=== PATIENT | male | born 1945 | race Caucasian/White ===

== ENCOUNTER → 2017-01-21 | Outpatient (CLI) | payer BC ==
[~2017-01-21] MED LIST: AMLO-110 PO; ASPI81TA28 PO; ATOR-24 PO; BROM0.0911 OPR; CARV12.5 PO; CEPH-571 PO; CHLO1LIQ21 PO; CHOL2000 PO; CLEAR LAX PO; CYAN100020 PO; DEXT30TA7 PO; FLUT27.5 NAE; GLIM1TAB2 PO; HYZ/10015 PO; LEVO100T PO; LORA0.5T12 PO; METF-383 PO; NTRGSL/4 UT; NVLGI7030 SC; PANT1TAB48 PO; PANT20TA2 PO; PRED1SUS3 OPR; PSYL0.524 PO; SILD100T PO; SIMV40TA4 PO; TRAZ100T29 PO
[2017-01-21 12:18] LABS: HEMATOCRIT 45.5 % (42-52); MEAN CELL VOLUME 89.6 fL (80-100); MEAN CORPUSCULAR HEMOGLOBIN 29.5 pg (25-34); MEAN PLATELET VOLUME 10.1 fL (7.4-10.4); PLATELET COUNT 186 K/uL (130-400); RED BLOOD COUNT 5.08 M/uL (4.7-6.1); WHITE BLOOD COUNT 8.88 K/uL (4.8-10.8)
[2017-01-21 12:25] LABS: URINE APPEARANCE CLEAR (CLEAR); URINE BILIRUBIN NEG (NEG); URINE COLOR YELLOW; URINE NITRITE NEG (NEG); URINE PH 6.5 (4.5-7.5); URINE SPECIFIC GRAVITY 1.016 (1.000-1.030); UROBILINOGEN NEG (NEG)
[2017-01-21 12:30] LABS: MANUAL MICROSCOPIC REQUIRED? NO; REVIEW REQ? NO
[2017-01-21 12:37] LABS: BLOOD UREA NITROGEN 22 mg/dl (7-18); BUN/CREATININE RATIO 26.9 (10-20); CALCIUM 9.5 mg/dl (8.5-10.1); CARBON DIOXIDE 27 mmol/L (21-32); CHLORIDE 105 mmol/L (98-107); GLUCOSE 208 mg/dl (70-99); POTASSIUM 4.1 mmol/L (3.5-5.1); SODIUM 142 mmol/L (136-145)
[2017-01-21 12:38] LABS: PHOSPHORUS 2.7 mg/dl (2.5-4.9)
[2017-01-21 12:53] LABS: URINE PROTIEN/CREAT RATIO 1.1 (0-0.2); URINE TOTAL PROTEIN 69.7 mg/dl (0-11.9)
== END | disposition home or self-care (01) ==
LOC: C.LABBFT 09:17
PROVIDERS: ATTEND Internal Medicine Nephrology
DX: I12.9 Hypertensive chronic kidney disease with stage 1 through stage 4 chronic kidney disease, or unspecified chronic kidney disease (principal); R80.9 Proteinuria, unspecified; E55.9 Vitamin D deficiency, unspecified; N18.2 Chronic kidney disease, stage 2 (mild); R60.9 Edema, unspecified

== ENCOUNTER → 2017-04-12 | Outpatient (CLI) | payer BC ==
[2017-04-12 13:19] LABS: ESTIMATED AVERAGE GLUCOSE 166 mg/dl; HA1C FLAG Normal (Normal)
[2017-04-12 13:24] LABS: THYROID STIMULATING HORMONE 1.26 uIu/ml (0.300-4.500)
== END | disposition home or self-care (01) ==
LOC: C.LABBFT 10:03
PROVIDERS: ATTEND Internal Medicine
DX: E03.9 Hypothyroidism, unspecified (principal); E11.49 Type 2 diabetes mellitus with other diabetic neurological complication

== ENCOUNTER → 2017-06-29 | Day surgery (SDC) | payer BC ==
[2017-06-15 11:50] VITALS: Ht 172.7 cm; Wt 95.5 kg
[~2017-06-29] VITALS: Ht 172.7 cm; Wt 95.5 kg
[~2017-06-29] MED LIST changes: +ATROPINE SULFATE 0.1 MG/ML 5ML SYR IV PRN; -BROM0.0911 OPR; +EpHEDrine SULFATE INJ 50 MG/ML AMP IV PRN; -FLUT27.5 NAE; +LIDOCAINE HCL 2% 2 ML VIAL (20MG/ML) ONE; -LORA0.5T12 PO; +MIDAZOLAM HCL 1 MG/ML 2ML VIAL ONE; +ONDANSETRON INJ 2 MG/ML 2 ML VIAL ONE; +PANT20TA PO; -PANT20TA2 PO; -PRED1SUS3 OPR; +PROPOFOL IV EMULSION 10 MG/ML 20 ML VIAL IV ONE; -PSYL0.524 PO; -SIMV40TA4 PO; +SODIUM CHLORIDE 0.9% 500ML 500 ML IV ONE; -TRAZ100T29 PO
--- NOTE | 2017-06-29 09:01 | Endo History and Physical ---
History & Physical Date of Service: Jun 29, 2017. Chief Complaint: Screening, hx polyps Referring Physician: Dao Ryan History of Present Illness 71 yo CM who presents for colonoscopy secondary to history of colon polyps. Past Surgical History Hx Cardiac Surgery: Yes (LT CAROTID ENDARTERECTOMY) Hx Internal Defibrillator: No Hx Pacemaker: No Hx Abdominal Surgery: Yes (UMBILICAL HERNIA REPAIR) Hx of Implantable Prosthesis: No Hx Post-Op Nausea and Vomiting: No Hx Cancer Surgery: No Hx Thoracic Surgery: No Hx Orthopedic: Yes (LT WRIST SURGERY S/P BREAK) Hx Urinary Tract Surgery: No Family History None Social History Smoking Status: Never Smoker Hx Substance Use: No Hx Alcohol Use: No Allergies Coded Allergies: Gadolinium (Verified Allergy, Severe, ANAPHYLAXIS, 06/15/17) Iodinated Diagnostic Agents (Verified Allergy, Severe, ANAPHYLAXIS, ) THROAT SWELLING AFTER RECEIVING IDONATED CONTRAST MEDIA Current Medications Reported Home Medications Medications Dose Route/Sig Max Daily Dose Days Date Category Dose Instructions Robitussin Nighttime Coug 1-7.5 mg/5Ml (Chlorpheniramine-Dm) 1 Liq Liq 1 Dose PO UD PRN 06/15/17 Reported Lipitor (Atorvastatin Calcium) 40 Mg Tab 40 Mg PO HS 06/15/17 Reported [Clear Lax] 1 Tbs PO DAILY PRN 06/15/17 Reported Glimepiride 1 Mg Tab 1 Tab PO QAM 06/15/17 Reported Mucinex Dm (Dextromethorphan-Guaifenesin) 1 Tab Tab 1 Tab PO Q12 PRN 10/01/16 Reported Vitamin D3 (Cholecalciferol) 2,000 Unit Cap 1 Cap PO DAILY AT LUNCH 10/01/16 Reported Vitamin B12 (Cyanocobalamin) 1,000 Mcg Tab 1 Tab PO DAILY AT LUNCH 10/01/16 Reported Viagra (Sildenafil Citrate) 100 Mg Tab 100 Mg PO PRN 10/01/16 Reported Novolog Mix 70/30 (Insulin Aspart Prota 70%/Aspart 30%) Susp 45 Units SC BID 10/01/16 Reported Norvasc (Amlodipine Besylate) 5 Mg Tab 5 Mg PO QAM 04/17/16 Reported Hyzaar 25MG/100MG (HCTZ/Losartan Potassium) Tab 1 Tab PO LUNCH 04/17/16 Reported Nitrostat (Nitroglycerin) 0.4 Mg Tab 0.4 Mg UT PRN PRN 11/14/13 Reported Protonix (Pantoprazole) 40 Mg Tab 40 Mg PO HS 08/22/13 Reported Glucophage (Metformin Hcl) 850 Mg Tab 850 Mg PO BIDM 08/22/13 Reported Synthroid (Levothyroxine Sodium) 100 Mcg Tab 100 Mcg PO 6XWK 08/22/13 Reported PT DOES NOT TAKE ON WEDNESDAY Coreg (Carvedilol) 12.5 Mg Tab 12.5 Mg PO BIDM 08/22/13 Reported Aspirin Ec (Aspirin) 81 Mg Tab 81 Mg PO HS 08/22/13 Reported Vital Signs Weight (Kilograms): 95.45 Height (Feet): 5 Height (Inches): 8 Physical Exam General Appearance: WD/WN, no apparent distress Respiratory/Chest: Auscultation: breath sounds normal Cardiovascular: Heart Auscultation: RRR Abdomen: Bowel Sounds: normal Inspection & Palpation: soft, non-distended, no tenderness, guarding & rebound Assessment and Plan Assessment: 71 yo CM who presents for colonoscopy secondary to history of colon polyps. Plan: Proceed with colonoscopy.
--- NOTE | 2017-06-29 09:42 | Discharge Instructions ---
Endoscopy Patient Instructions Date / Procedure(s) Performed Jun 29, 2017. Colonoscopy Allergy Information Coded Allergies: Gadolinium (Verified Allergy, Severe, ANAPHYLAXIS, 06/15/17) Iodinated Diagnostic Agents (Verified Allergy, Severe, ANAPHYLAXIS, ) THROAT SWELLING AFTER RECEIVING IDONATED CONTRAST MEDIA Discharge Date / Findings Jun 29, 2017. Colon polyps Rectal polyps Internal hemorrhoids Medication Instructions Stopped Medication(s): Metformin, Glimiperide OK to resume all medications today as prescribed Reported Home Medications Medications Dose Route/Sig Max Daily Dose Days Date Category Dose Instructions Robitussin Nighttime Coug 1-7.5 mg/5Ml (Chlorpheniramine-Dm) 1 Liq Liq 1 Dose PO UD PRN 06/15/17 Reported Lipitor (Atorvastatin Calcium) 40 Mg Tab 40 Mg PO HS 06/15/17 Reported [Clear Lax] 1 Tbs PO DAILY PRN 06/15/17 Reported Glimepiride 1 Mg Tab 1 Tab PO QAM 06/15/17 Reported Mucinex Dm (Dextromethorphan-Guaifenesin) 1 Tab Tab 1 Tab PO Q12 PRN 10/01/16 Reported Vitamin D3 (Cholecalciferol) 2,000 Unit Cap 1 Cap PO DAILY AT LUNCH 10/01/16 Reported Vitamin B12 (Cyanocobalamin) 1,000 Mcg Tab 1 Tab PO DAILY AT LUNCH 10/01/16 Reported Viagra (Sildenafil Citrate) 100 Mg Tab 100 Mg PO PRN 10/01/16 Reported Novolog Mix 70/30 (Insulin Aspart Prota 70%/Aspart 30%) Susp 45 Units SC BID 10/01/16 Reported Norvasc (Amlodipine Besylate) 5 Mg Tab 5 Mg PO QAM 04/17/16 Reported Hyzaar 25MG/100MG (HCTZ/Losartan Potassium) Tab 1 Tab PO LUNCH 04/17/16 Reported Nitrostat (Nitroglycerin) 0.4 Mg Tab 0.4 Mg UT PRN PRN 11/14/13 Reported Protonix (Pantoprazole) 40 Mg Tab 40 Mg PO HS 08/22/13 Reported Glucophage (Metformin Hcl) 850 Mg Tab 850 Mg PO BIDM 08/22/13 Reported Synthroid (Levothyroxine Sodium) 100 Mcg Tab 100 Mcg PO 6XWK 08/22/13 Reported PT DOES NOT TAKE ON WEDNESDAY Coreg (Carvedilol) 12.5 Mg Tab 12.5 Mg PO BIDM 08/22/13 Reported Aspirin Ec (Aspirin) 81 Mg Tab 81 Mg PO HS 08/22/13 Reported Provider Instructions Activity Restrictions - No exercising or heavy lifting for 24 hours. - Do not drink alcohol the day of the procedure. - Do not drive a car or operate machinery until the day after the procedure. - Do not make any important decisions or sign important papers in 24 hours after the procedure. Following Day: - Return to full activity which may include returning to work/school. Diet Start your diet with liquids and light foods (jello, soup, juice, toast). Then eat your usual diet if not nauseated. Treatment For Common After Affects For mild abdominal pain, bloating, or excessive gas: - Rest - Eat lightly - Lie on right side Follow-Up Information Follow-up with Dao Ryan as scheduled Anesthesia Information What You Should Know You have had a procedure that required some medicine to reduce anxiety and discomfort. This treatment is called moderate sedation. After receiving the treatment, you may be sleepy, but you will be able to breathe on your own. The effects of the treatment may last for several hours. Follow these instructions along with Activity/Diet recommendations noted above: * Do NOT do anything where dizziness or clumsiness would be dangerous. * Rest quietly at home today, then you can be up and about tomorrow. * Have a responsible person stay with you the rest of today. * You may have had an I.V. today. If so, you may take the dressing off later today. Recommendations Call your doctor if: * Trouble breathing * Continuous vomiting for more than 24 hours * Temperature above 101 degrees * Severe abdominal pain or bloating * Pain not relieved by pain medicine ordered * There is increased drainage or redness from any incision * A large amount of rectal bleeding greater than 2-3 tablespoons. (If you had a polyp/s removed or have hemorrhoids, a small amount of blood - from the rectum is to be expected.) * You have any unanswered questions or concerns. IN THE EVENT OF A SERIOUS EMERGENCY, GO TO THE NEAREST EMERGENCY ROOM Your discharge instructions were prepared by provider Husam Jain. Patient Instructions Signature Page Calvin Reyez Patient (or Guardian) Signature/Date: I have read and understand the instructions given to me by my caregivers. Caregiver/RN/Doctor Signature/Date: The above-named patient and/or guardian has received patient instructions on this date. + Original Patient Signature Page (only) stays with chart. Please make copy for patient.
--- NOTE | 2017-06-29 09:52 | GI REPORT ---
Procedure Date: 06/29/2017 9:03 AM Procedure: Colonoscopy Indications: High risk colon cancer surveillance: Personal history of colonic polyps Medicines: Monitored Anesthesia Care Complications: No immediate complications. Estimated Blood Loss: Estimated blood loss: none. Procedure: Pre-Anesthesia Assessment: - Prior to the procedure, a History and Physical was performed, and patient medications and allergies were reviewed. The patient's tolerance of previous anesthesia was also reviewed. The risks and benefits of the procedure and the sedation options and risks were discussed with the patient. All questions were answered, and informed consent was obtained. Prior Anticoagulants: The patient has taken aspirin, last dose was 2 days prior to procedure. ASA Grade Assessment: IV - A patient with severe systemic disease that is a constant threat to life. After reviewing the risks and benefits, the patient was deemed in satisfactory condition to undergo the procedure. After I obtained informed consent, the scope was passed under direct vision. Throughout the procedure, the patient's blood pressure, pulse, and oxygen saturations were monitored continuously. The scope was introduced through the anus and advanced to the cecum, identified by appendiceal orifice and ileocecal valve. The colonoscopy was performed without difficulty. The patient tolerated the procedure well. The quality of the bowel preparation was good. The ileocecal valve, appendiceal orifice, and rectum were photographed. Findings: Five sessile polyps were found in the rectum, in the transverse colon and in the ascending colon. The polyps were 3 to 7 mm in size. These polyps were removed with a hot snare. Resection was complete, but the polyp tissue was only partially retrieved. Internal hemorrhoids were found during retroflexion. The hemorrhoids were small. Impression: - Five 3 to 7 mm polyps in the rectum, in the transverse colon and in the ascending colon, removed with a hot snare. Complete resection. Partial retrieval. - Internal hemorrhoids. Recommendation: - Resume previous diet. - Continue present medications. - Repeat colonoscopy for surveillance based on pathology results. - Return to primary care physician as previously scheduled. Husam Jain DO 06/29/2017 9:52:21 AM This report has been signed electronically. Note Initiated On: 06/29/2017 9:03 AM I attest to the content of the Intraoperative Record and orders documented therein, exceptions below
[2017-06-29 10:20] VITALS: BP 153/80; PULSE 64; O2SAT 92
--- NOTE | 2017-06-29 10:22 | Anesthesiology Progress Note ---
Anesthesia Post Op Note Date & Time Jun 29, 2017 at 10:22 Vital Signs Pain Intensity: 0 Vital Signs Past 12 Hours Date Time Temp Pulse Resp B/P (MAP) Pulse Ox O2 Delivery O2 Flow Rate FiO2 06/29/17 10:20 64 20 153/80 (104) 92 Room Air 06/29/17 10:05 56 20 140/67 (91) 98 Room Air 06/29/17 09:49 55 20 108/52 95 Mask 5 06/29/17 09:49 55 20 108/52 (70) 98 Room Air 06/29/17 08:55 36.4 71 20 169/83 (111) 95 Room Air Notes Mental Status: alert / awake / arousable, participated in evaluation Pt Amnestic to Procedure: Yes Nausea / Vomiting: adequately controlled Pain: adequately controlled Airway Patency, RR, SpO2: stable & adequate BP & HR: stable & adequate Hydration State: stable & adequate Anesthetic Complications: no major complications apparent
== END | disposition home or self-care (01) ==
LOC: C.GI 08:29
PROVIDERS: ATTEND Internal Medicine
DX: Z12.11 Encounter for screening for malignant neoplasm of colon (principal); D12.2 Benign neoplasm of ascending colon; D12.3 Benign neoplasm of transverse colon; K64.8 Other hemorrhoids; K62.1 Rectal polyp; Z86.010 Personal history of colon polyps; Z79.82 Long term (current) use of aspirin; Z79.899 Other long term (current) drug therapy

== ENCOUNTER → 2017-07-23 | Outpatient (CLI) | payer BC ==
[~2017-07-23] MED LIST changes: -ATROPINE SULFATE 0.1 MG/ML 5ML SYR IV PRN; -EpHEDrine SULFATE INJ 50 MG/ML AMP IV PRN; -LIDOCAINE HCL 2% 2 ML VIAL (20MG/ML) ONE; -MIDAZOLAM HCL 1 MG/ML 2ML VIAL ONE; -ONDANSETRON INJ 2 MG/ML 2 ML VIAL ONE; -PROPOFOL IV EMULSION 10 MG/ML 20 ML VIAL IV ONE; -SODIUM CHLORIDE 0.9% 500ML 500 ML IV ONE
[2017-07-23 12:48] LABS: HEMATOCRIT 46.6 % (42-52); MEAN CELL VOLUME 89.3 fL (80-100); MEAN CORPUSCULAR HEMOGLOBIN 28.7 pg (25-34); MEAN CORPUSCULAR HGB CONC 32.2 g/dl (32-36); MEAN PLATELET VOLUME 9.7 fL (7.4-10.4); PLATELET COUNT 192 K/uL (130-400); RED BLOOD COUNT 5.22 M/uL (4.7-6.1); WHITE BLOOD COUNT 8.23 K/uL (4.8-10.8)
[2017-07-23 12:55] LABS: URINE APPEARANCE CLEAR (CLEAR); URINE BILIRUBIN NEG (NEG); URINE COLOR YELLOW; URINE EPITHELIAL CELL AUTO 0-5 /lpf (0-5); URINE NITRITE NEG (NEG); URINE PH 5.5 (4.5-7.5); URINE SPECIFIC GRAVITY 1.017 (1.000-1.030); UROBILINOGEN NEG (NEG)
[2017-07-23 12:59] LABS: MANUAL MICROSCOPIC REQUIRED? NO; REVIEW REQ? NO
[2017-07-23 13:03] LABS: BLOOD UREA NITROGEN 26 mg/dl (7-18); CREATININE 0.76 mg/dl (0.60-1.40); GLUCOSE 178 mg/dl (70-99)
[2017-07-23 13:04] LABS: ALT/SGPT 31 U/L (12-78); AST/SGOT 27 U/L (15-37); CALCIUM 9.4 mg/dl (8.5-10.1); CARBON DIOXIDE 27 mmol/L (21-32); CHLORIDE 106 mmol/L (98-107); CHOLESTEROL 112 mg/dl (0-200); POTASSIUM 4.2 mmol/L (3.5-5.1); SODIUM 141 mmol/L (136-145)
[2017-07-23 13:05] LABS: ESTIMATED AVERAGE GLUCOSE 166 mg/dl; HA1C FLAG Normal (Normal)
[2017-07-23 13:06] LABS: ALB/GLOB RATIO 0.7 (0.9-2); ALKALINE PHOSPHATASE 90 U/L (45-117); CHOLESTEROL/HDL RATIO 2.7; HDL CHOLESTEROL 41 mg/dl; LDL CHOLESTEROL CALCULATED 40 mg/dl; TRIGLYCERIDES 155 mg/dl (0-150); VERY LOW DENSITY LIPOPROT CALC 31 mg/dl
[2017-07-23 13:18] LABS: URINE PROTIEN/CREAT RATIO 1.3 (0-0.2); URINE TOTAL PROTEIN 58.1 mg/dl (0-11.9)
== END | disposition home or self-care (01) ==
LOC: C.LABBFT 09:07
PROVIDERS: ATTEND Internal Medicine Nephrology
DX: I12.9 Hypertensive chronic kidney disease with stage 1 through stage 4 chronic kidney disease, or unspecified chronic kidney disease (principal); R80.9 Proteinuria, unspecified; E55.9 Vitamin D deficiency, unspecified; N18.2 Chronic kidney disease, stage 2 (mild); R60.9 Edema, unspecified; E11.9 Type 2 diabetes mellitus without complications

== ENCOUNTER 2017-07-25 17:05 | Emergency (ER) | payer BC ==
[~2017-07-25] VITALS: Ht 170.2 cm; Wt 99.8 kg
[~2017-07-25 17:05] MED LIST changes: -CEPH-571 PO; -PANT20TA PO
[2017-07-25 17:09] VITALS: Ht 170.2 cm; Wt 99.8 kg
--- NOTE | 2017-07-25 17:30 | EMERGENCY ROOM VISIT NOTE ---
History Report prepared by Mirza: David Cueto Under the Supervision of: Dr. Memo Alfaro M.D. First contact with patient: 17:13 Chief Complaint: SWELLING TO EXTREMITY Stated Complaint: SWOLLEN R SIDE OF FACE NECK, AFTER EATING GRAPES History of Present Illness The patient is a 71 year old white male with a past medical history of diabetes and hypertension who presents to the ED with a cc of swelling to the right side of his face beginning 1 hour ago. Positive ability to swallow. Negative ear pain , shortness of breath, rash, nausea, or vomiting. At this time, the patient was eating grapes when his face began to swell. He has had no recent changes to his medications, new medications, or recent antibiotic use. He does not have any known food allergies. He denies any new soaps/detergents. Source of History: patient Onset: 1 hour ago Position: other (Right face) Symptom Intensity: moderate Quality: other (Swelling) Timing: constant Associated Symptoms: No sorethroat, No SOB, No nausea, No vomiting, No rash Note: He is able to swallow. Review of Systems See HPI for pertinent positives and negatives. A total of ten systems were reviewed and were otherwise negative. Past Medical & Surgical Medical Problems: (1) Diabetes (2) Hypertension Family History FH: cancer Social History Smoking Status: Never Smoker Drug Use: none Marital Status: Housing Status: lives with family Occupation Status: retired Current/Historical Medications Scheduled Amlodipine (Norvasc), 5 MG PO QAM Aspirin (Aspirin Ec), 81 MG PO HS Atorvastatin (Lipitor), 40 MG PO HS Carvedilol (Coreg), 12.5 MG PO BIDM Cephalexin (Keflex), 1 CAP PO TID Cholecalciferol (Vitamin D3), 1 CAP PO DAILY AT LUNCH Cyanocobalamin (Vitamin B12), 1 TAB PO DAILY AT LUNCH Glimepiride (Glimepiride), 1 TAB PO QAM Hctz/Losartan (Hyzaar 25MG/100MG), 1 TAB PO LUNCH Insulin Aspart 70/30 (Novolog Mix 70/30), 45 UNITS SC BID Levothyroxine Sodium (Synthroid), 100 MCG PO 6XWK Metformin Hcl (Glucophage), 850 MG PO BIDM Sildenafil Citrate (Viagra), 100 MG PO PRN Scheduled PRN Chlorpheniramine-Dm (Robitussin Nighttime Coug 1-7.5 mg/5Ml), 1 DOSE PO UD PRN for Cough Dextromethorphan-Guaifenesin (Mucinex Dm), 1 TAB PO Q12 PRN for COLD SYMPTOMS Nitroglycerin (Nitrostat), 0.4 MG UT PRN PRN for Chest Pain Pantoprazole Sodium (Protonix), 20 MG PO DAILY PRN for Dyspepsia [Clear Lax], 1 TBS PO DAILY PRN for Constipation Allergies Coded Allergies: Gadolinium (Verified Allergy, Severe, ANAPHYLAXIS, 07/25/17) Iodinated Diagnostic Agents (Verified Allergy, Severe, ANAPHYLAXIS, ) THROAT SWELLING AFTER RECEIVING IDONATED CONTRAST MEDIA Physical Exam Vital Signs Date Time Temp Pulse Resp B/P (MAP) Pulse Ox O2 Delivery O2 Flow Rate FiO2 07/25/17 21:20 36.7 60 18 147/77 95 07/25/17 20:56 60 18 147/77 95 Room Air 07/25/17 19:25 63 18 145/71 95 Room Air 07/25/17 18:46 60 18 183/69 95 Room Air 07/25/17 17:09 36.7 88 18 203/71 95 Room Air Physical Exam GENERAL: Awake, alert, well-appearing, NAD HENT: Normocephalic, atraumatic. Posterior oropharynx is clear. No uvular deviation, posterior pharyngeal swelling, or exudate.No swelling to the submental or sublingual area. Normal dentition. EYES: Normal conjunctiva. Sclera non-icteric. NECK: Supple. No nuchal rigidity. FROM. Swelling to the right lateral neck and mandibular area. No tenderness or erythema. No stridor. RESPIRATORY: CTAB, no rhonchi, wheezing, crackles CARDIAC: RRR, no MRG ABDOMEN: Soft, NTND, BS+ MSK: No chest wall TTP, no LE edema NEURO: GCS 15, CN 2-12 intact, moves all 4s on command SKIN: No rash or jaundice noted. Medical Decision & Procedures ER Provider Diagnostic Interpretation: Radiology results as stated below per my review and radiologist interpretation: SOFT TISSUE NECK WITH HISTORY: 71 years-old Male R sided mandib/neck swelling; ?siaolith acute right-sided mandibular and neck soft tissue swelling with questioned sialoadenitis. COMPARISON: None available TECHNIQUE: Multiple axial CT images of the soft tissues of the neck were obtained following the intravenous administration of 116 mL Optiray 320. A dose lowering technique was used consistent with the principals of GLORIA. FINDINGS: The nasopharynx, oropharynx and hypopharynx are patent. Note is made of medial retropharyngeal course of the bilateral internal carotid arteries which demonstrate moderate atherosclerotic vascular disease. These findings are most pronounced in the left where there appears to be moderate to high-grade stenosis of the left ICA seen on image 147 series 3. Preglottic fat is maintained. There is asymmetry of the glottis with thickened redundant right true vocal fold alternatively a focal soft tissue lesion, 9 x 8 mm seen on image 241 of series 3. There is asymmetric mild enlargement of the right parotid gland with mild surrounding inflammatory stranding. There is a 2 x 2 mm calculus noted along the anterior aspect of the superficial right parotid lobe seen on image 129 of series 3 which may be within the proximal portion of the parotid duct (Stensen duct). No focal parotid mass identified. Submandibular and sublingual glands are symmetric and within normal limits. No significant adenopathy about the neck. Lung apices are generally clear. Image intracranial structures demonstrate no acute abnormality. There is apparent thrombosis or high-grade stenosis of the distal right vertebral artery with reconstitution of flow noted distal to the right PICA. These findings are seen on image 93 of the axial series and image 73. The left vertebral artery is dominant. Multilevel severe intervertebral disc space narrowing, uncovertebral spurring and facet arthropathy of the cervical spine. IMPRESSION: 1. 2 x 2 mm calculus of the anterior aspect right superficial parotid lobe as above is likely within the proximal portion of the parotid duct (Stensen duct) as there is associated asymmetric enlargement with surrounding inflammatory stranding of the right parotid gland suggesting associated sialoadenitis. 2. Medial retropharyngeal course of the bilateral atherosclerotic internal carotid arteries. Moderate to high-grade stenosis of the left internal carotid artery as above. There is high-grade stenosis or occlusion of the distal right vertebral artery with reconstitution of flow noted distal to the right PICA as above. 3. Redundant thickened true vocal fold on the right versus a focal glottic nodule as above. Correlate with clinical history and possibly direct visualization if clinically indicated. The above report was generated using voice recognition software. It may contain grammatical, syntax or spelling errors. Electronically signed by: Segun Parra M.D. 07/25/2017 8:24 PM Dictated Date/Time: 07/25/2017 8:12 PM Laboratory Results 07/25/17 17:45 Red Blood Count 5.08, Mean Corpuscular Volume 89.0, Mean Corpuscular Hemoglobin 28.3, Mean Corpuscular Hemoglobin Concent 31.9, Mean Platelet Volume 9.4, Neutrophils (%) (Auto) 63.0, Lymphocytes (%) (Auto) 26.6, Monocytes (%) (Auto) 8.3, Eosinophils (%) (Auto) 1.5, Basophils (%) (Auto) 0.2, Neutrophils # (Auto) 6.51, Lymphocytes # (Auto) 2.74, Monocytes # (Auto) 0.86, Eosinophils # (Auto) 0.15, Basophils # (Auto) 0.02 07/25/17 17:45 Test 07/25/17 17:45 White Blood Count 10.32 K/uL (4.8-10.8) Red Blood Count 5.08 M/uL (4.7-6.1) Hemoglobin 14.4 g/dL (14.0-18.0) Hematocrit 45.2 % (42-52) Mean Corpuscular Volume 89.0 fL (80-100) Mean Corpuscular Hemoglobin 28.3 pg (25-34) Mean Corpuscular Hemoglobin Concent 31.9 g/dl (32-36) Platelet Count 178 K/uL (130-400) Mean Platelet Volume 9.4 fL (7.4-10.4) Neutrophils (%) (Auto) 63.0 % Lymphocytes (%) (Auto) 26.6 % Monocytes (%) (Auto) 8.3 % Eosinophils (%) (Auto) 1.5 % Basophils (%) (Auto) 0.2 % Neutrophils # (Auto) 6.51 K/uL (1.4-6.5) Lymphocytes # (Auto) 2.74 K/uL (1.2-3.4) Monocytes # (Auto) 0.86 K/uL (0.11-0.59) Eosinophils # (Auto) 0.15 K/uL (0-0.5) Basophils # (Auto) 0.02 K/uL (0-0.2) RDW Standard Deviation 48.0 fL (36.4-46.3) RDW Coefficient of Variation 14.8 % (11.5-14.5) Immature Granulocyte % (Auto) 0.4 % Immature Granulocyte # (Auto) 0.04 K/uL (0.00-0.02) Anion Gap 11.0 mmol/L (3-11) Est Creatinine Clear Calc Drug Dose 49.4 ml/min Estimated GFR () 52.8 Estimated GFR (Non- 45.5 BUN/Creatinine Ratio 18.1 (10-20) Calcium Level 8.8 mg/dl (8.5-10.1) Laboratory results reviewed by me Medications Administered Medications (Trade) Dose Ordered Sig/Nighat Route Start Time Stop Time Status Last Admin Dose Admin Methylprednisolone Sodium Succinate (Solu-Medrol IV) 125 mg NOW STAT IV 07/25/17 18:31 07/25/17 18:32 DC 07/25/17 18:39 125 MG Diphenhydramine HCl (Benadryl Inj) 25 mg NOW STAT IV 07/25/17 18:31 07/25/17 18:32 DC 07/25/17 18:39 25 MG Sodium Chloride 500 ml @ 500 mls/hr Q1H STAT IV 07/25/17 19:08 07/25/17 20:07 DC 07/25/17 19:19 500 MLS/HR ED Course 1713: The patient was evaluated in room B11B. A complete history and physical exam was performed. 2109: I reevaluated the patient. Discussed results and discharge instructions: He verbalized understanding and agreement. The patient is ready for discharge. Medical Decision The patient is a 71 year old white male with a past medical history of diabetes and hypertension who presents to the ED with a cc of swelling to the right side of his face beginning 1 hour ago. Positive ability to swallow. Negative ear pain , shortness of breath, or rash. Differential diagnoses include abscess, allergic reaction, and sialolith. Patient was seen and evaluated the bedside. Patient noted that while he was eating grapes that he had some swelling to the right lateral portion of his neck and mandible. Patient denies any trauma. Also denied any difficulty with swallowing or with breathing, or shortness of breath. Patient has not had no recent changes in medications. Patient does not take any antibiotics. No changes in creams, detergents, or other substances. Patient denies any new dietary changes. Patient did say he had a gadolinium contrast allergy however I spoke with CT and there was also listed and iodinated contrast allergy. Patient was premedicated with Solu-Medrol and Benadryl. Patient had blood work as well as a CT soft tissue neck completed. Patient did have a noted 2 mm x 2 mm stone was seen on CT. Patient was stating was already feeling improved. Given the patient's CK D, diabetes, hypertension told the patient that he could do warm compresses as well as sialagogues and Tylenol. Patient was given a referral to ENT if this becomes a more persistent issue. Patient was also given a prescription for Keflex as a precautionary measure. Patient was informed of his arterial stenosis. Patient stated he is seen Dr. Swann in the past for similar issues. I did encourage him to follow-up with his PCP as well as his vascular surgeon to review the studies. Patient does not have any neurologic symptoms at this time, any time prior or during his hospital visit. Patient was given strict follow-up, discharge, and return precautions. Patient agreed with plan of care and patient was safely discharged home. Medication Reconcilliation Current Medication List: was personally reviewed by me Blood Pressure Screening Patient's blood pressure: Elevated blood pressure Blood pressure disposition: Elevated BP felt to be situational Impression Primary Impression: Neck swelling Additional Impression: Sialoadenitis Scribe Attestation The scribe's documentation has been prepared under my direction and personally reviewed by me in its entirety. I confirm that the note above accurately reflects all work, treatment, procedures, and medical decision making performed by me. Departure Information Dispostion Home / Self-Care Prescriptions Cephalexin (KEFLEX) 500 Mg Cap 1 CAP PO TID for 7 Days, #21 CAP Prov: Memo Alfaro M.D. 07/25/17 Referrals Dao Ryan M.D. (PCP) Nakul Macdonald M.D. Ji Swann M.D. Forms HOME CARE DOCUMENTATION FORM, IMPORTANT VISIT INFORMATION, WORK / SCHOOL INSTRUCTIONS Patient Instructions My [facility] Additional Instructions Please return to the emergency department if you have worsening or recurrent symptoms not amenable to at-home treatment. Please call for a follow-up appointment with her primary care physician. Please take your medications as prescribed. If you have other concerns and/or complaints please feel free to also call your primary care physician's office or return the ED for further evaluation, management, and treatment. You may take 600 mg Ibuprofen every 6 hours as needed for pain with food for no more than 2 consecutive days. You may take tylenol 1000mg every 6 hours as needed for pain. You may take motrin and tylenol separately or at the same time. Conservative management is the mainstay of treatment in the majority of patients presenting to a primary director long term care. Patients should be instructed to keep well hydrated, apply moist heat to the involved area, massage the gland , and "milk" the duct. Lozenges, which promote ductal secretions, are often helpful (examples include tart hard candies such as lemon drops). These should be used throughout the day as often as tolerated by the patient. If possible, patients should discontinue medications with anticholinergic effects that reduce salivary flow, such as benadryl. If superinfection is suspected because of increasing pain, fever, or purulent drainage from the duct, antistaphylococcal antibiotics such as dicloxacillin or cephalexin 500 mg four times a day should be administered for 7 to 10 days. When possible, surgical intervention is typically avoided during acute infection. Patients without evidence of infection but who have persistent symptoms and/or obstruction lasting more than a few days should be referred for specialist management; this can be done on a non-urgent basis if symptoms permit. If this changes, please call Dr. Macdonald's office. Patients with frequently recurrent symptoms or recurrent episodes of sialadenitis should also be referred for specialist management. Generally speaking, stones less than 2 mm in diameter can often be treated without a surgical approach as smaller stones can typically pass with the assistance of ductal dilatation alone. The ductal anatomy (see 'Anatomy' above) , stone size, and location of the stone determine the type of treatment. Please call Dr. Swann's office for follow up. Your CT showed: Medial retropharyngeal course of the bilateral atherosclerotic internal carotid arteries. Moderate to high-grade stenosis of the left internal carotid artery as above. There is high-grade stenosis or occlusion of the distal right vertebral artery with reconstitution of flow noted distal to the right PICA as above. You have been examined and treated today on an emergency basis only. This is not a substitute for, or an effort to provide, complete comprehensive medical care. It is impossible to recognize and treat all injuries or illnesses in a single emergency department visit. It is therefore important that you follow up closely with [facility]. Call as soon as possible for an appointment. Thank you for your time and consideration. I look forward to speaking with you again soon. Please don't hesitate to call us if you have any questions. Problem Qualifiers
[2017-07-25] MEDS ORDERED: PANT20TA PO (17:46)
[2017-07-25 17:57] LABS: BASO % 0.2 %; BASO ABS # 0.02 K/uL (0-0.2); COMPLETE YES; EOS % 1.5 %; HEMATOCRIT 45.2 % (42-52); IG% 0.4 %; LYMPH % 26.6 %; LYMPH ABS # 2.74 K/uL (1.2-3.4); MEAN CORPUSCULAR HEMOGLOBIN 28.3 pg (25-34); MEAN CORPUSCULAR HGB CONC 31.9 g/dl (32-36); MEAN PLATELET VOLUME 9.4 fL (7.4-10.4); MONO % 8.3 %; PLATELET COUNT 178 K/uL (130-400); RED BLOOD COUNT 5.08 M/uL (4.7-6.1); WHITE BLOOD COUNT 10.32 K/uL (4.8-10.8)
[2017-07-25 18:16] LABS: BUN/CREATININE RATIO 18.1 (10-20); CALCIUM 8.8 mg/dl (8.5-10.1); CREATININE 1.5 mg/dl (0.60-1.40); POTASSIUM 4.2 mmol/L (3.5-5.1)
[2017-07-25] MEDS ORDERED: METHYLPREDNISOLONE 125 MG VIAL IV STA (18:31)
[2017-07-25] MEDS ORDERED: DiphenhydrAMINE HCL 50 MG/ML VIAL IV STA (18:31)
[2017-07-25] MEDS ORDERED: SODIUM CHLORIDE 0.9% 500ML 500 ML IV STA (19:08)
[2017-07-25] MEDS ORDERED: OPTIRAY 320 IV PRN (19:45)
--- NOTE | 2017-07-25 20:26 | DIAGNOSTIC IMAGING REPORT ---
SOFT TISSUE NECK WITH HISTORY: 71 years-old Male R sided mandib/neck swelling; ?siaolith acute right-sided mandibular and neck soft tissue swelling with questioned sialoadenitis. COMPARISON: None available TECHNIQUE: Multiple axial CT images of the soft tissues of the neck were obtained following the intravenous administration of 116 mL Optiray 320. A dose lowering technique was used consistent with the principals of GLORIA. FINDINGS: The nasopharynx, oropharynx and hypopharynx are patent. Note is made of medial retropharyngeal course of the bilateral internal carotid arteries which demonstrate moderate atherosclerotic vascular disease. These findings are most pronounced in the left where there appears to be moderate to high-grade stenosis of the left ICA seen on image 147 series 3. Preglottic fat is maintained. There is asymmetry of the glottis with thickened redundant right true vocal fold alternatively a focal soft tissue lesion, 9 x 8 mm seen on image 241 of series 3. There is asymmetric mild enlargement of the right parotid gland with mild surrounding inflammatory stranding. There is a 2 x 2 mm calculus noted along the anterior aspect of the superficial right parotid lobe seen on image 129 of series 3 which may be within the proximal portion of the parotid duct (Stensen duct). No focal parotid mass identified. Submandibular and sublingual glands are symmetric and within normal limits. No significant adenopathy about the neck. Lung apices are generally clear. Image intracranial structures demonstrate no acute abnormality. There is apparent thrombosis or high-grade stenosis of the distal right vertebral artery with reconstitution of flow noted distal to the right PICA. These findings are seen on image 93 of the axial series and image 73. The left vertebral artery is dominant. Multilevel severe intervertebral disc space narrowing, uncovertebral spurring and facet arthropathy of the cervical spine. IMPRESSION: 1. 2 x 2 mm calculus of the anterior aspect right superficial parotid lobe as above is likely within the proximal portion of the parotid duct (Stensen duct) as there is associated asymmetric enlargement with surrounding inflammatory stranding of the right parotid gland suggesting associated sialoadenitis. 2. Medial retropharyngeal course of the bilateral atherosclerotic internal carotid arteries. Moderate to high-grade stenosis of the left internal carotid artery as above. There is high-grade stenosis or occlusion of the distal right vertebral artery with reconstitution of flow noted distal to the right PICA as above. 3. Redundant thickened true vocal fold on the right versus a focal glottic nodule as above. Correlate with clinical history and possibly direct visualization if clinically indicated. The above report was generated using voice recognition software. It may contain grammatical, syntax or spelling errors. Electronically signed by: Segun Parra M.D. 07/25/2017 8:24 PM Dictated Date/Time: 07/25/2017 8:12 PM
[2017-07-25] MEDS ORDERED: CEPH-571 PO (20:59)
[2017-07-25 21:20] VITALS: BP 147/77; PULSE 60; TEMP 36.7; O2SAT 95
== END 2017-07-25 21:32 | disposition home or self-care (01) ==
LOC: C.EDB 17:06
DX: K11.20 Sialoadenitis, unspecified (principal); R22.0 Localized swelling, mass and lump, head; I10 Essential (primary) hypertension; E11.9 Type 2 diabetes mellitus without complications; Z79.82 Long term (current) use of aspirin; Z79.4 Long term (current) use of insulin; Z79.84 Long term (current) use of oral hypoglycemic drugs; Z79.899 Other long term (current) drug therapy; Z80.9 Family history of malignant neoplasm, unspecified

== ENCOUNTER → 2017-07-27 | Outpatient (CLI) | payer BC ==
[~2017-07-27] MED LIST changes: +CEPH-571 PO; -PANT1TAB48 PO; +PANT20TA PO
[2017-07-27 12:46] LABS: BLOOD UREA NITROGEN 33 mg/dl (7-18); BUN/CREATININE RATIO 32.9 (10-20); CALCIUM 8.8 mg/dl (8.5-10.1); CARBON DIOXIDE 30 mmol/L (21-32); CHLORIDE 104 mmol/L (98-107); CREATININE 0.99 mg/dl (0.60-1.40); GLUCOSE 291 mg/dl (70-99); POTASSIUM 4.3 mmol/L (3.5-5.1); SODIUM 139 mmol/L (136-145)
== END | disposition home or self-care (01) ==
LOC: C.LABBFT 10:44
PROVIDERS: ATTEND Physician Assistant Medical
DX: K11.20 Sialoadenitis, unspecified (principal); B99.9 Unspecified infectious disease

== ENCOUNTER → 2017-11-30 | Outpatient (CLI) | payer BC ==
[~2017-11-30] MED LIST changes: -CEPH-571 PO; -PANT20TA PO; +PANT20TA2 PO
[2017-11-30 13:08] LABS: ALBUMIN 3.2 gm/dl (3.4-5.0); BLOOD UREA NITROGEN 27 mg/dl (7-18); CALCIUM 8.9 mg/dl (8.5-10.1); CARBON DIOXIDE 28 mmol/L (21-32); CREATININE 0.98 mg/dl (0.60-1.40); GLUCOSE 215 mg/dl (70-99); SODIUM 139 mmol/L (136-145)
[2017-11-30 13:19] LABS: PHOSPHORUS 2.6 mg/dl (2.5-4.9)
== END | disposition home or self-care (01) ==
LOC: C.LABBFT 09:26
PROVIDERS: ATTEND Internal Medicine Nephrology
DX: R77.1 Abnormality of globulin (principal); E11.21 Type 2 diabetes mellitus with diabetic nephropathy; E03.9 Hypothyroidism, unspecified; I12.9 Hypertensive chronic kidney disease with stage 1 through stage 4 chronic kidney disease, or unspecified chronic kidney disease; E11.22 Type 2 diabetes mellitus with diabetic chronic kidney disease; R80.9 Proteinuria, unspecified; R60.9 Edema, unspecified; N18.2 Chronic kidney disease, stage 2 (mild); E55.9 Vitamin D deficiency, unspecified

== ENCOUNTER → 2018-02-01 | Outpatient (CLI) | payer BC ==
[2018-02-01 12:45] LABS: BLOOD UREA NITROGEN 37 mg/dl (7-18); CALCIUM 9.1 mg/dl (8.5-10.1); CARBON DIOXIDE 28 mmol/L (21-32); CREATININE 1.04 mg/dl (0.60-1.40); GLUCOSE 210 mg/dl (70-99); SODIUM 136 mmol/L (136-145)
== END | disposition home or self-care (01) ==
LOC: C.LABBFT 09:24
PROVIDERS: ATTEND Internal Medicine
DX: I10 Essential (primary) hypertension (principal); R77.1 Abnormality of globulin

== ENCOUNTER → 2018-06-13 | Outpatient (CLI) | payer BC ==
[~2018-06-13] MED LIST changes: -AMLO-110 PO; +AMLO5TAB3 PO
[2018-06-13 13:35] LABS: HEMOGLOBIN A1C 7.8 % (4.5-5.6)
[2018-06-13 13:43] LABS: ALBUMIN 3.4 gm/dl (3.4-5.0); BLOOD UREA NITROGEN 25 mg/dl (7-18); CALCIUM 9.1 mg/dl (8.5-10.1); CARBON DIOXIDE 24 mmol/L (21-32); CREATININE 1.01 mg/dl (0.60-1.40); GLUCOSE 155 mg/dl (70-99); POTASSIUM 4.8 mmol/L (3.5-5.1); SODIUM 140 mmol/L (136-145)
== END | disposition home or self-care (01) ==
LOC: C.LABBFT 08:51
PROVIDERS: ATTEND Internal Medicine
DX: E78.5 Hyperlipidemia, unspecified (principal); E11.21 Type 2 diabetes mellitus with diabetic nephropathy; E03.9 Hypothyroidism, unspecified

== ENCOUNTER 2021-09-19 11:22 | Inpatient (IN) ==
[2021-09-19 12:02] LABS: Basophils # (auto) 0.01 K/uL (0-0.2); Basophils % (auto) 0.2 %; Eosinophils # (auto) 0.03 K/uL (0-0.5); Eosinophils % (auto) 0.5 %; Hematocrit (blood only) 41.9 % (42-52); Hemoglobin 12.8 g/dL (14.0-18.0); Immature Granulocytes # (auto) 0.02 K/uL (0.00-0.02); Immature Granulocytes % (auto) 0.4 %; Lymphocytes # (auto) 1.34 K/uL (1.2-3.4); Lymphocytes % (auto) 24.2 %; Mean Corpuscular Hemoglobin 29.3 pg (25-34); Mean Corpuscular Hgb Conc 30.5 g/dL (32-36); Mean Corpuscular Volume 95.9 fL (80-100); Mean Platelet Volume 11.2 fL (7.4-10.4); Monocytes # (auto) 0.51 K/uL (0.11-0.59); Monocytes % (auto) 9.2 %; Neutrophils # (auto) 3.63 K/uL (1.4-6.5); Neutrophils % (auto) 65.5 %; Platelet Count 117 K/uL (130-400); RDW Coefficient of Variation 15.5 % (11.5-14.5); RDW Standard Deviation 54.7 fL (36.4-46.3); Red Blood Count 4.37 M/uL (4.7-6.1); White Blood Count 5.54 K/uL (4.8-10.8)
[2021-09-19] MEDS ORDERED: SODIUM CHLORIDE 0.9% 1000ML 500 ML IV ONE (12:06)
--- NOTE | 2021-09-19 12:08 | XRay Report ---
XR chest 1V portable HISTORY: 75 years-old Male SOB acute shortness of breath COMPARISON: Chest radiographs 11/22/2019 TECHNIQUE: Portable AP view of the chest FINDINGS: Cardiac silhouette is enlarged. Trace right and small left pleural effusions with left basilar predom inant consolidation. Pulmonary vascular congestion with interstitial coarsening. No pneumothorax. Alonso cified plaque of the thoracic aorta. Degenerative changes of the shoulders and spine. Mild gaseous di stention of the stomach. Mild left hemidiaphragmatic elevation. IMPRESSION: 1. Cardiomegaly with suggested pulmonary edema. 2. Left diaphragmatic elevation with small left and trace right pleural effusions. 3. Left basilar opacities suggest atelectasis versus pneumonitis. ACT 112: Negative or not required by law. The above report was generated using voice recognition software. It may contain grammatical, syntax o r spelling errors. Electronically signed by: Andrzej Parra M.D. 09/19/2021 12:07 PM
[2021-09-19 12:19] LABS: Alanine Aminotransferase 94 U/L (12-78); Albumin Level 2.6 gm/dl (3.4-5.0); Aspartate Aminotransferase 82 U/L (15-37); BUN Creatinine Ratio 44.2 (10-20); Blood Urea Nitrogen 52 mg/dl (7-18); Calcium 8.6 mg/dl (8.5-10.1); Carbon Dioxide 30 mmol/L (21-32); Chloride 112 mmol/L (98-107); Est GFR (African American) 68.6 ml/min; Est GFR (Non-African American) 59.2 ml/min; Glucose 190 mg/dl (70-99); Magnesium 2.2 mg/dl (1.8-2.4); Sodium 147 mmol/L (136-145)
[2021-09-19 12:22] LABS: Partial Thromboplastin Ratio 1.1; Partial Thromboplastin Time 29.6 Seconds (21.0-31.0); Prothrombin Time 10.6 Seconds (9.0-12.0)
[2021-09-19 12:24] LABS: Albumin Globulin Ratio 0.6 (0.9-2); Alkaline Phosphatase 87 U/L (45-117); Bilirubin,Total 0.3 mg/dl (0.2-1); Globulin 4.3 gm/dl (2.5-4.0); Total Protein 6.9 gm/dl (6.4-8.2); Troponin I < 0.015 ng/ml (0-0.045)
--- NOTE | 2021-09-19 12:30 | Emergency Department Note ---
Impression & Plan Bradycardia, CHF (congestive heart failure), Hypoxia, Weakness ED Provider Note NAME: CAREY MEDINA AGE: 75 SEX: M : 1945 ARRIVES VIA: Walk-In INFORMANT: Patient ED PROVIDER(S): Jose Noriega DO CHIEF COMPLAINT: shortness of breath HPI: Patient is a 75-year-old male with a past medical history CAD, insomnia, hypothyroidism, diabetes, asthma who presents the ER for shortness of breath which has been present for the past 24 hours associate with a cough and some congestion. He denies any chest pain. Shortness of breath is worse with lying down. No belly pain, nausea, vomiting, or diarrhea. No dysuria, urgency, or frequency. No other exacerbating or remitting factors. He does note that his heart rate has been on the low side today. This is not typical for him. He denies any dizziness but the offers that he did complain previously of some lightheadedness. ROS: See above HPI for pertinent positives & negatives. A total of 10 systems reviewed and were otherwise negative. PAST MEDICAL HISTORY:See Below PAST SURGICAL HISTORY:See Below FAMILY HISTORY:See Below SOCIAL HISTORY:See Below HOME MEDICATIONS:See Below ALLERGIES:See Below VITALS:See Below PHYSICAL EXAMINATION: GENERAL: Sitting up in bed, alert, chronically ill-appearing, disheveled EYE EXAM: normal conjunctiva. PERRL and EOM's grossly intact. OROPHARYNX: no exudate, no erythema, lips, buccal mucosa, and tongue normal and mucous membranes are moist NECK: supple, no nuchal rigidity, no adenopathy, non-tender LUNGS: Clear to auscultation. Normal chest wall mechanics HEART: no murmurs, S1 normal and S2 normal ABDOMEN: abdomen soft, non-tender, normo-active bowel sounds, no masses, no rebound or guarding. UPPER EXTREMITIES: upper extremities are grossly normal. LOWER EXTREMITIES: No pitting edema. NEURO EXAM: Normal sensorium, cranial nerves II-XII grossly intact, normal speech, no gross weakness of arms, no gross weakness of legs. MEDICAL DECISION MAKING: Patient is a 75-year-old male who presents ER for above-stated complaint. He is found to be bradycardic in the 30s or 40s, hypoxic 85% on room air placed on 2 L nasal cannula and initially slightly hypotensive with systolics in the 90s to 100 which trended up throughout his stay. IV was established blood work was obtained. He remained on the monitor with the pads in place. Code cart was in the room. Labs show no significant leukocytosis or anemia. INR was unrema rkable. BMP with a slightly elevated sodium at 147. Glucose mildly elevated 190. LFTs mild transaminitis. Troponin was negative. Lyme was ordered and negative. EKG was consistent with sinus bradycardia. This was reviewed by Dr. Sneed in the ER. Discussed with hospitalist for further evaluation. He was not given any rate improving medications as he maintained his blood pressures mentation throughout the stay in the ER. Initially held on Lasix due to the soft pressures but upon admission his pressures did trend up and will likely benefit from diuresis. Triage Nursing notes reviewed. Limited review of prior medical records performed Vital Signs: reviewed and remarkable for bradycardia Differential diagnosis: Differential diagnoses includes but is not limited to pneumonia, bronchitis, COPD/Asthma exacerbation, pneumothorax, pulmonary embolism, congestive heart failure, acute coronary syndrome ER treatment provided: See below Diagnostics interpreted by me: ECG: Sinus bradycardia rate of 40 Normal axis Right bundle branch block QTC 441 Cardiac Monitoring: An order was placed for continuous cardiac monitoring. The monitor shows a rate of 37 with sinus rhythm. Laboratory studies: As stated above and show below. Imaging studies: Portable AP upright 1 view of the chest shows cephalization with small pleural effusion and elevation of left diaphragm Consultation(s): Discussed with Dr. Pedrito Sneed from cardiology Discussed with Azeem Mccormick who evaluated patient bedside Procedures: none Critical Care: I have personally spent 32 minutes of critical care time in the direct management of this patient. This includes bedside care, interpretation of diagnostic studies, and testing, discussion with consultants, patient, and family members, and other required patient management activities. This 32 minutes is in excess of all separately billable procedures. Past Med/Surg History Medical History Acrochordon Anxiety Arteriosclerosis of carotid artery Arteriosclerotic cardiovascular disease Asthma Atypical chest pain Chronic kidney disease (CKD), stage II (mild) Colon polyps Diabetes Diabetes with neurologic complications Diabetic nephropathy Dyslipidemia Excessive sweating Gait disturbance Gastroesophageal reflux disease Rachel's thyroiditis History of xsfdmy-ft-yspnemtyw syndrome Hyperglobulinemia Hyperkalemia Hyperlipidemia Hypertension Hypothyroidism Insomnia Internal hemorrhoids Male erectile disorder of organic origin Obesity Obstructive sleep apnea Paralysis of right vocal fold Parotid sialolithiasis Proteinuria Right bundle branch block Sialadenitis Vitamin D deficiency Vocal cord anomaly Surgical History H/O umbilical hernia repair S/P carotid endarterectomy S/P cataract surgery S/P inguinal hernia repair S/P tonsillectomy Family History Mother Heart disease Father Stomach cancer Other Asthma Cancer Denies family history of Ovarian cancer Prostate cancer Myocardial infarction Breast cancer Colorectal cancer Social History Smoking Status: Never smoker Second Hand Exposure: No; Hx Alcohol Use: No Hx Substance Use: No Preferred Language: Croatian Communication Ability: Effective Visual Impairment: No Limitations Hearing Ability: Normal Beliefs That Will Affect Care: None marital status: Current Living Situation: Spouse current occupational status: retired Feels Safe at Home: Yes Childhood Exposure to Second-Hand Smoke: No caffeine: Yes (coffee) Dental Care, Regularly: Yes Physical Activity Frequency: Does not Exercise Seatbelt Use: always Sunscreen Use: No Assistive Devices: Cane Allergies Allergies Allergy/AdvReac Type Severity Reaction Status Date / Time Gadolinium-Containing Allergy Severe ANAPHYLAXIS Verified 09/19/21 13:39 Contrast Medi Iodinated Contrast Media Allergy Severe ANAPHYLAXIS Verified 09/19/21 13:39 Home Meds Home Medications Medication Instructions Recorded Confirmed aspirin 81 mg tablet 81 mg PO QAM tab 05/31/19 09/19/21 cyanocobalamin (vitamin B-12) 1,000 mcg PO QDL tab 05/31/19 09/19/21 1,000 mcg tablet docusate sodium 100 mg capsule 100 mg PO QAM PRN cap 05/31/19 09/19/21 polyethylene glycol 3350 17 17 gm PO DAILY PRN #1 gm 05/31/19 09/19/21 gram/dose oral powder cholecalciferol (vitamin D3) 50 2,000 unit PO QDL tab 10/28/20 09/19/21 mcg (2,000 unit) tablet amlodipine 2.5 mg tablet 2.5 mg PO QAM 09/19/21 09/19/21 furosemide 40 mg tablet (Lasix) 40 mg PO QAM PRN 09/19/21 09/19/21 guaifenesin 1,200 mg tablet, 1,200 mg PO QAM 09/19/21 09/19/21 extended release 12 hr (Mucinex) guaifenesin 100 mg/5 mL oral liquid 600 mg PO Q4H PRN 09/19/21 09/19/21 insulin aspar prot-insulin aspart 30 - 40 unit SUBCUT BIDM 09/19/21 09/19/21 100 unit/mL (70-30) subcutaneous pen isosorbide mononitrate 30 mg 30 mg PO QAM 09/19/21 09/19/21 tablet,extended release 24 hr levothyroxine 100 mcg tablet 100 mcg PO QAM 09/19/21 09/19/21 losartan 100 mg tablet 100 mg PO QAM 09/19/21 09/19/21 pantoprazole 20 mg tablet,delayed 20 mg PO PM PRN 09/19/21 09/19/21 release trazodone 50 mg tablet 50 - 100 mg PO HS 09/19/21 09/19/21 Previous Rx's Medication Instructions Recorded BD Ultra-Fine Short Pen Needle 31 #100 ea NS 05/02/20 gauge x 5/16" (pen needle, diabetic) atorvastatin 40 mg tablet 40 mg PO HS #90 tab 11/18/20 blood sugar diagnostic (OneTouch #3 box 04/17/21 Ultra Blue Test Strip) carvedilol 25 mg tablet 25 mg PO BID #180 tab 06/23/21 metformin 850 mg tablet 850 mg PO BID #180 tab 06/23/21 nitroglycerin 0.4 mg sublingual 0.4 mg SL Q5M PRN #25 tab 07/10/21 tablet Oxygen Home #1 ea 07/16/21 Wheeled Walker #1 ea 07/21/21 Results & Data (ED) Vital Signs Vital Signs - 24 hr 09/19/21 11:28 09/19/21 11:58 09/19/21 12:00 Temperature 36.8 C Temperature Source Temporal Artery Scan Pulse Rate 41 L Pulse Rate [Finger] 37 L Pulse Rhythm [Finger] Irregular Respiratory Rate 18 14 Respiratory Effort / Characteristics Respiratory Depth Normal Blood Pressure 99/59 L Blood Pressure [Right Arm] 105/74 Blood Pressure Mean 72 Blood Pressure Mean [Right Arm] 84 Blood Pressure Position [Right Arm] Semi-fowlers Pulse Oximetry 89 L 84 L 95 Oxygen Delivery Method Room Air Room Air Nasal Cannula Nasal Cannula Oxygen Flow Rate 0 2 Sepsis Recent Fever Within 48 Hours No Sepsis New/Unexplained Change in Mental Status No Sepsis Action Taken by Nursing No Action Required Oxygen Flow Rate - Titration 2 Pulse Oximetry Post Tiitration 95 09/19/21 12:03 09/19/21 12:04 09/19/21 13:50 Temperature Temperature Source Pulse Rate Pulse Rate [Finger] 40 L Pulse Rhythm [Finger] Respiratory Rate 14 15 Respiratory Effort / Characteristics Accessory Muscle Use Respiratory Depth Blood Pressure Blood Pressure [Right Arm] 120/60 Blood Pressure Mean Blood Pressure Mean [Right Arm] 80 Blood Pressure Position [Right Arm] Semi-fowlers Pulse Oximetry 84 L 95 94 Oxygen Delivery Method Nasal Cannula Nasal Cannula Nasal Cannula Oxygen Flow Rate 0 2 2 Sepsis Recent Fever Within 48 Hours Sepsis New/Unexplained Change in Mental Status Sepsis Action Taken by Nursing Oxygen Flow Rate - Titration 2 Pulse Oximetry Post Tiitration 95 Laboratory Data Result diagrams: 09/19/21 11:45 09/19/21 11:45 Lab Results 09/19/21 09/19/21 09/19/21 Range/Units 11:45 11:45 11:45 WBC 5.54 (4.8-10.8) K/uL RBC 4.37 L (4.7-6.1) M/uL Hgb 12.8 L (14.0-18.0) g/dL Hct 41.9 L (42-52) % MCV 95.9 (80-100) fL MCH 29.3 (25-34) pg MCHC 30.5 L (32-36) g/dL RDW Std Deviation 54.7 H (36.4-46.3) fL RDW Coeff of Melonie 15.5 H (11.5-14.5) % Plt Count 117 L (130-400) K/uL MPV 11.2 H (7.4-10.4) fL Immature Gran % (Auto) 0.4 % Neut % (Auto) 65.5 % Lymph % (Auto) 24.2 % Franklin % (Auto) 9.2 % Eos % (Auto) 0.5 % Baso % (Auto) 0.2 % Neut # (Auto) 3.63 (1.4-6.5) K/uL Lymph # (Auto) 1.34 (1.2-3.4) K/uL Franklin # (Auto) 0.51 (0.11-0.59) K/uL Eos # (Auto) 0.03 (0-0.5) K/uL Baso # (Auto) 0.01 (0-0.2) K/uL Immature Gran # (Auto) 0.02 (0.00-0.02) K/uL PT 10.6 (9.0-12.0) Seconds INR 1.0 (0.9-1.1) APTT 29.6 (21.0-31.0) Seconds PTT Ratio 1.1 Sodium 147 H (136-145) mmol/L Potassium 5.0 (3.5-5.1) mmol/L Chloride 112 H (98-107) mmol/L Carbon Dioxide 30 (21-32) mmol/L Anion Gap 5.0 (3-11) BUN 52 H (7-18) mg/dl Creatinine 1.18 (0.6-1.4) mg/dl Est Cr Clr Drug Dosing Not Reportable Est GFR ( Amer) 68.6 ml/min Est GFR (Non-Af Amer) 59.2 ml/min BUN/Creatinine Ratio 44.2 H (10-20) Glucose 190 H (70-99) mg/dl Calcium 8.6 (8.5-10.1) mg/dl Magnesium 2.2 (1.8-2.4) mg/dl Total Bilirubin 0.3 (0.2-1) mg/dl AST 82 H (15-37) U/L ALT 94 H (12-78) U/L Alkaline Phosphatase 87 (45-117) U/L Troponin I < 0.015 (0-0.045) ng/ml NT-Pro-B Natriuret Pep (0-1800) pg/ml Total Protein 6.9 (6.4-8.2) gm/dl Albumin 2.6 L (3.4-5.0) gm/dl Globulin 4.3 H (2.5-4.0) gm/dl Albumin/Globulin Ratio 0.6 L (0.9-2) Lyme Disease IgG Ab (Negative) Lyme Disease IgM Ab (Negative) SARS-CoV-2 (PCR) (Negative) 09/19/21 09/19/21 09/19/21 Range/Units 11:45 11:55 12:41 WBC (4.8-10.8) K/uL RBC (4.7-6.1) M/uL Hgb (14.0-18.0) g/dL Hct (42-52) % MCV (80-100) fL MCH (25-34) pg MCHC (32-36) g/dL RDW Std Deviation (36.4-46.3) fL RDW Coeff of Melonie (11.5-14.5) % Plt Count (130-400) K/uL MPV (7.4-10.4) fL Immature Gran % (Auto) % Neut % (Auto) % Lymph % (Auto) % Franklin % (Auto) % Eos % (Auto) % Baso % (Auto) % Neut # (Auto) (1.4-6.5) K/uL Lymph # (Auto) (1.2-3.4) K/uL Franklin # (Auto) (0.11-0.59) K/uL Eos # (Auto) (0-0.5) K/uL Baso # (Auto) (0-0.2) K/uL Immature Gran # (Auto) (0.00-0.02) K/uL PT (9.0-12.0) Seconds INR (0.9-1.1) APTT (21.0-31.0) Seconds PTT Ratio Sodium (136-145) mmol/L Potassium (3.5-5.1) mmol/L Chloride (98-107) mmol/L Carbon Dioxide (21-32) mmol/L Anion Gap (3-11) BUN (7-18) mg/dl Creatinine (0.6-1.4) mg/dl Est Cr Clr Drug Dosing Est GFR ( Amer) ml/min Est GFR (Non-Af Amer) ml/min BUN/Creatinine Ratio (10-20) Glucose (70-99) mg/dl Calcium (8.5-10.1) mg/dl Magnesium (1.8-2.4) mg/dl Total Bilirubin (0.2-1) mg/dl AST (15-37) U/L ALT (12-78) U/L Alkaline Phosphatase (45-117) U/L Troponin I (0-0.045) ng/ml NT-Pro-B Natriuret Pep 174 (0-1800) pg/ml Total Protein (6.4-8.2) gm/dl Albumin (3.4-5.0) gm/dl Globulin (2.5-4.0) gm/dl Albumin/Globulin Ratio (0.9-2) Lyme Disease IgG Ab Negative (Negative) Lyme Disease IgM Ab Negative (Negative) SARS-CoV-2 (PCR) NEGATIVE (Negative) Administered Medications Discontinued Medications Sodium Chloride (Nss 1000ml) 500 mls @ 999 mls/hr IV .Q31M ONE Stop: 09/19/21 12:36 Last Infusion: 09/19/21 13:49 Dose: 0 mls/hr Documented by: [id number] Admin: 09/19/21 12:45 Dose: 999 mls/hr Documented by: [id number] Imaging Data Radiologist's Impression: Chest X-Ray 09/19/21 11:34 XR chest 1V portable HISTORY: 75 years-old Male SOB acute shortness of breath COMPARISON: Chest radiographs 11/22/2019 TECHNIQUE: Portable AP view of the chest FINDINGS: Cardiac silhouette is enlarged. Trace right and small left pleural effusions with left basilar predominant consolidation. Pulmonary vascular congestion with interstitial coarsening. No pneumothorax. Calcified plaque of the thoracic aorta. Degenerative changes of the shoulders and spine. Mild gaseous distention of the stomach. Mild left hemidiaphragmatic elevation. IMPRESSION: 1. Cardiomegaly with suggested pulmonary edema. 2. Left diaphragmatic elevation with small left and trace right pleural effusions. 3. Left basilar opacities suggest atelectasis versus pneumonitis. ACT 112: Negative or not required by law. The above report was generated using voice recognition software. It may contain grammatical, syntax or spelling errors. Electronically signed by: Andrzej Parra M.D. 09/19/2021 12:07 PM Discharge Plan Visit Data Chief Complaint: Respiratory Problems Stated Complaint: LOW HEART RATE/TROUBLE BREATHING ED Provider: Jose Noriega Discharge Problem: Bradycardia, CHF (congestive heart failure), Hypoxia, Weakness Forms Stand Alone Forms: My [facility] [employer] Prescriptions Prescriptions: No Action (DME) pen needle, diabetic [BD Ultra-Fine Short Pen Needle] 31 gauge x 5/16" needle See Rx Instructions .ROUTE .MEDSUPPLY Qty: 100 RF: 3 atorvastatin 40 mg tablet 40 mg PO HS Qty: 90 RF: 3 (DME) OneTouch Ultra Blue Test Strip Strip See Dose Instructions .ROUTE .MEDSUPPLY Qty: 3 RF: 3 carvedilol 25 mg tablet 25 mg PO BID Qty: 180 RF: 3 metformin 850 mg tablet 850 mg PO BID Qty: 180 RF: 1 (DME) Oxygen Home Liters Per Minute See Rx Instructions .Route Qty: 1 RF: 0 (DME) Wheeled Walker Misc See Rx Instructions .Route Qty: 1 RF: 0 aspirin 81 mg tablet 81 mg PO QAM RF: 0 cyanocobalamin (vitamin B-12) 1,000 mcg tablet 1,000 mcg PO QDL RF: 0 docusate sodium 100 mg capsule 100 mg PO QAM PRN (Reason: Constipation) RF: 0 polyethylene glycol 3350 17 gram/dose powder 17 gm PO DAILY PRN (Reason: Constipation) Qty: 1 RF: 0 nitroglycerin 0.4 mg tablet, sublingual 0.4 mg SL Q5M PRN (Reason: chest pain) Qty: 25 RF: 2 cholecalciferol (vitamin D3) 50 mcg (2,000 unit) tablet 2,000 unit PO QDL RF: 0 guaifenesin [Robitussin] 100 mg/5 mL Liquid 600 mg PO Q4H PRN (Reason: Pain) RF: 0 Mucinex 1,200 mg Tablet Extended Release 12hr 1,200 mg PO QAM RF: 0 furosemide [Lasix] 40 mg tablet 40 mg PO QAM PRN (Reason: weight gain) RF: 0 trazodone 50 mg tablet 50 - 100 mg PO HS RF: 0 isosorbide mononitrate 30 mg tablet extended release 24 hr 30 mg PO QAM RF: 0 amlodipine 2.5 mg tablet 2.5 mg PO QAM RF: 0 pantoprazole 20 mg tablet,delayed release (DR/EC) 20 mg PO PM PRN (Reason: gastric reflux) RF: 0 levothyroxine 100 mcg tablet 100 mcg PO QAM RF: 0 losartan 100 mg tablet 100 mg PO QAM RF: 0 insulin asp prt-insulin aspart 100 unit/mL (70-30) insulin pen 30 - 40 unit subcut BIDM RF: 0 Referrals Referrals: Dao Ryan MD [Primary Care Provider] -
--- NOTE | 2021-09-19 13:21 | History & Physical Report ---
Date of Service September 19, 2021 Assessment & Plan (1) Sinus bradycardia: Plan: No AV block noted on telemetry or EKG. Stop carvedilol. Trend troponins. Consult cardiology. (2) Shortness of breath: Plan: ?mucus plug causing acute worsening. Unlikely related to sinus bradycardia unless more CHF contributing. Flutter valve QID Incentive spirometry SLT assessment (3) Acute congestive heart failure: Plan: Mild Possible also contributing towards shortness of breath. Will hold off Lasix on admission due to hypotension and relatively stable symptoms. Suspect will diurese as heart rate improves off carvedilol Heart healthy, fluid restrict 1500ml, Low Na diet (4) Hypoxia: Plan: Aim O2 sats > 90%, usually on O2 at night only (5) Right carpal tunnel syndrome: Plan: Ongoing for last 2 months. Recommended following up with PCP for referral to orthopedics. (6) Hypertension: Plan: Stop carvedilol Continue losartan 100mg PO (hold if sBP < 100) Hold amlodipine Continue ISMN ER (hold if sBP < 120) (7) Obstructive sleep apnea: Plan: Intolerant to CPAP, Monitor hypoxia at night. (8) Hypothyroidism: Plan: TSH with next set of troponins Continue levothyroxine 100 mcg PO daily (9) Hyperlipidemia: Plan: Continue atorvastatin 40mg PO daily (10) Diabetes: Plan: HbA1C 7.8 in February, repeat with AM labs Hold metformin Consult pharmacy for glycemic control (11) Gastroesophageal reflux disease: Plan: Continue pantoprazole 20mg HS Plan: VTE Prophylaxis - Lovenox 40mg SQ daily Diet - heart healthy, fluid restrict 1500ml, T2DM, heart healthy Disposition - admit to PCU Admission and Anticipated Discharge Date Admission Date: September 19, 2021 History of Present Illness Chief Complaint: Dizziness, shortness of breath Primary Care Provider: Dao Ryan MD Calvin Reyez is a 75 year old male who presents to the ER after sudden onset shortness of breath last night. His at bedside provides the majority of the history. He reports last feeling his normal self 4 days ago. Progressively more short of breath and dizzy since then. This morning around 5am he woke up feeling acutely short of breath with more mucus in his mouth. His took his O2 sats around 89-90% on 4LPM O2 which is usual for him (last 2 months he has required oxygen at night but not during the day). She was however concerned about his heart rate which was 48-50 bpm which she reports was unusual for him. He has known obstructive sleep apnea but is intolerant to CPAP. He reports possibly some mild chest pain this morning around 11:30am on the left side of his chest, no acute worsening of shortness of breath or diaphoresis, no radiation. He is currently chest pain free. He has chronic orthopnea and has not been able to lie flat in bed for 2 years. No palpations or claudication. He reports taking his usual medications this morning including amlodipine, carvedilol and 20 units of Humalog 70/30. Amlodipine was added back for his blood pressure management approximately 1 month ago but he reports no other recent changes to his medications. In the ER he was noted to be hypoxic requiring 2LPM O2 to maintain O2 sats > 94%. HR in high 30s, low 40s. EKG showing sinus bradycardia. CXR concerning for mild pulmonary edema. BP 99/59 on arrival to the ER. He reports feeling much improved with his shortness of breath but still having dizziness on standing. He was referred to medicine for admission and ongoing management of bradycardia. Allergies Allergy/AdvReac Type Severity Reaction Status Date / Time Gadolinium-Containing Allergy Severe ANAPHYLAXIS Verified 09/19/21 13:39 Contrast Medi Iodinated Contrast Media Allergy Severe ANAPHYLAXIS Verified 09/19/21 13:39 Home Medications Medication Instructions Recorded Confirmed Type aspirin 81 mg tablet 81 mg PO QAM tab 05/31/19 09/19/21 History cyanocobalamin (vitamin B-12) 1,000 mcg PO QDL tab 05/31/19 09/19/21 History 1,000 mcg tablet docusate sodium 100 mg capsule 100 mg PO QAM PRN cap 05/31/19 09/19/21 History polyethylene glycol 3350 17 17 gm PO DAILY PRN #1 gm 05/31/19 09/19/21 History gram/dose oral powder BD Ultra-Fine Short Pen Needle 31 #100 ea NS 05/02/20 07/08/21 Rx gauge x 5/16" (pen needle, diabetic) cholecalciferol (vitamin D3) 50 2,000 unit PO QDL tab 10/28/20 09/19/21 History mcg (2,000 unit) tablet atorvastatin 40 mg tablet 40 mg PO HS #90 tab 11/18/20 09/19/21 Rx blood sugar diagnostic (OneTouch #3 box 04/17/21 07/08/21 Rx Ultra Blue Test Strip) carvedilol 25 mg tablet 25 mg PO BID #180 tab 06/23/21 09/19/21 Rx metformin 850 mg tablet 850 mg PO BID #180 tab 06/23/21 09/19/21 Rx nitroglycerin 0.4 mg sublingual 0.4 mg SL Q5M PRN #25 tab 07/10/21 09/19/21 Rx tablet Oxygen Home #1 ea 07/16/21 Rx Wheeled Walker #1 ea 07/21/21 Rx amlodipine 2.5 mg tablet 2.5 mg PO QAM 09/19/21 09/19/21 History furosemide 40 mg tablet (Lasix) 40 mg PO QAM PRN 09/19/21 09/19/21 History guaifenesin 1,200 mg tablet, 1,200 mg PO QAM 09/19/21 09/19/21 History extended release 12 hr (Mucinex) guaifenesin 100 mg/5 mL oral liquid 600 mg PO Q4H PRN 09/19/21 09/19/21 History insulin aspar prot-insulin aspart 30 - 40 unit SUBCUT BIDM 09/19/21 09/19/21 History 100 unit/mL (70-30) subcutaneous pen isosorbide mononitrate 30 mg 30 mg PO QAM 09/19/21 09/19/21 History tablet,extended release 24 hr levothyroxine 100 mcg tablet 100 mcg PO QAM 09/19/21 09/19/21 History losartan 100 mg tablet 100 mg PO QAM 09/19/21 09/19/21 History pantoprazole 20 mg tablet,delayed 20 mg PO PM PRN 09/19/21 09/19/21 History release trazodone 50 mg tablet 50 - 100 mg PO HS 09/19/21 09/19/21 History Past Med/Surg History Medical History Acrochordon Anxiety Arteriosclerosis of carotid artery Arteriosclerotic cardiovascular disease Asthma Atypical chest pain Chronic kidney disease (CKD), stage II (mild) Colon polyps Diabetes Diabetes with neurologic complications Diabetic nephropathy Dyslipidemia Excessive sweating Gait disturbance Gastroesophageal reflux disease Rachel's thyroiditis History of uwptpm-oc-drjyjihce syndrome Hyperglobulinemia Hyperkalemia Hyperlipidemia Hypertension Hypothyroidism Insomnia Internal hemorrhoids Male erectile disorder of organic origin Obesity Obstructive sleep apnea Paralysis of right vocal fold Parotid sialolithiasis Proteinuria Right bundle branch block Sialadenitis Vitamin D deficiency Vocal cord anomaly Surgical History H/O umbilical hernia repair S/P carotid endarterectomy S/P cataract surgery S/P inguinal hernia repair S/P tonsillectomy Family History Mother Heart disease Father Stomach cancer Other Asthma Cancer Denies family history of Ovarian cancer Prostate cancer Myocardial infarction Breast cancer Colorectal cancer Social History Smoking Status: Never smoker Second Hand Exposure: No; Hx Alcohol Use: No Hx Substance Use: No Preferred Language: Vietnamese Communication Ability: Effective Visual Impairment: No Limitations Hearing Ability: Normal Beliefs That Will Affect Care: None marital status: Current Living Situation: Spouse current occupational status: retired Feels Safe at Home: Yes Childhood Exposure to Second-Hand Smoke: No caffeine: Yes (coffee) Dental Care, Regularly: Yes Physical Activity Frequency: Does not Exercise Seatbelt Use: always Sunscreen Use: No Assistive Devices: Cane Review of Systems Review of Systems: All systems reviewed & are unremarkable except as noted in HPI & below Right hand paresthesia for the last 2 months in carpel tunnel distribution Physical Exam Constitutional: well developed and + obese; + not well nourished and no acute distress Eyes: + anicteric sclerae; normal pupil size ENMT: external ear and nose normal, oropharynx normal Respiratory: normal respiratory effort; no respiratory distress Auscultation: + crackles (fine bases) and + rhonchi (upper airway sound anteriorly); no wheezes Cardiovascular: Rate/Rhythm: regular rhythm and + bradycardic Heart Sounds: no murmur Vessels: no JVD Extremities: normal capillary refill and + pedal edema (1+ pre-tibial equal bilaterally); no calf tenderness Gastrointestinal (Abdomen): normal bowel sounds, soft, nontender, no hepatosplenomegaly Musculoskeletal: no cyanosis or clubbing, extremities motor strength 5/5 Skin: no rashes, warm and dry Neurologic: moves all extremities and awake; not confused Results & Data Results & Data ([facility]) Vital Signs (Past 12 Hours) Vital Signs Temp Pulse Pulse Resp BP BP Pulse Ox 09/19/21 12:04 95 09/19/21 12:03 14 84 L 09/19/21 12:00 37 L 14 105/74 95 09/19/21 11:58 84 L 09/19/21 11:28 36.8 C 41 L 18 99/59 L 89 L Diagnostic Findings XR chest 1V portable HISTORY: 75 years-old Male SOB acute shortness of breath COMPARISON: Chest radiographs 11/22/2019 TECHNIQUE: Portable AP view of the chest FINDINGS: Cardiac silhouette is enlarged. Trace right and small left pleural effusions with left basilar predominant consolidation. Pulmonary vascular congestion with interstitial coarsening. No pneumothorax. Calcified plaque of the thoracic aorta. Degenerative changes of the shoulders and spine. Mild gaseous distention of the stomach. Mild left hemidiaphragmatic elevation. IMPRESSION: 1. Cardiomegaly with suggested pulmonary edema. 2. Left diaphragmatic elevation with small left and trace right pleural effusions. 3. Left basilar opacities suggest atelectasis versus pneumonitis. Medications Administered ER Medications Given: NSS 500ml bolus ECG Rate (beats per minute): 40 Rhythm: sinus bradycardia Findings: + RBBB Comparison ECG Date: from (April 17, 2016) Change: the following changes noted (rate decreased, RBBB is not new) Code Status & VTE Plan Code Status Full VTE Prophylaxis Plan VTE Prophylaxis will be ordered: Yes PG Care Time/CCT Total # of Minutes Spent Total Time Spent with Patient: Total time spent is greater than 50% in coordination of care (as documented) at patient's floor/unit and/or counseling patient: Coding Level of Care Code 21880 Initial Inpt Care Lvl 3 Diagnoses Sinus bradycardia R00.1 Right carpal tunnel syndrome G56.01 Shortness of breath R06.02 Hypoxia R09.02 Acute congestive heart failure I50.9 Hypertension I10 Obstructive sleep apnea G47.33 Hypothyroidism E03.9 Hyperlipidemia E78.5 Diabetes E11.9 Gastroesophageal reflux disease K21.9
[2021-09-19 13:48] LABS: Lyme Ab IgG w/WB Rflx Negative (Negative); Lyme Ab IgM w/WB Rflx Negative (Negative)
[2021-09-19] MEDS ORDERED: PANTOprazole 40 MG TAB PO PRN (13:55)
--- NOTE | 2021-09-19 17:23 | Electrocardiogram Report ---
Test Reason : Blood Pressure : / mmHG Vent. Rate : 040 BPM Atrial Rate : 040 BPM P-R Int : 218 ms QRS Dur : 134 ms QT Int : 542 ms P-R-T Axes : 000 074 016 degrees QTc Int : 441 ms Poor data quality, interpretation may be adversely affected Marked sinus bradycardia with 1st degree A-V block Indeterminate axis Right bundle branch block Abnormal ECG When compared with ECG of 17-APR-2016 07:28, PA interval has increased Confirmed by Dao Sneed ([id number]) on 09/19/2021 5:22:58 PM Referred By: REFERRED SELF Confirmed By:Cal Sneed
[2021-09-19] MEDS ORDERED: PHARMACY GLYCEMIC MGMT CONSULT PRN (20:54)
[2021-09-19] MEDS ORDERED: ONDANSETRON INJ 2 MG/ML 2 ML VIAL IV PRN (20:54)
[2021-09-19 22:12] LABS: Troponin I < 0.015 ng/ml (0-0.045)
[2021-09-19] MEDS: ATORVASTATIN 40 MG TAB PO SCH (22:26)
[2021-09-19] MEDS: traZODone HCL 50 MG TAB PO SCH (22:26)
[2021-09-19] MEDS: POLYETHYLENE (MIRALAX) 17 GM PACK PO SCH (22:26)
[2021-09-20] MEDS: PATIENT'S HEIGHT AND/OR WEIGHT NEEDED SCH ×2 (00:23→00:24)
[2021-09-20] MEDS ORDERED: ATROPINE SULFATE 0.1 MG/ML 10ML SYR IV STA (00:43)
--- NOTE | 2021-09-20 01:08 | Communication Note ---
Date of Service: September 20, 2021 Night team was paged at 12:39am regarding ongoing bradycardia. HR was dipping down into the 30s - blood pressure remained stable and patient was mentating normally. EKG on admission showed sinus bradycardia with 1st degree AV paula block. I ordered a repeat EKG - the baseline was not smooth and difficult to discern. I requested nursing place pacer pads on the patient. I placed order for glucagon 3mg IV bolus, as patient takes carvedilol (held on admission). I placed order for atropine 0.5mg IV for nursing to have on hand - this should be used only if blood pressure drops or mentation declines.
[2021-09-20] MEDS: INSULIN ASPART 100 UNITS/ML 3 ML PEN SC SCH ×6 (01:13→21:18)
[2021-09-20] MEDS ORDERED: GLUCAGON 3 MG in SYRINGE 0 ML IV ONE (01:30)
[2021-09-20 07:31] LABS: Estimated Average Glucose 177 mg/dl; Hemoglobin A1C 7.8 % (4.5-5.6)
--- NOTE | 2021-09-20 07:33 | Electrocardiogram Report ---
Test Reason : Blood Pressure : / mmHG Vent. Rate : 040 BPM Atrial Rate : 040 BPM P-R Int : 000 ms QRS Dur : 120 ms QT Int : 532 ms P-R-T Axes : 000 -51 016 degrees QTc Int : 433 ms Poor data quality, interpretation may be adversely affected Sinus bradycardia Left axis deviation Low voltage QRS Right bundle branch block Abnormal ECG Confirmed by Dao Sneed ([id number]) on 09/20/2021 7:33:20 AM Referred By: REFERRED SELF Confirmed By:Cal Sneed
[2021-09-20] MEDS: ASPIRIN 81 MG ECTAB PO SCH (08:30)
[2021-09-20] MEDS: guaiFENesin 600 MG TABCR PO SCH (08:31)
[2021-09-20] MEDS: LEVOTHYROXINE SODIUM 100 MCG TABLET PO SCH (08:31)
[2021-09-20] MEDS ORDERED: INSULIN HUMAN NPH SC ONE ×3 (09:00→16:30)
[2021-09-20] MEDS ORDERED: ISOSORBIDE MONO EXTENDED REL 30 MG TABCR PO SCH (09:00)
[2021-09-20] MEDS ORDERED: LOSARTAN POTASSIUM 50 MG TAB PO SCH (09:00)
--- NOTE | 2021-09-20 09:22 | Cardiology Consultation ---
Date of Consultation September 20, 2021 Assessment & Plan (1) Sinus bradycardia: (2) Chest pressure: (3) Right bundle branch block: (4) Arteriosclerotic cardiovascular disease: 1. Bradycardia: He appears have a sinus bradycardia. He does have some evidence of additional conduction disease manifest by 1st degree AV block and right bundle branch block. He has been taking carvedilol for some time. He has had some lower heart rates in the past documented in his record. I suspect this simply progression of sinus node disease with beta-yesica use. His beta- blockers are for hypertension as well as their antianginal effect. The most immediate intervention is simply to hold the beta blockade. His heart rate has come up this morning. It is not entirely clear why he was administered reversal agents last evening although there was some suggestion that his mentation was not normal. At this point I would attempt ambulation. If his heart rate stays at the current level and he does not have any exertional symptoms, I think he could be safely discharged on a lower dose of carvedilol and follow-up in the cardiology clinic. 2. Chest pain: His current symptoms are atypical in that they occur at rest and with exertion. They are not entirely reproducible. They are very fleeting in nature. He is felt to have an element of coronary, but no evidence of an acute coronary syndrome or old infarct. Again, I think ambulation would allow us to better assess his symptoms. If he does not have reproducible symptoms with activity I think he could be safely discharged. 3. Coronary disease: Presumed. Evidence of inferior ischemia on perfusion imaging. Low risk study. Preserved LV systolic function overall. Currently on medical therapy. Again, assessment of his activity and symptoms would be useful. In the absence of exertional chest discomfort we could potentially re duce his dose of carvedilol. If he has chest pain we may need to intensify his other antianginal or consider a coronary evaluation/intervention. Continue amlodipine, aspirin and high-dose atorvastatin. 4. Dyspnea: He has a long history of dyspnea. Unclear etiology overall. There was some suggestion of pulmonary vascular congestion on his initial x-ray, but his BNP was very low. I do not believe this represents heart failure or pulmonary edema. He should continue taking his outpatient diuretic. History of Present Illness Reason for Consultation: Bradycardia Requesting Physician: Anny Attending Physician: Enrique Aguirre DO History of Present Illness The patient is a 75-year-old gentleman with presumed coronary disease who presented to the emergency room with symptoms of dyspnea and a low heart rate. Patient has struggled for many years with difficulty sleeping at nighttime. He frequently has some element of dyspnea. Recently he was started on nighttime oxygen and reports sleeping better. Over the past few days he appears to have had more trouble with breathing. He attributes this to some upper airway congestion. He has also had some additional symptoms such as dizziness. This is a fairly chronic symptom that does not appear to be exclusively associated with changes in position. The symptoms are fairly transient any often describes as some instability when he attempts to walk. He has also been having some symptoms of chest discomfort. These are not exclusively associated with activity. They can occur at rest. He describes them as fairly central in location and fairly fleeting. They last only a few minutes. They resolved without any specific intervention. He states that these pains are similar to the pains he has been having for years. Perhaps more frequent over the last few days. Based on the nature of his symptoms and a documented low heart rate at home with pulse oximetry he was brought to the emergency room for evaluation. He was found to have significant sinus bradycardia. Over the course of the evening the patient was administered glucagon and atropine. According to the nursing staff the patient not only had bradycardia but had some element of confusion. This morning the patient is feeling well and anxious for discharge. He did not report any chest pain this morning. He states that his breathing is at baseline. He has not had coughing this morning. He has not been ambulatory. Allergies Allergy/AdvReac Type Severity Reaction Status Date / Time Gadolinium-Containing Allergy Severe ANAPHYLAXIS Verified 09/19/21 13:39 Contrast Medi Iodinated Contrast Media Allergy Severe ANAPHYLAXIS Verified 09/19/21 13:39 Home Medications Medication Instructions Recorded Confirmed Type aspirin 81 mg tablet 81 mg PO QAM tab 05/31/19 09/19/21 History cyanocobalamin (vitamin B-12) 1,000 mcg PO QDL tab 05/31/19 09/19/21 History 1,000 mcg tablet docusate sodium 100 mg capsule 100 mg PO QAM PRN cap 05/31/19 09/19/21 History polyethylene glycol 3350 17 17 gm PO DAILY PRN #1 gm 05/31/19 09/19/21 History gram/dose oral powder BD Ultra-Fine Short Pen Needle 31 #100 ea NS 05/02/20 07/08/21 Rx gauge x 5/16" (pen needle, diabetic) cholecalciferol (vitamin D3) 50 2,000 unit PO QDL tab 10/28/20 09/19/21 History mcg (2,000 unit) tablet atorvastatin 40 mg tablet 40 mg PO HS #90 tab 11/18/20 09/19/21 Rx blood sugar diagnostic (OneTouch #3 box 04/17/21 07/08/21 Rx Ultra Blue Test Strip) carvedilol 25 mg tablet 25 mg PO BID #180 tab 06/23/21 09/19/21 Rx metformin 850 mg tablet 850 mg PO BID #180 tab 06/23/21 09/19/21 Rx nitroglycerin 0.4 mg sublingual 0.4 mg SL Q5M PRN #25 tab 07/10/21 09/19/21 Rx tablet Oxygen Home #1 ea 07/16/21 Rx Wheeled Walker #1 ea 07/21/21 Rx amlodipine 2.5 mg tablet 2.5 mg PO QAM 09/19/21 09/19/21 History furosemide 40 mg tablet (Lasix) 40 mg PO QAM PRN 09/19/21 09/19/21 History guaifenesin 1,200 mg tablet, 1,200 mg PO QAM 09/19/21 09/19/21 History extended release 12 hr (Mucinex) guaifenesin 100 mg/5 mL oral liquid 600 mg PO Q4H PRN 09/19/21 09/19/21 History insulin aspar prot-insulin aspart 30 - 40 unit SUBCUT BIDM 09/19/21 09/19/21 History 100 unit/mL (70-30) subcutaneous pen isosorbide mononitrate 30 mg 30 mg PO QAM 09/19/21 09/19/21 History tablet,extended release 24 hr levothyroxine 100 mcg tablet 100 mcg PO QAM 09/19/21 09/19/21 History losartan 100 mg tablet 100 mg PO QAM 09/19/21 09/19/21 History pantoprazole 20 mg tablet,delayed 20 mg PO PM PRN 09/19/21 09/19/21 History release trazodone 50 mg tablet 50 - 100 mg PO HS 09/19/21 09/19/21 History Patient History Medical History Acrochordon Anxiety Arteriosclerosis of carotid artery Arteriosclerotic cardiovascular disease Asthma Atypical chest pain Chronic kidney disease (CKD), stage II (mild) Colon polyps Diabetes Diabetes with neurologic complications Diabetic nephropathy Dyslipidemia Excessive sweating Gait disturbance Gastroesophageal reflux disease Rachel's thyroiditis History of [id number]-fi-hjalaqlzs syndrome Hyperglobulinemia Hyperkalemia Hyperlipidemia Hypertension Hypothyroidism Insomnia Internal hemorrhoids Male erectile disorder of organic origin Obesity Obstructive sleep apnea Paralysis of right vocal fold Parotid sialolithiasis Proteinuria Right bundle branch block Sialadenitis Vitamin D deficiency Vocal cord anomaly Surgical History H/O umbilical hernia repair S/P carotid endarterectomy S/P cataract surgery S/P inguinal hernia repair S/P tonsillectomy Family History Mother Heart disease Father Stomach cancer Other Asthma Cancer Denies family history of Ovarian cancer Prostate cancer Myocardial infarction Breast cancer Colorectal cancer Social History Smoking Status: Never smoker Second Hand Exposure: No; Hx Alcohol Use: No Hx Substance Use: No Preferred Language: Georgian Communication Ability: Effective Visual Impairment: No Limitations Hearing Ability: Normal Beliefs That Will Affect Care: None marital status: Current Living Situation: Spouse current occupational status: retired Feels Safe at Home: Yes Childhood Exposure to Second-Hand Smoke: No caffeine: Yes (coffee) Dental Care, Regularly: Yes Physical Activity Frequency: Does not Exercise Seatbelt Use: always Sunscreen Use: No Assistive Devices: Cane Review of Systems Review of Systems: Per HPI Physical Exam Physical Exam: The patient is alert and oriented. Mood and affect appeared normal. He answered all questions appropriately. HEENT: Pupils are equal and reactive to light and accommodation. Extraocular movements are intact. The sclerae are anicteric. Neuro: Cranial nerves intact Lungs: Clear to auscultation bilaterally. He has good air movement without use of accessory muscles. No rales wheezes or rhonchi. Cardiac: Heart demonstrates a regular rate and rhythm. Normal S1 and S2. No murmurs on examination. Pulses: The patient has palpable radial pulses bilaterally that are equal in intensity Extremities: There was no evidence of hypoperfusion. There is no cyanosis or clubbing. Skin: I did not appreciate any rashes on examination today. Results & Data ([facility]) Vital Signs (Past 12 Hours) Vital Signs Temp Pulse Pulse Resp BP BP Pulse Ox 09/20/21 03:00 36.5 C 48 L 18 124/82 94 09/20/21 01:25 40 L 18 114/64 95 09/20/21 00:20 36.5 C 41 L 18 127/83 95 09/19/21 21:25 36.9 C 46 L 18 146/68 H 96 Laboratory Results Abnormal Lab Results 09/19/21 09/19/21 09/19/21 11:45 11:45 11:45 WBC 5.54 RBC 4.37 L Hgb 12.8 L Hct 41.9 L MCV 95.9 MCH 29.3 MCHC 30.5 L RDW Std Deviation 54.7 H RDW Coeff of Melonie 15.5 H Plt Count 117 L MPV 11.2 H Immature Gran % (Auto) 0.4 Neut % (Auto) 65.5 Lymph % (Auto) 24.2 [place] % (Auto) 9.2 Eos % (Auto) 0.5 Baso % (Auto) 0.2 Neut # (Auto) 3.63 Lymph # (Auto) 1.34 [place] # (Auto) 0.51 Eos # (Auto) 0.03 Baso # (Auto) 0.01 Immature Gran # (Auto) 0.02 PT 10.6 INR 1.0 APTT 29.6 PTT Ratio 1.1 Sodium 147 H Potassium 5.0 Chloride 112 H Carbon Dioxide 30 Anion Gap 5.0 BUN 52 H Creatinine 1.18 Est Cr Clr Drug Dosing Not Reportable Est GFR ( Amer) 68.6 Est GFR (Non-Af Amer) 59.2 BUN/Creatinine Ratio 44.2 H Glucose 190 H POC Glucose Estimat Average Glucose Hemoglobin A1c Calcium 8.6 Magnesium 2.2 Total Bilirubin 0.3 AST 82 H ALT 94 H Alkaline Phosphatase 87 Troponin I < 0.015 NT-Pro-B Natriuret Pep Total Protein 6.9 Albumin 2.6 L Globulin 4.3 H Albumin/Globulin Ratio 0.6 L TSH Lyme Disease IgG Ab Lyme Disease IgM Ab SARS-CoV-2 (PCR) 09/19/21 09/19/21 09/19/21 11:45 11:55 12:41 WBC RBC Hgb Hct MCV MCH MCHC RDW Std Deviation RDW Coeff of Melonie Plt Count MPV Immature Gran % (Auto) Neut % (Auto) Lymph % (Auto) [place] % (Auto) Eos % (Auto) Baso % (Auto) Neut # (Auto) Lymph # (Auto) [place] # (Auto) Eos # (Auto) Baso # (Auto) Immature Gran # (Auto) PT INR APTT PTT Ratio Sodium Potassium Chloride Carbon Dioxide Anion Gap BUN Creatinine Est Cr Clr Drug Dosing Est GFR ( Amer) Est GFR (Non-Af Amer) BUN/Creatinine Ratio Glucose POC Glucose Estimat Average Glucose Hemoglobin A1c Calcium Magnesium Total Bilirubin AST ALT Alkaline Phosphatase Troponin I NT-Pro-B Natriuret Pep 174 Total Protein Albumin Globulin Albumin/Globulin Ratio TSH Lyme Disease IgG Ab Negative Lyme Disease IgM Ab Negative SARS-CoV-2 (PCR) NEGATIVE 09/19/21 09/20/21 09/20/21 21:35 01:10 02:52 WBC RBC Hgb Hct MCV MCH MCHC RDW Std Deviation RDW Coeff of Melonie Plt Count MPV Immature Gran % (Auto) Neut % (Auto) Lymph % (Auto) [place] % (Auto) Eos % (Auto) Baso % (Auto) Neut # (Auto) Lymph # (Auto) [place] # (Auto) Eos # (Auto) Baso # (Auto) Immature Gran # (Auto) PT INR APTT PTT Ratio Sodium Potassium Chloride Carbon Dioxide Anion Gap BUN Creatinine Est Cr Clr Drug Dosing Est GFR ( Amer) Est GFR (Non-Af Amer) BUN/Creatinine Ratio Glucose POC Glucose 99 Estimat Average Glucose Hemoglobin A1c Calcium Magnesium Total Bilirubin AST ALT Alkaline Phosphatase Troponin I < 0.015 < 0.015 NT-Pro-B Natriuret Pep Total Protein Albumin Globulin Albumin/Globulin Ratio TSH 1.780 Lyme Disease IgG Ab Lyme Disease IgM Ab SARS-CoV-2 (PCR) 09/20/21 09/20/21 09/20/21 02:52 03:22 07:10 WBC RBC Hgb Hct MCV MCH MCHC RDW Std Deviation RDW Coeff of Melonie Plt Count MPV Immature Gran % (Auto) Neut % (Auto) Lymph % (Auto) [place] % (Auto) Eos % (Auto) Baso % (Auto) Neut # (Auto) Lymph # (Auto) [place] # (Auto) Eos # (Auto) Baso # (Auto) Immature Gran # (Auto) PT INR APTT PTT Ratio Sodium Potassium Chloride Carbon Dioxide Anion Gap BUN Creatinine Est Cr Clr Drug Dosing Est GFR ( Amer) Est GFR (Non-Af Amer) BUN/Creatinine Ratio Glucose POC Glucose 180 H 113 H Estimat Average Glucose 177 Hemoglobin A1c 7.8 H Calcium Magnesium Total Bilirubin AST ALT Alkaline Phosphatase Troponin I NT-Pro-B Natriuret Pep Total Protein Albumin Globulin Albumin/Globulin Ratio TSH Lyme Disease IgG Ab Lyme Disease IgM Ab SARS-CoV-2 (PCR) Diagnostic Findings Echocardiogram performed 04/09/2021: Normal LV systolic function with ejection fraction of 55-60%. Stage II diastolic dysfunction. No significant valvular heart disease. And suggestion of pulmonary vascular congestion. Cardiac perfusion study revealed reversibility in the inferior wall suggestive of ischemia. No evidence of old infarct. Gated images suggested preserved LV systolic function. ECG Additional Comments: EKG obtained the time admission revealed sinus bradycardia with 1st degree AV block and right bundle branch block PG Care Time/CCT Total # of Minutes Spent Total Time Spent with Patient: Total time spent is greater than 50% in coordination of care (as documented) at patient's floor/unit and/or counseling patient: Coding Level of Care Code INT OBSERVATION CARE 70M LVL 3 Diagnoses Sinus bradycardia R00.1 Chest pressure R07.89 Right bundle branch block I45.10 Arteriosclerotic cardiovascular disease I25.10
[2021-09-20] MEDS: POLYETHYLENE (MIRALAX) 17 GM PACK PO SCH (10:20)
--- NOTE | 2021-09-20 11:36 | Pharmacy Report ---
Pharmacy Glycemic Short Note 2 - Date of Service September 20, 2021 - Glycemic Short BSG Results (Last 24 hours): 09/19/21 09/20/21 09/20/21 11:45 01:10 03:22 Glucose 190 H POC Glucose 99 180 H 09/20/21 09/20/21 07:10 11:21 Glucose POC Glucose 113 H 118 H OUTPATIENT ANTIDIABETIC REGIMEN: * Novolog 70/30 -- 40 units in morning and 30 units with dinner * HbA1C = 7.8% ASSESSMENT: * Mr Reyez is a 75 y/o M with a PMH of T2DM who presents with bradycardia. On mixed insulin at home. * Will start NPH 18 units in morning and 10 units with dinner (represents about a 40% reduction in basal insulin from home) and is slightly less than half of home regimen. * Novolog weight-based stress of 2 for now. PLAN FOR INPATIENT GLYCEMIC CONTROL: * Basal insulin * NPH 18 units SQ with breakfast and 10 units SQ with dinner * Bolus insulin * NovoLog per scale ACHS or Q6hrs while NPO * Goal Range: Low 110 mg/dL - High 140 mg/dL * Correction Factor: 25 mg/dL/unit * Nutritional / Prandial insulin per carb ratio of 1 unit per 8 grams CHO consumed PLAN FOR DISCHARGE: * TBD
[2021-09-20] MEDS ORDERED: FUROSEMIDE 40 MG TAB PO ONE (12:49)
[2021-09-20] MEDS: CYANOCOBALAMIN 500 MCG TABLET (VITAMIN B-12) PO SCH (12:54)
[2021-09-20] MEDS: CHOLECALCIFEROL 1,000 UNITS 25 MCG TAB PO SCH (12:54)
--- NOTE | 2021-09-20 17:50 | Hospitalist Progress Note ---
Date of Service September 20, 2021 Assessment & Plan (1) Sinus bradycardia: Plan: - Per cardiology - some evidence of additional conduction disease with 1st AV block and RBBB and suspect progression of sinus node disease with beta yesica use -- Coreg for HTN and anti-anginal effects - Did get Glucagon and Atropine overnight with pacer pads in place - did have some confusion overnight, was A&O but saying some odd things - suspect this could have been possibly in the setting of some hospital delirium given the time of day but cannot definitively state it was from the bradycardia. Mentation has been appropriate today even with intermittent dips to the 30s. at bedside confirmed him at his baseline mentation. - Consideration for lower dose of Coreg - however did have some dips into 30s this afternoon - stated he felt woozy but was found to have a BSG in the 30s which is likely more the culprit - Has ambulated to the bathroom with not much change in HR - no CP or SOB with that ambulation and will trial more ambulation to see any anginal/exertional symptoms - Troponins negative; BNP unremarkable -- Do not suspect CHF exacerbation at this time; did use Lasix x 1 dose today - he reports he has been using this pretty much daily instead of PRN - Coreg currently held - half life about 4-7 hours so should be washed out from system - Will monitor overnight off BB therapy (2) Shortness of breath: Plan: - Reports URI symptoms that started over past week - nasal congestion/post nasal drip -- Continue Mucinex - Do not suspect bacterial infection at this time - hold on Abx - Is compliant with flutter valve and incentive spirometry - Seen by INSPECTOR CRYSTAL - no overt signs of aspiration (3) Hypoxia: Plan: Aim O2 sats > 90%, usually on O2 at night only - Continue to wean O2 - suspect congestion may be playing a role - Is intolerant to CPAP (4) Right carpal tunnel syndrome: Plan: Ongoing for last 2 months. Recommended following up with PCP for referral to orthopedics. (5) Hypertension: Plan: - Hold carvedilol as above - Continue losartan 100 mg daily and Imdur 30 mg daily - Hold amlodipine (6) Obstructive sleep apnea: Plan: Intolerant to CPAP, Monitor hypoxia at night. (7) Hypothyroidism: Plan: TSH WNL Continue levothyroxine 100 mcg PO daily (8) Hyperlipidemia: Plan: Continue atorvastatin 40mg PO daily (9) Diabetes: Plan: HbA1C 7.8 - Had lows this afternoon - continue to monitor Consult pharmacy for glycemic control (10) Gastroesophageal reflux disease: Plan: Continue pantoprazole 20mg HS Plan: Monitor overnight Admission and Anticipated Discharge Date Admission Date: September 19, 2021 Subjective Patient seen on multiple occasions today. HR predominantly stayed in high 40s to about 60. Into the evening it intermittnetly hit mid 30s that rebound back to the 40s. This evening he stated he did feel a bit woozy but thought it was related to being hungry and sugar was in 30s so may explain the symptoms. Overall he reports feeling better compared to when he first came in. He denies any chest pain. He has not really ambulated much except for to the bathroom but denies SOB or chest pain with that activity. Review of Systems Review of Systems: All systems reviewed & are unremarkable except as noted in Subjective Physical Exam Physical Exam: PHYSICAL EXAM General Appearance: WDWN in NAD who is A&O x 3 HEENT: Head is normocephalic/atraumatic; Hearing grossly intact; Mucous membranes moist Neck: Supple; Trachea midline; Neg JVD Heart: Reg rhythm; bradycardic; with no M/G/R Lungs: Diminished to L base; fine crackles on R base; intermittent rhonchi anteriorly which improves with coughing; Respirations unlabored; Neg accessory muscle use Abdomen: Soft, non-tender, non-distended; Positive BS x 4 quadrants Extremities: Neg cyanosis or edema Neurological: Speech clear; Gross motor/sensory function intact; Neg focal neurologic deficits Psychiatric: Appropriate mood/affect Skin: Normal Color; Warm/Dry Results & Data Results & Data ([facility]) Vital Signs (Past 12 Hours) Vital Signs Temp Pulse Resp BP Pulse Ox 09/20/21 12:00 36.9 C 55 L 18 169/93 H 95 09/20/21 08:00 36.8 C 51 L 20 119/94 94 PG Care Time/CCT Total # of Minutes Spent Total Time Spent with Patient: Total time spent is greater than 50% in coordination of care (as documented) at patient's floor/unit and/or counseling patient: Coding Level of Care Code 35279 Subseq Hosp Care Lvl 3 Diagnoses Sinus bradycardia R00.1 Shortness of breath R06.02 Hypoxia R09.02 Right carpal tunnel syndrome G56.01 Hypertension I10 Obstructive sleep apnea G47.33 Hypothyroidism E03.9 Hyperlipidemia E78.5 Diabetes E11.9 Gastroesophageal reflux disease K21.9
[2021-09-20] MEDS ORDERED: ENOXAPARIN INJ 40 MG/0.4 ML SYR SQ SCH (21:00)
[2021-09-20] MEDS: ATORVASTATIN 40 MG TAB PO SCH (21:05)
[2021-09-20] MEDS: traZODone HCL 50 MG TAB PO SCH (21:05)
[2021-09-21] MEDS: INSULIN ASPART 100 UNITS/ML 3 ML PEN SC SCH ×4 (07:55→20:33)
[2021-09-21] MEDS: LEVOTHYROXINE SODIUM 100 MCG TABLET PO SCH (08:05)
--- NOTE | 2021-09-21 08:35 | XRay Report ---
XR chest 1V portable CLINICAL HISTORY: cough, hypoxeia. COMPARISON STUDY: 09/19/2021 TECHNIQUE: 1 view of the chest FINDINGS: Single frontal view of the chest demonstrates the heart to again be enlarged with evidence for mild c entral vascular congestion. Compared to the previous examination, there is again evidence for small l eft pleural effusion and alveolar opacity at the left lung base again characteristic of atelectasis v ersus early infiltrate. Atelectasis also seen on the right. No other confluent alveolar opacities are seen. No evidence for right pleural effusion. There is no evidence for vascular congestion. There is no acute osseous pathology. IMPRESSION: Compared to previous examination, there is again evidence for left pleural effusion and a lveolar opacities left lung base act risk of atelectasis versus early pneumonia. Right lung atelectas is also present. ACT 112: Negative or not required by law. Electronically signed by: Mansoor Trevino M.D. 09/21/2021 8:33 AM
[2021-09-21] MEDS ORDERED: INSULIN HUMAN NPH SC ONE ×3 (09:00→16:30)
[2021-09-21 09:13] LABS: Hematocrit (blood only) 43.4 % (42-52); Hemoglobin 13.3 g/dL (14.0-18.0); Mean Corpuscular Hemoglobin 29.4 pg (25-34); Mean Corpuscular Hgb Conc 30.6 g/dL (32-36); Mean Corpuscular Volume 95.8 fL (80-100); Mean Platelet Volume 10.5 fL (7.4-10.4); Nucleated RBC # (auto) 0.02 K/uL (0-0); Nucleated RBC % (auto) 0.4 %; Platelet Count 104 K/uL (130-400); RDW Coefficient of Variation 15.9 % (11.5-14.5); RDW Standard Deviation 55.3 fL (36.4-46.3); Red Blood Count 4.53 M/uL (4.7-6.1); White Blood Count 5.04 K/uL (4.8-10.8)
[2021-09-21] MEDS: ASPIRIN 81 MG ECTAB PO SCH (09:15)
[2021-09-21] MEDS: guaiFENesin 600 MG TABCR PO SCH (09:15)
[2021-09-21] MEDS: POLYETHYLENE (MIRALAX) 17 GM PACK PO SCH (09:16)
[2021-09-21 09:32] LABS: Calcium 9.1 mg/dl (8.5-10.1); Est GFR (African American) 65.9 ml/min; Est GFR (Non-African American) 56.8 ml/min; Potassium 5.6 mmol/L (3.5-5.1)
[2021-09-21 09:37] LABS: C Reactive Protein 0.92 mg/dl (0-0.29); Troponin I < 0.015 ng/ml (0-0.045)
--- NOTE | 2021-09-21 10:22 | Pharmacy Report ---
Pharmacy Glycemic Short Note 2 - Date of Service September 21, 2021 - Glycemic Short BSG Results (Last 24 hours): 09/20/21 09/20/21 09/20/21 11:21 17:36 17:38 Glucose POC Glucose 118 H 34 L* 99 09/20/21 09/20/21 09/20/21 17:39 17:56 17:57 Glucose POC Glucose 34 L* 52 L* 54 L* 09/20/21 09/20/21 09/21/21 18:24 21:03 07:27 Glucose POC Glucose 122 H 95 132 H 09/21/21 08:55 Glucose 159 H POC Glucose OUTPATIENT ANTIDIABETIC REGIMEN: * Novolog 70/30 -- 40 units in morning and 30 units with dinner * HbA1C = 7.8% ASSESSMENT: 09/21/21 * Patient's BSGs yesterday were 596-191-50-95 mg/dL. Fasting today is 132 mg/dL. * Patient received 32 units of insulin yesterday with 28 units of basal and bolus of 5 units. * Patient had hypoglycemic episode at dinnertime -- odd as patient received only 60% of home basal dose for morning. Will thus decrease insulin by additional 35% to 18 units today. * Novolog weight-based stress of 2. Background * Mr Reyez is a 75 y/o M with a PMH of T2DM who presents with bradycardia. On mixed insulin at home. * Will start NPH 18 units in morning and 10 units with dinner (represents about a 40% reduction in basal insulin from home) and is slightly less than half of home regimen. * Novolog weight-based stress of 2 for now. PLAN FOR INPATIENT GLYCEMIC CONTROL: * Basal insulin * NPH 10 units SQ with breakfast and 8 units SQ with dinner * Bolus insulin * NovoLog per scale ACHS or Q6hrs while NPO * Goal Range: Low 110 mg/dL - High 140 mg/dL * Correction Factor: 25 mg/dL/unit * Nutritional / Prandial insulin per carb ratio of 1 unit per 8 grams CHO consumed PLAN FOR DISCHARGE: * TBD
[2021-09-21] MEDS ORDERED: PIPERACILL/TAZOBAC CONSULT ACTIVE PRN (10:23)
[2021-09-21] MEDS ORDERED: PIPERACILLIN/TAZOBACTAM 3.375 GM in DEXTROSE 5% 100 ML IV SCH (10:30)
[2021-09-21] MEDS: CYANOCOBALAMIN 500 MCG TABLET (VITAMIN B-12) PO SCH (10:51)
[2021-09-21] MEDS: CHOLECALCIFEROL 1,000 UNITS 25 MCG TAB PO SCH (10:51)
[2021-09-21] MEDS ORDERED: PIPERACILLIN/TAZOBACTAM 4.5 GM in DEXTROSE 5% 100 ML IV ONE (11:00)
--- NOTE | 2021-09-21 11:22 | Cardiology Progress Note ---
Date of Service September 21, 2021 Assessment & Plan (1) Sinus bradycardia: (2) Chest pressure: (3) Right bundle branch block: (4) Arteriosclerotic cardiovascular disease: Plan: 1. Bradycardia: He continues to have an element of bradycardia. When he was awake this morning his heart rate was normal. He has now missed several doses of carvedilol. Given his other symptoms and relative hypotension we elected to hold carvedilol again today. As his clinical condition clarifies, we may have an opportunity to started low-dose carvedilol. Alternatively, we can monitor his symptoms when he is active to see if he requires beta-blockade. 2. Chest pain: Atypical chest pains. Will get a better understanding of his discomfort and its possible relation to coronary disease once he is ambulatory. 3. Coronary disease: Presumed. Evidence of inferior ischemia on perfusion imaging. Low risk study. Continuing secondary prevention, Aspirin and atorvastatin. 4. Dyspnea: He has a long history of dyspnea. Unclear etiology overall. He was significantly hypoxic last night. I do not believe this is related to pulmonary vascular congestion. Normal LV systolic function. Normal BNP. Normal lung examination is not normal, there seemed to be a concern for an infectious etiology. Admission and Anticipated Discharge Date Admission Date: September 19, 2021 Subjective This morning the patient claims to be feeling well. He did not report any subjective dyspnea. He was aware that his oxygen was low last evening. He states that he is having his "usual" chest pain. These appear to be fairly fleeting episodes of mild discomfort lasting less than 2 minutes. He had some difficulty quantifying this in more detail. He denies dizziness or lightheadedness. He was anxious for discharge. Review of Systems Review of Systems: Per HPI Physical Exam Physical Exam: The patient is alert and oriented. Mood and affect appeared normal. He answered all questions appropriately. HEENT: Pupils are equal and reactive to light and accommodation. Extraocular movements are intact. The sclerae are anicteric. Neuro: Cranial nerves intact Lungs: some upper airway congestion. Reduced breath sounds at the left base. No rales. Cardiac: Heart demonstrates a regular rate and rhythm. Normal S1 and S2. No murmurs on examination. Pulses: The patient has palpable radial pulses bilaterally that are equal in intensity Extremities: There was no evidence of hypoperfusion. There is no cyanosis or clubbing. Skin: I did not appreciate any rashes on examination today. Results & Data ([facility]) Vital Signs (Past 12 Hours) Vital Signs Pulse Resp BP Pulse Ox Pulse Ox 09/21/21 07:21 99/62 L 09/21/21 04:00 48 L 18 132/46 L 89 L 09/20/21 23:22 97 09/20/21 23:21 46 L 16 159/68 H 97 Laboratory Results Abnormal Lab Results 09/20/21 09/20/21 09/20/21 11:21 17:36 17:38 WBC RBC Hgb Hct MCV MCH MCHC RDW Std Deviation RDW Coeff of Melonie Plt Count MPV Absolute Nucleated RBC Nucleated RBC % (auto) Sodium Potassium Chloride Carbon Dioxide Anion Gap BUN Creatinine Est Cr Clr Drug Dosing Est GFR ( Amer) Est GFR (Non-Af Amer) BUN/Creatinine Ratio Glucose POC Glucose 118 H 34 L* 99 Calcium Troponin I C-Reactive Protein Procalcitonin 09/20/21 09/20/21 09/20/21 17:39 17:56 17:57 WBC RBC Hgb Hct MCV MCH MCHC RDW Std Deviation RDW Coeff of Melonie Plt Count MPV Absolute Nucleated RBC Nucleated RBC % (auto) Sodium Potassium Chloride Carbon Dioxide Anion Gap BUN Creatinine Est Cr Clr Drug Dosing Est GFR ( Amer) Est GFR (Non-Af Amer) BUN/Creatinine Ratio Glucose POC Glucose 34 L* 52 L* 54 L* Calcium Troponin I C-Reactive Protein Procalcitonin 09/20/21 09/20/21 09/21/21 18:24 21:03 07:27 WBC RBC Hgb Hct MCV MCH MCHC RDW Std Deviation RDW Coeff of Melonie Plt Count MPV Absolute Nucleated RBC Nucleated RBC % (auto) Sodium Potassium Chloride Carbon Dioxide Anion Gap BUN Creatinine Est Cr Clr Drug Dosing Est GFR ( Amer) Est GFR (Non-Af Amer) BUN/Creatinine Ratio Glucose POC Glucose 122 H 95 132 H Calcium Troponin I C-Reactive Protein Procalcitonin 09/21/21 09/21/21 09/21/21 08:55 08:55 08:55 WBC 5.04 RBC 4.53 L Hgb 13.3 L Hct 43.4 MCV 95.8 MCH 29.4 MCHC 30.6 L RDW Std Deviation 55.3 H RDW Coeff of Melonie 15.9 H Plt Count 104 L MPV 10.5 H Absolute Nucleated RBC 0.02 H Nucleated RBC % (auto) 0.4 Sodium 145 Potassium 5.6 H Chloride 109 H Carbon Dioxide 33 H Anion Gap 3.0 BUN 49 H Creatinine 1.22 Est Cr Clr Drug Dosing 57.0 Est GFR ( Amer) 65.9 Est GFR (Non-Af Amer) 56.8 BUN/Creatinine Ratio 40.0 H Glucose 159 H POC Glucose Calcium 9.1 Troponin I < 0.015 C-Reactive Protein 0.92 H Procalcitonin 09/21/21 09/21/21 08:55 11:06 WBC RBC Hgb Hct MCV MCH MCHC RDW Std Deviation RDW Coeff of Melonie Plt Count MPV Absolute Nucleated RBC Nucleated RBC % (auto) Sodium Potassium Chloride Carbon Dioxide Anion Gap BUN Creatinine Est Cr Clr Drug Dosing Est GFR ( Amer) Est GFR (Non-Af Amer) BUN/Creatinine Ratio Glucose POC Glucose 148 H Calcium Troponin I C-Reactive Protein Procalcitonin 0.28 Diagnostic Findings Echocardiogram performed today revealed preserved LV systolic function. Stage II diastolic dysfunction. No significant valvular heart disease. PG Care Time/CCT Total # of Minutes Spent Total Time Spent with Patient: Total time spent is greater than 50% in coordination of care (as documented) at patient's floor/unit and/or counseling patient: Coding Level of Care Code 99132 Subseq Hosp Care Lvl 2 Diagnoses Sinus bradycardia R00.1 Chest pressure R07.89 Right bundle branch block I45.10 Arteriosclerotic cardiovascular disease I25.10
--- NOTE | 2021-09-21 12:00 | XCELERA ---
[id number]
[2021-09-21 12:47] LABS: Appearance Urine Clear (Clear); Bacteria Urine Automated Negative (Negative); Bilirubin Urine Negative (Negative); Blood Urine Negative (Negative); Color Urine Yellow; Epithelial Cell Urine Auto 20-30 /lpf (0-5); Glucose Urine UA Trace (Negative); Ketones Urine Negative (Negative); Leukocyte Esterase Urine Negative (Negative); Nitrite Urine Negative (Negative); Protein Urine 3+ (Negative); RBC Urine Automated 0-4 /hpf (0-4); Specific Gravity Urine 1.017 (1.000-1.030); Urobilinogen Urine Negative (Negative)
[2021-09-21] MEDS: ALBUT/IPRATROP 3MG/0.5MG NEB 3 ML VIAL NEB SCH ×2 (15:11→19:15)
[2021-09-21 16:18] LABS: Adenovirus PCR Not Detected (NotDetected); Bordetella parapertussis PCR Not Detected (NotDetected); Bordetella pertussis PCR Not Detected (NotDetected); Chlamydia pneumoniae PCR Not Detected (NotDetected); Coronavirus 229E PCR Not Detected (NotDetected); Coronavirus CoV-2 (COVID19)PCR Not Detected (NotDetected); Coronavirus HKU1 PCR Not Detected (NotDetected); Coronavirus NL63 PCR Not Detected (NotDetected); Coronavirus OC43PCR Not Detected (NotDetected); Human Metapneumovirus PCR Not Detected (NotDetected); Influenza A PCR Not Detected (NotDetected); Influenza B PCR Not Detected (NotDetected); Mycoplasma pneumoniae PCR Not Detected (NotDetected); Parainfluenza Virus 1 PCR Not Detected (NotDetected); Parainfluenza Virus 2 PCR Not Detected (NotDetected); Parainfluenza Virus 3 PCR Not Detected (NotDetected); Parainfluenza Virus 4 PCR Not Detected (NotDetected); Respiratory Syncytial VirusPCR Not Detected (NotDetected); Rhinovirus/Enterovirus PCR Not Detected (NotDetected)
[2021-09-21] MEDS ORDERED: GLUCOSE 10 TABS/TUBE PO PRN (16:45)
[2021-09-21] MEDS ORDERED: CARBOHYDRATES FOR HYPOGLYCEMIA PO PRN (16:45)
[2021-09-21] MEDS ORDERED: DEXTROSE 50% 50 ML SYRINGE IV PRN (16:45)
[2021-09-21] MEDS ORDERED: GLUCOSE 40% GEL 15 GM TUBE PO PRN (16:45)
[2021-09-21] MEDS ORDERED: GLUCAGON FOR INJ 1 MG VIAL IM PRN (16:45)
[2021-09-21] MEDS ORDERED: FUROSEMIDE 40 MG/4 ML VIAL IV ONE (17:18)
[2021-09-21] MEDS: PIPERACILLIN/TAZOBACTAM 4.5 GM in DEXTROSE 5% 100 ML IV SCH ×2 (17:26→23:16)
--- NOTE | 2021-09-21 17:28 | CT Scan Report ---
CT chest diagnostic wo con CLINICAL HISTORY: Worsened hypoxia; allergic to contrast COMPARISON STUDY: Report of the chest from 09/13/[address] chest from 09-10 it should be noted that that chest was performed with intravenous contrast. CT DOSE: 1131.99 mGy.cm TECHNIQUE: Standard CT of the Chest was performed without IV contrast. A dose lowering technique was utilized adhering to the principles of ALARA. FINDINGS: Airway: The airway is clear. No endobronchial lesion is identified. Lungs and pleural: Compared to the portable chest radiograph, there is now evidence for left lung ate lectasis/collapse with volume loss and elevation left hemidiaphragm. Moderate pleural fluid opacifies the remainder left hemithorax. There is a small pneumothorax seen anteriorly. It is estimated at les s than 5%. On the right side, there is a very small pleural effusion with right basilar atelectasis. Mediastinum: There is no evidence for pathologic adenopathy on these limited noncontrast images. Ther e is mild cardiomegaly. Coronary artery calcification is present. The thoracic aorta is within normal limits. Atherosclerotic calcification is present involving the aortic arch and origin of the great v essels. There is no evidence for pericardial effusion. Upper abdomen: The adrenal glands are normal bilaterally. There is a small hiatal hernia. Osseous structures: There is no acute osseous pathology. IMPRESSION: 1. Interval development of left lung atelectasis/collapse with volume loss and elevation of the left hemidiaphragm. 2. There is also been development of a moderate size left pleural effusion with essentially almost co mplete opacification left hemithorax. 3. However, there is a small, less than 5% left apical pneumothorax. 4. There is a very small right pleural effusion with right basilar atelectasis as well. 5. Additional nonacute findings as delineated above. ACT 112: Negative or not required by law. Electronically signed by: Mansoor Trevino M.D. 09/21/2021 5:27 PM
--- NOTE | 2021-09-21 18:36 | Hospitalist Progress Note ---
Date of Service September 21, 2021 Assessment & Plan (1) Sinus bradycardia: Plan: - Improving - largely in high 40s into 50s - Per cardiology - some evidence of additional conduction disease with 1st AV block and RBBB and suspect progression of sinus node disease with beta yesica use -- Coreg for HTN and anti-anginal effects - Did get Glucagon and Atropine on first night of admission with pacer pads in place - did have some confusion at that time, was A&O but saying some odd things - suspect this could have been possibly in the setting of some hospital delirium given the time of day but cannot definitively state it wasnt from the bradycardia. Mentation has been appropriate since; at bedside confirmed him at his baseline mentation. - Consideration for lower dose of Coreg - however currently holding and may consider adding in follow-up with cardiology as outpatient - Troponins negative; BNP unremarkable -- Do not suspect CHF exacerbation at this time; did use Lasix x 1 dose on 09/20 and further diuresis per below - he reports he has been using this pretty much daily instead of PRN at home - Echo - EF 60-65%; diastolic dysfunction, grade II; no signficant valvular disease - Will monitor off BB therapy - Cardiology following - discussed with Dr. Sneed (2) Shortness of breath: Plan: - Reports URI symptoms that started over past week - nasal congestion/post nasal drip - Now with pleural effusion - as below - Seen by [employer] - no overt signs of aspiration (3) Hypoxia: Plan: - Aim O2 sats > 90%, usually on O2 at night only for SIXTO but unable to tolerate CPAP - Around 0400 on 09/21 did have a desaturation into 70s while on 2 L when he was sleeping; repeat CXR with with evidence of the L pleural effusion and opacities of L lung base either atelectasis vs early pneumonia - Started Zosyn given his swallowing issues - however procalcitonin negative and no leukocytosis; was having low temperatures today but feels too hot with bear hugger - Questioned mucous plugging vs PE - unable to use contrast due to allergy and VQ scan would likely be unreliable - however CT shows further progression of pleural effusion with evidence of collapse and small < 5% apical pneumothorax -- Uncertain what the underlying etiology is - no known pulmonary disease; no known lung Martir; does not appear to be in CHF but there is diastolic dysfunction - Lasix 40 mg IV x 1 dose now - Consult pulmonology - likely will need thoracentesis for diagnostic/therapeutic intervention - underlying malignancy? infectious? (4) Right carpal tunnel syndrome: Plan: Ongoing for last 2 months. Recommended following up with PCP for referral to orthopedics. (5) Hypertension: Plan: - Hold carvedilol as above - Continue losartan 100 mg daily and Imdur 30 mg daily - Hold amlodipine (6) Obstructive sleep apnea: Plan: Intolerant to CPAP (7) Hypothyroidism: Plan: TSH WNL Continue levothyroxine 100 mcg PO daily (8) Hyperlipidemia: Plan: Continue atorvastatin 40mg PO daily (9) Diabetes: Plan: HbA1C 7.8 - Had lows this afternoon as he has a reduce appetite- continue to monitor Consult pharmacy for glycemic control (10) Gastroesophageal reflux disease: Plan: Continue pantoprazole 20mg HS Plan: Now with L pleural effusion likely needing intervention; requires ongoing hospital stay Admission and Anticipated Discharge Date Admission Date: September 19, 2021 Subjective Patient evaluated on multiple occassions today. HR has improved largely into 50s today. However, Overnight while sleeping his O2 saturations dropped to 70s while on 2 L. He does have diagnosed sleep apnea. CXR continued to show L pleural effusion and alveolar opacities for possible atelectasis vs pneumonia. Abx were initiated and Duonebs. No leukocytosis and neg procalcitonin. He reports some SOB but more complaining of being hot with bearhugger due to low temperature. Given Lasix to see if improvement in symptoms. Also performed CT which shows progression of a R sided pleural effusion even compared to CXR. No known pulmonary disease or diagnosis of COPD/asthma. Review of Systems Review of Systems: All systems reviewed & are unremarkable except as noted in Subjective Physical Exam Physical Exam: PHYSICAL EXAM General Appearance: WDWN in NAD who is A&O x 3 HEENT: Head is normocephalic/atraumatic; Hearing grossly intact; Mucous membranes moist Neck: Supple; Trachea midline; Neg JVD Heart: Reg rhythm; bradycardic; with no M/G/R Lungs: Course breath sounds bilaterally; Respirations unlabored; Neg accessory muscle use Abdomen: Soft, non-tender, non-distended; Positive BS x 4 quadrants Extremities: Neg cyanosis or edema Neurological: Speech clear; Gross motor/sensory function intact; Neg focal neurologic deficits Psychiatric: Appropriate mood/affect Skin: Normal Color; Warm/Dry Results & Data Results & Data ([facility]) Vital Signs (Past 12 Hours) Vital Signs Temp Pulse Pulse Resp BP Pulse Ox 09/21/21 17:54 92 09/21/21 17:30 36.2 C L 09/21/21 16:45 36.3 C L 09/21/21 15:54 34.5 C L 09/21/21 15:35 34.5 C L 55 L 24 150/74 H 91 09/21/21 15:19 52 L 09/21/21 15:14 55 L 18 91 09/21/21 12:21 34.6 C L 54 L 24 120/71 90 09/21/21 07:21 33.4 C L 99/62 L PG Care Time/CCT Total # of Minutes Spent Total Time Spent with Patient: Total time spent is greater than 50% in coordination of care (as documented) at patient's floor/unit and/or counseling patient: Coding Level of Care Code 33474 Subseq Hosp Care Lvl 3 Diagnoses Sinus bradycardia R00.1 Shortness of breath R06.02 Hypoxia R09.02 Right carpal tunnel syndrome G56.01 Hypertension I10 Obstructive sleep apnea G47.33 Hypothyroidism E03.9 Hyperlipidemia E78.5 Diabetes E11.9 Gastroesophageal reflux disease K21.9
--- NOTE | 2021-09-21 18:41 | Ultrasound Report ---
US venous doppler LE BI CLINICAL HISTORY: Lower extremity edema; evaluate for DVT COMPARISON: None available at the time of this dictation. TECHNIQUE: Bilateral lower extremity real-time compression venous ultrasound with Color Doppler imagi ng. Utilizing real-time ultrasonic imaging multiple real time high-resolution ultrasonic images with comp ression and noncompression maneuvers of the deep venous system in addition to color doppler imaging w ere performed from the common femoral vein through the proximal calf veins. FINDINGS: Currently there is normal compressibility of the deep venous system from the common femoral vein thro ugh the proximal calf veins. No current evidence of acute thrombosis is identified. Impression: No evidence of deep venous thrombus. ACT 112: Negative or not required by law. Electronically signed by: Mansoor Trevino M.D. 09/21/2021 6:39 PM
[2021-09-21] MEDS: traZODone HCL 50 MG TAB PO SCH (20:31)
[2021-09-21] MEDS: ATORVASTATIN 40 MG TAB PO SCH (21:05)
[2021-09-22] MEDS: ALBUT/IPRATROP 3MG/0.5MG NEB 3 ML VIAL NEB SCH ×5 (02:49→20:21)
[2021-09-22 06:20] LABS: Basophils # (auto) 0.01 K/uL (0-0.2); Basophils % (auto) 0.1 %; Eosinophils # (auto) 0.03 K/uL (0-0.5); Eosinophils % (auto) 0.4 %; Hematocrit (blood only) 41.3 % (42-52); Hemoglobin 12.9 g/dL (14.0-18.0); Immature Granulocytes # (auto) 0.02 K/uL (0.00-0.02); Immature Granulocytes % (auto) 0.3 %; Lymphocytes # (auto) 1.85 K/uL (1.2-3.4); Lymphocytes % (auto) 23.3 %; Mean Corpuscular Hemoglobin 29.3 pg (25-34); Mean Corpuscular Hgb Conc 31.2 g/dL (32-36); Mean Corpuscular Volume 93.9 fL (80-100); Mean Platelet Volume 10.8 fL (7.4-10.4); Monocytes # (auto) 1.03 K/uL (0.11-0.59); Neutrophils % (auto) 62.9 %; Nucleated RBC # (auto) 0.05 K/uL (0-0); Nucleated RBC % (auto) 0.6 %; Platelet Count 125 K/uL (130-400); RDW Coefficient of Variation 16.1 % (11.5-14.5); White Blood Count 7.94 K/uL (4.8-10.8)
[2021-09-22 06:49] LABS: BUN Creatinine Ratio 33.2 (10-20); Calcium 8.8 mg/dl (8.5-10.1); Creatinine Clr Calc Pharmacy 51.7 ml/min; Est GFR (African American) 59.3 ml/min; Est GFR (Non-African American) 51.2 ml/min; Magnesium 2.3 mg/dl (1.8-2.4); Potassium 5.3 mmol/L (3.5-5.1)
[2021-09-22] MEDS: PIPERACILLIN/TAZOBACTAM 4.5 GM in DEXTROSE 5% 100 ML IV SCH ×3 (07:30→23:21)
[2021-09-22] MEDS ORDERED: INSULIN HUMAN NPH SC SCH (09:00)
--- NOTE | 2021-09-22 09:09 | Pulmonary Consultation ---
Date of Consultation September 22, 2021 Assessment & Plan (1) Acute respiratory failure with hypoxia: 75yo male with HTN, HLD, HFpEF, DM2, CKD2, SIXTO (CPAP-intolerant; on 2L nighttime oxygen), CVA, carotid stenosis s/p left carotid endarterectomy (2018), GERD, hypothyroidism, and a remote history of asthma presented to the ED on 09/19 with a one-day history of acute-onset SOB and dizziness in the setting of a one-week history of URI symptoms. Patient was hypoxic on arrival to the ED, which initially improved with 2L NC. On hospital day three, patient experienced desaturations to the 70s which improved only with 15L high-flow; CT chest performed at that time showed collapse of the left lung, Acute hypoxic respiratory failure, pleural effusions Etiology unclear; patient without history of pulmonary pathology; patient has HFpEF with prior hospitalizations for CHF exacerbation, though BNP on admission was not elevated; ddx includes aspiration, malignancy, others Unable to evaluate for PE due to contrast allergy; patient not tachycardic or febrile, BL LE doppler negative CT chest (09/21): moderate L pleural effusion with compressive atelectasis, small R pleural effusion, (<5%) left apical PTX Echo (09/21): grade II diastolic dysfunction, normal LV function, no valvular disease Thoracentesis (09/22): 200mL of straw-colored, stranded fluid removed; pigtail catheter placed; procedure tolerated well Fluid analysis pending Currently maintaining adequate O2 saturation on 3L NC Zosyn started given history of swallowing difficulty, though procal negative, no leukocytosis Continue zosyn MRSA nasal swab ordered; may need to switch to vancomycin Repeat procal ordered Initial bedside swallow eval without overt aspiration, though BREAST SURGEON recommended [id number] (patient declined); instrumental swallow study ordered Thank you for the opportunity to participate in this patient's care. Please refer to Dr. Wolf's addendum for additional recommendations. Supervising Physician Co-Signing Physician Notes Patient seen examined with resident physician. Agree with the above sign for any additions/exceptions noted: Patient with a moderate sized left pleural effusion and atelectasis. Pigtail catheter inserted by Jaleel Lowery. Fluid studies suggestive of a transudate. Will follow cultures and cytology. There is a lymphocytic predominance noted on cell counts which may be suggestive of an inflammatory or malignant process, but less likely. Suspect this is secondary to the patient's diastolic CHF. We will discontinue the pigtail catheter drain when drainage is less than 150 mL per 24- hour. We will hold off on intrapleural fibrinolytics as this does not appear to be an empyema or parapneumonic effusion at this time. Continue treatment for presumptive pneumonia with broad-spectrum antibiotics. MRSA screen negative. No role for vancomycin. Physical exam Constitutional: Chronically ill-appearing obese male in no apparent distress. Eyes: Pupils are equal round and reactive to light. Conjunctivae are normal. Anicteric sclera. Ears nose, mouth and throat: Mallampati class 2. Normal posterior oropharynx. Uvula is midline. Neck: Trachea is midline. Visual inspection is normal. Respiratory: Diminished bibasilar lung sounds. Cardiovascular: Regular rate and rhythm. No murmurs. Trace edema. Gastrointestinal: Normal bowel sounds, soft, nontender and nondistended. No hepatosplenomegaly noted. Musculoskeletal: Patient is able to move all extremities. Strength is 5 out of 5 in the upper and lower extremities. Skin: No rashes, warm dry and intact. Neurologic: No obvious focal neurological deficits seen. Psychiatric: Alert and oriented x3 with a euthymic affect. History of Present Illness Attending Physician: Enrique Aguirre DO History of Present Illness 75yo male with a PMH including HTN, HLD, HFpEF, DM2, CKD2, SIXTO (CPAP-intolerant; on nighttime oxygen), CVA, carotid stenosis s/p left carotid endarterectomy (2019), GERD, hypothyroidism, and a remote history of asthma presented to the ED on 09/19 with a one-day history of acute-onset SOB and dizziness in the setting of a one-week history of URI symptoms. Hospital course: in the ED, patient was hypoxic to 85, which improved with 2L oxygen via NC. CXR showed a small left and trace right pleural effusion, left diaphragmatic elevation, and cardiomegaly with pulmonary edema; BNP was not elevated. Patient was also noted to be bradycardic to the 30s. Patient has continued to have intermittent episodes of hypoxia while in-hospital. Yesterday, on 09/21 at 04:00, patient was noted with an O2 saturation in the 70s while sleeping; this improved with 15L high-flow. CT chest (non-contrast due to history of anaphylaxis with contrast) showed interval development of left lung collapse with volume loss and increased left hemidiaphragm elevation, a small left apical pneumothorax, and a small right pleural effusion. Patient was given lasix 40mg IV x1 and started on zosyn. Patient remained on 15L high-flow for about 24hr before he was able to be weaned back down to 2L NC with adequate saturations. Subjective: this morning, patient endorses moderate anxiety, but reports his breathing feels "fine" today and feels like it's at his baseline. Patient denies shortness of breath, hemoptysis, wheezing, chest pain, weakness, and dizziness. Patient is oriented to person and president but not to place (thought he was at [facility]) or time (thought year was 1969). Patient also repeatedly requests "take me upstairs to see my ". Patient is unable to tell me much about what's happened over the past few days. Denies fever/chills, headache, vision changes, abdominal pain, nausea, vomiting, or diarrhea. Denies auditory or visual hallucinations. PMH: patient endorses a history of asthma during childhood, but reports he "grew out of it", has not used an inhaler in decades. Patient had an episode of acute CHF exacerbation in February (2020) which resolved with diuresis. Patient has SIXTO (CPAP-intolerant) and uses oxygen 2L via NC at nighttime. Patient does note a history of right vocal cord paralysis, since 2017, which was suspected to be secondary to his CVA. Endorses a long history of intermittent difficulty swallowing, which has not been worse recently compared to baseline. 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 Hansen in 2020 with yearly follow-up recommended. Per H&P, patient's only recent medication change is that his am amlodipine, which had been discontinued after his 02/2021 admission for CHF exacerbation, was restarted about one month ago. Rest of PMH noted above. Risk factors: patient is a never-smoker and denies a history of COPD, emphysema, covid exposure, DVT/PE, or cancer. 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 Denies recreational substance use. Family history: notable only for lung cancer (patient's mother, who was a never- smoker). Denies family history of COPD, other pulmonary conditions, DVT/PE, or other cancers. Allergies Allergy/AdvReac Type Severity Reaction Status Date / Time Gadolinium-Containing Allergy Severe ANAPHYLAXIS Verified 09/19/21 13:39 Contrast Medi Iodinated Contrast Media Allergy Severe ANAPHYLAXIS Verified 09/19/21 13:39 Home Medications Medication Instructions Recorded Confirmed Type aspirin 81 mg tablet 81 mg PO QAM tab 05/31/19 09/19/21 History cyanocobalamin (vitamin B-12) 1,000 mcg PO QDL tab 05/31/19 09/19/21 History 1,000 mcg tablet docusate sodium 100 mg capsule 100 mg PO QAM PRN cap 05/31/19 09/19/21 History polyethylene glycol 3350 17 17 gm PO DAILY PRN #1 gm 05/31/19 09/19/21 History gram/dose oral powder BD Ultra-Fine Short Pen Needle 31 #100 ea NS 05/02/20 07/08/21 Rx gauge x 5/16" (pen needle, diabetic) cholecalciferol (vitamin D3) 50 2,000 unit PO QDL tab 10/28/20 09/19/21 History mcg (2,000 unit) tablet atorvastatin 40 mg tablet 40 mg PO HS #90 tab 11/18/20 09/19/21 Rx blood sugar diagnostic (OneTouch #3 box 04/17/21 07/08/21 Rx Ultra Blue Test Strip) carvedilol 25 mg tablet 25 mg PO BID #180 tab 06/23/21 09/19/21 Rx metformin 850 mg tablet 850 mg PO BID #180 tab 06/23/21 09/19/21 Rx nitroglycerin 0.4 mg sublingual 0.4 mg SL Q5M PRN #25 tab 07/10/21 09/19/21 Rx tablet Oxygen Home #1 ea 07/16/21 Rx Wheeled Walker #1 ea 07/21/21 Rx amlodipine 2.5 mg tablet 2.5 mg PO QAM 09/19/21 09/19/21 History furosemide 40 mg tablet (Lasix) 40 mg PO QAM PRN 09/19/21 09/19/21 History guaifenesin 1,200 mg tablet, 1,200 mg PO QAM 09/19/21 09/19/21 History extended release 12 hr (Mucinex) guaifenesin 100 mg/5 mL oral liquid 600 mg PO Q4H PRN 09/19/21 09/19/21 History insulin aspar prot-insulin aspart 30 - 40 unit SUBCUT BIDM 09/19/21 09/19/21 History 100 unit/mL (70-30) subcutaneous pen isosorbide mononitrate 30 mg 30 mg PO QAM 09/19/21 09/19/21 History tablet,extended release 24 hr levothyroxine 100 mcg tablet 100 mcg PO QAM 09/19/21 09/19/21 History losartan 100 mg tablet 100 mg PO QAM 09/19/21 09/19/21 History pantoprazole 20 mg tablet,delayed 20 mg PO PM PRN 09/19/21 09/19/21 History release trazodone 50 mg tablet 50 - 100 mg PO HS 09/19/21 09/19/21 History Patient History Medical History Acrochordon Anxiety Arteriosclerosis of carotid artery Arteriosclerotic cardiovascular disease Asthma Atypical chest pain Chronic kidney disease (CKD), stage II (mild) Colon polyps Diabetes Diabetes with neurologic complications Diabetic nephropathy Dyslipidemia Excessive sweating Gait disturbance Gastroesophageal reflux disease Rachel's thyroiditis History of [id number] syndrome Hyperglobulinemia Hyperkalemia Hyperlipidemia Hypertension Hypothyroidism Insomnia Internal hemorrhoids Male erectile disorder of organic origin Obesity Obstructive sleep apnea Paralysis of right vocal fold Parotid sialolithiasis Proteinuria Right bundle branch block Sialadenitis Vitamin D deficiency Vocal cord anomaly Surgical History H/O umbilical hernia repair S/P carotid endarterectomy S/P cataract surgery S/P inguinal hernia repair S/P tonsillectomy Family History Mother Heart disease Father Stomach cancer Other Asthma Cancer Denies family history of Ovarian cancer Prostate cancer Myocardial infarction Breast cancer Colorectal cancer Social History Smoking Status: Never smoker Second Hand Exposure: No; Hx Alcohol Use: No Hx Substance Use: No Preferred Language: Kyrgyz Communication Ability: Effective Visual Impairment: No Limitations Hearing Ability: Normal Clerical Secretary Required: No Beliefs That Will Affect Care: None marital status: Current Living Situation: Spouse current occupational status: retired How many Children do You have: 2 Feels Safe at Home: Yes Childhood Exposure to Second-Hand Smoke: No caffeine: Yes (coffee) Dental Care, Regularly: Yes Physical Activity Frequency: Does not Exercise Seatbelt Use: always Sunscreen Use: No Assistive Devices: Cane, Oxygen - at Night and Walker Review of Systems Review of Systems: See HPI Physical Exam Physical Exam: Constitutional: slightly anxious-appearing, no acute distress HEENT: NCAT, MMM, no perioral edema CV: regular rhythm, rate ~70, no murmur appreciated, extremities well-perfused, no LE edema Resp: coarse rhonchi heard in all lung garcia but greater in R>L, breath sounds diminished on left side, no rales or wheezes noted, breathing non-labored GI: soft, nondistended, nontender Neuro: alert, oriented to person and president but not to place or time, speech slightly slurred but comprehensible, patient with some confusion (see HPI) Psych: patient mildly anxious, fidgety, thought process perseverative, insight poor Results & Data Results & Data ([facility]) Vital Signs (Past 12 Hours) Vital Signs Temp Pulse Pulse Resp BP Pulse Ox Pulse Ox 09/22/21 08:00 36.5 C 66 18 121/66 95 09/22/21 07:49 72 09/22/21 07:08 78 18 95 09/22/21 05:37 62 97 09/22/21 05:17 36.4 C L 58 L 16 100/61 92 09/22/21 04:32 94 09/22/21 04:20 95 09/22/21 02:49 63 26 H 89 L 09/22/21 01:55 64 92 09/22/21 00:00 66 09/21/21 23:59 36.7 C 64 20 130/61 88 L 09/21/21 23:16 36.8 C 65 16 140/66 89 L 09/21/21 23:00 90 Resident Activity Tracking Resident Involvement: Resident Care Provided Care Provided: Adult Hospital Medicine
[2021-09-22] MEDS: INSULIN ASPART 100 UNITS/ML 3 ML PEN SC SCH ×4 (09:28→21:49)
--- NOTE | 2021-09-22 09:56 | XRay Report ---
XR chest 1V portable HISTORY: pleural effusion ?interval change COMPARISON: Chest 09/13/2021. FINDINGS: Small left pleural effusion and left base airspace opacities have slightly improved. The he art remains enlarged. There is mild central pulmonary vascular congestion without overt edema. This i s also improved. Linear densities within the right lung base have improved. No definite pneumothorax. IMPRESSION: Slight improvement in the small left pleural effusion and bibasilar densities. ACT 112: Negative or not required by law. Electronically signed by: Christian Munoz M.D. 09/22/2021 9:54 AM
--- NOTE | 2021-09-22 10:12 | Hospitalist Progress Note ---
Date of Service September 22, 2021 Assessment & Plan (1) Pleural effusion, left: Plan: Noted via CT chest w/o contrast which was obtained due to worsening hypoxia - Etiology uncertain, does not appear to be experiencing an acute exacerbation of CHF ?complex PNA v underlying malignancy - Treated with a one time dose of Lasix 40mg IV on 09/21 with good response, neg net fluid balance of ~1.8L - Pulmonology consulted for thoracentesis, both diagnostic and therapeutic - d/w Jaleel Lowery PA-C - Approx 400 mL straw-colored fluid drained, sent for testing - Pigtail catheter inserted and placed to suction, f/u CXR performed as noted above - Add incentive spirometry (2) Hypoxia: Plan: - Aim O2 sats > 90%, usually on O2 at night only for SIXTO (unable to tolerate CPAP) - Around 0400 on 09/21 did have a desaturation into 70s while on 2 L when he was sleeping; repeat CXR with with evidence of the L pleural effusion and opacities of L lung base either atelectasis vs early pneumonia - Started empirically on Zosyn given his swallowing issues (cover for possible aspiration) - however procalcitonin negative and no leukocytosis, afebrile - Questioned mucous plugging vs PE - unable to use contrast due to allergy and VQ scan was considered unreliable and subsequently not performed - CT (as above) shows further progression of pleural effusion with evidence of collapse and small <5% apical PTX -- ?complex pneumonia (3) Sinus bradycardia: Plan: - Improved/resolved -- lowest HR over the past 18 hours was 58 bpm - Per cardiology - some evidence of additional conduction disease with 1st AV block and RBBB and suspect progression of sinus node disease with beta yesica use - Did get Glucagon and Atropine on first night of admission with pacer pads in place - did have some confusion at that time, was A&O but saying some odd things - Mentation has been appropriate since - Consideration for lower dose of Coreg - however currently holding and may consider adding in follow-up with cardiology as outpatient - Troponins negative; BNP unremarkable - Echo - EF 60-65%; diastolic dysfunction, grade II; no significant valvular disease - Will monitor off BB therapy, resume low dose Amlodipine if cardiology agreeable - Cardiology following, appreciate their input (4) Right carpal tunnel syndrome: Plan: - Ongoing for last 2 months - Recommended following up with PCP, outpatient EMG study and can refer to surgery (5) Hypertension: Plan: - Hold carvedilol as above - Continue losartan 100 mg daily and Imdur 30 mg daily - Amlodipine held; however, pt on such a low dose will resume if cardiology a greeable (6) Obstructive sleep apnea: Plan: - Intolerant to CPAP - Continue nocturnal O2 (7) Hypothyroidism: Plan: - TSH WNL - Continue levothyroxine 100 mcg PO daily (8) Hyperlipidemia: Plan: - Continue atorvastatin 40mg PO daily (9) Diabetes: Plan: HbA1C 7.8 - Metformin held - Pharmacy consulted for glycemic management (10) Gastroesophageal reflux disease: Plan: Continue pantoprazole 20mg HS Plan: Follow up labs in AM PT/OT Await diagnostics from thoracentesis D/C Planning DVT ppx w/ Lovenox Admission and Anticipated Discharge Date Admission Date: September 19, 2021 [address] Mr. Reyez was seen on rounds this morning. Pt was hospitalized for acute d yspnea and bradycardia. Pt currently resting in bed, offers no new complaints. He denies dyspnea at rest. Still requiring supplemental O2, currently 3L via nasal cannula which is much less than what he was requiring overnight (highest was 15L). Typically pt wears nocturnal O2. CT of chest yesterday demonstrated progressed L pleural effusion with compressive atelectasis. Pulmonology consulted to determine need for thoracentesis. His HR has been stable over the past 18 hours, no HR <55, Carvedilol remains on hold. Denies lightheadedness/dizziness. Denies chest pain, cough, fever, chills, headache or gu symptoms. Only c/o numbness/tingling in a few of his fingers on right hand which has been ongoing for the past 2 months. Review of Systems Review of Systems: CONSTITUTIONAL: Denies weight loss/gain, fever and chills, fatigue, malaise, generalized weakness. HEENT: Denies changes in vision and hearing. RESPIRATORY: Denies SOB at rest, cough, wheezing. CV: Denies palpitations, CP, lower extremity edema, orthopnea, PND. GI: Denies abdominal pain, nausea, vomiting and diarrhea. : Denies dysuria and urinary frequency, urgency, hesitancy. MUSCULOSKELETAL: Denies myalgia and joint pain. SKIN: Denies rash and pruritus. NEUROLOGICAL: + numbness/tingling in R hand x 2 months. Denies headache, sync ope, focal weakness. PSYCHIATRIC: Denies recent changes in mood. Denies anxiety and depression. Physical Exam Physical Exam: GENERAL: 75 yo Well-developed, well-nourished elderly WM. NAD. LUNGS: No conversational dyspnea or labored breathing. Diminished BS in LLL. CTA in R lung garcia. CARDIOVASCULAR: Regular rate and rhythm. No M/G/R. No JVD. ABDOMEN: Soft, non-tender and non-distended. No palpable masses. Bowel sounds normoactive x 4 quad. EXTREMITIES: No edema. Non-tender. Peripheral pulses +2/4. NEUROLOGIC: A&O x3. + tinels test on R PSYCHIATRIC: Cooperative. Appropriate mood and affect. SKIN: Warm, dry, intact. No rashes or lesions. Results & Data Results & Data ([facility]) Vital Signs (Past 12 Hours) Vital Signs Temp Pulse Pulse Resp BP Pulse Ox Pulse Ox 09/22/21 08:00 36.5 C 66 18 121/66 95 09/22/21 07:49 72 09/22/21 07:08 78 18 95 09/22/21 05:37 62 97 09/22/21 05:17 36.4 C L 58 L 16 100/61 92 09/22/21 04:32 94 09/22/21 04:20 95 09/22/21 02:49 63 26 H 89 L 09/22/21 01:55 64 92 09/22/21 00:00 66 09/21/21 23:59 36.7 C 64 20 130/61 88 L 09/21/21 23:16 36.8 C 65 16 140/66 89 L 09/21/21 23:00 90 Laboratory Results 09/22/21 05:48 09/22/21 05:[address] 09/21/21 14:59 CT chest diagnostic wo con CLINICAL HISTORY: Worsened hypoxia; allergic to contrast COMPARISON STUDY: Report of the chest from 09/13/[address] chest from it should be noted that that chest was performed with intravenous contrast. CT DOSE: 1131.99 mGy.cm TECHNIQUE: Standard CT of the Chest was performed without IV contrast. A dose lowering technique was utilized adhering to the principles of ALARA. FINDINGS: Airway: The airway is clear. No endobronchial lesion is identified. Lungs and pleural: Compared to the portable chest radiograph, there is now evidence for left lung atelectasis/collapse with volume loss and elevation left hemidiaphragm. Moderate pleural fluid opacifies the remainder left hemithorax. There is a small pneumothorax seen anteriorly. It is estimated at less than 5%. On the right side, there is a very small pleural effusion with right basilar atelectasis. Mediastinum: There is no evidence for pathologic adenopathy on these limited noncontrast images. There is mild cardiomegaly. Coronary artery calcification is present. The thoracic aorta is within normal limits. Atherosclerotic calcificati on is present involving the aortic arch and origin of the great vessels. There is no evidence for pericardial effusion. Upper abdomen: The adrenal glands are normal bilaterally. There is a small hia cassie hernia. Osseous structures: There is no acute osseous pathology. IMPRESSION: 1. Interval development of left lung atelectasis/collapse with volume loss and elevation of the left hemidiaphragm. 2. There is also been development of a moderate size left pleural effusion with essentially almost complete opacification left hemithorax. 3. However, there is a small, less than 5% left apical pneumothorax. 4. There is a very small right pleural effusion with right basilar atelectasis as well. 5. Additional nonacute findings as delineated above. ACT 112: Negative or not required by law. Electronically signed by: Mansoor Trevino M.D. 09/21/2021 5:27 PM Venous Doppler Study 09/21/21 14:59 US venous doppler LE CLINICAL HISTORY: Lower extremity edema; evaluate for DVT COMPARISON: None available at the time of this dictation. TECHNIQUE: Bilateral lower extremity real-time compression venous ultrasound with Color Doppler imaging. Utilizing real-time ultrasonic imaging multiple real time high-resolution ultrasonic images with compression and noncompression maneuvers of the deep venous system in addition to color doppler imaging were performed from the common femoral vein through the proximal calf veins. FINDINGS: Currently there is normal compressibility of the deep venous system from the common femoral vein through the proximal calf veins. No current evidence of acute thrombosis is identified. Impression: No evidence of deep venous thrombus. ACT 112: Negative or not required by law. Electronically signed by: Mansoor Trevino M.D. 09/21/2021 6:39 PM Chest X-Ray 09/22/21 09:10 XR chest 1V portable HISTORY: pleural effusion ?interval change COMPARISON: Chest 09/13/2021. FINDINGS: Small left pleural effusion and left base airspace opacities have slightly improved. The heart remains enlarged. There is mild central pulmonary vascular congestion without overt edema. This is also improved. Linear densities within the right lung base have improved. No definite pneumothorax. IMPRESSION: Slight improvement in the small left pleural effusion and bibasilar densities. ACT 112: Negative or not required by law. Electronically signed by: Christian Munoz M.D. 09/22/2021 9:54 AM Chest X-Ray 09/22/21 XR chest 1V portable at 11:06 AM CLINICAL HISTORY: S/P Left Thoracentesis. Evaluate for pneumothorax COMPARISON STUDY: 09/22/2021 9:11 AM TECHNIQUE: 1 view of the chest FINDINGS: Single frontal view of the chest demonstrates the heart size to again be enlarged. The patient is status post left thoracentesis with decreased left pleural effusion. There is no evidence for pneumothorax. Bibasilar atelectasis is present, left greater than right. No focal alveolar opacities are seen. There is no definite right pleural effusion. There is no evidence for vascular congestion. There is no acute osseous pathology. IMPRESSION: Status post left thoracentesis with decreased left pleural effusion and no evidence for pneumothorax. Bibasilar atelectasis, left greater than right. ACT 112: Negative or not required by law. Electronically signed by: Mansoor Trevino M.D. 09/22/2021 11:36 AM ECG Additional Comments: TELE: Sinus 60-70s PG Care Time/CCT Total # of Minutes Spent Total Time Spent with Patient: Total time spent is greater than 50% in coordination of care (as documented) at patient's floor/unit and/or counseling patient: Coding Level of Care Code 50362 Subseq Hosp Care Lvl 2 Diagnoses Sinus bradycardia R00.1 Hypoxia R09.02 Right carpal tunnel syndrome G56.01 Hypertension I10 Obstructive sleep apnea G47.33 Hypothyroidism E03.9 Hyperlipidemia E78.5 Diabetes E11.9 Gastroesophageal reflux disease K21.9 Pleural effusion, left J90
--- NOTE | 2021-09-22 10:33 | Pharmacy Report ---
Pharmacy Glycemic Short Note 2 - Date of Service September 22, 2021 - Glycemic Short BSG Results (Last 24 hours): 09/21/21 09/21/21 09/21/21 11:06 16:32 17:33 Glucose POC Glucose 148 H 72 129 H 09/21/21 09/22/21 09/22/21 20:26 01:45 05:48 Glucose 109 H POC Glucose 104 H 98 09/22/21 07:33 Glucose POC Glucose 101 H OUTPATIENT ANTIDIABETIC REGIMEN: * Novolog 70/30 -- 40 units in morning and 30 units with dinner * HbA1C = 7.8% ASSESSMENT: 09/22 * Pt has received 12 units of insulin over the past 24hrs * 10 units of basal with NPH * 2 units of bolus with NovoLog * BSGs 132-148-72/966-949-78-101-109 mg/dl * BSGs trending downwards. PO intake remains minimal. Will decrease basal insulin by 20% today and continue to titrate based on BSG trends and PO intake. 09/21/21 * Patient's BSGs yesterday were 504-853-15-95 mg/dL. Fasting today is 132 mg/dL. * Patient received 32 units of insulin yesterday with 28 units of basal and bolus of 5 units. * Patient had hypoglycemic episode at dinnertime -- odd as patient received only 60% of home basal dose for morning. Will thus decrease insulin by additional 35% to 18 units today. * Novolog weight-based stress of 2. Background * Mr Reyez is a 75 y/o M with a PMH of T2DM who presents with bradycardia. On mixed insulin at home. * Will start NPH 18 units in morning and 10 units with dinner (represents about a 40% reduction in basal insulin from home) and is slightly less than half of home regimen. * Novolog weight-based stress of 2 for now. PLAN FOR INPATIENT GLYCEMIC CONTROL: * Basal insulin * NPH 8 units SQ with breakfast. HOLD NPH with dinner * Bolus insulin * NovoLog per scale ACHS or Q6hrs while NPO * Goal Range: Low 110 mg/dL - High 140 mg/dL * Correction Factor: 25 mg/dL/unit * Nutritional / Prandial insulin per carb ratio of 1 unit per 8 grams CHO consumed PLAN FOR DISCHARGE: * TBD
[2021-09-22] MEDS: CHOLECALCIFEROL 1,000 UNITS 25 MCG TAB PO SCH (10:53)
[2021-09-22] MEDS: guaiFENesin 600 MG TABCR PO SCH (10:54)
[2021-09-22] MEDS: LEVOTHYROXINE SODIUM 100 MCG TABLET PO SCH (10:55)
[2021-09-22] MEDS: CYANOCOBALAMIN 500 MCG TABLET (VITAMIN B-12) PO SCH (10:55)
[2021-09-22] MEDS: ACETAMINOPHEN 325 MG TAB PO PRN ×3 (10:56→23:21)
[2021-09-22] MEDS: POLYETHYLENE (MIRALAX) 17 GM PACK PO SCH (10:58)
--- NOTE | 2021-09-22 11:14 | Procedure Note ---
Procedure Note Date of Service September 22, 2021 Note Attending: Dr Wolf Impression: This is a 75 yo male admitted for SOB and heart failure. Over the weekend, he developed hypoxia. A CT chest revealed B/L pleural effusions, left greater than right. SaO2 dropped to 70% overnight. Patient recovered well with 2L/min via NC but has difficulty keeping NC in place. We were consulted to evaluate for appropriateness of performing thoracentesis. Labs were checked. Platelets 125, INR 1.0. No anticoagulation. Patient does take ASA 81mg daily. Last dose yesterday am. DVT prophylactics, ENOXAPARIN 40 mg SQ daily, last dose last evening at 9pm Dr. Wolf asked me to see the patient and delegated consent to me and asked me to do the procedure at bedside. INDICATION: Left pleural effusion with associated hypoxia PROCEDURE: Left thoracentesis with Skater 14Fr Skater pigtail catheter placed to suction DATE: 09/22/2021 TIME: 09:45am PROVIDER: Jaleel Lowery PA-C CONSENT: Was obtained prior to the procedure by Jaleel Lowery PA-c and placed on the chart as dlegated by Dr. Wolf. PROCEDURE SUMMARY: Bedside ultra sound was performed to identify an appropriate puncture site. Images were saved to the [employer] DFM system. A time out was performed. The patient was prepped and draped in a sterile manner using chlorhexidine scrub after the appropriate level was confirmed by ultrasound. 1% lidocaine was used to numb the region. A finder needle was then used under negative pressure to locate fluid and instill lidocaine into the pleural space. A small incision was made with a #10 scalpel. A needle with overlying catheter was advanced using negative pressure on the syringe until a pleural flash was obtained. The thoracentesis catheter was then threaded without difficulty and without any bleeding. The patient had 200 mL of straw colored fluid removed which appeared stranded in the line. I was unable to draw any additional fluid and converted to a 14Fr pigtail catheter using Seldinger technique. I obtained another 200 ml of fluid and hooked the tubing upto suction at 20 mmHg with minimal return. The catheter was then sutured in place with silk thread and You Sandal technique. A Skater fixation device was also then used to secure the catheter in place. There was a grade one air leak initially which then resolved. Patient had no significant change in blood pressure and SaO2 remained in the mid 90s for the entire procedure. No immediate complications were noted during the procedure. Dr. Wolf, Dr. Aguirre, and Radha Emmanuel PA-C were notified after the procedure. A post-procedure chest x-ray was completed and reviewed at bedside by this provider and no pneumothorax was identified. The patient tolerated the procedure well with no shortness of breath, no hypotension, no increase in heart rate, and no other acute symptoms. Coding CPT Codes Pulmonary/Thoracic - Pulmonary and Thoracic: 01882 Thoracentesis w imaging ([id number]) Pulmonary/Thoracic - Pulmonary and Thoracic: 68076 US, Chest, real time with imaging documentation ([id number]) [facility] [place]odes (Charges) Pulmonary/Thoracic Procedure 1: Pulmonary and Thoracic: 40557 Thoracentesis w imaging Procedure 2: Pulmonary and Thoracic: 69317 US, Chest, real time with imaging documentation
[2021-09-22 11:32] LABS: Glucose Pleural Fluid 128 mg/dl
--- NOTE | 2021-09-22 11:37 | XRay Report ---
XR chest 1V portable at 11:06 AM CLINICAL HISTORY: S/P Left Thoracentesis. Evaluate for pneumothorax COMPARISON STUDY: 09/22/2021 9:11 AM TECHNIQUE: 1 view of the chest FINDINGS: Single frontal view of the chest demonstrates the heart size to again be enlarged. The patient is sta tus post left thoracentesis with decreased left pleural effusion. There is no evidence for pneumothor ax. Bibasilar atelectasis is present, left greater than right. No focal alveolar opacities are seen. There is no definite right pleural effusion. There is no evidence for vascular congestion. There is n o acute osseous pathology. IMPRESSION: Status post left thoracentesis with decreased left pleural effusion and no evidence for p neumothorax. Bibasilar atelectasis, left greater than right. ACT 112: Negative or not required by law. Electronically signed by: Mansoor Trevino M.D. 09/22/2021 11:36 AM
[2021-09-22 11:38] LABS: LDH Pleural Fluid 105 U/L
--- NOTE | 2021-09-22 11:46 | Cardiology Progress Note ---
Date of Service September 22, 2021 Assessment & Plan (1) Sinus bradycardia: (2) Chest pressure: (3) Right bundle branch block: (4) Arteriosclerotic cardiovascular disease: Plan: 1. Bradycardia: Improved. The exact etiology of his bradycardia is not entirely clear. However, his beta-yesica has been held and heart rate is now normal. Whether he requires continued beta-blockade will be based upon symptoms once he is more ambulatory. 2. Chest pain: Atypical. He did not report any additional chest pains but has not been ambulatory. Unclear how reliable his history is in his current cognitive state. 3. Coronary disease: Presumed. Evidence of inferior ischemia on perfusion imaging. Low risk study. Continuing secondary prevention, Aspirin and atorvastatin. 4. Dyspnea: It seems like the etiology of his dyspnea and hypoxia is primarily a pulmonary process. It appears he is being evaluated for thoracentesis. Being treated for pneumonia. Admission and Anticipated Discharge Date Admission Date: September 19, 2021 Subjective This morning the patient wanted to go home. He reported by nursing staff to have an element of confusion and delirium. He denied breathing trouble. Denied chest pain. He cannot recall being out of bed yesterday. Review of Systems Review of Systems: Per HPI Physical Exam Physical Exam: He answered questions appropriately but appear to be confused at times. HEENT: Pupils are equal and reactive to light and accommodation. Extraocular movements are intact. The sclerae are anicteric. Neuro: Cranial nerves intact Lungs: Reduced breath sounds at the left base. Increased work of breathing. No rales. No expiratory wheezing Cardiac: Heart demonstrates a regular rate and rhythm. Normal S1 and S2. Pulses: The patient has palpable radial pulses bilaterally that are equal in intensity Extremities: There was no evidence of hypoperfusion. There is no cyanosis or clubbing. There is no edema. Skin: I did not appreciate any rashes on examination today. Results & Data ([facility]) Vital Signs (Past 12 Hours) Vital Signs Temp Pulse Pulse Resp BP Pulse Ox 09/22/21 08:00 36.5 C 66 18 121/66 95 09/22/21 07:49 72 09/22/21 07:08 78 18 95 09/22/21 05:37 62 97 09/22/21 05:17 36.4 C L 58 L 16 100/61 92 09/22/21 04:32 94 09/22/21 04:20 95 09/22/21 02:49 63 26 H 89 L 09/22/21 01:55 64 92 09/22/21 00:00 66 09/21/21 23:59 36.7 C 64 20 130/61 88 L Laboratory Results Abnormal Lab Results 09/21/21 09/21/21 09/21/21 08:55 12:00 16:32 WBC RBC Hgb Hct MCV MCH MCHC RDW Std Deviation RDW Coeff of Melonie Plt Count MPV Immature Gran % (Auto) Neut % (Auto) Lymph % (Auto) Bulloch % (Auto) Eos % (Auto) Baso % (Auto) Neut # (Auto) Lymph # (Auto) Bulloch # (Auto) Eos # (Auto) Baso # (Auto) Immature Gran # (Auto) Absolute Nucleated RBC Nucleated RBC % (auto) Sodium Potassium Chloride Carbon Dioxide Anion Gap BUN Creatinine Est Cr Clr Drug Dosing Est GFR ( Amer) Est GFR (Non-Af Amer) BUN/Creatinine Ratio Glucose POC Glucose 72 Calcium Magnesium Random Cortisol 25.20 Urine Color Yellow Urine Appearance Clear Urine pH 5.0 Ur Specific [place] 1.017 Urine Protein 3+ H Urine Glucose (UA) Trace H Urine Ketones Negative Urine Blood Negative Urine Nitrite Negative Urine Bilirubin Negative Urine Urobilinogen Negative Ur Leukocyte Esterase Negative Urine WBC (Auto) 1-5 Urine RBC (Auto) 0-4 U Hyaline Cast (Auto) 5-10 H U Epithel Cells (Auto) 20-30 H Urine Bacteria (Auto) Negative Fluid Comment Pleural pH Pleural Total Protein Pleural LDH Pleural Glucose Adenovirus (PCR) B. pertussis DNA (PCR) B.parapertussis DNA PCR C. pneumoniae DNA (PCR) Coronavirus OC43 (PCR) Coronavirus HKU1 (PCR) Coronavirus 229E (PCR) SARS-CoV-2 (PCR) Coronavirus NL63 (PCR) Human Metapneumovir PCR Influenza Type A (PCR) Influenza Type B (PCR) M. pneumoniae (PCR) Parainfluenza 1 (PCR) Parainfluenza 2 (PCR) Parainfluenza 3 (PCR) Parainfluenza 4 (PCR) RSV (PCR) Entero/Rhino (PCR) 09/21/21 09/21/21 09/21/21 17:33 20:26 Unknown WBC RBC Hgb Hct MCV MCH MCHC RDW Std Deviation RDW Coeff of Melonie Plt Count MPV Immature Gran % (Auto) Neut % (Auto) Lymph % (Auto) Bulloch % (Auto) Eos % (Auto) Baso % (Auto) Neut # (Auto) Lymph # (Auto) Bulloch # (Auto) Eos # (Auto) Baso # (Auto) Immature Gran # (Auto) Absolute Nucleated RBC Nucleated RBC % (auto) Sodium Potassium Chloride Carbon Dioxide Anion Gap BUN Creatinine Est Cr Clr Drug Dosing Est GFR ( Amer) Est GFR (Non-Af Amer) BUN/Creatinine Ratio Glucose POC Glucose 129 H 104 H Calcium Magnesium Random Cortisol Urine Color Urine Appearance Urine pH Ur Specific [place] Urine Protein Urine Glucose (UA) Urine Ketones Urine Blood Urine Nitrite Urine Bilirubin Urine Urobilinogen Ur Leukocyte Esterase Urine WBC (Auto) Urine RBC (Auto) U Hyaline Cast (Auto) U Epithel Cells (Auto) Urine Bacteria (Auto) Fluid Comment Pleural pH Pleural Total Protein Pleural LDH Pleural Glucose Adenovirus (PCR) Not Detected B. pertussis DNA (PCR) Not Detected B.parapertussis DNA PCR Not Detected C. pneumoniae DNA (PCR) Not Detected Coronavirus OC43 (PCR) Not Detected Coronavirus HKU1 (PCR) Not Detected Coronavirus 229E (PCR) Not Detected SARS-CoV-2 (PCR) Not Detected Coronavirus NL63 (PCR) Not Detected Human Metapneumovir PCR Not Detected Influenza Type A (PCR) Not Detected Influenza Type B (PCR) Not Detected M. pneumoniae (PCR) Not Detected Parainfluenza 1 (PCR) Not Detected Parainfluenza 2 (PCR) Not Detected Parainfluenza 3 (PCR) Not Detected Parainfluenza 4 (PCR) Not Detected RSV (PCR) Not Detected Entero/Rhino (PCR) Not Detected 09/22/21 09/22/21 09/22/21 01:45 05:48 05:48 WBC 7.94 RBC 4.40 L Hgb 12.9 L Hct 41.3 L MCV 93.9 MCH 29.3 MCHC 31.2 L RDW Std Deviation 56.0 H RDW Coeff of Melonie 16.1 H Plt Count 125 L MPV 10.8 H Immature Gran % (Auto) 0.3 Neut % (Auto) 62.9 Lymph % (Auto) 23.3 Bulloch % (Auto) 13.0 Eos % (Auto) 0.4 Baso % (Auto) 0.1 Neut # (Auto) 5.00 Lymph # (Auto) 1.85 Bulloch # (Auto) 1.03 H Eos # (Auto) 0.03 Baso # (Auto) 0.01 Immature Gran # (Auto) 0.02 Absolute Nucleated RBC 0.05 H Nucleated RBC % (auto) 0.6 Sodium 145 Potassium 5.3 H Chloride 107 Carbon Dioxide 31 Anion Gap 6.0 BUN 44 H Creatinine 1.33 Est Cr Clr Drug Dosing 51.7 Est GFR ( Amer) 59.3 Est GFR (Non-Af Amer) 51.2 BUN/Creatinine Ratio 33.2 H Glucose 109 H POC Glucose 98 Calcium 8.8 Magnesium 2.3 Random Cortisol Urine Color Urine Appearance Urine pH Ur Specific [place] Urine Protein Urine Glucose (UA) Urine Ketones Urine Blood Urine Nitrite Urine Bilirubin Urine Urobilinogen Ur Leukocyte Esterase Urine WBC (Auto) Urine RBC (Auto) U Hyaline Cast (Auto) U Epithel Cells (Auto) Urine Bacteria (Auto) Fluid Comment Pleural pH Pleural Total Protein Pleural LDH Pleural Glucose Adenovirus (PCR) B. pertussis DNA (PCR) B.parapertussis DNA PCR C. pneumoniae DNA (PCR) Coronavirus OC43 (PCR) Coronavirus HKU1 (PCR) Coronavirus 229E (PCR) SARS-CoV-2 (PCR) Coronavirus NL63 (PCR) Human Metapneumovir PCR Influenza Type A (PCR) Influenza Type B (PCR) M. pneumoniae (PCR) Parainfluenza 1 (PCR) Parainfluenza 2 (PCR) Parainfluenza 3 (PCR) Parainfluenza 4 (PCR) RSV (PCR) Entero/Rhino (PCR) 09/22/21 09/22/21 09/22/21 07:33 11:00 11:00 WBC RBC Hgb Hct MCV MCH MCHC RDW Std Deviation RDW Coeff of Melonie Plt Count MPV Immature Gran % (Auto) Neut % (Auto) Lymph % (Auto) Bulloch % (Auto) Eos % (Auto) Baso % (Auto) Neut # (Auto) Lymph # (Auto) Bulloch # (Auto) Eos # (Auto) Baso # (Auto) Immature Gran # (Auto) Absolute Nucleated RBC Nucleated RBC % (auto) Sodium Potassium Chloride Carbon Dioxide Anion Gap BUN Creatinine Est Cr Clr Drug Dosing Est GFR ( Amer) Est GFR (Non-Af Amer) BUN/Creatinine Ratio Glucose POC Glucose 101 H Calcium Magnesium Random Cortisol Urine Color Urine Appearance Urine pH Ur Specific [place] Urine Protein Urine Glucose (UA) Urine Ketones Urine Blood Urine Nitrite Urine Bilirubin Urine Urobilinogen Ur Leukocyte Esterase Urine WBC (Auto) Urine RBC (Auto) U Hyaline Cast (Auto) U Epithel Cells (Auto) Urine Bacteria (Auto) Fluid Comment Pleural pH 7.57 H Pleural Total Protein 2.0 Pleural LDH 105 Pleural Glucose 128 Adenovirus (PCR) B. pertussis DNA (PCR) B.parapertussis DNA PCR C. pneumoniae DNA (PCR) Coronavirus OC43 (PCR) Coronavirus HKU1 (PCR) Coronavirus 229E (PCR) SARS-CoV-2 (PCR) Coronavirus NL63 (PCR) Human Metapneumovir PCR Influenza Type A (PCR) Influenza Type B (PCR) M. pneumoniae (PCR) Parainfluenza 1 (PCR) Parainfluenza 2 (PCR) Parainfluenza 3 (PCR) Parainfluenza 4 (PCR) RSV (PCR) Entero/Rhino (PCR) 09/22/21 11:24 WBC RBC Hgb Hct MCV MCH MCHC RDW Std Deviation RDW Coeff of Melonie Plt Count MPV Immature Gran % (Auto) Neut % (Auto) Lymph % (Auto) Bulloch % (Auto) Eos % (Auto) Baso % (Auto) Neut # (Auto) Lymph # (Auto) Bulloch # (Auto) Eos # (Auto) Baso # (Auto) Immature Gran # (Auto) Absolute Nucleated RBC Nucleated RBC % (auto) Sodium Potassium Chloride Carbon Dioxide Anion Gap BUN Creatinine Est Cr Clr Drug Dosing Est GFR ( Amer) Est GFR (Non-Af Amer) BUN/Creatinine Ratio Glucose POC Glucose 158 H Calcium Magnesium Random Cortisol Urine Color Urine Appearance Urine pH Ur Specific [place] Urine Protein Urine Glucose (UA) Urine Ketones Urine Blood Urine Nitrite Urine Bilirubin Urine Urobilinogen Ur Leukocyte Esterase Urine WBC (Auto) Urine RBC (Auto) U Hyaline Cast (Auto) U Epithel Cells (Auto) Urine Bacteria (Auto) Fluid Comment Pleural pH Pleural Total Protein Pleural LDH Pleural Glucose Adenovirus (PCR) B. pertussis DNA (PCR) B.parapertussis DNA PCR C. pneumoniae DNA (PCR) Coronavirus OC43 (PCR) Coronavirus HKU1 (PCR) Coronavirus 229E (PCR) SARS-CoV-2 (PCR) Coronavirus NL63 (PCR) Human Metapneumovir PCR Influenza Type A (PCR) Influenza Type B (PCR) M. pneumoniae (PCR) Parainfluenza 1 (PCR) Parainfluenza 2 (PCR) Parainfluenza 3 (PCR) Parainfluenza 4 (PCR) RSV (PCR) Entero/Rhino (PCR) PG Care Time/CCT Total # of Minutes Spent Total Time Spent with Patient: Total time spent is greater than 50% in coordination of care (as documented) at patient's floor/unit and/or counseling patient: Coding Level of Care Code 56560 Subseq Hosp Care Lvl 2 Diagnoses Sinus bradycardia R00.1 Chest pressure R07.89 Right bundle branch block I45.10 Arteriosclerotic cardiovascular disease I25.10
[2021-09-22 12:07] LABS: Appearance Pleural Fluid CLOUDY; Basophils, Fluid 0 %; Color Pleural Fluid YELLOW; Eosinophils, Fluid 0 %; Lymphocytes, Fluid 74 %; Mono,Macrophage,Mesothelial 22 %; Neutrophils, Fluid 4 %; RBC Pleural Fluid (A) < 3000 /uL; Source Pleural Fluid LEFT LUNG; WBC Pleural Fluid (A) 2040 /uL
--- NOTE | 2021-09-22 20:08 | Billing Data ---
Date of Service September 22, 2021 Coding Level of Care Code 48844 Initial Inpt Care Lvl 3
[2021-09-22] MEDS: ATORVASTATIN 40 MG TAB PO SCH (20:40)
[2021-09-22] MEDS: traZODone HCL 50 MG TAB PO SCH (20:40)
--- NOTE | 2021-09-23 07:13 | Pulmonology Progress Note ---
Date of Service September 23, 2021 Assessment & Plan (1) Acute respiratory failure with hypoxia: Plan: 75yo male with HTN, HLD, HFpEF, DM2, CKD2, SIXTO (CPAP-intolerant; on 2L nighttime oxygen), CVA, carotid stenosis s/p left carotid endarterectomy (2018), GERD, hypothyroidism, and a remote history of asthma presented to the ED on 09/19 with a one-day history of acute-onset SOB and dizziness in the setting of a one-week history of URI symptoms. Patient was hypoxic on arrival to the ED, which initially improved with 2L NC. On hospital day three, patient experienced desaturations to the 70s which improved only with 15L high-flow; CT chest performed at that time showed collapse of the left lung with a moderate pleural effusion. A thoracentesis with pigtail catheter placement was performed on 09/23 with 200mL transudate removed; procedure was tolerated well. Patient continues to improve clinically; pigtail catheter continues to drain a small volume of fluid. Acute hypoxic respiratory failure, pleural effusions Patient with acute hypoxic respiratory failure secondary to pleural effusions Suspect effusions secondary to HFpEF, less likely infectious, malignancy, hypoalbuminemia, atelectasis, others; echo: grade II diastolic dysfunction Thoracentesis (09/22): 200mL of straw-colored, stranded fluid removed; pigtail catheter placed; procedure tolerated well Pleural fluid analysis: pH 7.57, WBC 2040, total protein 2.0, LDH 105 Serum total protein 7.0, serum LDH 321 Pleural fluid transudative by Light's criteria No role for intrapleural thrombolytics given findings suggesting against empyema, parapneumonic effusion Passed initial bedside swallow, though PSYCHIATRIC ASSISTANT recommended [id number] given history of dysphagia; FEES planned for 09/23, though aspiration PNA unlikely 09/23 updates: Pigtail catheter drained ~90mL over past 24hr; taken off suction, now on water seal, if continues to improve clinically, plan to clamp in AM prior to removal rCXR with some improvement in appearance of left pleural effusion, right side without effusion Continue weaning supplemental oxygen; patient currently saturating well on 2L NC Patient remains afebrile, no leukocytosis, procal negative x3 (09/21-); recommend discontinuing zosyn Overnight, developed elevations in AST (82 to 341) and ALT (94 to 399), unlikely related to pulmonary concerns On review of telemetry, patient went into afib without RVR at 08:00 this morning Restarted lovenox, EKG ordered, hospitalist notified Thank you for the opportunity to participate in this patient's care. Please refer to Dr. Wolf's addendum for additional recommendations. (2) Pleural effusion: Admission and Anticipated Discharge Date Admission Date: September 19, 2021 Supervising Physician Co-Signing Physician Notes Patient seen and examined. Will likely remove the pigtail catheter tomorrow morning. Effusion appears to be a transudate related to CHF. Cytology negative for malignancy. Cultures negative. Recommend repeating a CT chest in 6 weeks. Subjective Patient seen and evaluated at bedside this morning. No acute events overnight. Since yesterday's pigtail catheter placement, approximately 90mL of straw-co lored fluid has drained. This morning, patient feels "great" and is eager to go home. Reports his shortness of breath has completely resolved. Denies fever, chills, headache, CP, abdominal pain, nausea, vomiting, diarrhea, dizziness, weakness, or other symptoms. Feels up to participating in PT today. No other symptoms or concerns at this time. Review of Systems Review of Systems: See HPI Physical Exam Physical Exam: Constitutional: well-appearing, no acute distress, sitting in bedside chair eating breakfast HEENT: MMM CV: regular rhythm, no murmur appreciated, extremities well-perfused, no LE edema Note: upon reexamination in afternoon, patient was noted with an irregularly irregular rhythm with regular rate; rest of PE at that time is unchanged from prior Resp: mild rhonchi at inferior garcia both anteriorly and posteriorly, upper garcia CTABL, no wheezes or rales throughout, good air movement, breathing non- labored Skin: pigtail catheter dressing CDI, no surrounding erythema Neuro: alert, oriented to person and place, not to year, no focal deficit appreciated Psych: cooperative, pleasant Results & Data Results & Data ([facility]) Vital Signs (Past 12 Hours) Vital Signs Temp Pulse Pulse Resp BP Pulse Ox Pulse Ox 09/23/21 00:00 59 L 09/22/21 23:00 99 09/22/21 22:46 36.5 C 58 L 18 175/71 H 98 09/22/21 20:22 58 L 24 99 09/22/21 19:12 36.4 C L 51 L 16 128/72 100 Resident Activity Tracking Resident Involvement: Resident Care Provided Care Provided: Adult Hospital Medicine
[2021-09-23 07:16] LABS: Basophils # (auto) 0.01 K/uL (0-0.2); Basophils % (auto) 0.1 %; Eosinophils # (auto) 0.05 K/uL (0-0.5); Eosinophils % (auto) 0.7 %; Hematocrit (blood only) 42.5 % (42-52); Hemoglobin 13.3 g/dL (14.0-18.0); Immature Granulocytes # (auto) 0.02 K/uL (0.00-0.02); Immature Granulocytes % (auto) 0.3 %; Lymphocytes # (auto) 2.47 K/uL (1.2-3.4); Lymphocytes % (auto) 34.7 %; Mean Corpuscular Hemoglobin 29.2 pg (25-34); Mean Corpuscular Hgb Conc 31.3 g/dL (32-36); Mean Corpuscular Volume 93.2 fL (80-100); Mean Platelet Volume 10.4 fL (7.4-10.4); Monocytes # (auto) 1.08 K/uL (0.11-0.59); Monocytes % (auto) 15.2 %; Neutrophils # (auto) 3.48 K/uL (1.4-6.5); Platelet Count 102 K/uL (130-400); RDW Coefficient of Variation 16.3 % (11.5-14.5); RDW Standard Deviation 55.8 fL (36.4-46.3); Red Blood Count 4.56 M/uL (4.7-6.1); White Blood Count 7.11 K/uL (4.8-10.8)
[2021-09-23] MEDS: ALBUT/IPRATROP 3MG/0.5MG NEB 3 ML VIAL NEB SCH ×4 (07:28→17:51)
[2021-09-23 08:02] LABS: Albumin Globulin Ratio 0.5 (0.9-2); Albumin Level 2.4 gm/dl (3.4-5.0); BUN Creatinine Ratio 33.2 (10-20); Bilirubin,Total 0.8 mg/dl (0.2-1); Calcium 8.9 mg/dl (8.5-10.1); Creatinine Clr Calc Pharmacy 49.8 ml/min; Est GFR (African American) 56.8 ml/min; Globulin 4.4 gm/dl (2.5-4.0); Magnesium 2.8 mg/dl (1.8-2.4); Phosphorus 4.7 mg/dl (2.5-4.9); Potassium 4.3 mmol/L (3.5-5.1); Total Protein 6.8 gm/dl (6.4-8.2)
[2021-09-23] MEDS: LEVOTHYROXINE SODIUM 100 MCG TABLET PO SCH (08:45)
[2021-09-23] MEDS: guaiFENesin 600 MG TABCR PO SCH (08:46)
[2021-09-23] MEDS: INSULIN ASPART 100 UNITS/ML 3 ML PEN SC SCH ×4 (08:46→20:51)
[2021-09-23] MEDS: PIPERACILLIN/TAZOBACTAM 4.5 GM in DEXTROSE 5% 100 ML IV SCH ×2 (08:50→15:08)
[2021-09-23 09:02] LABS: Prothrombin Time 10.6 Seconds (9.0-12.0)
--- NOTE | 2021-09-23 09:13 | XRay Report ---
XR chest 1V portable CLINICAL HISTORY: f/u pleural effusion s/p thoracentesis. COMPARISON STUDY: 09/22/2021 TECHNIQUE: 1 view of the chest FINDINGS: Single frontal view of the chest demonstrates the cardiomediastinal silhouette to be within normal li mits. Compared to previous examination, the patient is status post left thoracentesis with placement of a pigtail catheter at the left lung base. There is interval decrease in left pleural effusion with no evidence for pneumothorax. The lungs are clear of alveolar opacities. There is minimal bibasilar atelectasis. There is no right pleural effusion. There is no evidence for vascular congestion. There is no acute osseous pathology. IMPRESSION: Status post left thoracentesis with placement of a pigtail catheter left lung base. Decre ased left pleural effusion with no evidence for pneumothorax. Minimal bibasilar atelectasis. ACT 112: Negative or not required by law. Electronically signed by: Mansoor Trevino M.D. 09/23/2021 9:11 AM
[2021-09-23] MEDS: POLYETHYLENE (MIRALAX) 17 GM PACK PO SCH (10:58)
[2021-09-23] MEDS ORDERED: ENOXAPARIN INJ 40 MG/0.4 ML SYR SQ SCH (12:15)
[2021-09-23] MEDS: CYANOCOBALAMIN 500 MCG TABLET (VITAMIN B-12) PO SCH (12:29)
[2021-09-23] MEDS: CHOLECALCIFEROL 1,000 UNITS 25 MCG TAB PO SCH (12:29)
--- NOTE | 2021-09-23 13:12 | Pharmacy Report ---
Pharmacy Glycemic Short Note 2 - Date of Service September 23, 2021 - Glycemic Short BSG Results (Last 24 hours): 09/22/21 09/22/21 09/23/21 16:25 20:21 07:05 Glucose 106 H POC Glucose 93 89 09/23/21 09/23/21 07:30 11:40 Glucose POC Glucose 99 154 H OUTPATIENT ANTIDIABETIC REGIMEN: * Novolog 70/30 -- 40 units in morning and 30 units with dinner * HbA1C = 7.8% ASSESSMENT: 09/23: * Pt received total 13 units of insulin yesterday; 8 units of basal NPH + 5 units bolus. * Fasting BSG = 99 mg/dl today. Post prandial BSGs were 93-89 mg/dl last night even after patient ate 40gm of carbs at dinner. So, AM basal NPH dose discontinued today to prevent hypoglycemia later in the day. * Novolog parameters continued the same. 09/22 * Pt has received 12 units of insulin over the past 24hrs * 10 units of basal with NPH * 2 units of bolus with NovoLog * BSGs 132-148-72/403-388-01-101-109 mg/dl * BSGs trending downwards. PO intake remains minimal. Will decrease basal insulin by 20% today and continue to titrate based on BSG trends and PO intake. 09/21/21 * Patient's BSGs yesterday were 396-297-54-95 mg/dL. Fasting today is 132 mg/dL. * Patient received 32 units of insulin yesterday with 28 units of basal and bolus of 5 units. * Patient had hypoglycemic episode at dinnertime -- odd as patient received only 60% of home basal dose for morning. Will thus decrease insulin by additional 35% to 18 units today. * Novolog weight-based stress of 2. Background * Mr Reyez is a 75 y/o M with a PMH of T2DM who presents with bradycardia. On mixed insulin at home. * Will start NPH 18 units in morning and 10 units with dinner (represents about a 40% reduction in basal insulin from home) and is slightly less than half of home regimen. * Novolog weight-based stress of 2 for now. PLAN FOR INPATIENT GLYCEMIC CONTROL: * Basal insulin * Hold today * Bolus insulin * NovoLog per scale ACHS or Q6hrs while NPO * Goal Range: Low 110 mg/dL - High 140 mg/dL * Correction Factor: 25 mg/dL/unit * Nutritional / Prandial insulin per carb ratio of 1 unit per 8 grams CHO consumed PLAN FOR DISCHARGE: * TBD
--- NOTE | 2021-09-23 13:29 | Electrocardiogram Report ---
Test Reason : Blood Pressure : / mmHG Vent. Rate : 086 BPM Atrial Rate : 059 BPM P-R Int : 000 ms QRS Dur : 134 ms QT Int : 428 ms P-R-T Axes : 000 224 000 degrees QTc Int : 512 ms Poor data quality, interpretation may be adversely affected Atrial fibrillation with premature ventricular or aberrantly conducted complexes Right bundle branch block Abnormal ECG When compared with ECG of 20-SEP-2021 00:56, Questionable change in QRS axis QT has lengthened Confirmed by Dao Sneed ([id number] on 09/23/2021 1:29:21 PM Referred By: REFERRED SELF Confirmed By:Cal Sneed
--- NOTE | 2021-09-23 16:00 | Hospitalist Progress Note ---
Date of Service September 23, 2021 Assessment & Plan (1) Pleural effusion, left: Plan: Noted via CT chest w/o contrast which was obtained due to worsening hypoxia - Etiology suspected due to HFpEF - Treated with a one time dose of Lasix 40mg IV on 09/21 with good response, neg net fluid balance of ~1.8L - Pulmonology consulted s/p thoracentesis and placement of pigtail catheter. Likely will be removed tomorrow AM. - Approx 400 mL straw-colored fluid drained, testing thus far c/w transudative fluid - Pigtail catheter inserted and placed to suction, f/u CXR in AM - Added incentive spirometry - Duonebs QID routine and supplemental O2 - Resume PO Lasix at lower dose (20mg daily) (2) Hypoxia: Plan: - Aim O2 sats > 90%, usually on O2 at night only for SIXTO (unable to tolerate CPAP) - Around 0400 on 09/21 did have a desaturation into 70s while on 2 L when he was sleeping; repeat CXR with with evidence of the L pleural effusion and opacities of L lung base either atelectasis vs early pneumonia - Started empirically on Zosyn given his swallowing issues (cover for possible aspiration) - however procalcitonin negative and no leukocytosis, afebrile - Questioned mucous plugging vs PE - unable to use contrast due to allergy and VQ scan was considered unreliable and subsequently not performed - CT (as above) shows further progression of pleural effusion with evidence of collapse and small <5% apical PTX -- ?complex pneumonia (3) Sinus bradycardia: Plan: - Improved/resolved -- lowest HR over past 36 no lower than 55 bpm - Per cardiology - some evidence of additional conduction disease with 1st AV block and RBBB and suspect progression of sinus node disease with beta yesica use - Did get Glucagon and Atropine on first night of admission with pacer pads in place - did have some confusion at that time, was A&O but saying some odd things - Mentation has been appropriate since - Consideration for lower dose of Coreg - however currently holding and may consider adding in follow-up with cardiology as outpatient - Troponins negative; BNP unremarkable - Echo - EF 60-65%; diastolic dysfunction, grade II; no significant valvular disease - Will monitor off BB therapy, resume low dose Amlodipine if cardiology agreeable - Cardiology following, appreciate their input (4) Paroxysmal atrial fibrillation: Plan: - Occurred ~ 0800am this morning, noted on review of tele - Rate controlled - CHADSVASC score 5, initiate AC w/ Eliquis - D/C Lovenox (5) Right carpal tunnel syndrome: Plan: - Ongoing for last 2 months - Recommended following up with PCP, outpatient EMG study and can refer to surgery (6) Hypertension: Plan: - Hold carvedilol as above - Continue losartan 100 mg daily and Imdur 30 mg daily - Amlodipine held; however, pt on such a low dose will resume if cardiology agreeable (7) Obstructive sleep apnea: Plan: - Intolerant to CPAP - Continue nocturnal O2 (8) Hypothyroidism: Plan: - TSH WNL - Continue levothyroxine 100 mcg PO daily (9) Hyperlipidemia: Plan: - Continue atorvastatin 40mg PO daily (10) Diabetes: Plan: HbA1C 7.8 - Metformin held - Pharmacy consulted for glycemic management (11) Gastroesophageal reflux disease: Plan: Continue pantoprazole 20mg HS (12) Transaminitis: Plan: - Unclear etiology - Obtain RUQ ultrasound to eval liver - Trend Plan: Follow up labs in AM PT/OT -- recommending acute rehab D/C Planning, will consult CM Admission and Anticipated Discharge Date Admission Date: September 19, 2021 Subjective Mr. Reyez was seen on rounds this morning. Pt was hospitalized for acute dyspnea and bradycardia. Pt currently resting in bed, offers no new complaints. He denies dyspnea at rest. Still requiring supplemental O2, currently 2-3L via nasal cannula which is much less than what he was requiring two nights ago (highest was 15L). Typically pt wears nocturnal O2. CT of chest 09/21 demonstrated progressed L pleural effusion with compressive atelectasis. Pulmono logy consulted and pt underwent thoracentesis 09/22 with placement of pigtail catheter. His HR has been stable over the past 36 hours, no HR <55, Carvedilol remains on hold. Restarted Amlodipine yesterday. Pt denies lightheadedness/dizziness. Denies chest pain, cough, fever, chills, headache or gu symptoms. Only c/o numbness/tingling in a few of his fingers on right hand which has been ongoing for the past 2 months. Had ~90 cc of straw colored drainage from the pigtail catheter since placement. Review of Systems Review of Systems: CONSTITUTIONAL: Denies weight loss/gain, fever and chills, fatigue, malaise, generalized weakness. HEENT: Denies changes in vision and hearing. RESPIRATORY: Denies SOB, cough, wheezing. CV: Denies palpitations, CP, lower extremity edema, orthopnea, PND. GI: Denies abdominal pain, nausea, vomiting and diarrhea. : Denies dysuria and urinary frequency, urgency, hesitancy. MUSCULOSKELETAL: Denies myalgia and joint pain. SKIN: Denies rash and pruritus. NEUROLOGICAL: Denies headache, syncope, focal weakness, numbness, tingling. PSYCHIATRIC: Denies recent changes in mood. Denies anxiety and depression. Physical Exam Physical Exam: GENERAL: 75 yo WD/WN elderly WM NAD. A&Ox3. LUNGS: No conversational dyspnea or labored breathing. Fine crackles noted in LLL, CTA in R lung garcia. CARDIOVASCULAR: Regular rate and rhythm. No M/G/R. No JVD. ABDOMEN: Soft, non-tender and non-distended. No palpable masses. Bowel sounds normoactive x 4 quad. EXTREMITIES: No edema. Non-tender. Peripheral pulses +2/4. PSYCHIATRIC: Cooperative. Appropriate mood and affect. SKIN: Warm, dry, intact. No rashes or lesions. Pigtail catheter site appears clean/dry. Results & Data Results & Data ([facility]) Vital Signs (Past 12 Hours) Vital Signs Temp Pulse Pulse Resp BP Pulse Ox 09/23/21 15:25 89 L 09/23/21 15:21 36.6 C 63 19 122/72 93 09/23/21 14:57 66 64 16 90 09/23/21 11:38 36.6 C 71 18 135/74 94 09/23/21 10:33 64 18 97 09/23/21 10:17 55 L 09/23/21 07:28 63 20 95 09/23/21 07:07 36.6 C 57 L 17 162/65 H 96 Laboratory Results 09/23/21 07:05 09/23/21 07:05 PG Care Time/CCT Total # of Minutes Spent Total Time Spent with Patient: Total time spent is greater than 50% in coordination of care (as documented) at patient's floor/unit and/or counseling patient: Coding Level of Care Code 75830 Subseq Hosp Care Lvl 2 Diagnoses Pleural effusion, left J90 Hypoxia R09.02 Sinus bradycardia R00.1 Right carpal tunnel syndrome G56.01 Hypertension I10 Obstructive sleep apnea G47.33 Hypothyroidism E03.9 Hyperlipidemia E78.5 Diabetes E11.9 Gastroesophageal reflux disease K21.9 Paroxysmal atrial fibrillation I48.0 Transaminitis R74.01
--- NOTE | 2021-09-23 17:27 | Cardiology Progress Note ---
Date of Service September 23, 2021 Assessment & Plan (1) Sinus bradycardia: (2) Chest pressure: (3) Right bundle branch block: (4) Arteriosclerotic cardiovascular disease: Plan: 1. Bradycardia: Improved. He seems to be doing well without his beta- yesica. The indication for beta-blockade was primarily its antianginal effect. He was ambulatory today without symptoms of chest pain. I think we can continue to hold beta-yesica. Even in the setting of atrial fibrillation he seemed adequate rate control. 2. Chest pain: Atypical. No recurrent symptoms even with ambulation today. 3. Coronary disease: Presumed. Evidence of inferior ischemia on perfusion imaging. Low risk study. Continuing secondary prevention. 4. Dyspnea: Pleural effusion was a transudate. He was felt to have heart failure and pulmonary edema based on the evaluation of his pleural effusion. However,he has had a negative fluid balance for few days. He also had a very low N-terminal BNP which would speak against heart failure as an etiology for his symptoms. Clinically he is doing better. We can monitor his renal function and clinical course on the low dose of diuretic prescribed. 5. Atrial fibrillation: He is not known to have had atrial fibrillation in the past. He does not appear to be symptomatic with respect to the arrhythmia. Likely a consequence of his longstanding comorbidities and acute illness. He certainly appears to have the substrate for additional episodes of atrial fibrillation. He seems to have adequate rate control at this time. I think the only question going forward involve anticoagulation. I think he would benefit from systemic anticoagulation and appears to be a good candidate for Eliquis 5 mg twice daily. If no additional procedures are planned this can be started electively. Once Eliquis is started I would stop aspirin. No role for cardioversion at this point. Admission and Anticipated Discharge Date Admission Date: September 19, 2021 Subjective This morning patient claimed he feeling well. Some minor discomfort from his pleural catheter. He was ambulatory with physical therapy and denies limiting dyspnea. He stated that his main impediment to walking further was unsteadiness. No symptoms of chest pain with ambulation. No dizziness. No sense of palpitation. Review of Systems Review of Systems: Per HPI Physical Exam Physical Exam: Alert and appropriate this morning. Comfortable. HEENT: Pupils are equal and reactive to light and accommodation. Extraocular movements are intact. The sclerae are anicteric. Neuro: Cranial nerves intact Lungs: Normal respiratory effort. No wheezing. Cardiac: Heart demonstrates an irregular rate and rhythm. Normal S1 and S2. Pulses: The patient has palpable radial pulses bilaterally that are equal in intensity Extremities: There was no evidence of hypoperfusion. There is no cyanosis or clubbing. Skin: I did not appreciate any rashes on examination today. Results & Data ([facility]) Vital Signs (Past 12 Hours) Vital Signs Temp Pulse Pulse Resp BP Pulse Ox 09/23/21 15:25 89 L 09/23/21 15: 36.6 C 63 19 122/72 93 09/23/21 14:57 66 64 16 90 09/23/21 11:38 36.6 C 71 18 135/74 94 09/23/21 10:33 64 18 97 09/23/21 10:17 55 L 09/23/21 07:28 63 20 95 09/23/21 07:07 36.6 C 57 L 17 162/65 H 96 Laboratory Results Abnormal Lab Results 09/22/21 09/23/21 09/23/21 20:21 07:05 07:05 WBC 7.11 RBC 4.56 L Hgb 13.3 L Hct 42.5 MCV 93.2 MCH 29.2 MCHC 31.3 L RDW Std Deviation 55.8 H RDW Coeff of Melonie 16.3 H Plt Count 102 L MPV 10.4 Immature Gran % (Auto) 0.3 Neut % (Auto) 49.0 Lymph % (Auto) 34.7 [place] % (Auto) 15.2 Eos % (Auto) 0.7 Baso % (Auto) 0.1 Neut # (Auto) 3.48 Lymph # (Auto) 2.47 [place] # (Auto) 1.08 H Eos # (Auto) 0.05 Baso # (Auto) 0.01 Immature Gran # (Auto) 0.02 PT INR Sodium 142 Potassium 4.3 D Chloride 107 Carbon Dioxide 33 H Anion Gap 2.0 L BUN 46 H Creatinine 1.38 Est Cr Clr Drug Dosing 49.8 Est GFR ( Amer) 56.8 Est GFR (Non-Af Amer) 49.0 BUN/Creatinine Ratio 33.2 H Glucose 106 H POC Glucose 89 Calcium 8.9 Phosphorus 4.7 Magnesium 2.8 H Total Bilirubin 0.8 AST 341 H ALT 399 H Alkaline Phosphatase 91 Troponin I Total Protein 6.8 Albumin 2.4 L Globulin 4.4 H Albumin/Globulin Ratio 0.5 L Procalcitonin 09/23/21 09/23/21 09/23/21 07:05 07:30 08:21 WBC RBC Hgb Hct MCV MCH MCHC RDW Std Deviation RDW Coeff of Melonie Plt Count MPV Immature Gran % (Auto) Neut % (Auto) Lymph % (Auto) [place] % (Auto) Eos % (Auto) Baso % (Auto) Neut # (Auto) Lymph # (Auto) [place] # (Auto) Eos # (Auto) Baso # (Auto) Immature Gran # (Auto) PT 10.6 INR 1.0 Sodium Potassium Chloride Carbon Dioxide Anion Gap BUN Creatinine Est Cr Clr Drug Dosing Est GFR ( Amer) Est GFR (Non-Af Amer) BUN/Creatinine Ratio Glucose POC Glucose 99 Calcium Phosphorus Magnesium Total Bilirubin AST ALT Alkaline Phosphatase Troponin I < 0.015 Total Protein Albumin Globulin Albumin/Globulin Ratio Procalcitonin 09/23/21 09/23/21 09/23/21 10:34 11:40 16:19 WBC RBC Hgb Hct MCV MCH MCHC RDW Std Deviation RDW Coeff of Melonie Plt Count MPV Immature Gran % (Auto) Neut % (Auto) Lymph % (Auto) [place] % (Auto) Eos % (Auto) Baso % (Auto) Neut # (Auto) Lymph # (Auto) [place] # (Auto) Eos # (Auto) Baso # (Auto) Immature Gran # (Auto) PT INR Sodium Potassium Chloride Carbon Dioxide Anion Gap BUN Creatinine Est Cr Clr Drug Dosing Est GFR ( Amer) Est GFR (Non-Af Amer) BUN/Creatinine Ratio Glucose POC Glucose 154 H 143 H Calcium Phosphorus Magnesium Total Bilirubin AST ALT Alkaline Phosphatase Troponin I Total Protein Albumin Globulin Albumin/Globulin Ratio Procalcitonin 0.20 PG Care Time/CCT Total # of Minutes Spent Total Time Spent with Patient: Total time spent is greater than 50% in coordination of care (as documented) at patient's floor/unit and/or counseling patient: Coding Level of Care Code 19382 Subseq Hosp Care Lvl 2 Diagnoses Sinus bradycardia R00.1 Chest pressure R07.89 Right bundle branch block I45.10 Arteriosclerotic cardiovascular disease I25.10
[2021-09-23] MEDS: APIXABAN 5 MG TABLET PO SCH (20:47)
[2021-09-23] MEDS: ATORVASTATIN 40 MG TAB PO SCH (20:47)
[2021-09-23] MEDS: traZODone HCL 50 MG TAB PO SCH (20:50)
--- NOTE | 2021-09-23 21:04 | Billing Data ---
Date of Service September 23, 2021 Coding Level of Care Code 25431 Subseq Hosp Care Lvl 2
[2021-09-24] MEDS: ALBUT/IPRATROP 3MG/0.5MG NEB 3 ML VIAL NEB SCH ×4 (07:06→19:41)
--- NOTE | 2021-09-24 07:33 | Pulmonology Progress Note ---
Date of Service September 24, 2021 Assessment & Plan (1) Acute respiratory failure with hypoxia: Plan: 75yo male with HTN, HLD, HFpEF, DM2, CKD2, SIXTO (CPAP-intolerant; on 2L nighttime oxygen), CVA, carotid stenosis s/p left carotid endarterectomy (2018), GERD, hypothyroidism, and a remote history of asthma presented to the ED on 09/19 with a one-day history of acute-onset SOB and dizziness in the setting of a one-week history of URI symptoms. Patient was hypoxic on arrival to the ED, which initially improved with 2L NC. On hospital day three, patient experienced desaturations to the 70s which improved only with 15L high-flow; CT chest performed at that time showed collapse of the left lung with a moderate pleural effusion. A thoracentesis with pigtail catheter placement was performed on 09/23 with 400mL transudate removed; procedure was tolerated well. Patient continues to improve clinically. Minimal drainage from catheter overnight; plan to remove pigtail catheter this afternoon. Acute hypoxic respiratory failure, pleural effusions ARF due to transudative pleural effusion likely secondary to HFpEF, less likely infectious, malignancy, hypoalbuminemia, atelectasis, others; echo: grade II diastolic dysfunction Thoracentesis (09/22): 400mL of straw-colored, stranded fluid removed; pigtail catheter placed; procedure tolerated well Pleural fluid analysis: pH 7.57, WBC 2040, total protein 2.0, LDH 105, lymphocytic predominance Serum total protein 7.0, serum LDH 321 Pleural fluid transudative by Light's criteria 09/23: 90mL drainage in 24hr period since pigtail catheter placement Zosyn discontinued as patient remains afebrile, without leukocytosis, serial procal negative Pleural fluid cultures negative, cytology negative for malignancy Spontaneously converted from afib back to sinus rhythm; anticoagulation per cardiology recommendations 09/24: Pigtail catheter drained an additional ~40mL overnight; catheter clamped, plan for removal this afternoon if rCXR around noontime is reassuring Patient continues to improve clinically; supplemental oxygen weaned down to 1L NC Recommendations: follow-up CT chest in six weeks. Thank you for the opportunity to participate in this patient's care. Please refer to Dr. Wolf's addendum for additional recommendations. Admission and Anticipated Discharge Date Admission Date: September 19, 2021 Supervising Physician Co-Signing Physician Notes Patient seen and examined with the resident physician. Agree with assessment and plan aside for any additions/exceptions noted: Pigtail catheter removed at bedside by Jaleel Lowery. Recommend a repeat CT chest in 6 to 8 weeks as noted previously. Pulmonary will sign off at this time. No signs of malignancy or parapneumonic effusion seen on pleural fluid studies. Subjective No acute events overnight Patient spontaneously flipped from afib to NSR early yesterday afternoon and has remained in sinus rhythm since Patient has had a total of 530mL fluid removed since patient's thoracentesis until now, about 40mL of which has drained since noon yesterday Patient's catheter was clamped this morning with plan to remove it this afternoon if repeat CXR is reassuring This morning, patient feels well, noting his SOB has not returned Endorses minor discomfort at the site of his pigtail catheter Patient is eager to work on his strength with PT today No CP, abdominal pain, nausea, vomiting, or other new sympoms. Review of Systems Review of Systems: See HPI Physical Exam Physical Exam: Constitutional: well-appearing, no acute distress, sitting in bedside chair eating breakfast CV: regular rhythm, no murmur appreciated, extremities well-perfused, no LE edema Resp: mild rhonchi at inferior garcia bilaterally, upper garcia CTABL, no wheezes or rales, good air movement, breathing non-labored Skin: pigtail catheter dressing CDI, no surrounding erythema Neuro: alert, oriented to person and place, not to year, no focal deficit appreciated Psych: cooperative, pleasant Results & Data Results & Data ([facility]) Vital Signs (Past 12 Hours) Vital Signs Temp Pulse Pulse Resp BP Pulse Ox Pulse Ox 09/24/21 07:07 84 18 96 09/24/21 07:04 64 09/24/21 02:58 37.1 C 66 20 160/79 H 95 09/24/21 00:00 60 09/23/21 23:00 96 09/23/21 22:58 37.0 C 63 17 172/70 H 95 Resident Activity Tracking Resident Involvement: Resident Care Provided Care Provided: Adult Hospital Medicine
[2021-09-24 07:58] LABS: Hematocrit (blood only) 41.8 % (42-52); Hemoglobin 13.5 g/dL (14.0-18.0); Mean Corpuscular Hemoglobin 30.1 pg (25-34); Mean Corpuscular Hgb Conc 32.3 g/dL (32-36); Mean Corpuscular Volume 93.3 fL (80-100); RDW Coefficient of Variation 16.1 % (11.5-14.5); RDW Standard Deviation 54.7 fL (36.4-46.3); Red Blood Count 4.48 M/uL (4.7-6.1); White Blood Count 8.65 K/uL (4.8-10.8)
[2021-09-24 08:05] LABS: INR 1.1 (0.9-1.1); Prothrombin Time 10.8 Seconds (9.0-12.0)
[2021-09-24 08:20] LABS: Albumin Level 2.5 gm/dl (3.4-5.0); BUN Creatinine Ratio 31.5 (10-20); Calcium 8.8 mg/dl (8.5-10.1); Creatinine Clr Calc Pharmacy 49.2 ml/min; Est GFR (African American) 55.8 ml/min; Est GFR (Non-African American) 48.1 ml/min; Potassium 4.3 mmol/L (3.5-5.1)
[2021-09-24 08:21] LABS: Platelet Count 97 K/uL (130-400)
[2021-09-24 08:22] LABS: Basophils # (auto) 0.01 K/uL (0-0.2); Basophils % (auto) 0.1 %; Eosinophils # (auto) 0.12 K/uL (0-0.5); Eosinophils % (auto) 1.4 %; Immature Granulocytes # (auto) 0.02 K/uL (0.00-0.02); Immature Granulocytes % (auto) 0.2 %; Lymphocytes # (auto) 2.48 K/uL (1.2-3.4); Lymphocytes % (auto) 28.7 %; Monocytes # (auto) 1.23 K/uL (0.11-0.59); Monocytes % (auto) 14.2 %; Neutrophils # (auto) 4.79 K/uL (1.4-6.5); Neutrophils % (auto) 55.4 %; Platelet Estimate Decreased (Normal)
[2021-09-24 08:23] LABS: Albumin Globulin Ratio 0.6 (0.9-2); Bilirubin,Total 0.8 mg/dl (0.2-1); Globulin 4.4 gm/dl (2.5-4.0); Total Protein 6.9 gm/dl (6.4-8.2)
[2021-09-24] MEDS: POLYETHYLENE (MIRALAX) 17 GM PACK PO SCH (08:35)
[2021-09-24] MEDS: APIXABAN 5 MG TABLET PO SCH (08:35)
[2021-09-24] MEDS: FUROSEMIDE 20 MG TAB PO SCH (08:36)
[2021-09-24] MEDS: INSULIN ASPART 100 UNITS/ML 3 ML PEN SC SCH ×4 (08:36→20:06)
[2021-09-24] MEDS: guaiFENesin 600 MG TABCR PO SCH (08:36)
[2021-09-24] MEDS: LEVOTHYROXINE SODIUM 100 MCG TABLET PO SCH (08:36)
--- NOTE | 2021-09-24 08:54 | Ultrasound Report ---
ABDOMINAL ULTRASOUND, RIGHT UPPER QUADRANT HISTORY: elevated lfts. COMPARISON: None. FINDINGS: Pancreas: The visualized pancreas demonstrates a normal echotexture. Liver: Unremarkable. Gallbladder: No gallbladder wall thickening. A 1.1 cm gallstone. CBD: 5 mm. Right kidney: No hydronephrosis. IMPRESSION: Cholelithiasis. No gallbladder wall thickening. ACT 112: Negative or not required by law. Electronically signed by: Christian Munoz M.D. 09/24/2021 8:53 AM
--- NOTE | 2021-09-24 09:37 | XRay Report ---
XR chest 1V portable CLINICAL HISTORY: f/u pleural effusion s/p thoracentesis COMPARISON STUDY: Chest CT September 21, 2021. Chest radiograph September 23, 2021. FINDINGS: Left basilar pleural catheter is in place. There is a trace left hydropneumothorax. Minimal left basilar opacity is noted. The left pleural effusion has markedly decreased in size since prior chest CT of September 21, 2021. Left lung aeration has significantly improved. Cardiomegaly is noted. No evidence for pulmonary edema. Mild right lower lung opacities are present. IMPRESSION: Right basilar pleural catheter in place. Trace left hydropneumothorax. Marked improvement since chest CT of September 21, 2021. ACT 112: Negative or not required by law. Electronically signed by: Salvador Haro M.D. 09/24/2021 9:35 AM
--- NOTE | 2021-09-24 10:09 | XRay Report ---
XR chest 1V portable HISTORY: pleural effusions ?interval change COMPARISON: Chest 09/24/2021. FINDINGS: Tiny left apical pneumothorax, unchanged. Trace left pleural effusion, unchanged. Left basi lar pleural catheter is unchanged in position. A few patchy bibasilar densities persist. There are lo w lung volumes. The heart remains mildly enlarged. No evidence for pulmonary edema. IMPRESSION: 1. The left basilar pleural catheter is unchanged in position. 2. Trace left hydropneumothorax persists. ACT 112: Negative or not required by law. Electronically signed by: Christian Munoz M.D. 09/24/2021 10:07 AM
[2021-09-24] MEDS: CYANOCOBALAMIN 500 MCG TABLET (VITAMIN B-12) PO SCH (10:48)
[2021-09-24] MEDS: CHOLECALCIFEROL 1,000 UNITS 25 MCG TAB PO SCH (10:49)
[2021-09-24] MEDS: INSULIN HUMAN NPH SC SCH (10:50)
[2021-09-24] MEDS ORDERED: carvediloL 6.25 MG TAB PO ONE (11:00)
[2021-09-24] MEDS ORDERED: METOPROLOL TARTRATE 1 MG/ML VIAL IV PRN (12:22)
[2021-09-24] MEDS ORDERED: METOPROLOL TARTRATE 1 MG/ML VIAL IV ONE (12:27)
--- NOTE | 2021-09-24 12:48 | Hospitalist Progress Note ---
Date of Service September 24, 2021 Assessment & Plan (1) Pleural effusion, left: Plan: Noted via CT chest w/o contrast which was obtained due to worsening hypoxia - Etiology suspected due to HFpEF - Treated with a one time dose of Lasix 40mg IV on 09/21 with good response, neg net fluid balance of ~1.8L - Pulmonology consulted s/p thoracentesis and placement of pigtail catheter. Likely will be removed tomorrow AM. - Approx 400 mL straw-colored fluid drained, testing thus far c/w transudative fluid, fluid not c/w infection or malignancy. - Pigtail catheter inserted and placed to suction, has since been clamped this AM d/t scant drainage overnight. Anticipate removal this afternoon. - Added incentive spirometry - Duonebs QID routine and supplemental O2 - Resumed PO Lasix on 09/23 at lower dose (20mg daily) - Now off supplemental O2, saturating 96% on room air (2) Hypoxia: Plan: - Aim O2 sats > 90%, usually on O2 at night only for SIXTO (unable to tolerate CPAP) - Around 0400 on 09/21 did have a desaturation into 70s while on 2 L when he was sleeping; repeat CXR with with evidence of the L pleural effusion and opacities of L lung base either atelectasis vs early pneumonia - Started empirically on Zosyn given his swallowing issues (cover for possible aspiration) - however procalcitonin negative and no leukocytosis, afebrile, Zosyn d/c'd - Questioned mucous plugging vs PE - unable to use contrast due to allergy and VQ scan was considered unreliable and subsequently not performed - CT 09/21 showed further progression of pleural effusion with evidence of collapse and small <5% apical PTX. - Pulm consulted, see plan as outlined in #1. (3) Sinus bradycardia: Plan: - Resolved - Per cardiology - some evidence of additional conduction disease with 1st AV block and RBBB and suspect progression of sinus node disease with beta yesica use - Did get Glucagon and Atropine on first night of admission with pacer pads in place - did have some confusion at that time, was A&O but saying some odd things - Mentation has been appropriate since - Troponins negative; BNP unremarkable - Echo - EF 60-65%; diastolic dysfunction, grade II; no significant valvular disease - Cardiology following (4) Paroxysmal atrial fibrillation: Plan: - In and out -- rate now with variable control - D/W Dr. Sneed who was initially consulted for bradycardia, will resume Coreg at lower dose of 6.25mg BID and monitor - Added PRN IV Lopressor 5mg q4h prn sustained HR>120 - CHADSVASC score 5, initiated AC w/ Eliquis 09/23; however, platelets now <100, will hold for now (5) Transaminitis: Plan: - Unclear etiology - RUQ ultrasound performed, note results above - Cholelithiasis, no obstruction noted, liver unremarkable - AST/ALT downtrending - Will follow (6) Thrombocytopenia: Plan: - ?Related to Lovenox - Lovenox d/c'd yesterday - Hold Eliquis - Follow (7) Right carpal tunnel syndrome: Plan: - Ongoing for last 2 months - Recommended following up with PCP, outpatient EMG study and can refer to surgery (8) Hypertension: Plan: - Hold carvedilol as above - Continue losartan 100 mg daily and Imdur 30 mg daily - Amlodipine held; however, pt on such a low dose will resume if cardiology agr eeable (9) Obstructive sleep apnea: Plan: - Intolerant to CPAP - Continue nocturnal O2 (2L) (10) Hypothyroidism: Plan: - TSH WNL - Continue levothyroxine 100 mcg PO daily (11) Hyperlipidemia: Plan: - Continue atorvastatin 40mg PO daily (12) Diabetes: Plan: HbA1C 7.8 - Metformin held - Pharmacy consulted for glycemic management (13) Gastroesophageal reflux disease: Plan: Continue pantoprazole 20mg HS Plan: Remove pigtail catheter today as per pulm. Will ensure better HR control prior to d/c. PT/OT -- recommending acute rehab, d/w patient and he is agreeable. is hesitant. D/C Planning, CM on consult, referral sent to [facility]. Admission and Anticipated Discharge Date Admission Date: September 19, 2021 Subjective Mr. Reyez was seen on rounds this morning. Pt was hospitalized for acute dyspnea and bradycardia. Pt currently resting in bed, offers no new complaints. He denies dyspnea at rest. Still requiring supplemental O2, currently 2-3L via n russell cannula which is much less than what he was requiring two nights ago (highest was 15L). Typically pt wears nocturnal O2. CT of chest 09/21 demonstrated progressed L pleural effusion with compressive atelectasis. Pulmonology consulted and pt underwent thoracentesis 09/22 with placement of pigtail catheter, scant transudative fluid drained since yesterday. Pt also bradycardic on admission, his BB and Amlodipine were held. Amlodipine restarted on 09/22. 09/23, pt has been going in and out of afib, initially rate controlled; however, this morning, pt's ranging 100-130s. Pt denies lightheadedn ess/dizziness, dyspnea, or palpitations. Denies chest pain, cough, fever, chills, headache or gu symptoms. Only c/o numbness/tingling in a few of his fingers on right hand which has been ongoing for the past 2 months. Review of Systems Review of Systems: CONSTITUTIONAL: Denies weight loss/gain, fever and chills, fatigue, malaise, generalized weakness. HEENT: Denies changes in vision and hearing. RESPIRATORY: Denies SOB, cough, wheezing. CV: Denies palpitations, CP, lower extremity edema, orthopnea, PND. GI: Denies abdominal pain, nausea, vomiting and diarrhea. : Denies dysuria and urinary frequency, urgency, hesitancy. MUSCULOSKELETAL: Denies myalgia and joint pain. SKIN: Denies rash and pruritus. NEUROLOGICAL: Denies headache, syncope, focal weakness, numbness, tingling. PSYCHIATRIC: Denies recent changes in mood. Denies anxiety and depression. Physical Exam Physical Exam: GENERAL: 75 yo WD/WN elderly WM NAD. A&Ox3. LUNGS: No conversational dyspnea or labored breathing. Fine crackles noted in LLL, CTA in R lung garcia. CARDIOVASCULAR: Irregular rate and rhythm. No M/G/R. No JVD. ABDOMEN: Soft, non-tender and non-distended. No palpable masses. Bowel sounds normoactive x 4 quad. EXTREMITIES: No edema. Non-tender. Peripheral pulses +2/4. PSYCHIATRIC: Cooperative. Appropriate mood and affect. SKIN: Warm, dry, intact. No rashes or lesions. Pigtail catheter site appears clean/dry. Results & Data Results & Data ([facility]) Vital Signs (Past 12 Hours) Vital Signs Temp Pulse Pulse Resp BP Pulse Ox 09/24/21 12:00 37.0 C 84 18 143/59 H 09/24/21 10:43 86 18 97 09/24/21 08:00 36.5 C 76 16 158/69 H 95 09/24/21 07:07 84 18 96 09/24/21 07:04 64 09/24/21 02:58 37.1 C 66 20 160/79 H 95 Laboratory Results 09/24/21 07:45 09/24/21 07:45 Diagnostic Findings Chest X-Ray 09/24/21 04:44 XR chest 1V portable CLINICAL HISTORY: f/u pleural effusion s/p thoracentesis COMPARISON STUDY: Chest CT September 21, 2021. Chest radiograph September 23, 2021. FINDINGS: Left basilar pleural catheter is in place. There is a trace left hydr opneumothorax. Minimal left basilar opacity is noted. The left pleural effusion has markedly decreased in size since prior chest CT of September 21, 2021. Left lung aeration has significantly improved. Cardiomegaly is noted. No evidence for pulmonary edema. Mild right lower lung opacities are present. IMPRESSION: Right basilar pleural catheter in place. Trace left hydropneumothorax. Marked im provement since chest CT of September 21, 2021. ACT 112: Negative or not required by law. Electronically signed by: Salvador Haro M.D. 09/24/2021 9:35 AM Liver Ultrasound 09/24/21 08:00 ABDOMINAL ULTRASOUND, RIGHT UPPER QUADRANT HISTORY: elevated lfts. COMPARISON: None. FINDINGS: Pancreas: The visualized pancreas demonstrates a normal echotexture. Liver: Unremarkable. Gallbladder: No gallbladder wall thickening. A 1.1 cm gallstone. CBD: 5 mm. Right kidney: No hydronephrosis. IMPRESSION: Cholelithiasis. No gallbladder wall thickening. ACT 112: Negative or not required by law. Electronically signed by: Christian Munoz M.D. 09/24/2021 8:53 AM Chest X-Ray 09/24/21 11:59 XR chest 1V portable HISTORY: pleural effusions ?interval change COMPARISON: Chest 09/24/2021. FINDINGS: Tiny left apical pneumothorax, unchanged. Trace left pleural effusion, unchanged. Left basilar pleural catheter is unchanged in position. A few patchy bibasilar densities persist. There are low lung volumes. The heart remains mildly enlarged. No evidence for pulmonary edema. IMPRESSION: 1. The left basilar pleural catheter is unchanged in position. 2. Trace left hydropneumothorax persists. ACT 112: Negative or not required by law. Electronically signed by: Christian Munoz M.D. 09/24/2021 10:07 AM PG Care Time/CCT Total # of Minutes Spent Total Time Spent with Patient: Total time spent is greater than 50% in coordination of care (as documented) at patient's floor/unit and/or counseling patient: Coding Level of Care Code 90135 Subseq Hosp Care Lvl 2 Diagnoses Pleural effusion, left J90 Hypoxia R09.02 Sinus bradycardia R00.1 Paroxysmal atrial fibrillation I48.0 Right carpal tunnel syndrome G56.01 Hypertension I10 Obstructive sleep apnea G47.33 Hypothyroidism E03.9 Hyperlipidemia E78.5 Diabetes E11.9 Gastroesophageal reflux disease K21.9 Transaminitis R74.01 Thrombocytopenia D69.6
--- NOTE | 2021-09-24 14:36 | Pharmacy Report ---
Pharmacy Glycemic Short Note 2 - Date of Service September 24, 2021 - Glycemic Short BSG Results (Last 24 hours): 09/23/21 09/23/21 09/24/21 16:19 20:15 07:43 Glucose POC Glucose 143 H 218 H 133 H 09/24/21 09/24/21 07:45 11:27 Glucose 148 H POC Glucose 269 H OUTPATIENT ANTIDIABETIC REGIMEN: * Novolog 70/30 -- 40 units in morning and 30 units with dinner * HbA1C = 7.8% ASSESSMENT: 09/24: * Pt received total 14 units of insulin yesterday all of which was bolus. * Since basal insulin was discontinued yesterday AM, BSGs trended up to 218 mg/dl as patient's oral food intake improved. * Fasting BSG = 133 mg/dl. Basal NPH insulin 10 units re-ordered this AM but it was slightly later in the AM. Pre-lunch BSG trended up to 269 mg/dl but is not reflective of the basal dose given. * Additional NPH dose ordered with dinner this evening based on BSG value at that time. Novolog parameters continued the same. 09/23: * Pt received total 13 units of insulin yesterday; 8 units of basal NPH + 5 units bolus. * Fasting BSG = 99 mg/dl today. Post prandial BSGs were 93-89 mg/dl last night even after patient ate 40gm of carbs at dinner. So, AM basal NPH dose discontinued today to prevent hypoglycemia later in the day. * Novolog parameters continued the same. 09/22 * Pt has received 12 units of insulin over the past 24hrs * 10 units of basal with NPH * 2 units of bolus with NovoLog * BSGs 132-148-72/645-113-18-101-109 mg/dl * BSGs trending downwards. PO intake remains minimal. Will decrease basal insulin by 20% today and continue to titrate based on BSG trends and PO intake. 09/21/21 * Patient's BSGs yesterday were 297-322-26-95 mg/dL. Fasting today is 132 mg/dL. * Patient received 32 units of insulin yesterday with 28 units of basal and bolus of 5 units. * Patient had hypoglycemic episode at dinnertime -- odd as patient received only 60% of home basal dose for morning. Will thus decrease insulin by additional 35% to 18 units today. * Novolog weight-based stress of 2. Background * Mr Reyez is a 75 y/o M with a PMH of T2DM who presents with bradycardia. On mixed insulin at home. * Will start NPH 18 units in morning and 10 units with dinner (represents about a 40% reduction in basal insulin from home) and is slightly less than half of home regimen. * Novolog weight-based stress of 2 for now. PLAN FOR INPATIENT GLYCEMIC CONTROL: * Basal insulin * NPH 10 units QAM * NPH 0-5 units with dinner based on BSG. * Bolus insulin * NovoLog per scale ACHS or Q6hrs while NPO * Goal Range: Low 110 mg/dL - High 140 mg/dL * Correction Factor: 25 mg/dL/unit * Nutritional / Prandial insulin per carb ratio of 1 unit per 8 grams CHO consumed PLAN FOR DISCHARGE: * HbA1c = 7.8% on 09/20/21. Goal A1c is less than 8% in this patient given age and co-morbidities. * This indicates adequately controlled diabetes. * Recommend continue on current home regimen with Novolog 70/30 insulin: 40 units before breakfast and 30 units before dinner and Metformin 850 mg PO BID as long as patient has been compliant with this and is not reporting hypoglycemic episodes at home.
--- NOTE | 2021-09-24 15:42 | Communication Note ---
Date of Service: September 24, 2021 Attending: Dr. Wolf Patient had 14 [place] pigtail catheter placed for layered pleural effusion on the left side. Repeat chest x-ray today shows no increase in fluid after chest tube was placed to waterseal overnight and clamped this morning. Very tiny apical pneumothorax on the left. Appropriate to remove pigtail catheter. Patient was placed in a right lateral recumbent position and fixation device was removed from around skater pigtail catheter. Area was then cleaned with iodine. The retention suture from the chest tube was then cut and all suture material was removed from the skin. The pigtail catheter retraction string was released. Gauze was placed over the pigtail catheter and with the patient humming the catheter was easily removed. Gauze covered by Tegaderm was then placed over the insertion site of the catheter. Patient and were instructed to leave this in place for 24 to 48 hours. No bathing or immersion. No complication with pigtail catheter removal. Repeat chest x-ray in the morning.
--- NOTE | 2021-09-24 16:16 | Cardiology Progress Note ---
Date of Service September 24, 2021 Assessment & Plan (1) Sinus bradycardia: (2) Chest pressure: (3) Right bundle branch block: (4) Arteriosclerotic cardiovascular disease: Plan: 1. Bradycardia: Improved. Based on very mildly elevated ventricular rates in atrial fibrillation will try low-dose carvedilol 6.25 mg twice daily. He did not report symptoms of chest pain or angina associated with ambulation. 2. Chest pain: Atypical. No recurrent symptoms even with ambulation today. 3. Coronary disease: Presumed. Evidence of inferior ischemia on perfusion imaging. Low risk study. Continuing secondary prevention. 4. Dyspnea: Much improved since thoracentesis. 5. Atrial fibrillation: No symptoms. Overall rate control is reasonable even without beta-blockade. However, would seem reasonable to attempt low-dose beta- yesica. Will watch his heart rates. Systemic anticoagulation can be started on an elective basis. Currently being monitored for bleeding and thrombocytopenia. Admission and Anticipated Discharge Date Admission Date: September 19, 2021 Subjective This morning Mr. Sterling he claims to be feeling well. He reported being ambulatory around the tobar earlier without symptoms of chest discomfort or limiting dyspnea. Some mild dyspnea which he anticipated. No dizziness or lightheadedness. Review of Systems Review of Systems: Per HPI Physical Exam Physical Exam: Alert and appropriate this morning. Comfortable. HEENT: Pupils are equal and reactive to light and accommodation. Extraocular movements are intact. The sclerae are anicteric. Neuro: Cranial nerves intact Lungs: Normal respiratory effort. Chest tube still in place in the left thorax. Good aeration of the right and upper left lobe. No expiratory w heezing. Cardiac: Heart demonstrates an irregular rate and rhythm. Normal S1 and S2. Pulses: The patient has palpable radial pulses bilaterally that are equal in intensity Extremities: There was no evidence of hypoperfusion. There is no cyanosis or clubbing. Skin: I did not appreciate any rashes on examination today. Results & Data ([facility]) Vital Signs (Past 12 Hours) Vital Signs Temp Pulse Pulse Resp BP BP Pulse Ox 09/24/21 15:31 63 09/24/21 14:26 81 18 95 09/24/21 12:29 129 H 143/59 H 09/24/21 12:00 37.0 C 84 18 143/59 H 09/24/21 10:43 86 18 97 09/24/21 08:00 36.5 C 76 16 158/69 H 95 09/24/21 07:07 84 18 96 09/24/21 07:04 64 Laboratory Results Abnormal Lab Results 09/23/21 09/23/21 09/24/21 16:19 20:15 07:43 WBC RBC Hgb Hct MCV MCH MCHC RDW Std Deviation RDW Coeff of Melonie Plt Count MPV Immature Gran % (Auto) Neut % (Auto) Lymph % (Auto) Bollinger % (Auto) Eos % (Auto) Baso % (Auto) Neut # (Auto) Lymph # (Auto) Bollinger # (Auto) Eos # (Auto) Baso # (Auto) Immature Gran # (Auto) Platelet Estimate PT INR Sodium Potassium Chloride Carbon Dioxide Anion Gap BUN Creatinine Est Cr Clr Drug Dosing Est GFR ( Amer) Est GFR (Non-Af Amer) BUN/Creatinine Ratio Glucose POC Glucose 143 H 218 H 133 H Calcium Total Bilirubin AST ALT Alkaline Phosphatase Total Protein Albumin Globulin Albumin/Globulin Ratio 09/24/21 09/24/21 09/24/21 07:45 07:45 07:45 WBC 8.65 RBC 4.48 L Hgb 13.5 L Hct 41.8 L MCV 93.3 MCH 30.1 MCHC 32.3 RDW Std Deviation 54.7 H RDW Coeff of Melonie 16.1 H Plt Count 97 L MPV 10.0 Immature Gran % (Auto) 0.2 Neut % (Auto) 55.4 Lymph % (Auto) 28.7 Bollinger % (Auto) 14.2 Eos % (Auto) 1.4 Baso % (Auto) 0.1 Neut # (Auto) 4.79 Lymph # (Auto) 2.48 Bollinger # (Auto) 1.23 H Eos # (Auto) 0.12 Baso # (Auto) 0.01 Immature Gran # (Auto) 0.02 Platelet Estimate Decreased L PT 10.8 INR 1.1 Sodium 144 Potassium 4.3 Chloride 109 H Carbon Dioxide 29 Anion Gap 7.0 BUN 44 H Creatinine 1.40 Est Cr Clr Drug Dosing 49.2 Est GFR ( Amer) 55.8 Est GFR (Non-Af Amer) 48.1 BUN/Creatinine Ratio 31.5 H Glucose 148 H POC Glucose Calcium 8.8 Total Bilirubin 0.8 AST 197 H ALT 310 H Alkaline Phosphatase 82 Total Protein 6.9 Albumin 2.5 L Globulin 4.4 H Albumin/Globulin Ratio 0.6 L 09/24/21 11:27 WBC RBC Hgb Hct MCV MCH MCHC RDW Std Deviation RDW Coeff of Melonie Plt Count MPV Immature Gran % (Auto) Neut % (Auto) Lymph % (Auto) Bollinger % (Auto) Eos % (Auto) Baso % (Auto) Neut # (Auto) Lymph # (Auto) Bollinger # (Auto) Eos # (Auto) Baso # (Auto) Immature Gran # (Auto) Platelet Estimate PT INR Sodium Potassium Chloride Carbon Dioxide Anion Gap BUN Creatinine Est Cr Clr Drug Dosing Est GFR ( Amer) Est GFR (Non-Af Amer) BUN/Creatinine Ratio Glucose POC Glucose 269 H Calcium Total Bilirubin AST ALT Alkaline Phosphatase Total Protein Albumin Globulin Albumin/Globulin Ratio PG Care Time/CCT Total # of Minutes Spent Total Time Spent with Patient: Total time spent is greater than 50% in coordination of care (as documented) at patient's floor/unit and/or counseling patient: Coding Level of Care Code 61137 Subseq Hosp Care Lvl 2 Diagnoses Sinus bradycardia R00.1 Chest pressure R07.89 Right bundle branch block I45.10 Arteriosclerotic cardiovascular disease I25.10
[2021-09-24] MEDS ORDERED: INSULIN HUMAN NPH SC ONE (16:30)
--- NOTE | 2021-09-24 18:45 | Billing Data ---
Date of Service September 24, 2021 Coding Level of Care Code 47245 Subseq Hosp Care Lvl 1
[2021-09-24] MEDS: carvediloL 6.25 MG TAB PO SCH (20:07)
[2021-09-24] MEDS: ATORVASTATIN 40 MG TAB PO SCH (20:07)
[2021-09-24] MEDS: traZODone HCL 50 MG TAB PO SCH (20:07)
[2021-09-25] MEDS: ALBUT/IPRATROP 3MG/0.5MG NEB 3 ML VIAL NEB SCH ×2 (07:07→10:47)
[2021-09-25] MEDS ORDERED: INSULIN HUMAN NPH SC SCH (08:00)
[2021-09-25] MEDS: LEVOTHYROXINE SODIUM 100 MCG TABLET PO SCH (08:06)
[2021-09-25] MEDS: carvediloL 6.25 MG TAB PO SCH ×2 (08:06→20:41)
[2021-09-25] MEDS: guaiFENesin 600 MG TABCR PO SCH (08:07)
[2021-09-25] MEDS: POLYETHYLENE (MIRALAX) 17 GM PACK PO SCH (08:07)
[2021-09-25] MEDS: FUROSEMIDE 20 MG TAB PO SCH (08:07)
[2021-09-25] MEDS: INSULIN ASPART 100 UNITS/ML 3 ML PEN SC SCH ×4 (08:08→20:34)
[2021-09-25] MEDS: INSULIN HUMAN NPH SC SCH (08:09)
[2021-09-25 08:24] LABS: Basophils # (auto) 0.01 K/uL (0-0.2); Basophils % (auto) 0.1 %; Eosinophils # (auto) 0.15 K/uL (0-0.5); Eosinophils % (auto) 1.9 %; Hematocrit (blood only) 41.7 % (42-52); Immature Granulocytes # (auto) 0.02 K/uL (0.00-0.02); Immature Granulocytes % (auto) 0.3 %; Lymphocytes # (auto) 2.66 K/uL (1.2-3.4); Lymphocytes % (auto) 34.4 %; Mean Corpuscular Volume 93.1 fL (80-100); Mean Platelet Volume 10.4 fL (7.4-10.4); Monocytes # (auto) 0.99 K/uL (0.11-0.59); Monocytes % (auto) 12.8 %; Neutrophils # (auto) 3.91 K/uL (1.4-6.5); Neutrophils % (auto) 50.5 %; Platelet Count 106 K/uL (130-400); RDW Coefficient of Variation 16.1 % (11.5-14.5); RDW Standard Deviation 54.6 fL (36.4-46.3); Red Blood Count 4.48 M/uL (4.7-6.1); White Blood Count 7.74 K/uL (4.8-10.8)
--- NOTE | 2021-09-25 08:27 | XRay Report ---
XR chest 1V portable CLINICAL HISTORY: Left pleural effusion, tiny apical pneumothorax. COMPARISON STUDY: 09/24/2021 TECHNIQUE: 1 view of the chest FINDINGS: Single frontal view of the chest demonstrates the cardiomediastinal silhouette to be within normal li mits. Compared to previous examination, left-sided pigtail catheter has been removed. There is no def inite evidence for pneumothorax. The lungs are clear of alveolar opacities. There is minimal left bas ilar atelectasis. There is haziness at the left lung base and small residual pleural effusion cannot be excluded. There is no evidence for vascular congestion. There is no acute osseous pathology. IMPRESSION: Status post removal of left-sided pigtail catheter with no evidence for pneumothorax. Min imal left basilar atelectasis. Small residual pleural effusion cannot be excluded. ACT 112: Negative or not required by law. Electronically signed by: Mansoor Trevino M.D. 09/25/2021 8:25 AM
[2021-09-25 08:36] LABS: Mean Corpuscular Hgb Conc 31.2 g/dL (32-36)
[2021-09-25 09:42] LABS: Albumin Level 2.4 gm/dl (3.4-5.0); Bilirubin,Total 0.7 mg/dl (0.2-1); Calcium 9.4 mg/dl (8.5-10.1); Creatinine Clr Calc Pharmacy 58.1 ml/min; Est GFR (African American) 68.6 ml/min; Est GFR (Non-African American) 59.2 ml/min; Potassium 4.4 mmol/L (3.5-5.1)
[2021-09-25 09:46] LABS: Albumin Globulin Ratio 0.5 (0.9-2); Globulin 4.5 gm/dl (2.5-4.0); Total Protein 6.9 gm/dl (6.4-8.2)
[2021-09-25] MEDS: CHOLECALCIFEROL 1,000 UNITS 25 MCG TAB PO SCH (12:01)
[2021-09-25] MEDS: CYANOCOBALAMIN 500 MCG TABLET (VITAMIN B-12) PO SCH (12:01)
[2021-09-25] MEDS ORDERED: ALBUT/IPRATROP 3MG/0.5MG NEB 3 ML VIAL NEB PRN (13:55)
--- NOTE | 2021-09-25 14:57 | Hospitalist Progress Note ---
Date of Service September 25, 2021 Assessment & Plan (1) Pleural effusion, left: Plan: Noted via CT chest w/o contrast which was obtained due to worsening hypoxia - Etiology suspected due to HFpEF - Treated with a one time dose of Lasix 40mg IV on 09/21 with good response, neg net fluid balance of ~1.8L - Pulmonology consulted s/p thoracentesis and placement of pigtail catheter on 09/23 - Approx 400 mL straw-colored fluid drained, testing thus far c/w transudative f luid, fluid not c/w infection or malignancy. - Pigtail catheter inserted and placed to suction, has since been removed on 09/24. - Added incentive spirometry - Duonebs QID routine and supplemental O2 - Resumed PO Lasix on 09/23 at lower dose (20mg daily) - Now off supplemental O2, saturating in the 90s on room air (2) Hypoxia: Plan: - Aim O2 sats > 90%, usually on O2 (2L) at night only for SIXTO (unable to tolerate CPAP) - Around 0400 on 09/21 did have a desaturation into 70s while on 2 L when he was sleeping; repeat CXR with with evidence of the L pleural effusion and opacities of L lung base either atelectasis vs early pneumonia - Started empirically on Zosyn given his swallowing issues (cover for possible aspiration) - however procalcitonin negative and no leukocytosis, afebrile, Zosyn d/c'd - CT 09/21 showed further progression of pleural effusion with evidence of collapse and small <5% apical PTX. - Pulm consulted, see plan as outlined in #1. (3) Sinus bradycardia: Plan: - Resolved - Per cardiology - some evidence of additional conduction disease with 1st AV block and RBBB and suspect progression of sinus node disease with beta yesica use - Did get Glucagon and Atropine on first night of admission with pacer pads in place - did have some confusion at that time, was A&O but saying some odd things - Mentation has been appropriate since - Troponins negative; BNP unremarkable - Echo - EF 60-65%; diastolic dysfunction, grade II; no significant valvular disease - Cardiology following (4) Paroxysmal atrial fibrillation: Plan: - In and out - D/W Dr. Sneed who was initially consulted for bradycardia, Coreg resumed at lower dose of 6.25mg BID and monitor - Added PRN IV Lopressor 5mg q4h prn sustained HR>120 - CHADSVASC score 5, initiated AC w/ Eliquis 09/23; however, stopped due to drop in platelets - Platelets slowly uptrending, will continue to monitor and resume Eliquis when plt >120 (5) Transaminitis: Plan: - Unclear etiology - RUQ ultrasound performed, results noted - Cholelithiasis, no obstruction noted, liver unremarkable - AST/ALT slowly downtrending - Will follow (6) Thrombocytopenia: Plan: - ?Related to Lovenox - Lovenox d/c'd yesterday - Hold Eliquis - Follow (7) Right carpal tunnel syndrome: Plan: - Ongoing for last 2 months - Recommended following up with PCP, outpatient EMG study and can refer to surgery (8) Hypertension: Plan: - Continue losartan, Amlodipine, Coreg, and Imdur (9) Obstructive sleep apnea: Plan: - Intolerant to CPAP - Continue nocturnal O2 (2L) (10) Diabetes: Plan: HbA1C 7.8 - Metformin held - Pharmacy consulted for glycemic management Plan: PT/OT -- recommending acute rehab, d/w patient and he is agreeable. now agreeable. D/C Planning, CM on consult, referral sent to [facility] but there are no beds at this time. Admission and Anticipated Discharge Date Admission Date: September 19, 2021 Subjective Mr. Reyez was seen on rounds this morning. Pt was hospitalized for acute dyspnea and bradycardia. Pt found to have a moderate sized L pleural effusion via CT on 09/21 and underwent thoracentesis 09/22 with placement of pigtail catheter. Catheter removed yesterday, pt tolerated procedure well. Follow up imaging this morning denotes minimal left basilar atelectasis and possible small residual effusion. He has been weaned off supplemental O2 during the day with sats in the mid 90s. Since 09/23, pt has been going in and out of afib, initially rate controlled; however, 12 AM pt's ranging 100-130s. D/W cardiology and he was restarted on lower dose Coreg. Pt remains in afib this morning but rate is better controlled. He denies lightheadedness/dizziness, dyspnea, or palpitations. Denies chest pain, cough, fever, chills, headache or gu symptoms. Review of Systems Review of Systems: CONSTITUTIONAL: Denies weight loss/gain, fever and chills, fatigue, malaise, generalized weakness. HEENT: Denies changes in vision and hearing. RESPIRATORY: Denies SOB, cough, wheezing. CV: Denies palpitations, CP, lower extremity edema, orthopnea, PND. GI: Denies abdominal pain, nausea, vomiting and diarrhea. : Denies dysuria and urinary frequency, urgency, hesitancy. MUSCULOSKELETAL: Denies myalgia and joint pain. SKIN: Denies rash and pruritus. NEUROLOGICAL: chronic R hand numbness/tingling. Denies headache, syncope, focal weakness. PSYCHIATRIC: Denies recent changes in mood. Denies anxiety and depression. Physical Exam Physical Exam: GENERAL: 75 yo WD/WN elderly WM NAD. A&Ox3. LUNGS: No conversational dyspnea or labored breathing. Fine crackles noted in LLL, CTA in R lung garcia. CARDIOVASCULAR: Irregular rate and rhythm. No M/G/R. No JVD. ABDOMEN: Soft, non-tender and non-distended. No palpable masses. Bowel sounds normoactive x 4 quad. EXTREMITIES: No edema. Non-tender. Peripheral pulses +2/4. PSYCHIATRIC: Cooperative. Appropriate mood and affect. SKIN: Warm, dry, intact. No rashes or lesions. Results & Data Results & Data ([facility]) Vital Signs (Past 12 Hours) Vital Signs Temp Pulse Pulse Resp BP Pulse Ox 09/25/21 14:06 66 18 94 09/25/21 12:24 36.8 C 66 18 188/67 H 90 09/25/21 10:49 70 18 90 09/25/21 07:36 36.7 C 103 H 18 164/67 H 90 09/25/21 07:09 75 18 92 09/25/21 06:06 59 L 09/25/21 04:32 36.7 C 70 18 166/77 H 92 Laboratory Results 09/25/21 08:09 09/25/21 08:09 Diagnostic Findings Chest X-Ray 09/25/21 07:00 XR chest 1V portable CLINICAL HISTORY: Left pleural effusion, tiny apical pneumothorax. COMPARISON STUDY: 09/24/2021 TECHNIQUE: 1 view of the chest FINDINGS: Single frontal view of the chest demonstrates the cardiomediastinal silhouette to be within normal limits. Compared to previous examination, left-sided pigtail catheter has been removed. There is no definite evidence for pneumothorax. The lungs are clear of alveolar opacities. There is minimal left basilar atelectasis. There is haziness at the left lung base and small residual pleural effusion cannot be excluded. There is no evidence for vascular congestion. There is no acute osseous pathology. IMPRESSION: Status post removal of left-sided pigtail catheter with no evidence for pneumothorax. Minimal left basilar atelectasis. Small residual pleural effusion cannot be excluded. ACT 112: Negative or not required by law. Electronically signed by: Mansoor Trevino M.D. 09/25/2021 8:25 AM PG Care Time/CCT Total # of Minutes Spent Total Time Spent with Patient: Total time spent is greater than 50% in coordination of care (as documented) at patient's floor/unit and/or counseling patient: Coding Level of Care Code 46826 Subseq Hosp Care Lvl 2 Diagnoses Pleural effusion, left J90 Hypoxia R09.02 Sinus bradycardia R00.1 Paroxysmal atrial fibrillation I48.0 Transaminitis R74.01 Thrombocytopenia D69.6 Right carpal tunnel syndrome G56.01 Hypertension I10 Obstructive sleep apnea G47.33 Diabetes E11.9
--- NOTE | 2021-09-25 15:13 | Cardiology Progress Note ---
Date of Service September 25, 2021 Assessment & Plan (1) Sinus bradycardia: (2) Chest pressure: (3) Right bundle branch block: (4) Arteriosclerotic cardiovascular disease: Plan: 1. Bradycardia: I think we can continue his carvedilol 6.25 mg twice daily 2. Chest pain: Atypical. No recurrent symptoms even with ambulation today. 3. Coronary disease: Presumed. Evidence of inferior ischemia on perfusion imaging. Low risk study. Continuing secondary prevention. 4. Dyspnea: Much improved since thoracentesis. Can continue his daily dose of Lasix. 5. Atrial fibrillation: No symptoms. He seems to be doing well on his current dose of carvedilol. We have not yet seen the maximum affect. We will see this after a couple more doses. I think he could easily be discharged on 6.25 mg twice a day. I would advocate starting him on apixaban 5 mg twice a day unless there are concerns about bleeding. Admission and Anticipated Discharge Date Admission Date: September 19, 2021 Subjective This afternoon the patient claims to be feeling well. He reports ambulating in the hallway. He had some mild dyspnea but no chest pain. He denies dizziness. Not aware of palpitations. Anxious for discharge. Review of Systems Review of Systems: Per HPI Physical Exam Physical Exam: Alert and appropriate this morning. Comfortable. HEENT: Pupils are equal and reactive to light and accommodation. Extraocular movements are intact. The sclerae are anicteric. Neuro: Cranial nerves intact Lungs: Normal respiratory effort. Clear lungs. Cardiac: Heart demonstrates an irregular rate and rhythm. Normal S1 and S2. Pulses: The patient has palpable radial pulses bilaterally that are equal in intensity Extremities: There was no evidence of hypoperfusion. There is no cyanosis or clubbing. Skin: I did not appreciate any rashes on examination today. Results & Data ([facility]) Vital Signs (Past 12 Hours) Vital Signs Temp Pulse Pulse Resp BP Pulse Ox 09/25/21 14:06 66 18 94 09/25/21 12:24 36.8 C 66 18 188/67 H 90 09/25/21 10:49 70 18 90 09/25/21 07:36 36.7 C 103 H 18 164/67 H 90 09/25/21 07:09 75 18 92 09/25/21 06:06 59 L 09/25/21 04:32 36.7 C 70 18 166/77 H 92 Laboratory Results Abnormal Lab Results 09/24/21 09/24/21 09/25/21 16:23 20:02 07:16 WBC RBC Hgb Hct MCV MCH MCHC RDW Std Deviation RDW Coeff of Melonie Plt Count MPV Immature Gran % (Auto) Neut % (Auto) Lymph % (Auto) [place] % (Auto) Eos % (Auto) Baso % (Auto) Neut # (Auto) Lymph # (Auto) [place] # (Auto) Eos # (Auto) Baso # (Auto) Immature Gran # (Auto) Sodium Potassium Chloride Carbon Dioxide Anion Gap BUN Creatinine Est Cr Clr Drug Dosing Est GFR ( Amer) Est GFR (Non-Af Amer) BUN/Creatinine Ratio Glucose POC Glucose 88 98 112 H Calcium Total Bilirubin AST ALT Alkaline Phosphatase Total Protein Albumin Globulin Albumin/Globulin Ratio 09/25/21 09/25/21 09/25/21 08:09 08:09 11:38 WBC 7.74 RBC 4.48 L Hgb 13.0 L Hct 41.7 L MCV 93.1 MCH 29.0 MCHC 31.2 L RDW Std Deviation 54.6 H RDW Coeff of Melonie 16.1 H Plt Count 106 L MPV 10.4 Immature Gran % (Auto) 0.3 Neut % (Auto) 50.5 Lymph % (Auto) 34.4 [place] % (Auto) 12.8 Eos % (Auto) 1.9 Baso % (Auto) 0.1 Neut # (Auto) 3.91 Lymph # (Auto) 2.66 [place] # (Auto) 0.99 H Eos # (Auto) 0.15 Baso # (Auto) 0.01 Immature Gran # (Auto) 0.02 Sodium 142 Potassium 4.4 Chloride 108 H Carbon Dioxide 31 Anion Gap 3.0 BUN 44 H Creatinine 1.18 Est Cr Clr Drug Dosing 58.1 Est GFR ( Amer) 68.6 Est GFR (Non-Af Amer) 59.2 BUN/Creatinine Ratio 37.0 H Glucose 167 H POC Glucose 177 H Calcium 9.4 Total Bilirubin 0.7 AST 154 H ALT 269 H Alkaline Phosphatase 87 Total Protein 6.9 Albumin 2.4 L Globulin 4.5 H Albumin/Globulin Ratio 0.5 L PG Care Time/CCT Total # of Minutes Spent Total Time Spent with Patient: Total time spent is greater than 50% in coordination of care (as documented) at patient's floor/unit and/or counseling patient: Coding Level of Care Code 63578 Subseq Hosp Care Lvl 2 Diagnoses Sinus bradycardia R00.1 Chest pressure R07.89 Right bundle branch block I45.10 Arteriosclerotic cardiovascular disease I25.10
[2021-09-25] MEDS: traZODone HCL 50 MG TAB PO SCH (20:41)
[2021-09-25] MEDS: ATORVASTATIN 40 MG TAB PO SCH (20:42)
[2021-09-26] MEDS: carvediloL 6.25 MG TAB PO SCH ×2 (08:03→20:49)
[2021-09-26] MEDS: guaiFENesin 600 MG TABCR PO SCH (08:03)
[2021-09-26] MEDS: FUROSEMIDE 20 MG TAB PO SCH (08:04)
[2021-09-26] MEDS: INSULIN ASPART 100 UNITS/ML 3 ML PEN SC SCH ×4 (08:04→21:35)
[2021-09-26] MEDS: INSULIN HUMAN NPH SC SCH (08:05)
[2021-09-26] MEDS: POLYETHYLENE (MIRALAX) 17 GM PACK PO SCH (08:05)
[2021-09-26] MEDS: LEVOTHYROXINE SODIUM 100 MCG TABLET PO SCH (08:05)
[2021-09-26] MEDS: CHOLECALCIFEROL 1,000 UNITS 25 MCG TAB PO SCH (12:18)
[2021-09-26] MEDS: CYANOCOBALAMIN 500 MCG TABLET (VITAMIN B-12) PO SCH (12:18)
--- NOTE | 2021-09-26 13:05 | Pharmacy Report ---
Pharmacy Glycemic Short Note 2 - Date of Service September 26, 2021 - Glycemic Short BSG Results (Last 24 hours): 09/25/21 09/25/21 09/26/21 16:58 20:23 07:41 POC Glucose 102 H 156 H 123 H 09/26/21 11:44 POC Glucose 137 H OUTPATIENT ANTIDIABETIC REGIMEN: * Novolog 70/30 -- 40 units in morning and 30 units with dinner * HbA1C = 7.8% ASSESSMENT: 09/26/21 * Patient's BSGs yesterday were [phone] mg/dL. Fasting today is 123 mg/dL. * Patient received 26 units of insulin yesterday with 10 units of basal and bolus of 16 units. * Continue NPH- could consider d/c of it tomorrow. * Novolog weight-based stress of 2. 09/24: * Pt received total 14 units of insulin yesterday all of which was bolus. * Since basal insulin was discontinued yesterday AM, BSGs trended up to 218 mg/dl as patient's oral food intake improved. * Fasting BSG = 133 mg/dl. Basal NPH insulin 10 units re-ordered this AM but it was slightly later in the AM. Pre-lunch BSG trended up to 269 mg/dl but is not reflective of the basal dose given. * Additional NPH dose ordered with dinner this evening based on BSG value at that time. Novolog parameters continued the same. 09/23: * Pt received total 13 units of insulin yesterday; 8 units of basal NPH + 5 units bolus. * Fasting BSG = 99 mg/dl today. Post prandial BSGs were 93-89 mg/dl last night even after patient ate 40gm of carbs at dinner. So, AM basal NPH dose discontinued today to prevent hypoglycemia later in the day. * Novolog parameters continued the same. 09/22 * Pt has received 12 units of insulin over the past 24hrs * 10 units of basal with NPH * 2 units of bolus with NovoLog * BSGs 132-148-72/553-392-88-101-109 mg/dl * BSGs trending downwards. PO intake remains minimal. Will decrease basal insulin by 20% today and continue to titrate based on BSG trends and PO intake. 09/21/21 * Patient's BSGs yesterday were [phone] mg/dL. Fasting today is 132 mg/dL. * Patient received 32 units of insulin yesterday with 28 units of basal and bolus of 5 units. * Patient had hypoglycemic episode at dinnertime -- odd as patient received only 60% of home basal dose for morning. Will thus decrease insulin by additional 35% to 18 units today. * Novolog weight-based stress of 2. Background * Mr Reyez is a 75 y/o M with a PMH of T2DM who presents with bradycardia. On mixed insulin at home. * Will start NPH 18 units in morning and 10 units with dinner (represents about a 40% reduction in basal insulin from home) and is slightly less than half of home regimen. * Novolog weight-based stress of 2 for now. PLAN FOR INPATIENT GLYCEMIC CONTROL: * Basal insulin * NPH 10 units QAM * Bolus insulin * NovoLog per scale ACHS or Q6hrs while NPO * Goal Range: Low 110 mg/dL - High 140 mg/dL * Correction Factor: 25 mg/dL/unit * Nutritional / Prandial insulin per carb ratio of 1 unit per 8 grams CHO consumed PLAN FOR DISCHARGE: * HbA1c = 7.8% on 09/20/21. Goal A1c is less than 8% in this patient given age and co-morbidities. * This indicates adequately controlled diabetes. * Recommend continue on current home regimen with Novolog 70/30 insulin: 40 units before breakfast and 30 units before dinner and Metformin 850 mg PO BID as long as patient has been compliant with this and is not reporting hypoglycemic episodes at home.
[2021-09-26] MEDS ORDERED: LOSARTAN POTASSIUM 50 MG TAB PO ONE (14:30)
--- NOTE | 2021-09-26 14:32 | Hospitalist Progress Note ---
Date of Service September 26, 2021 Assessment & Plan (1) Pleural effusion, left: Plan: Noted via CT chest w/o contrast which was obtained due to worsening hypoxia - Etiology suspected due to HFpEF - Treated with a one time dose of Lasix 40mg IV on 09/21 with good response, neg net fluid balance of ~1.8L - Pulmonology consulted s/p thoracentesis and placement of pigtail catheter on 09/23 - Approx 400 mL straw-colored fluid drained, testing thus far c/w transudative f luid, fluid not c/w infection or malignancy. - Pigtail catheter inserted and placed to suction, has since been removed on 09/24. - Added incentive spirometry - Duonebs QID routine and supplemental O2 - Resumed PO Lasix on 09/23 at lower dose (20mg daily) - Now off supplemental O2, saturating in the 90s on room air (2) Hypoxia: Plan: - Aim O2 sats > 90%, usually on O2 (2L) at night only for SIXTO (unable to tolerate CPAP) - Around 0400 on 09/21 did have a desaturation into 70s while on 2 L when he was sleeping; repeat CXR with with evidence of the L pleural effusion and opacities of L lung base either atelectasis vs early pneumonia - Started empirically on Zosyn given his swallowing issues (cover for possible aspiration) - however procalcitonin negative and no leukocytosis, afebrile, Zosyn d/c'd - CT 09/21 showed further progression of pleural effusion with evidence of collapse and small <5% apical PTX. - Pulm consulted, see plan as outlined in #1. (3) Sinus bradycardia: Plan: - Resolved - Per cardiology - some evidence of additional conduction disease with 1st AV block and RBBB and suspect progression of sinus node disease with beta yesica use - Did get Glucagon and Atropine on first night of admission with pacer pads in place - did have some confusion at that time, was A&O but saying some odd things - Mentation has been appropriate since - Troponins negative; BNP unremarkable - Echo - EF 60-65%; diastolic dysfunction, grade II; no significant valvular disease - Cardiology following (4) Paroxysmal atrial fibrillation: Plan: - In and out - D/W Dr. Sneed who was initially consulted for bradycardia, Coreg resumed at lower dose of 6.25mg BID and monitor - Added PRN IV Lopressor 5mg q4h prn sustained HR>120 - CHADSVASC score 5, initiated AC w/ Eliquis 09/23; however, stopped due to drop in platelets - Platelets returning to normal, resume Eliquis tonight (09/26) (5) Transaminitis: Plan: - Unclear etiology - RUQ ultrasound performed, results noted - Cholelithiasis, no obstruction noted, liver unremarkable - AST/ALT slowly downtrending - Will follow (6) Thrombocytopenia: Plan: - ?Related to Lovenox - Lovenox d/c'd yesterday - Eliquis started and then held, will resume (7) Right carpal tunnel syndrome: Plan: - Ongoing for last 2 months - Recommended following up with PCP, outpatient EMG study and can refer to surgery (8) Hypertension: Plan: - BP has been uncontrolled last few days - Discovered that his Losartan and Imdur had been d/c'd on morning of 09/21 - This was not recognized until this afternoon - Resume Losartan and Imdur, continue Norvasc, monitor BP (9) Obstructive sleep apnea: Plan: - Intolerant to CPAP - Continue nocturnal O2 (2L) (10) Diabetes: Plan: HbA1C 7.8 - Metformin held - Pharmacy consulted for glycemic management Plan: PT/OT -- progressing well. Therapy thinks would benefit from rehab. D/C Planning, CM on consult, referral sent to [facility] but insurance auth still pending. CM believes this may be denied. If denied, pt and would like to go home on 09/27 with home health services. Transfer to med/surg unit Admission and Anticipated Discharge Date Admission Date: September 19, 2021 Subjective Mr. Reyez was seen on rounds this morning. Pt was hospitalized for acute dyspnea and bradycardia. Pt found to have a moderate sized L pleural effusion via CT on 09/21 and underwent thoracentesis 09/22 with placement of pigtail catheter. Catheter removed 09/24, pt tolerated procedure well. Follow up imaging this morning denotes minimal left basilar atelectasis and possible small residual effusion. He has been weaned off supplemental O2 during the day with sats in the mid 90s. Since 09/23, pt has been going in and out of afib, initially rate controlled; however, 09/24 AM pt's ranging 100-130s. D/W cardiology and he was restarted on lower dose Coreg. Pt remains in afib this morning but rate is better controlled. He denies lightheadedness/dizziness, dyspnea, or palpitations. Denies chest pain, cough, fever, chills, headache or gu symptoms. Review of Systems Review of Systems: CONSTITUTIONAL: Denies weight loss/gain, fever and chills, fatigue, malaise, generalized weakness. HEENT: Denies changes in vision and hearing. RESPIRATORY: Denies SOB at rest, mild w/ exertion, denies cough, wheezing. CV: Denies palpitations, CP, lower extremity edema, orthopnea, PND. GI: Denies abdominal pain, nausea, vomiting and diarrhea. : Denies dysuria and urinary frequency, urgency, hesitancy. MUSCULOSKELETAL: Denies myalgia and joint pain. SKIN: Denies rash and pruritus. NEUROLOGICAL: chronic R hand numbness/tingling. Denies headache, syncope, focal weakness. PSYCHIATRIC: Denies recent changes in mood. Denies anxiety and depression. Physical Exam Physical Exam: GENERAL: 75 yo WD/WN elderly WM NAD. A&Ox3. LUNGS: No conversational dyspnea. Fine crackles noted in LLL, CTA in R lung garcia. CARDIOVASCULAR: Irregularly irregular. No M/G/R. No JVD. ABDOMEN: Soft, non-tender and non-distended. No palpable masses. Bowel sounds no rmoactive x 4 quad. EXTREMITIES: Trace B/L LE edema. Non-tender. Peripheral pulses +2/4. PSYCHIATRIC: Cooperative. Appropriate mood and affect. SKIN: Warm, dry, intact. No rashes or lesions. Results & Data Results & Data ([facility]) Vital Signs (Past 12 Hours) Vital Signs Temp Pulse Resp BP BP Pulse Ox 09/26/21 12:00 36.8 C 60 18 154/71 H 95 09/26/21 08:00 36.5 C 76 18 161/69 H 96 09/26/21 03:46 36.9 C 104 H 18 179/80 H 91 Laboratory Results 09/26/21 14:33 09/26/21 14:33 PG Care Time/CCT Total # of Minutes Spent Total Time Spent with Patient: Total time spent is greater than 50% in coordination of care (as documented) at patient's floor/unit and/or counseling patient: Coding Level of Care Code 93570 Subseq Hosp Care Lvl 2 Diagnoses Pleural effusion, left J90 Hypoxia R09.02 Sinus bradycardia R00.1 Paroxysmal atrial fibrillation I48.0 Transaminitis R74.01 Thrombocytopenia D69.6 Right carpal tunnel syndrome G56.01 Hypertension I10 Obstructive sleep apnea G47.33 Diabetes E11.9
[2021-09-26 15:03] LABS: Basophils # (auto) 0.02 K/uL (0-0.2); Basophils % (auto) 0.2 %; Eosinophils # (auto) 0.15 K/uL (0-0.5); Eosinophils % (auto) 1.6 %; Hematocrit (blood only) 42.5 % (42-52); Hemoglobin 13.4 g/dL (14.0-18.0); Immature Granulocytes # (auto) 0.03 K/uL (0.00-0.02); Immature Granulocytes % (auto) 0.3 %; Lymphocytes # (auto) 2.99 K/uL (1.2-3.4); Lymphocytes % (auto) 32.4 %; Mean Corpuscular Hemoglobin 29.3 pg (25-34); Mean Platelet Volume 10.8 fL (7.4-10.4); Monocytes # (auto) 0.96 K/uL (0.11-0.59); Monocytes % (auto) 10.4 %; Neutrophils # (auto) 5.07 K/uL (1.4-6.5); Neutrophils % (auto) 55.1 %; Platelet Count 121 K/uL (130-400); RDW Standard Deviation 53.7 fL (36.4-46.3); Red Blood Count 4.57 M/uL (4.7-6.1); White Blood Count 9.22 K/uL (4.8-10.8)
[2021-09-26 15:17] LABS: Albumin Level 2.4 gm/dl (3.4-5.0); BUN Creatinine Ratio 33.4 (10-20); Calcium 8.7 mg/dl (8.5-10.1); Creatinine Clr Calc Pharmacy 55.7 ml/min; Est GFR (African American) 64.6 ml/min; Est GFR (Non-African American) 55.7 ml/min; Potassium 4.3 mmol/L (3.5-5.1)
[2021-09-26 15:19] LABS: Albumin Globulin Ratio 0.5 (0.9-2); Bilirubin,Total 0.6 mg/dl (0.2-1); Globulin 4.7 gm/dl (2.5-4.0); Total Protein 7.1 gm/dl (6.4-8.2)
[2021-09-26 15:33] LABS: Mean Corpuscular Hgb Conc 31.5 g/dL (32-36)
[2021-09-26] MEDS: APIXABAN 5 MG TABLET PO SCH (20:48)
[2021-09-26] MEDS: ATORVASTATIN 40 MG TAB PO SCH (20:49)
[2021-09-26] MEDS: traZODone HCL 50 MG TAB PO SCH (20:49)
[2021-09-26] MEDS ORDERED: APIXABAN 2.5 MG TAB PO SCH (21:00)
[2021-09-27] MEDS: INSULIN HUMAN NPH SC SCH (08:12)
[2021-09-27] MEDS: APIXABAN 5 MG TABLET PO SCH (08:31)
[2021-09-27] MEDS: carvediloL 6.25 MG TAB PO SCH (08:31)
[2021-09-27] MEDS: CHOLECALCIFEROL 1,000 UNITS 25 MCG TAB PO SCH (08:32)
[2021-09-27] MEDS: LEVOTHYROXINE SODIUM 100 MCG TABLET PO SCH (08:33)
[2021-09-27] MEDS: FUROSEMIDE 20 MG TAB PO SCH (08:33)
[2021-09-27] MEDS: guaiFENesin 600 MG TABCR PO SCH (08:33)
[2021-09-27] MEDS: POLYETHYLENE (MIRALAX) 17 GM PACK PO SCH (08:34)
[2021-09-27] MEDS ORDERED: ISOSORBIDE MONO EXTENDED REL 30 MG TABCR PO SCH (09:00)
[2021-09-27] MEDS ORDERED: LOSARTAN POTASSIUM 50 MG TAB PO SCH (09:00)
[2021-09-27] MEDS: INSULIN ASPART 100 UNITS/ML 3 ML PEN SC SCH ×2 (09:24→13:14)
[2021-09-27] MEDS: ASPIRIN 81 MG ECTAB PO SCH (09:47)
[2021-09-27] MEDS: CYANOCOBALAMIN 500 MCG TABLET (VITAMIN B-12) PO SCH (13:14)
--- NOTE | 2021-09-27 15:06 | Discharge Summary ---
Date of Service September 27, 2021 Admission HPI Per Admitting Provider Calvin Reyez is a 75 year old male who presents to the ER after sudden onset shortness of breath last night. His at bedside provides the majority of the history. He reports last feeling his normal self 4 days ago. Progressively more short of breath and dizzy since then. This morning around 5am he woke up feeling acutely short of breath with more mucus in his mouth. His took his O2 sats around 89-90% on 4LPM O2 which is unusual for him (last 2 months he has required oxygen at night but not during the day). She was however concerned about his heart rate which was 48-50 bpm which she reports was unusual for him. He has known obstructive sleep apnea but is intolerant to CPAP. He reports possibly some mild chest pain this morning around 11:30am on the left side of his chest, no acute worsening of shortness of breath or diaphoresis, no radiation. He is currently chest pain free. He has chronic orthopnea and has not been able to lie flat in bed for 2 years. No palpations or claudication. He reports taking his usual medications this morning including amlodipine, carvedilol and 20 units of Humalog 70/30. Amlodipine was added back for his blood pressure management approximately 1 month ago but he reports no other recent changes to his medications. In the ER he was noted to be hypoxic requiring 2LPM O2 to maintain O2 sats > 94%. HR in high 30s, low 40s. EKG showing sinus bradycardia. CXR concerning for mild pulmonary edema. BP 99/59 on arrival to the ER. He reports feeling much improved with his shortness of breath but still having dizziness on standing. He was referred to medicine for admission and ongoing management of bradycardia. Admission Exam Per Admitting Provider Constitutional: well developed and + obese; + not well nourished and no acute distress Eyes: + anicteric sclerae; normal pupil size ENMT: external ear and nose normal, oropharynx normal Respiratory: normal respiratory effort; no respiratory distress Auscultation: + crackles (fine bases) and + rhonchi (upper airway sound anteriorly); no wheezes Cardiovascular: Rate/Rhythm: regular rhythm and + bradycardic Heart Sounds: no murmur Vessels: no JVD Extremities: normal capillary refill and + pedal edema (1+ pre-tibial equal bilaterally); no calf tenderness Gastrointestinal (Abdomen): normal bowel sounds, soft, nontender, no hepatosplenomegaly Musculoskeletal: no cyanosis or clubbing, extremities motor strength 5/5 Skin: no rashes, warm and dry Neurologic: moves all extremities and awake; not confused Principal Diagnosis 1. Acute hypoxia (resolved) 2. L pleural effusion s/p thoracentesis (resolved) 3. Sinus bradycardia (resolved) 4. Atrial fibrillation 5. Transaminitis - improving 6. Thrombocytopenia (resolved) Discharge Exam Vital Signs Temp Pulse Resp BP Pulse Ox 09/27/21 08:00 36.9 C 86 16 185/82 H 90 09/27/21 06:17 191/82 H 09/26/21 22:29 36.7 C 84 17 175/83 H 93 09/26/21 20:47 83 170/92 H 92 09/26/21 17:50 36.6 C 103 H 20 162/79 H 92 09/26/21 17:00 37.0 C 88 16 98/62 L 100 GENERAL: 75 yo WD/WN elderly WM NAD. A&Ox3. LUNGS: No conversational dyspnea. Fine crackles noted in LLL, CTA in R lung garcia. CARDIOVASCULAR: Irregularly irregular. No M/G/R. No JVD. ABDOMEN: Soft, non-tender and non-distended. No palpable masses. Bowel sounds normoactive x 4 quad. EXTREMITIES: Trace B/L LE edema. Non-tender. Peripheral pulses +2/4. PSYCHIATRIC: Cooperative. Appropriate mood and affect. SKIN: Warm, dry, intact. No rashes or lesions. Discharge Data Allergies Allergy/AdvReac Type Severity Reaction Status Date / Time Gadolinium-Containing Allergy Severe ANAPHYLAXIS Verified 09/19/21 13:39 Contrast Medi Iodinated Contrast Media Allergy Severe ANAPHYLAXIS Verified 09/19/21 13:39 Consultations 1. Cardiology consulted due to bradycardia -- pt seen by Dr. Sneed, please see his full consult note for further details 2. Pulmonology consulted due to L pleural effusion -- please see Jaleel Henao consult note for further details Ordered Studies 09/26/21 14:33 09/26/21 14:33 Chest X-Ray 09/19/21 11:34 XR chest 1V portable HISTORY: 75 years-old Male SOB acute shortness of breath COMPARISON: Chest radiographs 11/22/2019 TECHNIQUE: Portable AP view of the chest FINDINGS: Cardiac silhouette is enlarged. Trace right and small left pleural effusions with left basilar predominant consolidation. Pulmonary vascular congestion with interstitial coarsening. No pneumothorax. Calcified plaque of the thoracic aorta. Degenerative changes of the shoulders and spine. Mild gaseous distention of the stomach. Mild left hemidiaphragmatic elevation. IMPRESSION: 1. Cardiomegaly with suggested pulmonary edema. 2. Left diaphragmatic elevation with small left and trace right pleural effusions. 3. Left basilar opacities suggest atelectasis versus pneumonitis. ACT 112: Negative or not required by law. The above report was generated using voice recognition software. It may contain grammatical, syntax or spelling errors. Electronically signed by: Andrzej Parra M.D. 09/19/2021 12:07 PM Chest X-Ray 09/21/21 04:10 XR chest 1V portable CLINICAL HISTORY: cough, hypoxeia. COMPARISON STUDY: 09/19/2021 TECHNIQUE: 1 view of the chest FINDINGS: Single frontal view of the chest demonstrates the heart to again be enlarged with evidence for mild central vascular congestion. Compared to the previous examination, there is again evidence for small left pleural effusion and alveolar opacity at the left lung base again characteristic of atelectasis versus early infiltrate. Atelectasis also seen on the right. No other confluent alveolar opacities are seen. No evidence for right pleural effusion. There is no evidence for vascular congestion. There is no acute osseous pathology. IMPRESSION: Compared to previous examination, there is again evidence for left pleural effusion and alveolar opacities left lung base act risk of atelectasis versus early pneumonia. Right lung atelectasis also present. ACT 112: Negative or not required by law. Electronically signed by: Mansoor Trevino M.D. 09/21/2021 8:[address] 09/21/21 14:59 CT chest diagnostic wo con CLINICAL HISTORY: Worsened hypoxia; allergic to contrast COMPARISON STUDY: Report of the chest from 09/13/[address] chest from it should be noted that that chest was performed with intravenous contrast. CT DOSE: 1131.99 mGy.cm TECHNIQUE: Standard CT of the Chest was performed without IV contrast. A dose lowering technique was utilized adhering to the principles of ALARA. FINDINGS: Airway: The airway is clear. No endobronchial lesion is identified. Lungs and pleural: Compared to the portable chest radiograph, there is now evidence for left lung atelectasis/collapse with volume loss and elevation left hemidiaphragm. Moderate pleural fluid opacifies the remainder left hemithorax. There is a small pneumothorax seen anteriorly. It is estimated at less than 5%. On the right side, there is a very small pleural effusion with right basilar atelectasis. Mediastinum: There is no evidence for pathologic adenopathy on these limited noncontrast images. There is mild cardiomegaly. Coronary artery calcification is present. The thoracic aorta is within normal limits. Atherosclerotic calcification is present involving the aortic arch and origin of the great vess els. There is no evidence for pericardial effusion. Upper abdomen: The adrenal glands are normal bilaterally. There is a small hiatal hernia. Osseous structures: There is no acute osseous pathology. IMPRESSION: 1. Interval development of left lung atelectasis/collapse with volume loss and elevation of the left hemidiaphragm. 2. There is also been development of a moderate size left pleural effusion with essentially almost complete opacification left hemithorax. 3. However, there is a small, less than 5% left apical pneumothorax. 4. There is a very small right pleural effusion with right basilar atelectasis as well. 5. Additional nonacute findings as delineated above. ACT 112: Negative or not required by law. Electronically signed by: Mansoor Trevino M.D. 09/21/2021 5:27 PM Venous Doppler Study 09/21/21 14:59 US venous doppler LE BI CLINICAL HISTORY: Lower extremity edema; evaluate for DVT COMPARISON: None available at the time of this dictation. TECHNIQUE: Bilateral lower extremity real-time compression venous ultrasound with Color Doppler imaging. Utilizing real-time ultrasonic imaging multiple real time high-resolution ultrasonic images with compression and noncompression maneuvers of the deep venous system in addition to color doppler imaging were performed from the common femoral vein through the proximal calf veins. FINDINGS: Currently there is normal compressibility of the deep venous system from the common femoral vein through the proximal calf veins. No current evidence of acute thrombosis is identified. Impression: No evidence of deep venous thrombus. ACT 112: Negative or not required by law. Electronically signed by: Mansoor Trevino M.D. 09/21/2021 6:39 PM Chest X-Ray 09/22/21 09:10 XR chest 1V portable HISTORY: pleural effusion ?interval change COMPARISON: Chest 09/13/2021. FINDINGS: Small left pleural effusion and left base airspace opacities have slightly improved. The heart remains enlarged. There is mild central pulmonary vascular congestion without overt edema. This is also improved. Linear densities within the right lung base have improved. No definite pneumothorax. IMPRESSION: Slight improvement in the small left pleural effusion and bibasilar densities. ACT 112: Negative or not required by law. Electronically signed by: Christian Munoz M.D. 09/22/2021 9:54 AM Chest X-Ray 09/22/21 10:54 XR chest 1V portable at 11:06 AM CLINICAL HISTORY: S/P Left Thoracentesis. Evaluate for pneumothorax COMPARISON STUDY: 09/22/2021 9:11 AM TECHNIQUE: 1 view of the chest FINDINGS: Single frontal view of the chest demonstrates the heart size to again be enlarged. The patient is status post left thoracentesis with decreased left pleural effusion. There is no evidence for pneumothorax. Bibasilar atelectasis is present, left greater than right. No focal alveolar opacities are seen. There is no definite right pleural effusion. There is no evidence for vascular congestion. There is no acute osseous pathology. IMPRESSION: Status post left thoracentesis with decreased left pleural effusion and no evidence for pneumothorax. Bibasilar atelectasis, left greater than right. ACT 112: Negative or not required by law. Electronically signed by: Mansoor Trevino M.D. 09/22/2021 11:36 AM Chest X-Ray 09/23/21 04:44 XR chest 1V portable CLINICAL HISTORY: f/u pleural effusion s/p thoracentesis. COMPARISON STUDY: 09/22/2021 TECHNIQUE: 1 view of the chest FINDINGS: Single frontal view of the chest demonstrates the cardiomediastinal silhouette to be within normal limits. Compared to previous examination, the patient is status post left thoracentesis with placement of a pigtail catheter at the left lung base. There is interval decrease in left pleural effusion with no evidence for pneumothorax. The lungs are clear of alveolar opacities. There is minimal bibasilar atelectasis. There is no right pleural effusion. There is no evidence for vascular congestion. There is no acute osseous pathology. IMPRESSION: Status post left thoracentesis with placement of a pigtail catheter left lung base. Decreased left pleural effusion with no evidence for pneu mothorax. Minimal bibasilar atelectasis. ACT 112: Negative or not required by law. Electronically signed by: Mansoor Trevino M.D. 09/23/2021 9:11 AM Chest X-Ray 09/24/21 04:44 XR chest 1V portable CLINICAL HISTORY: f/u pleural effusion s/p thoracentesis COMPARISON STUDY: Chest CT September 21, 2021. Chest radiograph September 23, 2021. FINDINGS: Left basilar pleural catheter is in place. There is a trace left hydropneumothorax. Minimal left basilar opacity is noted. The left pleural effusion has markedly decreased in size since prior chest CT of September 21, 2021. Left lung aeration has significantly improved. Cardiomegaly is noted. No evidence for pulmonary edema. Mild right lower lung opacities are present. IMPRESSION: Right basilar pleural catheter in place. Trace left hydropneumothorax. Marked improvement since chest CT of September 21, 2021. ACT 112: Negative or not required by law. Electronically signed by: Salvador Haro M.D. 09/24/2021 9:35 AM Liver Ultrasound 09/24/21 08:00 ABDOMINAL ULTRASOUND, RIGHT UPPER QUADRANT HISTORY: elevated lfts. COMPARISON: None. FINDINGS: Pancreas: The visualized pancreas demonstrates a normal echotexture. Liver: Unremarkable. Gallbladder: No gallbladder wall thickening. A 1.1 cm gallstone. CBD: 5 mm. Right kidney: No hydronephrosis. IMPRESSION: Cholelithiasis. No gallbladder wall thickening. ACT 112: Negative or not required by law. Electronically signed by: Christian Munoz M.D. 09/24/2021 8:53 AM Chest X-Ray 09/24/21 11:59 XR chest 1V portable HISTORY: pleural effusions ?interval change COMPARISON: Chest 09/24/2021. FINDINGS: Tiny left apical pneumothorax, unchanged. Trace left pleural effusion, unchanged. Left basilar pleural catheter is unchanged in position. A few patchy bibasilar densities persist. There are low lung volumes. The heart remains mildly enlarged. No evidence for pulmonary edema. IMPRESSION: 1. The left basilar pleural catheter is unchanged in position. 2. Trace left hydropneumothorax persists. ACT 112: Negative or not required by law. Electronically signed by: Christian Munoz M.D. 09/24/2021 10:07 AM Chest X-Ray 09/25/21 07:00 XR chest 1V portable CLINICAL HISTORY: Left pleural effusion, tiny apical pneumothorax. COMPARISON STUDY: 09/24/2021 TECHNIQUE: 1 view of the chest FINDINGS: Single frontal view of the chest demonstrates the cardiomediastinal silhouette to be within normal limits. Compared to previous examination, left-sided pigtail catheter has been removed. There is no definite evidence for pneumothorax. The lungs are clear of alveolar opacities. There is minimal left basilar atelectasis . There is haziness at the left lung base and small residual pleural effusion cannot be excluded. There is no evidence for vascular congestion. There is no acute osseous pathology. IMPRESSION: Status post removal of left-sided pigtail catheter with no evidence for pneumothorax. Minimal left basilar atelectasis. Small residual pleural effusion cannot be excluded. ACT 112: Negative or not required by law. Electronically signed by: Mansoor Trevino M.D. 09/25/2021 8:25 AM Hospital Course (1) Pleural effusion, left: Noted via CT chest w/o contrast which was obtained due to worsening hypoxia - Etiology suspected due to HFpEF - Treated with a one time dose of Lasix 40mg IV on 09/21 with good response, neg net fluid balance of ~1.8L - Pulmonology consulted s/p thoracentesis and placement of pigtail catheter on 09/23 - Approx 400 mL straw-colored fluid drained, testing thus far c/w transudative fluid, fluid not c/w infection or malignancy. - Pigtail catheter inserted and placed to suction, has since been removed on 09/24. - Added incentive spirometry - Duonebs QID routine and supplemental O2 - Resumed PO Lasix on 09/23 at lower dose (20mg daily) - Now off supplemental O2, saturating in the 90s on room air - Will require f/u CT chest w/o contrast in 6-8 weeks. This can be ordered by his PCP. (2) Hypoxia: - Aim O2 sats > 90%, usually on O2 (2L) at night only for SIXTO (unable to tolerate CPAP) - Around 0400 on 09/21 did have a desaturation into 70s while on 2 L when he was sleeping; repeat CXR with with evidence of the L pleural effusion and opacities of L lung base either atelectasis vs early pneumonia - Started empirically on Zosyn given his swallowing issues (cover for possible aspiration) - however procalcitonin negative and no leukocytosis, afebrile, Zosy n d/c'd - CT 09/21 showed further progression of pleural effusion with evidence of collapse and small <5% apical PTX. - Pulm consulted, see plan as outlined in #1. (3) Sinus bradycardia: - Resolved - Per cardiology - some evidence of additional conduction disease with 1st AV block and RBBB and suspect progression of sinus node disease with beta yesica use - Did get Glucagon and Atropine on first night of admission with pacer pads in place - did have some confusion at that time, was A&O but saying some odd things - Mentation has been appropriate since - Troponins negative; BNP unremarkable - Echo - EF 60-65%; diastolic dysfunction, grade II; no significant valvular disease - Cardiology follow up as outpatient (4) Paroxysmal atrial fibrillation: - In and out - D/W Dr. Sneed who was initially consulted for bradycardia, Coreg resumed at lower dose of 6.25mg BID and monitor - Added PRN IV Lopressor 5mg q4h prn sustained HR>120 - CHADSVASC score 5, initiated AC w/ Eliquis 09/23; however, stopped due to drop in platelets - Platelets returning to normal, resume Eliquis tonight (09/26) (5) Transaminitis: - Unclear etiology - RUQ ultrasound performed, results noted - Cholelithiasis, no obstruction noted, liver unremarkable - AST/ALT slowly downtrending - Will follow (6) Thrombocytopenia: - ?Related to Lovenox - Lovenox d/c'd yesterday - Eliquis started and then held (due to further drop in platelets) - Eliquis has since been resumed since platelets returned to >120 (7) Right carpal tunnel syndrome: - Ongoing for last 2 months - Recommended following up with PCP, outpatient EMG study and can refer to surgery (8) Hypertension: - BP has been uncontrolled last few days - Discovered that his Losartan and Imdur had been d/c'd on morning of 09/21 - This was not recognized until this afternoon - Resume Losartan and Imdur, continue Norvasc, monitor BP (9) Obstructive sleep apnea: - Intolerant to CPAP - Continue nocturnal O2 (2L) (10) Diabetes: HbA1C 7.8 - Metformin held - Pharmacy consulted for glycemic management PT/OT -- progressing well. Therapy thinks would benefit from rehab. CM consulted for d/c planning due to rehab recommendation, referral sent to [facility] but insurance auth still pending. CM believed pt may be denied. I attempted peer to peer yesterday with insurance but never received call back that pt has been approved. At this time, pt and wishes to return home with home health. HH services have been arranged by case management. Pt will be discharged home HH services and outpatient f/u. Total Time Total Time Spent Total Time Spent (In Minutes): >30 minutes Discharge Plan Discharge Items Patient Disposition: Home - Home Health Services Reason For Visit: SINUS BRADYCARDIA, ACUTE CHF, MUCUS PLUGGING, HYPO Discharge Diagnosis: 1. Slow heart rate 2. Fluid in lung Activity: Resume your previous activity Non-emergency contact: Primary Care Provider and School Manager Call non-emergency contact if: you have any medication questions Follow-up/Referrals: Dao Ryan MD [Primary Care Provider] - Luis Felipe Sneed MD [Physician] - (please schedule f/u within 1 week) Diet: Carb Consistent or DM2 Fluids: 1800ml (7 cups) Addtl Attending Provider Instructions: 1. Take all medications as directed. 2. Note new medications: Eliquis 5mg twice daily. 3. Changed medication: Coreg 6.25mg twice daily and Lasix 20mg daily. 4. Continue PT/OT at home. 5. Follow up with family doctor within 1 week of discharge. 6. Follow up with cardiology within 1 week of discharge. 7. Will require follow up CT scan w/o contrast of your chest in 6-8 weeks. This can be ordered by your family doctor. Pending Studies at Discharge: No Stand-Alone Forms: My [facility] [employer], Smoking Cessation Medications and DC Order Prescriptions: New carvedilol 6.25 mg Tablet 6.25 mg PO BID Qty: 60 RF: 0 furosemide 20 mg Tablet 20 mg PO QAM Qty: 30 RF: 0 Eliquis 5 mg Tablet 5 mg PO BID Qty: 60 RF: 0 Continued (DME) pen needle, diabetic [BD Ultra-Fine Short Pen Needle] 31 gauge x 5/16" needle See Rx Instructions .ROUTE .MEDSUPPLY Qty: 100 RF: 3 atorvastatin 40 mg tablet 40 mg PO HS Qty: 90 RF: 3 (DME) OneTouch Ultra Blue Test Strip Strip See Dose Instructions .ROUTE .MEDSUPPLY Qty: 3 RF: 3 metformin 850 mg tablet 850 mg PO BID Qty: 180 RF: 1 (DME) Oxygen Home Liters Per Minute See Rx Instructions .Route Qty: 1 RF: 0 (DME) Wheeled Walker Misc See Rx Instructions .Route Qty: 1 RF: 0 aspirin 81 mg tablet 81 mg PO QAM RF: 0 cyanocobalamin (vitamin B-12) 1,000 mcg tablet 1,000 mcg PO QDL RF: 0 docusate sodium 100 mg capsule 100 mg PO QAM PRN (Reason: Constipation) RF: 0 polyethylene glycol 3350 17 gram/dose powder 17 gm PO DAILY PRN (Reason: Constipation) Qty: 1 RF: 0 nitroglycerin 0.4 mg tablet, sublingual 0.4 mg SL Q5M PRN (Reason: chest pain) Qty: 25 RF: 2 cholecalciferol (vitamin D3) 50 mcg (2,000 unit) tablet 2,000 unit PO QDL RF: 0 guaifenesin 100 mg/5 mL Liquid 600 mg PO Q4H PRN (Reason: Pain) RF: 0 Mucinex 1,200 mg Tablet Extended Release 12hr 1,200 mg PO QAM RF: 0 trazodone 50 mg tablet 50 - 100 mg PO HS RF: 0 amlodipine 2.5 mg tablet 2.5 mg PO QAM RF: 0 pantoprazole 20 mg tablet,delayed release (DR/EC) 20 mg PO PM PRN (Reason: gastric reflux) RF: 0 levothyroxine 100 mcg tablet 100 mcg PO QAM RF: 0 losartan 100 mg tablet 100 mg PO QAM RF: 0 insulin asp prt-insulin aspart 100 unit/mL (70-30) insulin pen 30 - 40 unit subcut BIDM RF: 0 Discontinued carvedilol 25 mg tablet 25 mg PO BID Qty: 180 RF: 3 furosemide [Lasix] 40 mg tablet 40 mg PO QAM PRN (Reason: weight gain) RF: 0 Discharge Orders: Discharge Order (Routine); Ordered 09/27/21 Ordered By: Radha Burden/Other Patient Handouts: Managing Type 2 Diabetes Admission Data Admit Date/Time: 09/19/21 13:53 Attending Provider: Enrique Aguirre Admit Provider: Azeem Mccormick Primary Care Provider: Dao Ryan Other Providers: Luis Felipe Sneed ; [facility] ; [facility] ; Azeem Mccormick ; Kike Carrillo Other Interventions: Discharge Summary Assessment (RN) Last Done: 09/27/21 14:59 Coding Level of Care Code D/C DAY MANAGEMENT >30 MINS Diagnoses Pleural effusion, left J90 Hypoxia R09.02 Sinus bradycardia R00.1 Paroxysmal atrial fibrillation I48.0 Transaminitis R74.01 Thrombocytopenia D69.6 Right carpal tunnel syndrome G56.01 Hypertension I10 Obstructive sleep apnea G47.33 Diabetes E11.9 Home Health Attestation I certify that this patient is under my care and that I, or a physicians dental laboratory assistant working with me, had a face to-face encounter that meets the home health ibrb-qi-fetv encounter requirements with this patient. The encounter with the patient was in whole, or in part, for the following medical condition, which is the primary reason for home health care (list medical condition): post hospital discharge I certify that, based on my findings, the following services are medically necessary home health services: My clinical findings support the need for the above services because: Medication Compliance and Monitoring Effective of New Medications OT Assess ADL Status and Restore Function w ADLs PT Assessment for Endurance / Balance / Strength Skilled Nsg Assessment Skilled Nsg Instruction New Medications Further, I certify that my clinical findings support that this patient is homebound (i.e. absences from home require considerable and taxing effort and are for medical reasons or orthodox services or infrequently or of short duration when for other reasons) because: Supportive Aid - Walker Certification for Home Health Services: Based on the above findings, I certify that this patient is confined to the home and needs intermittent residential care, physical therapy and/or speech therapy or continues to need occupational therapy. The patient is under my care, and I have initiated the establishment of the plan of care. This patient will be followed by a physician who will periodically review the plan of care.
--- NOTE | 2021-10-07 10:34 | Coding Query ---
CONGESTIVE HEART FAILURE To Promote full compliance with coding requirements relating to patient care, physician participation is requested in all cases of loading checker uncertainty. Please assist us with the following questions. A diagnosis of Congestive Heart Failure is documented in the patient's medical record. To accurately code this diagnosis and to compare patient severity, we ask that you specify the type of heart failure by placing an X within the parenthesis (x). Pt admitted with transudate/pleural effusions . Per DS etiology is CHF . Progress notes mention Diastolic heart failure. Thanks for your help. Elvin Segura, TOMMY CCS SYSTOLIC HEART FAILURE ( ) Acute ( ) Chronic ( ) Acute on Chronic ( ) Rheumatic ( ) Unknown DIASTOLIC HEART FAILURE ( ) Acute ( ) Chronic (x ) Acute on Chronic ( ) Rheumatic ( ) Unknown COMBINED SYSTOLIC AND DIASTOLIC HEART FAILURE ( ) Acute ( ) Chronic ( ) Acute on Chronic ( ) Rheumatic ( ) Unknown Was the CHF Present On Admission? Please check the appropriate box: ( ) Present on Admission ( ) Not Present On Admission ( ) Clinically undetermined Thank you Elvin DRAKE
== END 2021-09-27 16:38 | disposition home health service (06) | DRG 291 ==
LOC: ED 11:22 → SUATTDRO 13:53 → EDINP 13:53 → 1E 20:55 → 2S 09-21 14:47 → 3W 09-26 17:51

== ENCOUNTER 2021-10-22 14:48 | Inpatient (IN) ==
--- NOTE | 2021-10-22 15:22 | Emergency Department Note ---
History of Present Illness General Chief complaint: Bradycardia Stated complaint: BRADYCARDIA Time Seen by Provider: 10/22/21 15:09 Source: patient and family History of Present Illness Provider complaint: Dizziness Onset (ago): week(s) Location: head Pain Consistency: + intermittent Quality: + other (Lightheadedness) Relieved By: + rest Exacerbated By: + other (Standing) Associated symptoms: + confusion, + chest pain, + cough, + shortness of breath and + other (Bradycardia); no fever/chills, no headaches or no nausea/vomiting This is a 76-year-old male who presents with dizziness for about a week. He states that he feels lightheaded. It is worse when he stands up and better when he lies down. It is associated with some bradycardia. He sometimes goes down into the 40s. EMS noted that his heart rate was in the 40s and his systolic pressure was about 110. He was given 1 mg of Ativan with resolution of the bradycardia. The patient was recently discharged from the hospital because he salomon d fluid in his lungs. The fluid was drained. He has been confused previously but his notes that he seems more confused today. He has had a slight cough but denies any fever. He did complain of chest pain earlier which she describes as a pressure in the middle of his chest. It was associated with some shortness of breath. The chest pain has gone away. He denies any abdominal pain, vomiting, bl ack or bloody stools, diarrhea, leg swelling or pain. He does state that he has been urinating less recently. His house cat did bite him in the left hand about 2 weeks ago. His states that he just finished a Z-Ok which was prescribed by his doctor. Home Medications Medication Instructions Recorded Confirmed Type cyanocobalamin (vitamin B-12) 1,000 mcg PO QDL tab 05/31/19 10/22/21 History 1,000 mcg tablet docusate sodium 100 mg capsule 100 mg PO QAM PRN cap 05/31/19 10/22/21 History polyethylene glycol 3350 17 17 gm PO DAILY PRN #1 gm 05/31/19 10/22/21 History gram/dose oral powder BD Ultra-Fine Short Pen Needle 31 #100 ea NS 05/02/20 10/06/21 Rx gauge x 5/16" (pen needle, diabetic) cholecalciferol (vitamin D3) 50 2,000 unit PO QDL tab 10/28/20 10/22/21 History mcg (2,000 unit) tablet blood sugar diagnostic (OneTouch #3 box 04/17/21 10/06/21 Rx Ultra Blue Test Strip) metformin 850 mg tablet 850 mg PO BID #180 tab 06/23/21 10/22/21 Rx nitroglycerin 0.4 mg sublingual 0.4 mg SL Q5M PRN #25 tab 07/10/21 10/22/21 Rx tablet Oxygen Home #1 ea 07/16/21 10/06/21 Rx Wheeled Walker #1 ea 07/21/21 10/06/21 Rx guaifenesin 1,200 mg tablet, 1,200 mg PO QAM 09/19/21 10/22/21 History extended release 12 hr (Mucinex) guaifenesin 100 mg/5 mL oral liquid 600 mg PO Q4H PRN 09/19/21 10/22/21 History insulin aspar prot-insulin aspart 30 - 40 unit SUBCUT BIDM 09/19/21 10/22/21 History 100 unit/mL (70-30) subcutaneous pen losartan 100 mg tablet 100 mg PO QAM 09/19/21 10/22/21 History pantoprazole 20 mg tablet,delayed 20 mg PO PM PRN 09/19/21 10/22/21 History release trazodone 50 mg tablet 50 - 100 mg PO HS 09/19/21 10/22/21 History apixaban 5 mg tablet (Eliquis) 5 mg PO BID #180 tab 10/06/21 10/22/21 Rx carvedilol 6.25 mg tablet 6.25 mg PO BID #180 tab 10/06/21 10/22/21 Rx furosemide 20 mg tablet 20 mg PO QAM #90 tab 10/06/21 10/22/21 Rx levothyroxine 100 mcg tablet 100 mcg PO QAM #90 tab 10/07/21 10/22/21 Rx amlodipine 2.5 mg tablet 2.5 mg PO QAM #90 tab 10/20/21 10/22/21 Rx atorvastatin 40 mg tablet 40 mg PO HS #90 tab 10/20/21 10/22/21 Rx aspirin 81 mg tablet,delayed 81 mg PO DAILY 10/22/21 10/22/21 History release (Aspirin Low Dose) Allergies Allergy/AdvReac Type Severity Reaction Status Date / Time Gadolinium-Containing Allergy Severe ANAPHYLAXIS Verified 10/22/21 17:06 Contrast Medi Iodinated Contrast Media Allergy Severe ANAPHYLAXIS Verified 10/22/21 17:06 Past Med/Surg History Medical History Acrochordon Anxiety Arteriosclerosis of carotid artery Arteriosclerotic cardiovascular disease Asthma Atypical chest pain Chronic kidney disease (CKD), stage II (mild) Colon polyps Diabetes Diabetes with neurologic complications Diabetic nephropathy Dyslipidemia Excessive sweating Gait disturbance Gastroesophageal reflux disease Rachel's thyroiditis History of habbpu-ot-ydkwqynko syndrome Hyperglobulinemia Hyperkalemia Hyperlipidemia Hypertension Hypothyroidism Insomnia Internal hemorrhoids Male erectile disorder of organic origin Obesity Obstructive sleep apnea Paralysis of right vocal fold Parotid sialolithiasis Pleural effusion Proteinuria Right bundle branch block Sialadenitis Vitamin D deficiency Vocal cord anomaly Surgical History H/O umbilical hernia repair S/P carotid endarterectomy S/P cataract surgery S/P inguinal hernia repair S/P tonsillectomy Family History Mother Heart disease Father Stomach cancer Other Asthma Cancer Denies family history of Ovarian cancer Prostate cancer Myocardial infarction Breast cancer Colorectal cancer Social History Smoking Status: Unknown if ever smoked Second Hand Exposure: No; Hx Alcohol Use: No Hx Substance Use: No Preferred Language: Occitan Communication Ability: Effective Visual Impairment: No Limitations Hearing Ability: Normal Billet Header Required: No Beliefs That Will Affect Care: None marital status: Current Living Situation: Spouse current occupational status: retired How many Children do You have: 2 Feels Safe at Home: Yes Childhood Exposure to Second-Hand Smoke: No caffeine: Yes (coffee) Dental Care, Regularly: Yes Physical Activity Frequency: Does not Exercise Seatbelt Use: always Sunscreen Use: No Assistive Devices: Oxygen - at Night Review of Systems See HPI for pertinent positives & negatives. and A total of 10 systems reviewed and were otherwise negative Physical Exam Vital Signs Vital Signs - 24 hr 10/22/21 14:02 10/22/21 15:16 10/22/21 17:36 Temperature 31.1 C L 31.4 C L Temperature Source Rectal Rectal Pulse Rate 72 95 H Pulse Rhythm Irregular Regular Respiratory Rate 22 22 Respiratory Effort / Characteristics Non-Labored Non-Labored Respiratory Depth Normal Respiratory Pattern Regular Blood Pressure 90/40 L Blood Pressure Mean 56 Blood Pressure Position Lying Pulse Oximetry 88 L 96 Oxygen Delivery Method Room Air Nasal Cannula Oxygen Flow Rate 2 Sepsis Recent Fever Within 48 Hours No Sepsis New/Unexplained Change in Mental Status Yes Sepsis Action Taken by Nursing Physician Notified 10/22/21 17:37 Temperature 31.4 C L Temperature Source Rectal Pulse Rate Pulse Rhythm Respiratory Rate Respiratory Effort / Characteristics Respiratory Depth Respiratory Pattern Blood Pressure Blood Pressure Mean Blood Pressure Position Pulse Oximetry Oxygen Delivery Method Oxygen Flow Rate Sepsis Recent Fever Within 48 Hours Sepsis New/Unexplained Change in Mental Status Sepsis Action Taken by Nursing Constitutional: Vital signs reviewed. Hypothermic. Eyes: Pupils are equal round reactive to light. Conjunctiva are noninjected. ENT: Pharynx is clear without erythema or exudate. Mucous membranes are moist. Neck supple without meningeal signs. Respiratory: Clear to auscultation bilaterally. Breath sounds are equal bilaterally. Cardiovascular: Irregularly irregular rhythm. Normal rate. GI: Soft, nondistended and nontender. Bowel sounds are present. Musculoskeletal: No peripheral edema. No lower extremity tenderness. Puncture wound and scab to the left hand without erythema, increased warmth or axillary lymphadenopathy. Well-healed puncture wounds to the left back without signs of drainage or cellulitis. Integumentary: No cyanosis. or jaundice. Neurological: The patient is awake and alert. No focal deficits. Psychiatric: Difficult to assess. Course Administered Medications Discontinued Medications Dextrose (Dextrose 50% 50 Ml Syringe) 20 ml IV NOW ONE Stop: 10/22/21 16:57 Last Admin: 10/22/21 17:05 Dose: 20 ml Documented by: [id number] Sodium Chloride (Nss 1000ml) 1,000 mls @ 999 mls/hr IV .Q1H1M ONE Stop: 10/22/21 17:21 Last Admin: 10/22/21 16:25 Dose: 999 mls/hr Documented by: [id number] Critical Care Time Critical Care Time: Yes Total Critical Care Time: 40 I have personally spent approximately 40 minutes of critical care time in the direct management of this patient. This includes bedside care, interpretation of diagnostic studies, and testing, discussion with consultants, patient, and family members, and other required patient management activities. These minutes are in excess of all separately billable procedures. Medical Decision Making Differential Diagnosis Sepsis, bacteremia, pneumonia, pleural effusion, electrolyte abnormality, bradycardia, unstable angina, anemia Medical Records Attestation: I reviewed the patient's medical records. I did perform a limited focused review of portions of the patient's old chart on the electronic medical record. The patient was just discharged from the hospital September 27 for a large pleural effusion requiring thoracentesis and pigtail catheter placement with hypoxemia. He also had confusion and bradycardia and his carvedilol was decreased. He was also noted to be thrombocytopenic temporarily and then placed on Eliquis. He also had a transaminitis. There was a telephone call to his doctor on October 11 describing bradycardia with a relatively normal blood pressure. 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 Home Medications Current Medication List: was personally reviewed by me Laboratory Data Attestation: I reviewed the patient's lab results. Result diagrams: 10/22/21 15:49 10/22/21 15:49 Lab Results 10/22/21 10/22/21 10/22/21 Range/Units 15:49 15:49 15:49 WBC 6.46 (4.8-10.8) K/uL RBC 4.41 L (4.7-6.1) M/uL Hgb 12.9 L (14.0-18.0) g/dL Hct 41.6 L (42-52) % MCV 94.3 (80-100) fL MCH 29.3 (25-34) pg MCHC 31.0 L (32-36) g/dL RDW Std Deviation 58.4 H (36.4-46.3) fL RDW Coeff of Melonie 16.8 H (11.5-14.5) % Plt Count 80 L (130-400) K/uL MPV 11.2 H (7.4-10.4) fL Immature Gran % (Auto) 0.3 % Neut % (Auto) 73.6 % Lymph % (Auto) 17.6 % [place] % (Auto) 8.0 % Eos % (Auto) 0.5 % Baso % (Auto) 0.0 % Neut # (Auto) 4.75 (1.4-6.5) K/uL Lymph # (Auto) 1.14 L (1.2-3.4) K/uL [place] # (Auto) 0.52 (0.11-0.59) K/uL Eos # (Auto) 0.03 (0-0.5) K/uL Baso # (Auto) 0.00 (0-0.2) K/uL Immature Gran # (Auto) 0.02 (0.00-0.02) K/uL Platelet Estimate Decreased L (Normal) PT 11.4 (9.0-12.0) Seconds INR 1.1 (0.9-1.1) APTT 39.4 H (21.0-31.0) Seconds PTT Ratio 1.5 Sodium 140 (136-145) mmol/L Potassium 5.2 H (3.5-5.1) mmol/L Chloride 108 H (98-107) mmol/L Carbon Dioxide 31 (21-32) mmol/L Anion Gap 1.0 L (3-11) BUN 56 H (7-18) mg/dl Creatinine 1.29 (0.6-1.4) mg/dl Est Cr Clr Drug Dosing 51.2 ml/min Est GFR ( Amer) 61.1 ml/min Est GFR (Non-Af Amer) 52.8 ml/min BUN/Creatinine Ratio 43.7 H (10-20) Glucose 67 L (70-99) mg/dl POC Glucose (70-99) mg/dl Lactate (0.4-2.0) mmol/L Calcium 9.1 (8.5-10.1) mg/dl Magnesium 2.4 (1.8-2.4) mg/dl Total Bilirubin 0.3 (0.2-1) mg/dl AST 118 H (15-37) U/L ALT 159 H (12-78) Alkaline Phosphatase 96 (45-117) U/L Troponin I 0.033 (0-0.045) ng/ml C-Reactive Protein 0.82 H (0-0.29) mg/dl Total Protein 6.5 (6.4-8.2) gm/dl Albumin 2.5 L (3.4-5.0) gm/dl Globulin 4.0 (2.5-4.0) gm/dl Albumin/Globulin Ratio 0.6 L (0.9-2) Procalcitonin (0-0.5) ng/ml SARS-CoV-2 (PCR) (Negative) Influenza Type A (PCR) (Neg) Influenza Type B (PCR) (Neg) RSV (RT-PCR) (Neg) 10/22/21 10/22/21 10/22/21 Range/Units 15:49 15:49 17:40 WBC (4.8-10.8) K/uL RBC (4.7-6.1) M/uL Hgb (14.0-18.0) g/dL Hct (42-52) % MCV (80-100) fL MCH (25-34) pg MCHC (32-36) g/dL RDW Std Deviation (36.4-46.3) fL RDW Coeff of Melonie (11.5-14.5) % Plt Count (130-400) K/uL MPV (7.4-10.4) fL Immature Gran % (Auto) % Neut % (Auto) % Lymph % (Auto) % [place] % (Auto) % Eos % (Auto) % Baso % (Auto) % Neut # (Auto) (1.4-6.5) K/uL Lymph # (Auto) (1.2-3.4) K/uL [place] # (Auto) (0.11-0.59) K/uL Eos # (Auto) (0-0.5) K/uL Baso # (Auto) (0-0.2) K/uL Immature Gran # (Auto) (0.00-0.02) K/uL Platelet Estimate (Normal) PT (9.0-12.0) Seconds INR (0.9-1.1) APTT (21.0-31.0) Seconds PTT Ratio Sodium (136-145) mmol/L Potassium (3.5-5.1) mmol/L Chloride (98-107) mmol/L Carbon Dioxide (21-32) mmol/L Anion Gap (3-11) BUN (7-18) mg/dl Creatinine (0.6-1.4) mg/dl Est Cr Clr Drug Dosing ml/min Est GFR ( Amer) ml/min Est GFR (Non-Af Amer) ml/min BUN/Creatinine Ratio (10-20) Glucose (70-99) mg/dl POC Glucose 68 L* (70-99) mg/dl Lactate 1.6 (0.4-2.0) mmol/L Calcium (8.5-10.1) mg/dl Magnesium (1.8-2.4) mg/dl Total Bilirubin (0.2-1) mg/dl AST (15-37) U/L ALT (12-78) Alkaline Phosphatase (45-117) U/L Troponin I (0-0.045) ng/ml C-Reactive Protein (0-0.29) mg/dl Total Protein (6.4-8.2) gm/dl Albumin (3.4-5.0) gm/dl Globulin (2.5-4.0) gm/dl Albumin/Globulin Ratio (0.9-2) Procalcitonin 0.12 (0-0.5) ng/ml SARS-CoV-2 (PCR) (Negative) Influenza Type A (PCR) (Neg) Influenza Type B (PCR) (Neg) RSV (RT-PCR) (Neg) 10/22/21 Range/Units Unknown WBC (4.8-10.8) K/uL RBC (4.7-6.1) M/uL Hgb (14.0-18.0) g/dL Hct (42-52) % MCV (80-100) fL MCH (25-34) pg MCHC (32-36) g/dL RDW Std Deviation (36.4-46.3) fL RDW Coeff of Melonie (11.5-14.5) % Plt Count (130-400) K/uL MPV (7.4-10.4) fL Immature Gran % (Auto) % Neut % (Auto) % Lymph % (Auto) % [place] % (Auto) % Eos % (Auto) % Baso % (Auto) % Neut # (Auto) (1.4-6.5) K/uL Lymph # (Auto) (1.2-3.4) K/uL [place] # (Auto) (0.11-0.59) K/uL Eos # (Auto) (0-0.5) K/uL Baso # (Auto) (0-0.2) K/uL Immature Gran # (Auto) (0.00-0.02) K/uL Platelet Estimate (Normal) PT (9.0-12.0) Seconds INR (0.9-1.1) APTT (21.0-31.0) Seconds PTT Ratio Sodium (136-145) mmol/L Potassium (3.5-5.1) mmol/L Chloride (98-107) mmol/L Carbon Dioxide (21-32) mmol/L Anion Gap (3-11) BUN (7-18) mg/dl Creatinine (0.6-1.4) mg/dl Est Cr Clr Drug Dosing ml/min Est GFR ( Amer) ml/min Est GFR (Non-Af Amer) ml/min BUN/Creatinine Ratio (10-20) Glucose (70-99) mg/dl POC Glucose (70-99) mg/dl Lactate (0.4-2.0) mmol/L Calcium (8.5-10.1) mg/dl Magnesium (1.8-2.4) mg/dl Total Bilirubin (0.2-1) mg/dl AST (15-37) U/L ALT (12-78) Alkaline Phosphatase (45-117) U/L Troponin I (0-0.045) ng/ml C-Reactive Protein (0-0.29) mg/dl Total Protein (6.4-8.2) gm/dl Albumin (3.4-5.0) gm/dl Globulin (2.5-4.0) gm/dl Albumin/Globulin Ratio (0.9-2) Procalcitonin (0-0.5) ng/ml SARS-CoV-2 (PCR) NEGATIVE (Negative) Influenza Type A (PCR) Negative (Neg) Influenza Type B (PCR) Negative (Neg) RSV (RT-PCR) Negative (Neg) Imaging Data Radiologist's Impression: Chest X-Ray 10/22/21 15:16 XR chest 1V portable HISTORY: SEPSIS COMPARISON: Chest 09/25/2021. FINDINGS: No pneumothorax. There are trace bilateral pleural effusions, unchanged. The heart remains enlarged. Pulmonary vasculature congestion has resolved. Bibasilar densities are again noted. This has slightly progressed on the right. Upper lung zones are clear. IMPRESSION: 1. Small bibasilar densities which have progressed on the right. This could represent atelectasis or pneumonia. 2. Stable cardiomegaly and trace bilateral pleural effusions. 3. No evidence for pulmonary edema. ACT 112: Negative or not required by law. Electronically signed by: Christian Munoz M.D. 10/22/2021 3:[address] 10/22/21 15:16 CT head/brain wo con CLINICAL HISTORY: AMS eval for bleed/cva COMPARISON STUDY: 08/31/2017 CT DOSE: 614.27 mGy.cm TECHNIQUE: Standard CT of the Brain was performed without IV contrast. A dose lowering technique was utilized adhering to the principles of ALARA. FINDINGS: Extraaxial space: There is no evidence for subdural hematoma. There are no extra-axial fluid collections. Ventricles and cisterns: The ventricles are mildly dilated bilaterally. There is no evidence for midline shift or mass effect. Parenchyma: There is no subarachnoid or intraparenchymal hemorrhage. There is no evidence for an acute infarct or cerebral edema. There is mild cerebral cortical atrophy and decreased attenuation in the periventricular white matter representing remote small vessel disease. There are no gross mass lesions. Osseous structures: There is no evidence for an acute fracture. The visualized paranasal sinuses are clear. The mastoid air cells are clear bilaterally. Soft tissues: There is no evidence for focal soft tissue swelling. IMPRESSION: No acute intracerebral pathology. Mild cerebral cortical atrophy and remote small vessel disease are again seen. ACT 112: Negative or not required by law. Electronically signed by: Mansoor Trevino M.D. 10/22/2021 5:46 PM ECG Data Attestation: I personally reviewed and interpreted this ECG as follows: Indication: + chest pain Rate (beats per minute): 75 Rhythm: + atrial fibrillation ECG Intervals/blocks: + Right Bundle branch block ECG [place]: + Left axis deviation ECG Findings: no PVCs Comparison ECG Date: from (September 23, 2021) Change: the following changes noted (Atrial fibrillation, QT prolongation and right bundle branch block were present. Today left axis deviation and normal QT interval is new.) MDM Narrative I did evaluate the patient as noted above. The patient is presenting with bradycardia, slight hypotension and dizziness upon standing. He was found to be hypothermic here as well with a rectal temp of 88. He was placed on a warming blanket. He is no longer bradycardic and his systolic blood pressure is 110. IV access was established. I did place an order for continuous cardiac monitoring. The monitor showed atrial fibrillation with a rate of 95 bpm. I did order and personally review the patient's 12-lead EKG as described above. He has no evidence of acute ischemia. He has atrial fibrillation. He is on Eliquis for this. I did order and personally reviewed the images of the patient's chest x-ray as described above. He does appear to have an infiltrate in his right lower lobe. He has been coughing according to his . I did order blood cultures. I did treat him with Zosyn IV. His blood pressure dropped while in the emergency department and so he was given a liter of warm normal saline and his blood pressure did improve. I did order and review the patient's blood work as noted in the electronic medical record. CBC demonstrates a white count of 6 with lymphopenia. His hemoglobin is 12.9 and his platelet count is 80. He is was just recently thrombocytopenic on his last admission. His electrolytes show a potassium of 5.2 with a normal magnesium. Chloride is 108. Creatinine is 1.29 with a BUN of 56. Glucose is low at 67. He was given 20 mL of D50 IV. Troponin is negative. LFTs demonstrate an elevation of his AST and ALT which is not new for him. Lactate and procalcitonin are not elevated. CRP slightly elevated 0.8. Because of his history of some confusion as well as the use of blood thinners, I did order a CT of the head. I did review the images myself as well as the radiology report as described above. There is no evidence of acute intracranial abnormality. On reassessment his temperature is 31.4. His blood pressure is 102/66. Pulse is 95. His O2 saturation is 96% on 2 L. He does use oxygen as needed at night at home. Testing for COVID-19, influenza and RSV are all negative. did discuss the test results with the patient and his . He will be hospitalized for further care and evaluation. I did discuss case with the hospitalist and window caser. Impression & Plan Hypothermia, Thrombocytopenia, Bradycardia, Acute hypotension, Hypoglycemia, Right lower lobe pneumonia, Anemia, Abnormal LFTs Discharge Plan Visit Data Chief Complaint: Bradycardia Stated Complaint: BRADYCARDIA ED Provider: Timothy Terry Discharge Problem: Hypothermia, Thrombocytopenia, Bradycardia, Acute hypotension, Hypoglycemia, Right lower lobe pneumonia, Anemia, Abnormal LFTs Patient Disposition: Being Evaluated by Hospitalist Forms Stand Alone Forms: [facility] Prescriptions Prescriptions: No Action (DME) pen needle, diabetic [BD Ultra-Fine Short Pen Needle] 31 gauge x 5/16" n eedle See Rx Instructions .ROUTE .MEDSUPPLY Qty: 100 RF: 3 (DME) OneTouch Ultra Blue Test Strip Strip See Dose Instructions .ROUTE .MEDSUPPLY Qty: 3 RF: 3 metformin 850 mg tablet 850 mg PO BID Qty: 180 RF: 1 (DME) Oxygen Home Liters Per Minute See Rx Instructions .Route Qty: 1 RF: 0 (DME) Wheeled Walker Misc See Rx Instructions .Route Qty: 1 RF: 0 levothyroxine 100 mcg tablet 100 mcg PO QAM Qty: 90 RF: 3 atorvastatin 40 mg tablet 40 mg PO HS Qty: 90 RF: 3 amlodipine 2.5 mg tablet 2.5 mg PO QAM Qty: 90 RF: 3 cyanocobalamin (vitamin B-12) 1,000 mcg tablet 1,000 mcg PO QDL RF: 0 docusate sodium 100 mg capsule 100 mg PO QAM PRN (Reason: Constipation) RF: 0 polyethylene glycol 3350 17 gram/dose powder 17 gm PO DAILY PRN (Reason: Constipation) Qty: 1 RF: 0 nitroglycerin 0.4 mg tablet, sublingual 0.4 mg SL Q5M PRN (Reason: chest pain) Qty: 25 RF: 2 cholecalciferol (vitamin D3) 50 mcg (2,000 unit) tablet 2,000 unit PO QDL RF: 0 Eliquis 5 mg tablet 5 mg PO BID Qty: 180 RF: 3 carvedilol 6.25 mg tablet 6.25 mg PO BID Qty: 180 RF: 3 Hold Instructions: Home Medication placed on hold at Doctor's office furosemide 20 mg tablet 20 mg PO QAM Qty: 90 RF: 3 guaifenesin 100 mg/5 mL Liquid 600 mg PO Q4H PRN (Reason: Pain) RF: 0 Mucinex 1,200 mg Tablet Extended Release 12hr 1,200 mg PO QAM RF: 0 trazodone 50 mg tablet 50 - 100 mg PO HS RF: 0 pantoprazole 20 mg tablet,delayed release (DR/EC) 20 mg PO PM PRN (Reason: gastric reflux) RF: 0 losartan 100 mg tablet 100 mg PO QAM RF: 0 insulin asp prt-insulin aspart 100 unit/mL (70-30) insulin pen 30 - 40 unit subcut BIDM RF: 0 aspirin [Aspirin Low Dose] 81 mg Tablet,Delayed Release (Dr/Ec) 81 mg PO DAILY RF: 0 Referrals Referrals: Dao Ryan MD [Primary Care Provider] - Discharge Problem: Hypothermia Qualifiers: Encounter type: initial encounter Qualified Code(s): T68.XXXA - Hypothermia, initial encounter Right lower lobe pneumonia Qualifiers: Pneumonia type: due to unspecified organism Qualified Code(s): J18.9 - Pneumonia, unspecified organism Anemia Qualifiers: Anemia type: unspecified type Qualified Code(s): D64.9 - Anemia, unspecified
--- NOTE | 2021-10-22 15:31 | XRay Report ---
XR chest 1V portable HISTORY: SEPSIS COMPARISON: Chest 09/25/2021. FINDINGS: No pneumothorax. There are trace bilateral pleural effusions, unchanged. The heart remains enlarged. Pulmonary vasculature congestion has resolved. Bibasilar densities are again noted. This salomon s slightly progressed on the right. Upper lung zones are clear. IMPRESSION: 1. Small bibasilar densities which have progressed on the right. This could represent atelectasis or pneumonia. 2. Stable cardiomegaly and trace bilateral pleural effusions. 3. No evidence for pulmonary edema. ACT 112: Negative or not required by law. Electronically signed by: Christian Munoz M.D. 10/22/2021 3:30 PM
[2021-10-22 15:58] LABS: Hematocrit (blood only) 41.6 % (42-52); Hemoglobin 12.9 g/dL (14.0-18.0); Mean Corpuscular Hemoglobin 29.3 pg (25-34); Mean Corpuscular Volume 94.3 fL (80-100); RDW Coefficient of Variation 16.8 % (11.5-14.5); RDW Standard Deviation 58.4 fL (36.4-46.3); Red Blood Count 4.41 M/uL (4.7-6.1); White Blood Count 6.46 K/uL (4.8-10.8)
[2021-10-22 16:09] LABS: INR 1.1 (0.9-1.1); Partial Thromboplastin Ratio 1.5; Partial Thromboplastin Time 39.4 Seconds (21.0-31.0); Prothrombin Time 11.4 Seconds (9.0-12.0)
[2021-10-22 16:17] LABS: Albumin Level 2.5 gm/dl (3.4-5.0); BUN Creatinine Ratio 43.7 (10-20); Calcium 9.1 mg/dl (8.5-10.1); Creatinine Clr Calc Pharmacy 51.2 ml/min; Est GFR (African American) 61.1 ml/min; Est GFR (Non-African American) 52.8 ml/min; Magnesium 2.4 mg/dl (1.8-2.4); Potassium 5.2 mmol/L (3.5-5.1)
[2021-10-22] MEDS ORDERED: SODIUM CHLORIDE 0.9% 1000ML 1,000 ML IV ONE (16:21)
[2021-10-22 16:22] LABS: Albumin Globulin Ratio 0.6 (0.9-2); Bilirubin,Total 0.3 mg/dl (0.2-1); Total Protein 6.5 gm/dl (6.4-8.2); Troponin I 0.033 ng/ml (0-0.045)
[2021-10-22 16:29] LABS: Eosinophils # (auto) 0.03 K/uL (0-0.5); Eosinophils % (auto) 0.5 %; Immature Granulocytes # (auto) 0.02 K/uL (0.00-0.02); Immature Granulocytes % (auto) 0.3 %; Lymphocytes # (auto) 1.14 K/uL (1.2-3.4); Lymphocytes % (auto) 17.6 %; Mean Platelet Volume 11.2 fL (7.4-10.4); Monocytes # (auto) 0.52 K/uL (0.11-0.59); Neutrophils # (auto) 4.75 K/uL (1.4-6.5); Neutrophils % (auto) 73.6 %; Platelet Count 80 K/uL (130-400); Platelet Estimate Decreased (Normal)
[2021-10-22] MEDS ORDERED: PIPERACILL/TAZOBAC CONSULT ACTIVE PRN (16:32)
[2021-10-22] MEDS ORDERED: PIPERACILLIN/TAZOBACTAM 4.5 GM/120 ML BAG IV ONE (16:32)
--- NOTE | 2021-10-22 16:49 | Electrocardiogram Report ---
Test Reason : Blood Pressure : / mmHG Vent. Rate : 075 BPM Atrial Rate : 101 BPM P-R Int : 000 ms QRS Dur : 136 ms QT Int : 428 ms P-R-T Axes : 000 -58 020 degrees QTc Int : 477 ms Poor data quality, interpretation may be adversely affected Atrial fibrillation Left axis deviation Right bundle branch block Abnormal ECG Confirmed by Dao Sneed ([id number]) on 10/22/2021 4:48:29 PM Referred By: Confirmed By:Cal Sneed
[2021-10-22] MEDS ORDERED: DEXTROSE 50% 50 ML SYRINGE IV ONE (16:56)
[2021-10-22 17:15] LABS: C Reactive Protein 0.82 mg/dl (0-0.29)
[2021-10-22 17:15] LABS: Influenza A virus by PCR Negative (Neg); Influenza B virus by PCR Negative (Neg); RSV by PCR Negative (Neg); SARS CoV2 RNA(COVID-19) InHosp NEGATIVE (Negative)
--- NOTE | 2021-10-22 17:47 | CT Scan Report ---
CT head/brain wo con CLINICAL HISTORY: AMS eval for bleed/cva COMPARISON STUDY: 08/31/2017 CT DOSE: 614.27 mGy.cm TECHNIQUE: Standard CT of the Brain was performed without IV contrast. A dose lowering technique was utilized adhering to the principles of ALARA. FINDINGS: Extraaxial space: There is no evidence for subdural hematoma. There are no extra-axial fluid collecti ons. Ventricles and cisterns: The ventricles are mildly dilated bilaterally. There is no evidence for mid line shift or mass effect. Parenchyma: There is no subarachnoid or intraparenchymal hemorrhage. There is no evidence for an acu te infarct or cerebral edema. There is mild cerebral cortical atrophy and decreased attenuation in th e periventricular white matter representing remote small vessel disease. There are no gross mass lesi ons. Osseous structures: There is no evidence for an acute fracture. The visualized paranasal sinuses are clear. The mastoid air cells are clear bilaterally. Soft tissues: There is no evidence for focal soft tissue swelling. IMPRESSION: No acute intracerebral pathology. Mild cerebral cortical atrophy and remote small vessel disease are again seen. ACT 112: Negative or not required by law. Electronically signed by: Mansoor Trevino M.D. 10/22/2021 5:46 PM
[2021-10-22] MEDS ORDERED: SODIUM CHLORIDE 0.9% 1000ML 500 ML IV ONE (18:32)
--- NOTE | 2021-10-22 18:41 | History & Physical Report ---
Date of Service October 22, 2021 Assessment & Plan (1) Weakness: Plan: Calvin is a 76-year-old male with past medical history of bradycardia, A. fib, diabetes, suspected CAD, SIXTO, and CKD who presents with several days of increased confusion, cough and to had an acute episode of bradycardia prior to admission. He has evidence of right lower lobe pneumonia being treated empirically with Zosyn with superimposed symptomatic bradycardia which is worsened over the preceding days for which cardiology is consulted. In addition due to hypotension, hypoglycemia, and hyperkalemia appreciated on admission loading dose of methylprednisolone was also given. Weakness Patient with worsened cough, weakness in the last 2-3 days Likely multifactorial, DDx includes acute illness with concern for pneumonia as below, volume depletion, and symptomatic bradycardia as below CXR with concern for worsened right lower lobe infiltrate suspicious for pneumonia Lactate negative on admission Covid negative on admission CThead: No acute findings PT/OT when able to tolerate (2) RLL pneumonia: Plan: No leukocytosis Sodium normal Creatinine at baseline CXR: Worsening right lower lobe opacity CRP 0.82 Pro-Alonso pending Continue treatment with empiric Zosyn MSRA nare pending, last approximately 1 month ago was negative On home 2 L oxygen requirement, at baseline (3) Bradycardia: Plan: Patient with symptomatic bradycardia to a heart rate of the 40s prior to arrival in the ER Did resolve following atropine She has had a history of intermittent symptomatic bradycardia with down titration of his carvedilol Has not taken carvedilol since approximately 6 days ago, and has been following for cardiology for this Continue to follow on medical telemetry, atropine versus pacing as needed Atropine 0.5 mg IV as needed order to give every 35 minutes up to 3 doses as needed and contact provider if needed Cardiology consult placed Patient with intermittent chest pain symptoms at home for which she has talked to cardiology as outpatient, no chest pain at time of bedside assessment. Troponin detectable but negative at time of bedside assessment. We'll continue to trend troponin, repeat echo, cards consulted as noted (4) Hypotension: Plan: Antihypertensives held Fluid support as above, cautioned against history of diastolic failure and fluid overload Rewarming, antibiotics as above - With hypotension, hyperkalemia, acute illness, and hypoglycemia methylpred 125mg IV x1 and cortisol pending (5) Atypical chest pain: Plan: See above. Trops pending, no pain at time of assessment, echo pending (6) Chronic kidney disease (CKD), stage II (mild): Plan: Creatinine appears at/near baseline, 1.29 on admission Creatinine clearance 51.2 Avoid nephrotoxins (7) Congestive heart failure: Plan: Patient with a history of heart failure with preserved ejection fracture, no acute CHF exacerbation present on admission Legs without edema, actually appear very dry per patient. Suspect mild volume depletion in the setting of acute illness as above Patient received 1 L bolus with improvement in pressures in ER and slight downtrend, cautious additional bolus 250 cc given with pressure improvement to 112/60 while in room Continue to follow clinical volume status, tolerating PO (8) Diabetes with neurologic complications: Plan: Hypoglycemic on admission Insulin held on admission for hypoglycemia Patient uses insulin 70/30 40 units in the morning and 30 units before dinner at home Once BSG rises, initiate basalbolus Pharmacy glycemic consult given hypoglycemia above Metformin held (9) Gastroesophageal reflux disease: Plan: Continue PPI (10) Hypertension: Plan: Patient hypotensive, antihypertensives including amlodipine and losartan held (11) Hypothyroidism: Plan: Continue home Synthroid 100 mcg p.o. every morning (12) Obstructive sleep apnea: Plan: CPAP nightly as needed (13) Paroxysmal atrial fibrillation: Plan: Rate control not indicated at this time, patient has actually been bradycardic and has had carvedilol completely held Continue apixaban anticoagulation In A. fib on admission Plan: DVT PPx: Anticoagulated as above Diet: DM2 CODE STATUS: Full code Disposition: PCU History of Present Illness Chief Complaint: Bradycardia Primary Care Provider: Dao Ryan MD Calvin is a 76-year-old male with past medical history of bradycardia, A. fib, diabetes, suspected CAD, SIXTO, and CKD who presents with several days of increased confusion, cough and to had an acute episode of bradycardia prior to admission. Calvin has been feeling dizzy and lightheaded at home. COuldnt get up to use the walker today and has had increased weakness inthe last 2-3. Increased cough in last 2-3 days. Cough is nonproductive. No fevers, no chills. Was hypothermic. No nausea/vomiting/diarrhea. Endorses some constipation at baseline. No syncope, denies presyncope. Endorses decreased urination. Has not been taking carvidilol since last . Denies chest pain. notes he has endorses some intermittent chest pain. On repeat history patient endorses this and says it has been mild and had come and gone at home, when it does occur a slight pressure sensation in middle of his chest associated with shortness of breath which is not present at time of assessment. Report he has discussed this with cardiology who has considered a cath for him in the past. Medical History: Reviewed Medications: Reviewed. Took morning medications Surgical History: Reviewed Allergies: Reviewed Social History: No tobacco, alcohol, or recreational drug use. Lives with his . Code Status: Full code, discussed with patient and his at bedside Allergies Allergy/AdvReac Type Severity Reaction Status Date / Time Gadolinium-Containing Allergy Severe ANAPHYLAXIS Verified 10/22/21 17:06 Contrast Medi Iodinated Contrast Media Allergy Severe ANAPHYLAXIS Verified 10/22/21 17:06 Home Medications Medication Instructions Recorded Confirmed Type cyanocobalamin (vitamin B-12) 1,000 mcg PO QDL tab 05/31/19 10/22/21 History 1,000 mcg tablet docusate sodium 100 mg capsule 100 mg PO QAM PRN cap 05/31/19 10/22/21 History polyethylene glycol 3350 17 17 gm PO DAILY PRN #1 gm 05/31/19 10/22/21 History gram/dose oral powder BD Ultra-Fine Short Pen Needle 31 #100 ea NS 05/02/20 10/06/21 Rx gauge x 5/16" (pen needle, diabetic) cholecalciferol (vitamin D3) 50 2,000 unit PO QDL tab 10/28/20 10/22/21 History mcg (2,000 unit) tablet blood sugar diagnostic (OneTouch #3 box 04/17/21 10/06/21 Rx Ultra Blue Test Strip) metformin 850 mg tablet 850 mg PO BID #180 tab 06/23/21 10/22/21 Rx nitroglycerin 0.4 mg sublingual 0.4 mg SL Q5M PRN #25 tab 07/10/21 10/22/21 Rx tablet Oxygen Home #1 ea 07/16/21 10/06/21 Rx Wheeled Walker #1 ea 07/21/21 10/06/21 Rx guaifenesin 1,200 mg tablet, 1,200 mg PO QAM 09/19/21 10/22/21 History extended release 12 hr (Mucinex) guaifenesin 100 mg/5 mL oral liquid 600 mg PO Q4H PRN 09/19/21 10/22/21 History insulin aspar prot-insulin aspart 30 - 40 unit SUBCUT BIDM 09/19/21 10/22/21 History 100 unit/mL (70-30) subcutaneous pen losartan 100 mg tablet 100 mg PO QAM 09/19/21 10/22/21 History pantoprazole 20 mg tablet,delayed 20 mg PO PM PRN 09/19/21 10/22/21 History release trazodone 50 mg tablet 50 - 100 mg PO HS 09/19/21 10/22/21 History apixaban 5 mg tablet (Eliquis) 5 mg PO BID #180 tab 10/06/21 10/22/21 Rx carvedilol 6.25 mg tablet 6.25 mg PO BID #180 tab 10/06/21 10/22/21 Rx furosemide 20 mg tablet 20 mg PO QAM #90 tab 10/06/21 10/22/21 Rx levothyroxine 100 mcg tablet 100 mcg PO QAM #90 tab 10/07/21 10/22/21 Rx amlodipine 2.5 mg tablet 2.5 mg PO QAM #90 tab 10/20/21 10/22/21 Rx atorvastatin 40 mg tablet 40 mg PO HS #90 tab 10/20/21 10/22/21 Rx aspirin 81 mg tablet,delayed 81 mg PO DAILY 10/22/21 10/22/21 History release (Aspirin Low Dose) Past Med/Surg History Medical History Acrochordon Anxiety Arteriosclerosis of carotid artery Arteriosclerotic cardiovascular disease Asthma Atypical chest pain Chronic kidney disease (CKD), stage II (mild) Colon polyps Diabetes Diabetes with neurologic complications Diabetic nephropathy Dyslipidemia Excessive sweating Gait disturbance Gastroesophageal 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 Hyperglobulinemia Hyperkalemia Hyperlipidemia Hypertension Hypothyroidism Insomnia Internal hemorrhoids Male erectile disorder of organic origin Obesity Obstructive sleep apnea Paralysis of right vocal fold Parotid sialolithiasis Pleural effusion Proteinuria Right bundle branch block Sialadenitis Vitamin D deficiency Vocal cord anomaly Surgical History H/O umbilical hernia repair S/P carotid endarterectomy S/P cataract surgery S/P inguinal hernia repair S/P tonsillectomy Family History Mother Heart disease Father Stomach cancer Other Asthma Cancer Denies family history of Ovarian cancer Prostate cancer Myocardial infarction Breast cancer Colorectal cancer Social History Smoking Status: Unknown if ever smoked Second Hand Exposure: No; Hx Alcohol Use: No Hx Substance Use: No Preferred Language: Dominican Communication Ability: Effective Visual Impairment: No Limitations Hearing Ability: Normal 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 NAD. Cooperative. HEENT: Atraumatic, normocephalic. Visual acuity grossly intact, mild right contraction of pupil compared to left. Hearing grossly intact. Pulm: Diminished, some crackles in right lower lobe, diffuse rhonchi. Symmetrical chest rise. No increase work of breathing. No respiratory distress. Cardiac: Irregularly irregular rhythm with normal rate. Radial pulses intact an d symmetrical. Abdominal: Nontender, nondistended, soft. BS present. Extremities: Cool, dry. No mottling. No edema of legs. 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 Hip flexion intact bilaterally antigravity. Incision is soft touch and temperature intact in hands and feet without asymmetry. Results & Data Results & Data ([facility]) Vital Signs (Past 12 Hours) Vital Signs Temp Pulse Resp BP Pulse Ox 10/22/21 18:20 62 24 95 10/22/21 18:10 69 26 H 96 10/22/21 18:01 62 12 95/63 L 96 10/22/21 18:00 65 17 94 10/22/21 17:50 66 19 93 10/22/21 17:46 54 L 18 102/66 96 10/22/21 17:40 65 18 10/22/21 17:37 31.4 C L 10/22/21 17:36 31.4 C L 10/22/21 17:30 64 20 96 10/22/21 17:28 59 L 20 98 10/22/21 17:15 76 20 97/62 L 97 10/22/21 17:10 60 19 97 10/22/21 17:00 60 20 105/72 98 10/22/21 16:50 63 24 97 10/22/21 16:46 59 L 22 95/68 L 94 10/22/21 16:40 68 14 96 10/22/21 16:30 67 27 H 108/76 96 10/22/21 16:27 69 18 93/58 L 97 10/22/21 16:20 67 20 97 10/22/21 16:15 64 21 100/79 96 10/22/21 16:10 64 27 H 96 10/22/21 16:09 68 27 H 77/54 L 97 10/22/21 16:07 71 22 69/48 L 97 10/22/21 16:04 69 21 82/54 L 96 10/22/21 16:03 71 19 68/51 L 96 10/22/21 16:00 75 24 83/51 L 96 10/22/21 15:50 75 25 H 95 10/22/21 15:40 69 24 96 10/22/21 15:30 71 23 93/51 L 95 10/22/21 15:20 75 15 95 10/22/21 15:16 95 H 22 96 10/22/21 15:11 77 29 H 111/70 97 10/22/21 15:10 76 25 H 96 10/22/21 15:08 70 30 H 95 10/22/21 14:02 31.1 C L 72 22 90/40 L 88 L PG Care Time/CCT Total # of Minutes Spent Total Time Spent with Patient: Total time spent is greater than 50% in coordination of care (as documented) at patient's floor/unit and/or counseling patient: Coding Level of Care Code 56166 Initial Inpt Care Lvl 3 Diagnoses Weakness R53.1 Bradycardia R00.1 Atypical chest pain R07.89 Chronic kidney disease (CKD), stage II (mild) N18.2 Congestive heart failure I50.9 Diabetes with neurologic complications E11.49 Gastroesophageal reflux disease K21.9 Hypertension I10 Hypothyroidism E03.9 Obstructive sleep apnea G47.33 Paroxysmal atrial fibrillation I48.0 RLL pneumonia J18.9 Hypotension I95.9
[2021-10-22] MEDS ORDERED: SODIUM CHLORIDE 0.9% 1000ML 250 ML IV ONE (18:54)
[2021-10-22] MEDS ORDERED: DEXTROSE 50% 50 ML SYRINGE IV STA (18:55)
[2021-10-22] MEDS ORDERED: methylPREDNISolone 125 MG/2 ML VIAL IV STA (19:21)
[2021-10-22] MEDS ORDERED: ATROPINE SULFATE 0.1 MG/ML 10ML SYR IV PRN (19:40)
[2021-10-22] MEDS ORDERED: PHARMACY GLYCEMIC MGMT CONSULT PRN (21:35)
[2021-10-22] MEDS ORDERED: GLUCOSE 40% GEL 15 GM TUBE PO PRN (23:45)
[2021-10-22] MEDS ORDERED: GLUCOSE 10 TABS/TUBE PO PRN (23:45)
[2021-10-22] MEDS ORDERED: DEXTROSE 50% 50 ML SYRINGE IV PRN (23:45)
[2021-10-22] MEDS ORDERED: GLUCAGON FOR INJ 1 MG VIAL IM PRN (23:45)
[2021-10-22] MEDS: APIXABAN 5 MG TABLET PO SCH (23:50)
[2021-10-23] MEDS: PIPERACILLIN/TAZOBACTAM 4.5 GM in DEXTROSE 5% 100 ML IV SCH ×2 (00:08→07:46)
[2021-10-23] MEDS: CARBOHYDRATES FOR HYPOGLYCEMIA PO PRN (00:20)
[2021-10-23] MEDS: INSULIN ASPART PER UNIT SQ SCH ×8 (01:16→21:15)
[2021-10-23] MEDS ORDERED: INSULIN ASPART PER UNIT SQ SCH (04:00)
[2021-10-23] MEDS ORDERED: LORazepam 0.5 MG/1 ML VIAL IV STA (05:20)
[2021-10-23 06:53] LABS: Appearance Urine Clear (Clear); Bacteria Urine Automated Negative (Negative); Bilirubin Urine Negative (Negative); Blood Urine Negative (Negative); Color Urine Yellow; Epithelial Cell Urine Auto 20-30 /lpf (0-5); Glucose Urine UA Negative (Negative); Ketones Urine Negative (Negative); Leukocyte Esterase Urine 1+ (Negative); Nitrite Urine Negative (Negative); Protein Urine 3+ (Negative); RBC Urine Automated 0-4 /hpf (0-4); Specific Gravity Urine 1.017 (1.000-1.030); Urobilinogen Urine Negative (Negative)
[2021-10-23] MEDS: LEVOTHYROXINE SODIUM 100 MCG TABLET PO SCH (07:38)
[2021-10-23 08:00] LABS: Hematocrit (blood only) 43.6 % (42-52); Hemoglobin 13.6 g/dL (14.0-18.0); Mean Corpuscular Hemoglobin 29.1 pg (25-34); Mean Corpuscular Hgb Conc 31.2 g/dL (32-36); Mean Corpuscular Volume 93.2 fL (80-100); Nucleated RBC # (auto) 0.04 K/uL (0-0); Nucleated RBC % (auto) 0.5 %; RDW Coefficient of Variation 16.9 % (11.5-14.5); RDW Standard Deviation 57.5 fL (36.4-46.3); Red Blood Count 4.68 M/uL (4.7-6.1); White Blood Count 7.67 K/uL (4.8-10.8)
[2021-10-23 08:02] LABS: Mean Platelet Volume 11.4 fL (7.4-10.4); Platelet Count 81 K/uL (130-400)
[2021-10-23 08:16] LABS: Basophils # (auto) 0.01 K/uL (0-0.2); Basophils % (auto) 0.1 %; Eosinophils # (auto) 0.01 K/uL (0-0.5); Eosinophils % (auto) 0.1 %; Immature Granulocytes # (auto) 0.03 K/uL (0.00-0.02); Immature Granulocytes % (auto) 0.4 %; Lymphocytes # (auto) 0.73 K/uL (1.2-3.4); Lymphocytes % (auto) 9.5 %; Monocytes # (auto) 0.06 K/uL (0.11-0.59); Monocytes % (auto) 0.8 %; Neutrophils # (auto) 6.83 K/uL (1.4-6.5); Neutrophils % (auto) 89.1 %
--- NOTE | 2021-10-23 08:38 | XCELERA ---
[id number]
[2021-10-23 08:46] LABS: Albumin Globulin Ratio 0.6 (0.9-2); Albumin Level 2.6 gm/dl (3.4-5.0); BUN Creatinine Ratio 42.7 (10-20); Calcium 9.4 mg/dl (8.5-10.1); Creatinine Clr Calc Pharmacy 50.1 ml/min; Est GFR (African American) 57.9 ml/min; Est GFR (Non-African American) 49.9 ml/min; Globulin 4.5 gm/dl (2.5-4.0); Potassium 6.3 mmol/L (3.5-5.1); Total Protein 7.1 gm/dl (6.4-8.2)
[2021-10-23 08:53] LABS: Bilirubin,Total 0.5 mg/dl (0.2-1)
[2021-10-23] MEDS: APIXABAN 5 MG TABLET PO SCH ×2 (09:13→21:11)
[2021-10-23] MEDS: ASPIRIN 81 MG ECTAB PO SCH (09:13)
[2021-10-23] MEDS ORDERED: FUROSEMIDE 40 MG/4 ML VIAL IV ONE (09:15)
[2021-10-23] MEDS ORDERED: PATIROMER CALCIUM SORBITEX 8.4 GM PACK PO ONE ×2 (09:15→17:05)
[2021-10-23] MEDS: INSULIN HUMAN NPH SC SCH (09:51)
[2021-10-23 12:41] LABS: Est GFR (African American) 48.2 ml/min; Est GFR (Non-African American) 41.6 ml/min; Potassium 6.1 mmol/L (3.5-5.1)
[2021-10-23 12:57] LABS: Beta-Hydroxybutyrate 1.18 mg/dl (0.2-2.81)
--- NOTE | 2021-10-23 14:32 | Pharmacy Report ---
Pharmacy Glycemic Short Note 2 - Date of Service October 23, 2021 - Glycemic Short BSG Results (Last 24 hours): 10/22/21 10/22/21 10/22/21 15:49 17:40 20:05 Glucose 67 L POC Glucose 68 L* 101 H 10/23/21 10/23/21 10/23/21 00:15 00:43 04:40 Glucose POC Glucose 53 L* 72 126 H 10/23/21 10/23/21 10/23/21 07:29 07:45 11:02 Glucose 163 H POC Glucose 142 H 290 H 10/23/21 11:43 Glucose 318 H* POC Glucose OUTPATIENT ANTIDIABETIC REGIMEN: * Novolog mix - 40 units qam, 30 units qpm * A1c = 7.8% (09/20/21) ASSESSMENT: * Calvin is a 76 yo diabetic with hypoglycemia at the time of admission * Will utilize NPH + novolog while admitted for easier transition back to /30 at time of discharge * AM dose of NPH was reduced by ~ 50% compared to home usage due to persistent hypoglycemia yesterday - will likely need increased on 10/24 * Novolog parameters selected based on weight/stress 2 PLAN FOR INPATIENT GLYCEMIC CONTROL: * Basal insulin * NPH 15 units SQ with breakfast * NPH 10-20 units (per scale) SQ with dinner * Bolus insulin * NovoLog per scale ACHS or Q6hrs while NPO * Goal Range: Low 110 mg/dL - High 140 mg/dL * Correction Factor: 25 mg/dL/unit * Nutritional / Prandial insulin per carb ratio of 1 unit per 7 grams CHO consumed PLAN FOR DISCHARGE: *
[2021-10-23] MEDS ORDERED: PIPERACILL/TAZOBAC CONSULT ACTIVE PRN (15:44)
--- NOTE | 2021-10-23 15:56 | Hospitalist Progress Note ---
Date of Service October 23, 2021 Assessment & Plan (1) Weakness: Plan: Cause not entirely clearpossibly due to pneumonia, although it is not overwhelmingly compelling that he has a pneumonia. Some could be due to poor forward flow, but his bradycardia has not been profound/cardiology does not feel poor forward flow as a culprit for his symptom complex. Possibly due to frailty/deconditioning/malnutrition, but this seems to be more acuity at play. [place] along with thrombocytopenia and transaminitischeck peripheral smear to eval for Anaplasma or babesiosis (and given false negative rate for testing - will utilize doxy as part of empiric Rx for possible pneumonia in favor of azithromycin moving forward) Confusion likely represents a mild metabolic encephalopathy due to underlying causes. (2) RLL pneumonia: Plan: No leukocytosis, does have a degree of an oxygen requirement, lung exam fairly difficult but does show some rales, inflammatory markers seem to be fairly lownot entirely clear that he does have a pneumonia, did have relatively compelling imaging a little over a week ago on CT, current chest x-ray a bit more nondescriptgiven that it may hold the ruiz to the etiology of his overall current presentationCT chest for better detail -For now empiric antibiotics, serial exams, serial labs. (3) Bradycardia: Plan: Nothing showing any imminent need for a pacemaker, rates now more reasonable. Continue to follow. (4) Hypotension: Plan: -now improved -cortisol reassuring at 19.3 (5) Atypical chest pain: Plan: Troponin negative, echo reassuring (6) Chronic kidney disease (CKD), stage II (mild): Plan: follow. --hyperkalemia noted - treating (was given lasix, veltessa this AM - f/u K 6.1 -- now that it's more clear he's not suffering from poor forward flow, LR added, repeat BMP ~5p) (7) Congestive heart failure: Plan: Patient with a history of heart failure with preserved ejection fracture, volume status a little bit difficult to assess, but probably euvolemic, possibly dry (8) Diabetes with neurologic complications: Plan: Pharmacy glycemic consult, input appreciated. (9) Gastroesophageal reflux disease: Plan: Continue PPI (10) Hypertension: Plan: Currently antihypertensives are on hold due to lower and blood pressures (11) Hypothyroidism: Plan: Continue home Synthroid 100 mcg p.o. every morning (12) Obstructive sleep apnea: Plan: CPAP nightly as needed (13) Paroxysmal atrial fibrillation: Plan: Rates reasonable without medication, anticoagulated Plan: DVT PPx: Anticoagulated as above Diet: DM2 CODE STATUS: Full code Disposition: PCU came from home, goal will be to return to home. Admission and Anticipated Discharge Date Admission Date: October 22, 2021 Results & Data Results & Data ([facility]) Vital Signs (Past 12 Hours) Vital Signs Temp Pulse Pulse Resp BP Pulse Ox 10/23/21 15:10 97.9 F 10/23/21 13:46 96.4 F L 10/23/21 12:30 94.6 F L 10/23/21 11:29 94.3 F L 63 20 108/53 L 92 10/23/21 10:12 93 10/23/21 08:00 63 10/23/21 06:44 94.3 F L 62 24 154/70 H 96 10/23/21 04:51 93.0 F L 62 24 155/69 H 93 PG Care Time/CCT Total # of Minutes Spent Total Time Spent with Patient: Total time spent is greater than 50% in coordination of care (as documented) at patient's floor/unit and/or counseling patient: Coding Level of Care Code 15629 Subseq Hosp Care Lvl 3 Diagnoses Weakness R53.1 RLL pneumonia J18.9 Bradycardia R00.1 Hypotension I95.9 Atypical chest pain R07.89 Chronic kidney disease (CKD), stage II (mild) N18.2 Congestive heart failure I50.9 Diabetes with neurologic complications E11.49 Gastroesophageal reflux disease K21.9 Hypertension I10 Hypothyroidism E03.9 Obstructive sleep apnea G47.33 Paroxysmal atrial fibrillation I48.0
[2021-10-23] MEDS ORDERED: AZITHROMYCIN 250 MG TAB PO ONE (16:00)
--- NOTE | 2021-10-23 16:26 | Cardiology Consultation ---
Date of Consultation October 23, 2021 Assessment & Plan (1) Bradycardia: 2. Hypotensionquestion sepsis/possible pneumonia 3. Asymptomatic paroxysmal atrial fibrillation 4. Acute on chronic renal insufficiency, hyperkalemia 5. Type 2 diabetes, intermittent hypoglycemia 6. Transaminitis 7. Atypical chest pain/Presumed coronary artery disease--positive RCA territory stress test in 2020, no prior catheterization 8. Thrombocytopenia Reviewed telemetry since admission. Has had primarily sinus rhythm in the 60s to 80s with intermittent episodes of asymptomatic atrial fibrillation. Few episodes of sinus bradycardia down to the low 40s, primarily while sleeping. Bradycardia did not seem to correlate with hypotension. Dizziness symptoms have persisted despite normal heart rates, normal blood pressures. Again noted to have normal LV function on echocardiogram. Do not feel patient symptoms, lab abnormality secondary to relatively mild sinus bradycardia or low cardiac output state. Suspect bradycardia secondary to gradual progression of sinus node dysfunction/conduction disease in the setting of metabolic abnormalities. Otherwise patient appears euvolemic to dry today on exam. Continued intermittent atypical chest symptoms but no objective findings of ischemia. Recommendations: Continue to monitor on telemetry Continue to hold beta-yesica, and hypertensives Hold home Lasix. Intermittent bolus IV fluids as needed for JANINE Continue anticoagulation with apixaban. Can stop aspirin. At some point probably makes sense for cardiac catheterization with his recurrent chest pain/stress test findings. With no signs of ACS, LV dysfunction or heart failure no urgency at this time and can be deferred to when current medical issues resolved, or as an outpatient. We will continue to follow History of Present Illness Attending Physician: Jose Gardner DO History of Present Illness Mr. Reyez is a very pleasant 76-year-old gentleman with a history of presumed CAD, chronic diastolic heart failure, sinus bradycardia, asymptomatic atrial fibrillation readmitted with recurrent lethargy, dizziness. Patient known to me from outpatient setting, last seen 1 week ago. Other history includes hypertension, diabetes, right bundle-branch block, prior CVA, carotid artery disease status post left internal carotid endarterectomy in 2012, obstructive sleep apnea with long-term nighttime shortness of breath/coughing spells, stage II CKD, monoclonal gammopathy. Was seen 06/2021 in the setting of nighttime dyspnea, coughing and a recent episode of chest pain radiating to his arms. Underwent repeat Lexiscan SPECT which again showed a small amount inferior ischemia. Decision to medically manage with current Coreg, Imdur and amlodipine. Patient hospitalized 08/2612/01/2021 presenting with increased shortness of breath, hypertension and sinus bradycardia. Had a left pleural effusion which was drained, transudative. Carvedilol reduced. Had periods of atrial fibrillation, on telemetry, asymptomatic, relatively rate controlled even off beta-yesica. Started on Eliquis. Repeat echo EF 60 to 65%, grade 2 diastolic dysfunction, no valve disease. At last visit reported intermittent dizziness when standing/walking. had noted heart rates in the 50s. Reduced dose carvedilol discontinued. Event monitor ordered. Continued on Lasix 20 mg daily. Repeat labs showed blood glucose down to 30s. Presented to ED yesterday due to weakness, ongoing dizziness, confusion shakiness. Again reported bradycardia with heart rates down into the 40s. On admission hypotensive, hypoxic, hypothermic. Chest x-ray showed questionable right lower lobe infiltrate. Started on broad-spectrum antibiotics for possible pneumonia. Heart rates primarily in the 60s and above. On telemetry few episodes down to low 40s while sleeping. Today still reports feeling dizzy, shaky. Few, brief episodes of chest pain. Troponin negative x3. Prior cardiovascular studies: Echo 03/2021: LVEF 55 to 60%, DD 2, no valve disease Exercise stress echo (01/2012): Exercise for 4 minutes and 33 seconds achieving 65 percent of max predicted heart rate and 7 Mets. Resting EF was 55-60 percent, normal reduction in cavity size with exercise but inferior, RCA wall motion abnormality noted with peak exercise. Carotid duplex (05/2016 with vascular surgery): Left ICA status post endarterectomy, patent without significant stenosis (less than 50 percent), right internal carotid moderate stenosis (50-69 percent), normal antegrade vertebral flow Allergies Allergy/AdvReac Type Severity Reaction Status Date / Time Gadolinium-Containing Allergy Severe ANAPHYLAXIS Verified 10/22/21 17:06 Contrast Medi Iodinated Contrast Media Allergy Severe ANAPHYLAXIS Verified 10/22/21 17:06 Home Medications Medication Instructions Recorded Confirmed Type cyanocobalamin (vitamin B-12) 1,000 mcg PO QDL tab 05/31/19 10/22/21 History 1,000 mcg tablet docusate sodium 100 mg capsule 100 mg PO QAM PRN cap 05/31/19 10/22/21 History polyethylene glycol 3350 17 17 gm PO DAILY PRN #1 gm 05/31/19 10/22/21 History gram/dose oral powder BD Ultra-Fine Short Pen Needle 31 #100 ea NS 05/02/20 10/06/21 Rx gauge x 5/16" (pen needle, diabetic) cholecalciferol (vitamin D3) 50 2,000 unit PO QDL tab 10/28/20 10/22/21 History mcg (2,000 unit) tablet blood sugar diagnostic (OneTouch #3 box 04/17/21 10/06/21 Rx Ultra Blue Test Strip) metformin 850 mg tablet 850 mg PO BID #180 tab 06/23/21 10/22/21 Rx nitroglycerin 0.4 mg sublingual 0.4 mg SL Q5M PRN #25 tab 07/10/21 10/22/21 Rx tablet Oxygen Home #1 ea 07/16/21 10/06/21 Rx Wheeled Walker #1 ea 07/21/21 10/06/21 Rx guaifenesin 1,200 mg tablet, 1,200 mg PO QAM 09/19/21 10/22/21 History extended release 12 hr (Mucinex) guaifenesin 100 mg/5 mL oral liquid 600 mg PO Q4H PRN 09/19/21 10/22/21 History insulin aspar prot-insulin aspart 30 - 40 unit SUBCUT BIDM 09/19/21 10/22/21 History 100 unit/mL (70-30) subcutaneous pen losartan 100 mg tablet 100 mg PO QAM 09/19/21 10/22/21 History pantoprazole 20 mg tablet,delayed 20 mg PO PM PRN 09/19/21 10/22/21 History release trazodone 50 mg tablet 50 - 100 mg PO HS 09/19/21 10/22/21 History apixaban 5 mg tablet (Eliquis) 5 mg PO BID #180 tab 10/06/21 10/22/21 Rx carvedilol 6.25 mg tablet 6.25 mg PO BID #180 tab 10/06/21 10/22/21 Rx furosemide 20 mg tablet 20 mg PO QAM #90 tab 10/06/21 10/22/21 Rx levothyroxine 100 mcg tablet 100 mcg PO QAM #90 tab 10/07/21 10/22/21 Rx amlodipine 2.5 mg tablet 2.5 mg PO QAM #90 tab 10/20/21 10/22/21 Rx atorvastatin 40 mg tablet 40 mg PO HS #90 tab 10/20/21 10/22/21 Rx aspirin 81 mg tablet,delayed 81 mg PO DAILY 10/22/21 10/22/21 History release (Aspirin Low Dose) Patient History Medical History Acrochordon Anxiety Arteriosclerosis of carotid artery Arteriosclerotic cardiovascular disease Asthma Atypical chest pain Chronic kidney disease (CKD), stage II (mild) Colon polyps Diabetes Diabetes with neurologic complications Diabetic nephropathy Dyslipidemia Excessive sweating Gait disturbance Gastroesophageal reflux disease Rachel's thyroiditis History of uspebc-bg-xpwdgglle syndrome Hyperglobulinemia Hyperkalemia Hyperlipidemia Hypertension Hypothyroidism Insomnia Internal hemorrhoids Male erectile disorder of organic origin Obesity Obstructive sleep apnea Paralysis of right vocal fold Parotid sialolithiasis Pleural effusion Proteinuria Right bundle branch block Sialadenitis Vitamin D deficiency Vocal cord anomaly Surgical History H/O umbilical hernia repair S/P carotid endarterectomy S/P cataract surgery S/P inguinal hernia repair S/P tonsillectomy Family History Mother Heart disease Father Stomach cancer Other Asthma Cancer Denies family history of Ovarian cancer Prostate cancer Myocardial infarction Breast cancer Colorectal cancer Social History Smoking Status: Never smoker Second Hand Exposure: No; Do You Dip or Chew Tobacco: No; Tobacco Cessation Education Requested by Patient: No Hx Alcohol Use: Yes (no longer drinking) Alcohol type: beer Hx Substance Use: No Preferred Language: [place] Communication Ability: Effective Visual Impairment: No Limitations Hearing Ability: Normal Grocery Stocker Required: No Beliefs That Will Affect Care: None marital status: Current Living Situation: Spouse current occupational status: retired How many Children do You have: 2 Other Information That Helps Us Care for You: No Feels Safe at Home: Yes Safety Concerns: Feels Safe At This Time Childhood Exposure to Second-Hand Smoke: No caffeine: Yes (coffee) Dental Care, Regularly: Yes Physical Activity Frequency: Does not Exercise Seatbelt Use: always Sunscreen Use: No Assistive Devices: Cane, Oxygen - at Night and Walker Review of Systems Review of Systems: All systems reviewed & are unremarkable except as noted in HPI & below Physical Exam Physical Exam: General: Frail appearing HEENT: Sclerae anicteric, Mask in place Lungs: Clear to auscultation bilaterally Cardiac: Regular rate and rhythm, no murmurs. Vascular: 2+ radial,No JVD Abdomen: Soft, nontender Extremities: Well perfused, no peripheral edema Neuro: Nonfocal Psych: Alert orient x3, normal affect and mood Results & Data ([facility]) Vital Signs (Past 12 Hours) Vital Signs Temp Pulse Pulse Resp BP Pulse Ox 10/23/21 16:03 98.1 F 74 18 126/72 93 10/23/21 15:10 97.9 F 10/23/21 13:46 96.4 F L 10/23/21 12:30 94.6 F L 10/23/21 11:29 94.3 F L 63 20 108/53 L 92 10/23/21 10:12 93 10/23/21 08:00 63 10/23/21 06:44 94.3 F L 62 24 154/70 H 96 10/23/21 04:51 93.0 F L 62 24 155/69 H 93 PG Care Time/CCT Total # of Minutes Spent Total Time Spent with Patient: Total time spent is greater than 50% in coordination of care (as documented) at patient's floor/unit and/or counseling patient: Coding Level of Care Code 11802 Initial Inpt Care Lvl 3 Diagnoses Bradycardia R00.1
[2021-10-23] MEDS ORDERED: INSULIN HUMAN NPH SC SCH (16:30)
[2021-10-23 16:52] LABS: BUN Creatinine Ratio 38.1 (10-20); Calcium 9.5 mg/dl (8.5-10.1); Est GFR (African American) 45.4 ml/min; Est GFR (Non-African American) 39.2 ml/min
[2021-10-23 16:53] LABS: Potassium 6.4 mmol/L (3.5-5.1)
--- NOTE | 2021-10-23 16:58 | CT Scan Report ---
CT chest diagnostic wo con CT DOSE: 526.49 mGycm HISTORY: hypoxia - fluid vs infxn TECHNIQUE: Multiaxial CT images of the chest were performed without contrast. A dose lowering techni que was utilized adhering to the principles of ALARA. COMPARISON: Chest CT 10/15/2021. FINDINGS: No pneumothorax. Trace left pleural effusion. This is similar to the prior study. Progressi ve consolidation involving the basilar segments of the left lower lobe with associated air bronchogra ms. This could represent atelectasis or pneumonia. There is a 3 cm bleb within the base of the lingul a. The central airways are patent. Slight progression of the patchy airspace opacities within the rig ht lower lobe. Old, healed right lower rib fractures. No acute fractures identified within the chest. No mediastinal or hilar lymphadenopathy. The heart remains mildly enlarged. Mild calcified plaque wi thin the normal caliber thoracic aorta. Distended and fluid-filled esophagus, unchanged. Limited view s of the upper abdomen demonstrate normal liver and spleen. A trace right pleural effusion has improv ed. Bilateral gynecomastia again noted. IMPRESSION: 1. Stable cardiomegaly. 2. Trace right pleural effusion has improved. A trace left pleural effusion persists. 3. Patchy right basilar airspace opacities and left lower lobe consolidation have progressed. This fa vors a pneumonia and could be due to aspiration given the mildly distended and fluid-filled esophagus . ACT 112: Negative or not required by law. Electronically signed by: Christian Munoz M.D. 10/23/2021 4:57 PM
[2021-10-23] MEDS: PIPERACILLIN/TAZOBACTAM 3.375 GM in DEXTROSE 5% 100 ML IV SCH (17:07)
[2021-10-23] MEDS: LACTATED RINGER'S 1,000 ML IV SCH (17:10)
[2021-10-23 19:00] LABS: Appearance Urine Cloudy (Clear); Bacteria Urine Automated Negative (Negative); Bilirubin Urine Negative (Negative); Blood Urine 3+ (Negative); Epithelial Cell Urine Auto >30 /lpf (0-5); Glucose Urine UA Negative (Negative); Ketones Urine Trace (Negative); Leukocyte Esterase Urine 1+ (Negative); Nitrite Urine Negative (Negative); Protein Urine 3+ (Negative); RBC Urine Automated >30 /hpf (0-4); Specific Gravity Urine 1.019 (1.000-1.030); Urobilinogen Urine Negative (Negative); WBC Urine Automated >30 /hpf (0-5)
[2021-10-23 19:09] LABS: Color Urine Red
[2021-10-23 19:26] LABS: Granular Casts Urine 20-30 /lpf (0)
[2021-10-23] MEDS: DOXYCYCLINE HYCLATE 100 MG in DEXTROSE 5% 100 ML IV SCH (21:11)
[2021-10-23 22:15] LABS: BUN Creatinine Ratio 36.7 (10-20); Calcium 8.9 mg/dl (8.5-10.1); Creatinine Clr Calc Pharmacy 35.4 ml/min; Est GFR (Non-African American) 32.8 ml/min
[2021-10-23] MEDS ORDERED: CALCIUM GLUCONATE 10% 1,000 MG in SODIUM CHLORIDE 0.9% 50 ML IV ONE (22:24)
[2021-10-23] MEDS ORDERED: INSULIN HUMAN REGULAR PER UNIT 10 UNITS in SYRINGE 9.9 ML IV ONE (22:30)
[2021-10-23] MEDS ORDERED: DEXTROSE 50% 50 ML SYRINGE IV ONE (22:30)
[2021-10-24 01:03] LABS: Calcium 9.4 mg/dl (8.5-10.1); Creatinine Clr Calc Pharmacy 35.4 ml/min; Est GFR (Non-African American) 32.8 ml/min
[2021-10-24] MEDS: PIPERACILLIN/TAZOBACTAM 3.375 GM in DEXTROSE 5% 100 ML IV SCH ×2 (01:18→08:36)
[2021-10-24 05:02] LABS: Hemoglobin 12.5 g/dL (14.0-18.0); Mean Corpuscular Hemoglobin 28.8 pg (25-34); Mean Corpuscular Hgb Conc 32.1 g/dL (32-36); Mean Corpuscular Volume 89.9 fL (80-100); Nucleated RBC # (auto) 0.05 K/uL (0-0); Nucleated RBC % (auto) 0.4 %; RDW Coefficient of Variation 16.9 % (11.5-14.5); RDW Standard Deviation 55.1 fL (36.4-46.3); Red Blood Count 4.34 M/uL (4.7-6.1); White Blood Count 13.72 K/uL (4.8-10.8)
[2021-10-24 05:03] LABS: Mean Platelet Volume 11.3 fL (7.4-10.4); Platelet Count 99 K/uL (130-400)
[2021-10-24 05:23] LABS: Basophils # (auto) 0.01 K/uL (0-0.2); Basophils % (auto) 0.1 %; Eosinophils # (auto) 0.01 K/uL (0-0.5); Eosinophils % (auto) 0.1 %; Immature Granulocytes # (auto) 0.08 K/uL (0.00-0.02); Immature Granulocytes % (auto) 0.6 %; Lymphocytes # (auto) 1.63 K/uL (1.2-3.4); Lymphocytes % (auto) 11.9 %; Monocytes # (auto) 1.39 K/uL (0.11-0.59); Monocytes % (auto) 10.1 %; Neutrophils % (auto) 77.2 %
[2021-10-24 05:37] LABS: Albumin Level 2.5 gm/dl (3.4-5.0); BUN Creatinine Ratio 37.5 (10-20); Calcium 9.6 mg/dl (8.5-10.1); Creatinine Clr Calc Pharmacy 37.4 ml/min; Est GFR (African American) 40.1 ml/min; Est GFR (Non-African American) 34.6 ml/min; Potassium 5.8 mmol/L (3.5-5.1)
[2021-10-24 05:39] LABS: Albumin Globulin Ratio 0.6 (0.9-2); Bilirubin,Total 0.5 mg/dl (0.2-1); C Reactive Protein 2.34 mg/dl (0-0.29); Globulin 4.3 gm/dl (2.5-4.0); Total Protein 6.8 gm/dl (6.4-8.2)
[2021-10-24] MEDS: LACTATED RINGER'S 1,000 ML IV SCH ×2 (05:44→17:41)
[2021-10-24] MEDS: LEVOTHYROXINE SODIUM 100 MCG TABLET PO SCH (05:44)
[2021-10-24] MEDS: INSULIN ASPART PER UNIT SQ SCH ×5 (08:33→23:55)
[2021-10-24] MEDS: ASPIRIN 81 MG ECTAB PO SCH (08:35)
[2021-10-24] MEDS: INSULIN HUMAN NPH SC SCH (08:35)
[2021-10-24] MEDS: APIXABAN 5 MG TABLET PO SCH ×2 (08:36→20:08)
[2021-10-24] MEDS: DOXYCYCLINE HYCLATE 100 MG in DEXTROSE 5% 100 ML IV SCH ×2 (08:36→20:13)
[2021-10-24 08:39] LABS: BUN Creatinine Ratio 37.6 (10-20); Calcium 9.6 mg/dl (8.5-10.1); Creatinine Clr Calc Pharmacy 38.7 ml/min; Est GFR (African American) 41.7 ml/min; Potassium 5.6 mmol/L (3.5-5.1)
[2021-10-24] MEDS ORDERED: AZITHROMYCIN 250 MG TAB PO SCH (09:00)
--- NOTE | 2021-10-24 12:56 | Cardiology Progress Note ---
Date of Service October 24, 2021 Assessment & Plan (1) Bradycardia: Plan: 2. Hypotensionquestionable pneumonia/sepsis 3. Asymptomatic paroxysmal atrial fibrillation 4. Acute on chronic renal insufficiency, hyperkalemia 5. Type 2 diabetes, intermittent hypoglycemia 6. Transaminitis 7. Atypical chest pain/Presumed coronary artery disease--positive RCA territory stress test in 2020, no prior catheterization 8. Thrombocytopenia Remains in sinus rhythm. No recurrent bradycardia on telemetry. No recurrent chest pain Blood pressure is improved BUN/creatinine, potassium downtrending Chest CT suggestive of possible pneumonia. Hypoxia improved. No significant congestion on exam. Continue to monitor on telemetry. No indication for pacemaker at this time Beta-yesica on hold. Discontinue on discharge Resume low-dose amlodipine as needed for blood pressure Continue to hold maintenance diuretics, losartan Continue anticoagulation with apixaban. Can stop aspirin. We will consider outpatient cardiac catheterization and follow-up on prior outpatient ambulatory monitoring. Admission and Anticipated Discharge Date Admission Date: October 22, 2021 Subjective Reports improved dizziness today. Denies any chest pain. Wants to go home in time for [employer] football game tomorrow. Telemetry reviewedsinus rhythm primarily 70s to 80s. No significant bradycardia Chest CT with bilateral patchy opacitiesconcern for pneumonia, possible aspiration 1/2 blood cultures positive for staph species Review of Systems Review of Systems: All systems reviewed & are unremarkable except as noted in HPI & below Physical Exam Physical Exam: General: Comfortable HEENT: Sclerae anicteric, Mask in place Lungs: Coarse breath sounds, rhonchorous, no crackles Cardiac: Regular rate and rhythm, no murmurs. Vascular: 2+ radial,No JVD Abdomen: Soft, nontender Extremities: Well perfused, no peripheral edema Neuro: Nonfocal Psych: Alert orient x3, normal affect and mood Results & Data ([facility]) Vital Signs (Past 12 Hours) Vital Signs Temp Pulse Pulse Resp BP Pulse Ox 10/24/21 11:16 98.4 F 79 146/69 H 92 10/24/21 10:15 93 10/24/21 07:58 73 10/24/21 07:08 98.2 F 81 166/91 H 95 10/24/21 03:15 98.1 F 83 24 169/69 H 95 PG Care Time/CCT Total # of Minutes Spent Total Time Spent with Patient: Total time spent is greater than 50% in coordination of care (as documented) at patient's floor/unit and/or counseling patient: Coding Level of Care Code 56325 Subseq Hosp Care Lvl 3 Diagnoses Bradycardia R00.1
[2021-10-24 14:25] LABS: BUN Creatinine Ratio 32.3 (10-20); Calcium 9.4 mg/dl (8.5-10.1); Creatinine Clr Calc Pharmacy 34.1 ml/min; Est GFR (African American) 35.8 ml/min; Est GFR (Non-African American) 30.9 ml/min; Potassium 5.6 mmol/L (3.5-5.1)
--- NOTE | 2021-10-24 14:40 | Pharmacy Report ---
Pharmacy Glycemic Short Note 2 - Date of Service October 24, 2021 - Glycemic Short BSG Results (Last 24 hours): 10/23/21 10/23/21 10/23/21 16:11 16:19 20:11 Glucose 83 POC Glucose 81 117 H 10/23/21 10/23/21 10/23/21 20:58 23:30 23:32 Glucose 101 H POC Glucose 248 H 200 H 10/24/21 10/24/21 10/24/21 00:30 04:15 07:26 Glucose 70 81 POC Glucose 95 10/24/21 10/24/21 10/24/21 07:46 11:15 13:51 Glucose 96 107 H POC Glucose 189 H OUTPATIENT ANTIDIABETIC REGIMEN: * Novolog Mix - 40 units SC AM, 30 units SC PM * HbA1c = 7.8% (09/20/21) ASSESSMENT: 10/24:. * Patient received 43 units of insulin yesterday (25 units NPH + 18 units Novolog) * BSGs yesterday were: 818-366-660-81-117-248 mg/dL * Fasting BSG was 95 mg/dL this AM - well controlled * Based on previous admission data from last month, patient was stable on 10 units of NPH in the AM. Attempted to reduce NPH dose to 12 units this AM but 15 units had already been administered. * Similar pattern of hyperglycemia with lunch and borderline hypoglycemia at dinner from previous admission was observed yesterday. Opting to discontinue dinner NPH and stick with reduced once daily dose in the AM. * Will reduce carb ratio with lunch to hopefully prevent hypoglycemia at dinner. 10/23: * Calvin is a 76 yo diabetic with hypoglycemia at the time of admission * Will utilize NPH + novolog while admitted for easier transition back to /30 at time of discharge * AM dose of NPH was reduced by ~ 50% compared to home usage due to persistent hypoglycemia yesterday - will likely need increased on 10/24 * Novolog parameters selected based on weight/stress 2 PLAN FOR INPATIENT GLYCEMIC CONTROL: * Hold outpatient oral antiglycemic medications * Basal insulin - discontinued dinner NPH and reduce NPH tomorrow AM * NPH 15 units SC x 1 this AM * NPH 10 units SC w/ breakfast starting tomorrow * Bolus insulin - loosened carb ratio * NovoLog per scale ACHS or Q6hrs while NPO * Goal Range: Low 110 mg/dL - High 140 mg/dL * Correction Factor: 25 mg/dL/unit * Nutritional / Prandial insulin per carb ratio of 1 unit per 8 grams CHO consumed PLAN FOR DISCHARGE: * HbA1c of 7.8% is acceptable for this patient. * No changes recommended in outpatient regimen as long as patient is not experiencing any hyper/hypoglycemia at home.
[2021-10-24] MEDS: CARBOHYDRATES FOR HYPOGLYCEMIA PO PRN (16:23)
[2021-10-24] MEDS: PIPERACILLIN/TAZOBACTAM 4.5 GM in DEXTROSE 5% 100 ML IV SCH ×2 (16:27→23:55)
--- NOTE | 2021-10-24 18:38 | Hospitalist Progress Note ---
Date of Service October 24, 2021 Assessment & Plan (1) Weakness: Plan: After extensive reviewappears that probably his weakness at the time of admission was multifactorial related to acute on chronic aspiration pneumonia, as well as dehydration. Improving. Confusion likely represents a mild metabolic encephalopathy due to underlying causes. Fortunately this seems to be improving as well. (2) RLL pneumonia: Plan: After further review, and after extremely helpful input from [employer], appears patient probably is suffering from an acute on chronic aspiration pneumoniadue to upper esophageal spasticity. See below under dysphagia. Given his weakness, even though he did not really have much of a leukocytosis, and no fever, will continue empiric antibiotics, as I do suspect he is suffering some from an actual infection in this acute on chronic aspiration situation (3) Bradycardia: Plan: Nothing showing any imminent need for a pacemaker, rates now more reasonable. Continue to follow. (4) Dysphagia: Plan: Possibly residual from his stroke. Will give trial to amlodipine to try to help relax esophagus some. Slow eating, alternating solids and liquids, upright, add PPI. Outpatient GI follow-up, anticipate manometry plus or minus EGD, etc. (5) Hypotension: Plan: -now improved -cortisol reassuring at 19.3 (6) Atypical chest pain: Plan: Troponin negative, echo reassuring (7) Chronic kidney disease (CKD), stage II (mild): Plan: follow. --hyperkalemia finally improving. Continue IV fluids. (8) Congestive heart failure: Plan: Patient with a history of heart failure with preserved ejection fracture, but currently on the dry sidecontinue IV fluids (9) Diabetes with neurologic complications: Plan: Pharmacy glycemic consult, input appreciated. Sugars overall reasonable (10) Gastroesophageal reflux disease: Plan: Continue PPI (11) Hypertension: Plan: Continue to follow blood pressureinitiating amlodipine to try to help with esophagus as above (12) Hypothyroidism: Plan: Continue home Synthroid 100 mcg p.o. every morning (13) Obstructive sleep apnea: Plan: CPAP nightly as needed (14) Paroxysmal atrial fibrillation: Plan: Rates reasonable without medication, anticoagulated Plan: DVT PPx: Anticoagulated as above Diet: DM2 CODE STATUS: Full code Disposition: PCU came from home, goal will be to return to home.Probably once potassium/hydration status has become more improved Admission and Anticipated Discharge Date Admission Date: October 22, 2021 Subjective Seen multiple times throughout the day, case discussed with speech therapy as well and revisited when the was present. Patient himself feeling much better. Was a little confused this morning, but not as bad as yesterday, on revisit this afternoon even less confusedwife notes that he is almost back to his baseline. Speech input greatly appreciated. Review of Systems Review of Systems: All systems reviewed & are unremarkable except as noted in HPI & below Physical Exam Physical Exam: Awake and alert pleasant no distress. HEENT normocephalic atraumatic mucous membranes moist. Cardio distant no rubs murmurs or gallops lungs diminished air entry base right no rales rhonchi or wheezes good effort skin shows no rashes no pallor or icterus. Results & Data Results & Data ([facility]) Vital Signs (Past 12 Hours) Vital Signs Temp Pulse Pulse Resp BP Pulse Ox 10/24/21 16:04 85 10/24/21 15:00 98.6 F 79 16 134/69 97 10/24/21 11:16 98.4 F 79 146/69 H 92 10/24/21 10:15 93 10/24/21 07:58 73 10/24/21 07:08 98.2 F 81 166/91 H 95 PG Care Time/CCT Total # of Minutes Spent Total Time Spent with Patient: Total time spent is greater than 50% in coordination of care (as documented) at patient's floor/unit and/or counseling patient: Coding Level of Care Code 17784 Subseq Hosp Care Lvl 3 Diagnoses Weakness R53.1 RLL pneumonia J18.9 Bradycardia R00.1 Hypotension I95.9 Atypical chest pain R07.89 Chronic kidney disease (CKD), stage II (mild) N18.2 Congestive heart failure I50.9 Diabetes with neurologic complications E11.49 Gastroesophageal reflux disease K21.9 Hypertension I10 Hypothyroidism E03.9 Obstructive sleep apnea G47.33 Paroxysmal atrial fibrillation I48.0 Dysphagia R13.10
--- NOTE | 2021-10-24 18:43 | Billing Data ---
Date of Service October 24, 2021 Coding Level of Care Code 93333 Subseq Hosp Care Lvl 3
[2021-10-24] MEDS ORDERED: amLODIPine BESYLATE 5 MG TAB PO ONE (19:00)
[2021-10-24] MEDS: PANTOprazole 40 MG TAB PO SCH (20:09)
[2021-10-25] MEDS: INSULIN ASPART PER UNIT SQ SCH ×5 (04:59→21:23)
[2021-10-25] MEDS: LACTATED RINGER'S 1,000 ML IV SCH ×2 (05:01→17:24)
[2021-10-25] MEDS: LEVOTHYROXINE SODIUM 100 MCG TABLET PO SCH (06:24)
[2021-10-25 07:09] LABS: Hematocrit (blood only) 41.3 % (42-52); Hemoglobin 13.1 g/dL (14.0-18.0); Mean Corpuscular Hemoglobin 28.7 pg (25-34); Mean Corpuscular Hgb Conc 31.7 g/dL (32-36); Mean Corpuscular Volume 90.6 fL (80-100); Nucleated RBC # (auto) 0.02 K/uL (0-0); Nucleated RBC % (auto) 0.2 %; RDW Coefficient of Variation 17.4 % (11.5-14.5); Red Blood Count 4.56 M/uL (4.7-6.1); White Blood Count 10.29 K/uL (4.8-10.8)
[2021-10-25 07:16] LABS: Mean Platelet Volume 10.8 fL (7.4-10.4); Platelet Count 90 K/uL (130-400)
[2021-10-25 07:28] LABS: Basophils # (auto) 0.01 K/uL (0-0.2); Basophils % (auto) 0.1 %; Eosinophils # (auto) 0.01 K/uL (0-0.5); Eosinophils % (auto) 0.1 %; Immature Granulocytes # (auto) 0.05 K/uL (0.00-0.02); Immature Granulocytes % (auto) 0.5 %; Lymphocytes # (auto) 2.56 K/uL (1.2-3.4); Lymphocytes % (auto) 24.9 %; Monocytes # (auto) 1.29 K/uL (0.11-0.59); Monocytes % (auto) 12.5 %; Neutrophils # (auto) 6.37 K/uL (1.4-6.5); Neutrophils % (auto) 61.9 %
[2021-10-25 07:46] LABS: BUN Creatinine Ratio 30.6 (10-20); Calcium 9.6 mg/dl (8.5-10.1); Creatinine Clr Calc Pharmacy 39.6 ml/min; Est GFR (African American) 43.2 ml/min; Est GFR (Non-African American) 37.3 ml/min; Potassium 4.6 mmol/L (3.5-5.1)
[2021-10-25] MEDS: INSULIN HUMAN NPH SC SCH (08:32)
[2021-10-25] MEDS: APIXABAN 5 MG TABLET PO SCH ×2 (08:33→20:45)
[2021-10-25] MEDS: PANTOprazole 40 MG TAB PO SCH ×2 (08:33→20:46)
[2021-10-25] MEDS: ASPIRIN 81 MG ECTAB PO SCH (08:33)
[2021-10-25] MEDS: DOXYCYCLINE HYCLATE 100 MG in DEXTROSE 5% 100 ML IV SCH ×2 (08:38→21:34)
[2021-10-25] MEDS: PIPERACILLIN/TAZOBACTAM 4.5 GM in DEXTROSE 5% 100 ML IV SCH ×3 (08:39→23:51)
[2021-10-25] MEDS ORDERED: amLODIPine BESYLATE 5 MG TAB PO SCH (09:00)
[2021-10-25] MEDS: carvediloL 6.25 MG TAB PO SCH ×2 (09:44→20:46)
--- NOTE | 2021-10-25 10:19 | Electrocardiogram Report ---
Test Reason : Blood Pressure : / mmHG Vent. Rate : 079 BPM Atrial Rate : 079 BPM P-R Int : 210 ms QRS Dur : 148 ms QT Int : 400 ms P-R-T Axes : 046 223 023 degrees QTc Int : 458 ms Sinus rhythm with 1st degree A-V block Right bundle branch block Abnormal ECG When compared with ECG of 22-OCT-2021 15:15, Sinus rhythm has replaced Atrial fibrillation Confirmed by Marciano Velazquez ([id number]) on 10/25/2021 10:18:36 AM Referred By: REFERRED SELF Confirmed By:Marciano Velazquez
[2021-10-25] MEDS: amLODIPine BESYLATE 5 MG TAB PO SCH (10:59)
--- NOTE | 2021-10-25 14:57 | Pharmacy Report ---
Pharmacy Glycemic Short Note 2 - Date of Service October 25, 2021 - Glycemic Short BSG Results (Last 24 hours): 10/24/21 10/24/21 10/24/21 16:18 16:18 16:42 Glucose POC Glucose 64 L* 65 L* 106 H 10/24/21 10/24/21 10/25/21 20:10 23:55 04:20 Glucose POC Glucose 136 H 107 H 148 H 10/25/21 10/25/21 10/25/21 06:32 07:21 11:27 Glucose 174 H POC Glucose 168 H 130 H OUTPATIENT ANTIDIABETIC REGIMEN: * Novolog Mix /30 - 40 units SC AM, 30 units SC PM * HbA1c = 7.8% (09/20/21) ASSESSMENT: 10/25/21: * Calvin received 20 units of SQ insulin yesterday (15 units of NPH, 5 units Novolog) * He had an episode of hypoglycemia yesterday at dinnertime. I suspect this was due to his morning dose of NPH as he received very little novolog throughout the day. PM dose of NPH was held and dose for this morning was decreased ~30%. * Fasting BSG of 168 mg/dL is above goal. This is expected since PM dose of NPH was held. 10/24:. * Patient received 43 units of insulin yesterday (25 units NPH + 18 units Novolog) * BSGs yesterday were: 581-284-663-81-117-248 mg/dL * Fasting BSG was 95 mg/dL this AM - well controlled * Based on previous admission data from last month, patient was stable on 10 units of NPH in the AM. Attempted to reduce NPH dose to 12 units this AM but 15 units had already been administered. * Similar pattern of hyperglycemia with lunch and borderline hypoglycemia at dinner from previous admission was observed yesterday. Opting to discontinue dinner NPH and stick with reduced once daily dose in the AM. * Will reduce carb ratio with lunch to hopefully prevent hypoglycemia at dinner. 10/23: * Calvin is a 76 yo diabetic with hypoglycemia at the time of admission * Will utilize NPH + novolog while admitted for easier transition back to 70/30 at time of discharge * AM dose of NPH was reduced by ~ 50% compared to home usage due to persistent hypoglycemia yesterday - will likely need increased on 10/24 * Novolog parameters selected based on weight/stress 2 PLAN FOR INPATIENT GLYCEMIC CONTROL: * Hold outpatient oral antiglycemic medications * Basal insulin * NPH 10 units SQ with breakfast * NPH 5 units SQ with dinner * Bolus insulin - loosen * NovoLog per scale ACHS or Q6hrs while NPO * Goal Range: Low 110 mg/dL - High 140 mg/dL * Correction Factor: 30 mg/dL/unit * Nutritional / Prandial insulin per carb ratio of 1 unit per 10 grams CHO consumed PLAN FOR DISCHARGE: * HbA1c of 7.8% is acceptable for this patient. * No changes recommended in outpatient regimen as long as patient is not experiencing any hyper/hypoglycemia at home.
[2021-10-25] MEDS ORDERED: INSULIN HUMAN NPH SC SCH (16:30)
--- NOTE | 2021-10-25 18:42 | Hospitalist Progress Note ---
Date of Service October 25, 2021 Assessment & Plan (1) Weakness: Plan: After extensive reviewappears that probably his weakness at the time of admission was multifactorial related to acute on chronic aspiration pneumonia, as well as dehydration. Improvingcontinue current careanticipate transitioning to p.o. antibiotics Confusion likely represents a mild metabolic encephalopathy due to underlying causes. Waxing waningwas doing better yesterday, worse today, although I do not see any infectious/metabolic/toxic causes, so almost certainly just due to hospital environment. Currently does not feel safe taking him home, which is understandablewe will move to medical, remove Rosas, hopefully this will help some. If his mentation clears again, we will look for home tomorrow, if not will start to look for rehab/subacute rehab (2) RLL pneumonia: Plan: After further review, and after extremely helpful input from RAIL SIGNAL MECHANIC, appears patient probably is suffering from an acute on chronic aspiration pneumoniadue to upper esophageal spasticity. See below under dysphagia. Given his weakness, even though he did not really have much of a leukocytosis, and no fever, will continue empiric antibiotics, as I do suspect he is suffering some from an actual infection in this acute on chronic aspiration situationcontinue antibiotics (3) Bradycardia: Plan: Nothing showing any imminent need for a pacemaker, rates now more reasonable. Continue to follow. (4) Dysphagia: Plan: Possibly residual from his stroke. Increased his home amlodipine to try to help relax esophagus some. Slow eating, alternating solids and liquids, upright, Protonix twice daily. Outpatient GI follow-up, anticipate manometry plus or minus EGD, etc. (5) Hypotension: Plan: -now improved -cortisol reassuring at 19.3 (6) Atypical chest pain: Plan: Troponin negative, echo reassuring (7) Chronic kidney disease (CKD), stage II (mild): Plan: follow. --hyperkalemia finally improved and creatinine coming down. (8) Congestive heart failure: Plan: Patient with a history of heart failure with preserved ejection fraction. Has been getting IV fluids. Is taking p.o. well, given that hyperkalemia is improvi ng and creatinine coming downwill stop IVs (9) Diabetes with neurologic complications: Plan: Pharmacy glycemic consult, input appreciated. Sugars overall reasonable (10) Gastroesophageal reflux disease: Plan: Continue PPI (11) Hypertension: Plan: Continue to follow blood pressureinitiating amlodipine to try to help with esophagus as above (12) Hypothyroidism: Plan: Continue home Synthroid 100 mcg p.o. every morning (13) Obstructive sleep apnea: Plan: CPAP nightly as needed (14) Paroxysmal atrial fibrillation: Plan: Rates reasonable without medication, anticoagulated Plan: DVT PPx: Anticoagulated as above Diet: DM2 CODE STATUS: Full code Disposition: PCU came from home, goal will be to return to home vs rehab if delirium not clearing enough for him to be safe at home w Admission and Anticipated Discharge Date Admission Date: October 22, 2021 Subjective More confused today. No shortness of breath. No complaints at all. Later revisited with presentcurrently his level of confusion is more than she feels comfortable taking care of at home. We discussed game plan, and the current we will continue in the hospital with the potential goal of home should his mentation continue to wax and wane with improvement, and if he has no improvementthen we will target subacute rehab/rehab. Review of Systems Review of Systems: All systems reviewed & are unremarkable except as noted in HPI & below Physical Exam Physical Exam: In general he is awake but more confused today. No distress. HEENT normocephalic atraumatic mucous membranes moist. Lungs are overall clear but fairly diminished particularly on the right, although fairly difficult exam no focal findings. Neuro shows no new focal deficits Results & Data Results & Data ([facility]) Vital Signs (Past 12 Hours) Vital Signs Temp Pulse Resp BP Pulse Ox 10/25/21 12:36 98.2 F 111 H 16 144/74 H 95 10/25/21 06:54 98.2 F 97 H 18 188/69 H 94 PG Care Time/CCT Total # of Minutes Spent Total Time Spent with Patient: Total time spent is greater than 50% in coordination of care (as documented) at patient's floor/unit and/or counseling patient: Coding Level of Care Code 72698 Subseq Hosp Care Lvl 3 Diagnoses Weakness R53.1 RLL pneumonia J18.9 Bradycardia R00.1 Dysphagia R13.10 Hypotension I95.9 Atypical chest pain R07.89 Chronic kidney disease (CKD), stage II (mild) N18.2 Congestive heart failure I50.9 Diabetes with neurologic complications E11.49 Gastroesophageal reflux disease K21.9 Hypertension I10 Hypothyroidism E03.9 Obstructive sleep apnea G47.33 Paroxysmal atrial fibrillation I48.0
--- NOTE | 2021-10-25 19:27 | Electrocardiogram Report ---
Test Reason : Blood Pressure : / mmHG Vent. Rate : 079 BPM Atrial Rate : 081 BPM P-R Int : 206 ms QRS Dur : 156 ms QT Int : 404 ms P-R-T Axes : 049 208 018 degrees QTc Int : 463 ms Sinus rhythm Right bundle branch block Abnormal ECG When compared with ECG of 23-OCT-2021 17:28, (unconfirmed) No significant change Confirmed by Marciano Velazquez ([id number]) on 10/25/2021 7:27:11 PM Referred By: REFERRED SELF Confirmed By:Marciano Velazquez
[2021-10-26] MEDS: LEVOTHYROXINE SODIUM 100 MCG TABLET PO SCH ×2 (07:09→07:11)
[2021-10-26] MEDS: INSULIN ASPART PER UNIT SQ SCH ×4 (10:10→21:12)
[2021-10-26] MEDS: INSULIN HUMAN NPH SC SCH ×2 (10:10→19:02)
[2021-10-26] MEDS: carvediloL 6.25 MG TAB PO SCH ×2 (10:20→21:12)
[2021-10-26] MEDS: ASPIRIN 81 MG ECTAB PO SCH (10:20)
[2021-10-26] MEDS: PANTOprazole 40 MG TAB PO SCH ×2 (10:20→21:12)
[2021-10-26] MEDS: amLODIPine BESYLATE 5 MG TAB PO SCH (10:20)
[2021-10-26] MEDS: APIXABAN 5 MG TABLET PO SCH ×2 (10:20→21:12)
[2021-10-26] MEDS: PIPERACILLIN/TAZOBACTAM 4.5 GM in DEXTROSE 5% 100 ML IV SCH ×2 (10:21→16:17)
[2021-10-26 10:31] LABS: Basophils # (auto) 0.01 K/uL (0-0.2); Basophils % (auto) 0.1 %; Eosinophils # (auto) 0.09 K/uL (0-0.5); Eosinophils % (auto) 0.8 %; Hematocrit (blood only) 41.5 % (42-52); Hemoglobin 13.2 g/dL (14.0-18.0); Immature Granulocytes # (auto) 0.05 K/uL (0.00-0.02); Immature Granulocytes % (auto) 0.4 %; Lymphocytes % (auto) 20.5 %; Mean Corpuscular Hemoglobin 29.1 pg (25-34); Mean Corpuscular Hgb Conc 31.8 g/dL (32-36); Mean Corpuscular Volume 91.4 fL (80-100); Mean Platelet Volume 10.8 fL (7.4-10.4); Monocytes # (auto) 1.14 K/uL (0.11-0.59); Monocytes % (auto) 9.7 %; Neutrophils # (auto) 8.01 K/uL (1.4-6.5); Neutrophils % (auto) 68.5 %; Platelet Count 106 K/uL (130-400); RDW Coefficient of Variation 17.2 % (11.5-14.5); RDW Standard Deviation 57.6 fL (36.4-46.3); Red Blood Count 4.54 M/uL (4.7-6.1)
[2021-10-26] MEDS: DOXYCYCLINE HYCLATE 100 MG in DEXTROSE 5% 100 ML IV SCH (10:54)
[2021-10-26 11:05] LABS: BUN Creatinine Ratio 33.3 (10-20); Calcium 9.4 mg/dl (8.5-10.1); Creatinine Clr Calc Pharmacy 54.7 ml/min; Est GFR (African American) 64.8 ml/min; Est GFR (Non-African American) 55.9 ml/min
--- NOTE | 2021-10-26 13:21 | Pharmacy Report ---
Pharmacy Glycemic Short Note 2 - Date of Service October 26, 2021 - Glycemic Short BSG Results (Last 24 hours): 10/25/21 10/25/21 10/26/21 16:25 21:08 07:38 Glucose POC Glucose 93 153 H 142 H 10/26/21 10/26/21 10:17 12:07 Glucose 189 H POC Glucose 195 H OUTPATIENT ANTIDIABETIC REGIMEN: * Novolog Mix 70/30 - 40 units SC AM, 30 units SC PM * HbA1c = 7.8% (09/20/21) ASSESSMENT: 10/26/21: * Calvin received 24 units of insulin yesterday (15 unit NPH, 9 units Novolog) * BSGs well controlled yesterday. Starting to trend upward today. Patient continues to require significantly less compared to home dosing * Will slightly increase evening dose of NPH. Can reassess AM dose on 10/27. 10/25/21: * Calvin received 20 units of SQ insulin yesterday (15 units of NPH, 5 units Novolog) * He had an episode of hypoglycemia yesterday at dinnertime. I suspect this was due to his morning dose of NPH as he received very little novolog throughout the day. PM dose of NPH was held and dose for this morning was decreased ~30%. * Fasting BSG of 168 mg/dL is above goal. This is expected since PM dose of NPH was held. 10/24:. * Patient received 43 units of insulin yesterday (25 units NPH + 18 units Novolog) * BSGs yesterday were: [phone] mg/dL * Fasting BSG was 95 mg/dL this AM - well controlled * Based on previous admission data from last month, patient was stable on 10 units of NPH in the AM. Attempted to reduce NPH dose to 12 units this AM but 15 units had already been administered. * Similar pattern of hyperglycemia with lunch and borderline hypoglycemia at dinner from previous admission was observed yesterday. Opting to discontinue dinner NPH and stick with reduced once daily dose in the AM. * Will reduce carb ratio with lunch to hopefully prevent hypoglycemia at dinner. 10/23: * Calvin is a 76 yo diabetic with hypoglycemia at the time of admission * Will utilize NPH + novolog while admitted for easier transition back to 70/30 at time of discharge * AM dose of NPH was reduced by ~ 50% compared to home usage due to persistent hypoglycemia yesterday - will likely need increased on 10/24 * Novolog parameters selected based on weight/stress 2 PLAN FOR INPATIENT GLYCEMIC CONTROL: * Hold outpatient oral antiglycemic medications * Basal insulin * NPH 10 units SQ with breakfast * NPH 5-7 units SQ with dinner (5 units for BSG <100, 7 units for 100-180, 9 units for BSG > 180) * Bolus insulin * NovoLog per scale ACHS or Q6hrs while NPO * Goal Range: Low 110 mg/dL - High 140 mg/dL * Correction Factor: 30 mg/dL/unit * Nutritional / Prandial insulin per carb ratio of 1 unit per 10 grams CHO consumed PLAN FOR DISCHARGE: * HbA1c of 7.8% is acceptable for this patient. * No changes recommended in outpatient regimen as long as patient is not experiencing any hyper/hypoglycemia at home.
--- NOTE | 2021-10-26 19:47 | Hospitalist Progress Note ---
Date of Service October 26, 2021 Assessment & Plan (1) Weakness: Plan: After extensive reviewappears that probably his weakness at the time of admission was multifactorial related to acute on chronic aspiration pneumonia, as well as dehydration. Improvingcontinue current careanticipate transitioning to p.o. antibiotics (Augmentin) at discharge Confusion likely represents a mild metabolic encephalopathy due to underlying causes. Waxing waningwas doing better until 10/25 now persistently confused again, although I do not see any new infectious/metabolic/toxic causes, so almost certainly just due to hospital environment and presenting pneumonia. Currently does not feel safe taking him home, which is understandablewill likely need SNF/rehab emphasis unless delirium clears again and we can consider home. (2) RLL pneumonia: Plan: After further review, and after extremely helpful input from DATA KEYER, appears patient probably is suffering from an acute on chronic aspiration pneumoniadue to upper esophageal spasticity. See below under dysphagia. Given his weakness, even though he did not really have much of a leukocytosis, and no fever, will continue empiric antibiotics, as I do suspect he is suffering some from an actual infection in this acute on chronic aspiration situationon zosyn for now and anticipate augmentin at discharge (3) Bradycardia: Plan: no findings indicating any imminent need for a pacemaker, rates now more reasonable. Continue to follow. (4) Dysphagia: Plan: Possibly residual from his stroke. Increased his home amlodipine from 2.5 to 5mg to try to help relax esophagus some. Slow eating, alternating solids and liquids, upright, Protonix twice daily. Outpatient GI follow-up, anticipate manometry plus or minus EGD, etc. (5) Hypotension: Plan: -now improved -cortisol reassuring at 19.3 (6) Atypical chest pain: Plan: Troponin negative, echo reassuring (7) Chronic kidney disease (CKD), stage II (mild): Plan: follow. --hyperkalemia finally improved and creatinine trended down ---Na mildly high today - follow off fluids, BMP in AM again (8) Congestive heart failure: Plan: Patient with a history of heart failure with preserved ejection fraction. Had been getting IV fluids. now stopped. currently examines euvolemic (9) Diabetes with neurologic complications: Plan: Pharmacy glycemic consult, input appreciated. Sugars overall remain reasonable (10) Gastroesophageal reflux disease: Plan: Continue PPI (now up to bid) small polyp noted at FEES can be evaluated as outpt - although strongly suspect it is just inflammatory (11) Hypertension: Plan: Continue to follow blood pressureinitiating amlodipine to try to help with esophagus as above (12) Hypothyroidism: Plan: Continue home Synthroid 100 mcg p.o. every morning (13) Obstructive sleep apnea: Plan: CPAP nightly as needed (14) Paroxysmal atrial fibrillation: Plan: Rates reasonable without medication, anticoagulated Plan: DVT PPx: Anticoagulated as above Diet: DM2 CODE STATUS: Full code Disposition: Stable on medical. Continue to follow. Unfortunately delirium complicates planning that was initially for home. Now PT/OT eval and treat, anticipate subacute rehab. That said, if his mentation clears (as it had on 10/24) we will discuss with about revisiting home if she feels she can care for him. Almost certainly will need subacute rehab so. Admission and Anticipated Discharge Date Admission Date: October 22, 2021 Subjective More confused. Mostly talking about [place], clearing snow, and people coming. No meaningful HPI review of systems obtainable from patient. Later revisited whenever present, she restates the obvious that she would not be able to take care of him in his current state. We discussed options from here moving forward. Review of Systems Review of Systems: Unobtainable due to cognitive status Physical Exam Physical Exam: Awake and talkative but disoriented. No distress. Later, picking at his sheets. HEENT normocephalic atraumatic mucous membranes moist. Lungs are overall clear moderate spontaneous effort Nate most optimal exam no rales rhonchi or wheezes. Abdomen is soft nondistended nontender no masses organomegaly. Extremities are without cyanosis or clubbing. Neuro without focal deficits. Results & Data Results & Data ([facility]) Vital Signs (Past 12 Hours) Vital Signs Temp Pulse Pulse Resp BP Pulse Ox 10/26/21 15:05 98.2 F 69 16 144/71 H 92 10/26/21 10:08 80 129/79 PG Care Time/CCT Total # of Minutes Spent Total Time Spent with Patient: Total time spent is greater than 50% in coordination of care (as documented) at patient's floor/unit and/or counseling patient: Coding Level of Care Code 36391 Subseq Hosp Care Lvl 3 Diagnoses Weakness R53.1 RLL pneumonia J18.9 Bradycardia R00.1 Dysphagia R13.10 Hypotension I95.9 Atypical chest pain R07.89 Chronic kidney disease (CKD), stage II (mild) N18.2 Congestive heart failure I50.9 Diabetes with neurologic complications E11.49 Gastroesophageal reflux disease K21.9 Hypertension I10 Hypothyroidism E03.9 Obstructive sleep apnea G47.33 Paroxysmal atrial fibrillation I48.0
[2021-10-27] MEDS: PIPERACILLIN/TAZOBACTAM 4.5 GM in DEXTROSE 5% 100 ML IV SCH ×4 (00:23→23:56)
[2021-10-27 06:22] LABS: Basophils # (auto) 0.02 K/uL (0-0.2); Basophils % (auto) 0.2 %; Eosinophils # (auto) 0.11 K/uL (0-0.5); Eosinophils % (auto) 1.1 %; Hematocrit (blood only) 39.4 % (42-52); Hemoglobin 12.5 g/dL (14.0-18.0); Immature Granulocytes # (auto) 0.04 K/uL (0.00-0.02); Immature Granulocytes % (auto) 0.4 %; Lymphocytes # (auto) 3.01 K/uL (1.2-3.4); Lymphocytes % (auto) 29.1 %; Mean Corpuscular Hemoglobin 28.9 pg (25-34); Mean Corpuscular Hgb Conc 31.7 g/dL (32-36); Mean Platelet Volume 10.5 fL (7.4-10.4); Monocytes # (auto) 1.11 K/uL (0.11-0.59); Monocytes % (auto) 10.7 %; Neutrophils # (auto) 6.07 K/uL (1.4-6.5); Neutrophils % (auto) 58.5 %; Platelet Count 116 K/uL (130-400); RDW Coefficient of Variation 17.2 % (11.5-14.5); RDW Standard Deviation 57.8 fL (36.4-46.3); Red Blood Count 4.33 M/uL (4.7-6.1); White Blood Count 10.36 K/uL (4.8-10.8)
[2021-10-27] MEDS: LEVOTHYROXINE SODIUM 100 MCG TABLET PO SCH (06:29)
[2021-10-27 07:10] LABS: BUN Creatinine Ratio 29.9 (10-20); Calcium 9.2 mg/dl (8.5-10.1); Creatinine Clr Calc Pharmacy 44.3 ml/min; Est GFR (African American) 50.1 ml/min; Est GFR (Non-African American) 43.3 ml/min; Potassium 3.4 mmol/L (3.5-5.1)
[2021-10-27] MEDS: INSULIN HUMAN NPH SC SCH ×2 (07:56→18:09)
--- NOTE | 2021-10-27 08:32 | Hospitalist Progress Note ---
Date of Service October 27, 2021 Assessment & Plan (1) RLL pneumonia: (2) Weakness: (3) Paroxysmal atrial fibrillation: (4) Chronic kidney disease (CKD), stage II (mild): (5) Gastroesophageal reflux disease: (6) Aspiration into lower respiratory tract: (7) Acute on chronic renal failure: Plan: 1. Bilateral pneumonias. Suspect acute on chronic aspiration. Day 4 pip/tazo. O2 sats acceptable. Asymptomatic. 2. Aspiration. on Amlodipine for possible esophageal dysmotility. Speech therapy recs noted. Continue aspiration precautions. High risk for recurrent aspiration.Slow eating, alternating solids and liquids, upright, Protonix twice daily. Outpatient GI follow-up, anticipate manometry plus or minus EGD, etc. 3. Generalized weakness. Secondary to the above. Will need continued PT. SNF Placement probable. 4. CDK. [Na], creatinine rising. Will repeat in am. Encouraged fluids. May need IV replacement. 5. T2DM. Pharmacy glycemic consult, input appreciated. Sugars overall remain reasonable 6. Hypertension. Adjust medication as needed. Continue to follow. 7. Paroxysmal atrial fibrillation. Rates 60s-80s. On no AV blocking agent. Bradycardic on admission. On Eliquis. no obvious bleeding. Admission and Anticipated Discharge Date Admission Date: October 22, 2021 Subjective Alert. Seems happy. Confused to time, date and situation. States that he is going home today. Denies pain, shortness of breath, abdominal pain. Eating well. No fevers, chills. Reviewed with nursing staff. No new problems overnight. Review of Systems Review of Systems: As per HPI Physical Exam Physical Exam: Alert Lungs: Decreased but essentially clear Heart: Regular. No obvious murmur Abd: Obese, soft. Good bouel sounds Ext: no edema. Resting tremor Results & Data Results & Data ([facility]) Vital Signs (Past 12 Hours) Vital Signs Temp Pulse Pulse Resp BP BP Pulse Ox 10/27/21 07:27 97.9 F 78 16 164/90 H 93 10/26/21 22:37 98.8 F 18 93 10/26/21 21:09 84 132/72 PG Care Time/CCT Total # of Minutes Spent Total Time Spent with Patient: Total time spent is greater than 50% in coordination of care (as documented) at patient's floor/unit and/or counseling patient: Coding Level of Care Code 77168 Subseq Hosp Care Lvl 3 Diagnoses RLL pneumonia J18.9 Weakness R53.1 Paroxysmal atrial fibrillation I48.0 Chronic kidney disease (CKD), stage II (mild) N18.2 Gastroesophageal reflux disease K21.9 Aspiration into lower respiratory tract T17.800A Acute on chronic renal failure N17.9; N18.9
[2021-10-27] MEDS: ASPIRIN 81 MG ECTAB PO SCH (08:41)
[2021-10-27] MEDS: PANTOprazole 40 MG TAB PO SCH ×2 (08:41→20:49)
[2021-10-27] MEDS: APIXABAN 5 MG TABLET PO SCH ×2 (08:41→20:49)
[2021-10-27] MEDS: amLODIPine BESYLATE 5 MG TAB PO SCH (08:41)
[2021-10-27] MEDS: carvediloL 6.25 MG TAB PO SCH ×2 (08:41→20:49)
[2021-10-27] MEDS: INSULIN ASPART PER UNIT SQ SCH ×4 (09:07→20:48)
[2021-10-28] MEDS: LEVOTHYROXINE SODIUM 100 MCG TABLET PO SCH (06:12)
[2021-10-28] MEDS: PIPERACILLIN/TAZOBACTAM 4.5 GM in DEXTROSE 5% 100 ML IV SCH ×3 (07:44→23:21)
--- NOTE | 2021-10-28 08:15 | Hospitalist Progress Note ---
Date of Service October 28, 2021 Assessment & Plan (1) RLL pneumonia: (2) Aspiration into lower respiratory tract: (3) Weakness: (4) Acute on chronic renal failure: (5) Diabetes: (6) Hypertension: (7) Paroxysmal atrial fibrillation: Plan: 1. Bilateral pneumonias. Suspect acute on chronic aspiration. Day 5 pip/tazo. O2 sats acceptable. Asymptomatic. 2. Aspiration. on Amlodipine for possible esophageal dysmotility. Speech therapy recs noted. Continue aspiration precautions. High risk for recurrent aspiration.Slow eating, alternating solids and liquids, upright, Protonix twice daily. Outpatient GI follow-up, anticipate manometry plus or minus EGD, etc. 3. Generalized weakness. Secondary to the above. Will need continued PT. SNF Placement probable. 4. CDK. [Na], creatinine rising. Labs pending. Encouraged fluids. May need IV replacement. 5. T2DM. Pharmacy glycemic consult, input appreciated.Novolog 70/30 BID. Sugars overall remain reasonable 6. Hypertension. BP at goal. Adjust medication as needed. Continue to follow. 7. Paroxysmal atrial fibrillation. Rates 60s-80s. On no AV blocking agent. Bradycardic on admission. On Eliquis. No obvious bleeding. Repeat CBC,BMP in AM Admission and Anticipated Discharge Date Admission Date: October 22, 2021 Subjective Uneventful night. States that he was discharged yesterday, but decided to stay another night. Denies pain. Eating well. Review of Systems Review of Systems: per HPI Physical Exam Physical Exam: Alert. Comfortable Lungs: Decreased BS bases. Few rhonchi Heart: Regular Abd: soft nontender Ext: No edema Results & Data Results & Data ([facility]) Vital Signs (Past 12 Hours) Vital Signs Temp Pulse Pulse Resp BP Pulse Ox 10/28/21 07:08 97.5 F L 74 18 123/71 94 10/27/21 22:23 98.1 F 68 18 149/74 H 96 10/27/21 20:47 70 138/75 PG Care Time/CCT Total # of Minutes Spent Total Time Spent with Patient: Total time spent is greater than 50% in coordination of care (as documented) at patient's floor/unit and/or counseling patient: Coding Level of Care Code 27306 Subseq Hosp Care Lvl 3 Diagnoses RLL pneumonia J18.9 Aspiration into lower respiratory tract T17.800A Weakness R53.1 Acute on chronic renal failure N17.9; N18.9 Diabetes E11.9 Hypertension I10 Paroxysmal atrial fibrillation I48.0
[2021-10-28] MEDS: PANTOprazole 40 MG TAB PO SCH ×2 (08:24→21:53)
[2021-10-28] MEDS: amLODIPine BESYLATE 5 MG TAB PO SCH (08:24)
[2021-10-28] MEDS: ASPIRIN 81 MG ECTAB PO SCH (08:24)
[2021-10-28] MEDS: carvediloL 6.25 MG TAB PO SCH (08:24)
[2021-10-28] MEDS: APIXABAN 5 MG TABLET PO SCH ×2 (08:24→21:54)
[2021-10-28 08:47] LABS: BUN Creatinine Ratio 28.9 (10-20); Calcium 8.4 mg/dl (8.5-10.1); Creatinine Clr Calc Pharmacy 40.1 ml/min; Est GFR (African American) 45.1 ml/min; Est GFR (Non-African American) 38.9 ml/min; Potassium 3.3 mmol/L (3.5-5.1)
[2021-10-28] MEDS: INSULIN HUMAN NPH SC SCH (09:00)
[2021-10-28] MEDS: INSULIN ASPART PER UNIT SQ SCH ×3 (09:01→21:55)
--- NOTE | 2021-10-28 09:51 | Cardiology Progress Note ---
Date of Service October 28, 2021 Assessment & Plan (1) Bradycardia: Plan: 2. Asymptomatic paroxysmal atrial fibrillation 3. Aspiration pneumonia 4. Hypotensionresolved 5. Acute on chronic renal insufficiency 6. Type 2 diabetes, intermittent hypoglycemia 7. Transaminitis 8. Atypical chest pain/Presumed coronary artery disease--positive RCA territory stress test in 2020, no prior catheterization 9. Thrombocytopenia Looks well today compared with admission. Still intermittently confused. Clinically in rate controlled atrial fibrillation today. No signs of heart failure Carvedilol restarted over the weekendwith prior relative bradycardia when in sinus rhythm would reduce to 3.125 twice daily. Okay with resting heart rates in the 100s to below while in AF Can increase amlodipine as needed for BP. Home diuretics, losartan on hold with JANINE Continue anticoagulation with apixaban. Can stop aspirin. Admission and Anticipated Discharge Date Admission Date: October 22, 2021 Subjective Reports feeling well today. Denies dizziness. Denies chest pain. States appetite improved. Feels stronger. States that he was discharged yesterday, but decided to stay another night. Review of Systems Review of Systems: All systems reviewed & are unremarkable except as noted in HPI & below Physical Exam Physical Exam: General: Comfortable, sitting up in chair HEENT: Sclerae anicteric Lungs: Few rhonchi Cardiac: Irregular irregular, no murmurs Vascular: 2+ radia Abdomen: Soft, nontender Extremities: Well perfused, no peripheral edema Psych: Alert oriented, normal affect and mood Results & Data ([facility]) Vital Signs (Past 12 Hours) Vital Signs Temp Pulse Pulse Resp BP Pulse Ox 10/28/21 07:08 97.5 F L 74 18 123/71 94 10/27/21 22:23 98.1 F 68 18 149/74 H 96 PG Care Time/CCT Total # of Minutes Spent Total Time Spent with Patient: Total time spent is greater than 50% in coordination of care (as documented) at patient's floor/unit and/or counseling patient: Coding Level of Care Code 85438 Subseq Hosp Care Lvl 3 Diagnoses Bradycardia R00.1
[2021-10-28] MEDS: SODIUM CHLOR 0.45% + 20MEQ KCL 20 MEQ/1,000 ML BAG IV SCH (12:43)
[2021-10-28] MEDS: CARBOHYDRATES FOR HYPOGLYCEMIA PO PRN (16:57)
[2021-10-28] MEDS: MELATONIN 3 MG TAB PO PRN (21:54)
[2021-10-28] MEDS: carvediloL 3.125 MG TAB PO SCH (21:54)
--- NOTE | 2021-10-29 05:24 | Hospitalist Progress Note ---
Date of Service October 29, 2021 Assessment & Plan (1) Thrombocytopenia: Plan: 1. Bilateral pneumonias, L>R. Suspect acute on chronic aspiration. Day 6 pip/tazo. O2 sats acceptable. Asymptomatic. DC IV antibiotics. Follow 2. Aspiration. on Amlodipine for possible esophageal dysmotility. Speech therapy recs noted. Continue aspiration precautions. High risk for recurrent aspiration.Slow eating, alternating solids and liquids, upright, Protonix twice daily. Outpatient GI follow-up, anticipate manometry +/- EGD, etc. 3. Thrombocytopenia. Suspect 2nd to pip/tazo. D/C ab and follow 4. Generalized weakness. Secondary to the above. Will need continued PT. SNF Placement probable. 5. CDK. [Na], Acute on chronic .Started on IV replacement fluids yesterday. Electrolytes improved. Follow. Baseline Creat ~ 1.2-1.4 5. T2DM. Pharmacy glycemic consult, input appreciated.Novolog 70/30 BID. Sugars overall remain reasonable 6. Hypertension. BP at goal. Adjust medication as needed. Continue to follow. 7. Paroxysmal atrial fibrillation. Rates 60s-80s. Low-dose Coreg. Bradycardic on admission. On Eliquis. No obvious bleeding. Admission and Anticipated Discharge Date Admission Date: October 22, 2021 Subjective Admitted 10/22/2021 with delirium, shortness of breath, bradycardia. [place] to have right lower lobe pneumonia. Patient with symptomatic bradycardia to a heart rate of the 40s prior to arrival in the ER Did resolve following atropine. Medications adjusted. Started on broad-spectrum antibiotics. After extensive reviewappears that probably his weakness at the time of admission was multifactorial related to acute on chronic aspiration pneumonia, as well as dehydration. Improving. Has been felt that his recurrent pneumonia is chronic aspiration due to esophageal dysmotility. Started on amlodipine to see if this would help with esophageal dysmotility (and BP). Heart rate subsequently improved and was placed on carvedilol. Uneventful night. Reviewed nurse's notes. Alert. Continues to be content. Denies pain. Eating well. Denies cough for shortness of breath. Required starting IV for rising BUN/Cr. Review of Systems Review of Systems: as per subjective Physical Exam Physical Exam: In general: Not distressed. pleasant Skin: No obvious rash. Eyes: Anicteric. Respiratory: Decreased breath sounds bases L>R Cardiovascular: irregular No murmur. Lower extremities: No edema. Abdomen: obese Soft, good bowel sounds. No appreciable hepatosplenomegaly masses or tenderness Extremities:/musculoskeletal: Grossly full range of motion of major joints. Gait without ataxia. Neuro exam: No obvious focal neurologic abnormality. Psychiatric: Alert. Mood and affect appropriate. Results & Data Results & Data ([facility]) Vital Signs (Past 12 Hours) Vital Signs Temp Pulse Resp BP Pulse Ox 10/28/21 23:10 97.7 F 73 20 103/71 92 10/28/21 21:52 65 125/64 92 PG Care Time/CCT Total # of Minutes Spent Total Time Spent with Patient: Total time spent is greater than 50% in coordination of care (as documented) at patient's floor/unit and/or counseling patient: Coding Level of Care Code 38896 Subseq Hosp Care Lvl 3 Diagnoses Thrombocytopenia D69.6
[2021-10-29] MEDS: LEVOTHYROXINE SODIUM 100 MCG TABLET PO SCH (05:50)
[2021-10-29] MEDS: INSULIN HUMAN NPH SC SCH ×2 (07:08→09:33)
[2021-10-29] MEDS: INSULIN ASPART PER UNIT SQ SCH ×5 (07:08→20:33)
[2021-10-29 07:16] LABS: Basophils # (auto) 0.01 K/uL (0-0.2); Basophils % (auto) 0.1 %; Eosinophils # (auto) 0.17 K/uL (0-0.5); Eosinophils % (auto) 1.9 %; Hematocrit (blood only) 36.1 % (42-52); Hemoglobin 11.2 g/dL (14.0-18.0); Immature Granulocytes # (auto) 0.01 K/uL (0.00-0.02); Immature Granulocytes % (auto) 0.1 %; Lymphocytes # (auto) 2.86 K/uL (1.2-3.4); Lymphocytes % (auto) 32.5 %; Mean Corpuscular Hemoglobin 28.9 pg (25-34); Monocytes # (auto) 0.77 K/uL (0.11-0.59); Monocytes % (auto) 8.8 %; Neutrophils # (auto) 4.97 K/uL (1.4-6.5); Neutrophils % (auto) 56.6 %; Platelet Count 109 K/uL (130-400); RDW Standard Deviation 57.4 fL (36.4-46.3); Red Blood Count 3.88 M/uL (4.7-6.1); White Blood Count 8.79 K/uL (4.8-10.8)
[2021-10-29 07:42] LABS: BUN Creatinine Ratio 25.8 (10-20); Calcium 8.1 mg/dl (8.5-10.1); Creatinine Clr Calc Pharmacy 39.4 ml/min; Est GFR (African American) 44.1 ml/min; Est GFR (Non-African American) 38.1 ml/min; Potassium 3.7 mmol/L (3.5-5.1)
[2021-10-29] MEDS: SODIUM CHLOR 0.45% + 20MEQ KCL 20 MEQ/1,000 ML BAG IV SCH (08:22)
[2021-10-29] MEDS: PANTOprazole 40 MG TAB PO SCH ×2 (08:24→20:33)
[2021-10-29] MEDS: carvediloL 3.125 MG TAB PO SCH ×2 (08:24→20:33)
[2021-10-29] MEDS: APIXABAN 5 MG TABLET PO SCH ×2 (08:24→20:33)
[2021-10-29] MEDS: ASPIRIN 81 MG ECTAB PO SCH (08:24)
[2021-10-29] MEDS: amLODIPine BESYLATE 5 MG TAB PO SCH (08:25)
--- NOTE | 2021-10-29 15:35 | Pharmacy Report ---
Pharmacy Glycemic Short Note 2 - Date of Service October 29, 2021 - Glycemic Short BSG Results (Last 24 hours): 10/28/21 10/28/21 10/28/21 16:50 16:51 17:18 Glucose POC Glucose 60 L* 58 L* 96 10/28/21 10/29/21 10/29/21 20:41 06:56 07:38 Glucose 136 H POC Glucose 209 H 126 H 10/29/21 11:57 Glucose POC Glucose 284 H OUTPATIENT ANTIDIABETIC REGIMEN: * Novolog Mix 70/30 - 40 units SC AM, 30 units SC PM * HbA1c = 7.8% (09/20/21) ASSESSMENT: 10/29/21: * Calvin received 22 units of insulin yesterday (10 units NPH, 12 units Novolog) * Patient tends to by hyperglycemia at lunch and then low at dinner * carb coverage tightened with breakfast to avoid spike at lunch * correction factor with lunch loosened to avoid over correction and subsequent low BSG at dinner 10/26/21: * Calvin received 24 units of insulin yesterday (15 unit NPH, 9 units Novolog) * BSGs well controlled yesterday. Starting to trend upward today. Patient continues to require significantly less compared to home dosing * Will slightly increase evening dose of NPH. Can reassess AM dose on 10/27. 10/25/21: * Calvin received 20 units of SQ insulin yesterday (15 units of NPH, 5 units Novolog) * He had an episode of hypoglycemia yesterday at dinnertime. I suspect this was due to his morning dose of NPH as he received very little novolog throughout the day. PM dose of NPH was held and dose for this morning was decreased ~30%. * Fasting BSG of 168 mg/dL is above goal. This is expected since PM dose of NPH was held. 10/24:. * Patient received 43 units of insulin yesterday (25 units NPH + 18 units Novolog) * BSGs yesterday were: [phone] mg/dL * Fasting BSG was 95 mg/dL this AM - well controlled * Based on previous admission data from last month, patient was stable on 10 units of NPH in the AM. Attempted to reduce NPH dose to 12 units this AM but 15 units had already been administered. * Similar pattern of hyperglycemia with lunch and borderline hypoglycemia at dinner from previous admission was observed yesterday. Opting to discontinue dinner NPH and stick with reduced once daily dose in the AM. * Will reduce carb ratio with lunch to hopefully prevent hypoglycemia at dinner. 10/23: * Calvin is a 76 yo diabetic with hypoglycemia at the time of admission * Will utilize NPH + novolog while admitted for easier transition back to 70/30 at time of discharge * AM dose of NPH was reduced by ~ 50% compared to home usage due to persistent hypoglycemia yesterday - will likely need increased on 10/24 * Novolog parameters selected based on weight/stress 2 PLAN FOR INPATIENT GLYCEMIC CONTROL: * Hold outpatient oral antiglycemic medications * Basal insulin * NPH 8 units SQ with breakfast * NPH 4-6 units SQ with dinner (4 units for BSG < 150, 6 units for > 150) * Bolus insulin * NovoLog per scale ACHS or Q6hrs while NPO * Goal Range: Low 110 mg/dL - High 140 mg/dL Breakfast: * Correction Factor: 25 mg/dL/unit * Nutritional / Prandial insulin per carb ratio of 1 unit per 8 grams CHO consumed Lunch/dinner/HS: * Correction Factor: 35 mg/dL/unit * Nutritional / Prandial insulin per carb ratio of 1 unit per 10 grams CHO consumed PLAN FOR DISCHARGE: * HbA1c of 7.8% is acceptable for this patient. * No changes recommended in outpatient regimen as long as patient is not experiencing any hyper/hypoglycemia at home.
[2021-10-29] MEDS ORDERED: INSULIN HUMAN NPH SC SCH (16:30)
[2021-10-29] MEDS: CARBOHYDRATES FOR HYPOGLYCEMIA PO PRN (16:59)
[2021-10-30] MEDS: SODIUM CHLOR 0.45% + 20MEQ KCL 20 MEQ/1,000 ML BAG IV SCH (03:10)
--- NOTE | 2021-10-30 05:19 | Hospitalist Progress Note ---
Date of Service October 30, 2021 Assessment & Plan (1) RLL pneumonia: (2) Aspiration into lower respiratory tract: (3) Thrombocytopenia: (4) Weakness: (5) Chronic kidney disease (CKD), stage II (mild): (6) Diabetes: (7) Hypertension: (8) Paroxysmal atrial fibrillation: Plan: 1. Bilateral pneumonias, L>R. Suspect acute on chronic aspiration. O2 sats acceptable. Asymptomatic. Antibiotics discontinued 10/29/2020. History left pleural effusion (clinically present). Follow 2. Aspiration. (By CT: mildly distended and fluid-filled esophagus) on Amlodipine for possible esophageal dysmotility. Speech therapy recs noted. Continue aspiration precautions. High risk for recurrent aspiration.Slow eating, alternating solids and liquids, upright, Protonix twice daily. Outpatient GI follow-up, anticipate manometry +/- EGD, etc. 3. Thrombocytopenia. Suspect 2nd to pip/tazo. Today 134K. Follow numbers off of antibiotics. 4. Generalized weakness. Secondary to the above. Will need continued PT. SNF Placement probable. Reviewed case management recommendations. He agrees. 5. CDK. [Na], Acute on chronic.Started on IV replacement fluids yesterday. Electrolytes improved. EGFR now at baseline. D/C IV 5. T2DM. Pharmacy glycemic consult, input appreciated.Novolog 70/30 BID. Sugars overall remain reasonable 6. Hypertension. BP at goal. Adjust medication as needed. Continue to follow. 7. Atrial fibrillation. Rates 60s-80s. Low-dose Coreg. Bradycardic on admission. On Eliquis. No obvious bleeding. Admission and Anticipated Discharge Date Admission Date: October 22, 2021 Subjective Admitted 10/22/2021 with delirium, shortness of breath, bradycardia. (PCP Dr. Ryan) [place] to have right lower lobe pneumonia. Had symptomatic bradycardia to a heart rate of the 40s prior to arrival in the ER Did resolve following atropine. Medications adjusted. Started on broad-spectrum antibiotics. After extensive reviewappears that probably his weakness at the time of admission was multifactorial related to acute on chronic aspiration pneumonia, as well as dehydration. Improving. Antibiotics were discontinued yesterday. O2 sats have been acceptable. Has been felt that his recurrent pneumonia is chronic aspiration due to esophageal dysmotility. Started on amlodipine to see if this would help with esophageal dysmotility (and BP). (Prior hospitalization 09/2021 for left pleural effusion-s/p thoracentesis- transudate.[place] to be 2nd HFpEF) He has atrial fibrillation. Evidence of additional conduction disease with 1st AV block and RBBB and suspect progression of sinus node disease with beta yesica use. Heart rate subsequently improved and was placed on low dose carvedilol. Heart rates have remained normal. He has chronic kidney disease. Slight worsening of numbers over the last several days. IV fluid started 2 days ago. Electrolytes normalized. Renal function returning to baseline. He has diabetes mellitus on insulin. Home insulin 70/30, 40 units AM, 30 units PM. Insulin therapy managed by hospital pharmacy. Uneventful night. Reviewed nurse's notes. Alert. Continues to be content. Denies pain. Eating well. Denies cough for shortness of breath. Case management met with him yesterday. feels that he needs inpatient rehab. Discussed with him today. He agrees. Review of Systems Review of Systems: As per HPI Physical Exam Physical Exam: In general: Not distressed. pleasant Skin: No obvious rash. Eyes: Anicteric. Respiratory: Decreased breath sounds bases L>>R Cardiovascular: Regular No murmur. Lower extremities: No edema. Abdomen: obese Soft, good bowel sounds. No appreciable hepatosplenomegaly masses or tenderness Extremities:/musculoskeletal: Grossly full range of motion of major joints. Gait without ataxia. Neuro exam: No obvious focal neurologic abnormality. Psychiatric: Alert. Mood and affect appropriate. Results & Data Results & Data ([facility]) Vital Signs (Past 12 Hours) Vital Signs Temp Pulse Resp BP Pulse Ox 10/29/21 23:29 98.2 F 72 22 131/80 92 10/29/21 20:31 66 139/80 96 PG Care Time/CCT Total # of Minutes Spent Total Time Spent with Patient: Total time spent is greater than 50% in coordination of care (as documented) at patient's floor/unit and/or counseling patient: Coding Level of Care Code 82914 Subseq Hosp Care Lvl 3 Diagnoses RLL pneumonia J18.9 Aspiration into lower respiratory tract T17.800A Thrombocytopenia D69.6 Weakness R53.1 Chronic kidney disease (CKD), stage II (mild) N18.2 Diabetes E11.9 Hypertension I10 Paroxysmal atrial fibrillation I48.0
[2021-10-30] MEDS: LEVOTHYROXINE SODIUM 100 MCG TABLET PO SCH (05:28)
[2021-10-30 06:08] LABS: Basophils # (auto) 0.01 K/uL (0-0.2); Basophils % (auto) 0.1 %; Eosinophils # (auto) 0.19 K/uL (0-0.5); Eosinophils % (auto) 1.9 %; Hemoglobin 11.6 g/dL (14.0-18.0); Immature Granulocytes # (auto) 0.02 K/uL (0.00-0.02); Immature Granulocytes % (auto) 0.2 %; Lymphocytes # (auto) 2.76 K/uL (1.2-3.4); Lymphocytes % (auto) 28.2 %; Mean Corpuscular Hemoglobin 29.4 pg (25-34); Mean Corpuscular Hgb Conc 31.4 g/dL (32-36); Mean Corpuscular Volume 93.7 fL (80-100); Monocytes # (auto) 0.94 K/uL (0.11-0.59); Monocytes % (auto) 9.6 %; Neutrophils # (auto) 5.88 K/uL (1.4-6.5); Platelet Count 134 K/uL (130-400); RDW Coefficient of Variation 16.9 % (11.5-14.5); RDW Standard Deviation 57.5 fL (36.4-46.3); Red Blood Count 3.95 M/uL (4.7-6.1)
[2021-10-30 06:35] LABS: BUN Creatinine Ratio 28.6 (10-20); Calcium 8.1 mg/dl (8.5-10.1); Creatinine Clr Calc Pharmacy 52.4 ml/min; Est GFR (African American) 62.3 ml/min; Est GFR (Non-African American) 53.8 ml/min; Potassium 3.8 mmol/L (3.5-5.1)
[2021-10-30] MEDS: PANTOprazole 40 MG TAB PO SCH ×2 (09:46→20:32)
[2021-10-30] MEDS: ASPIRIN 81 MG ECTAB PO SCH (09:46)
[2021-10-30] MEDS: amLODIPine BESYLATE 5 MG TAB PO SCH (09:46)
[2021-10-30] MEDS: APIXABAN 5 MG TABLET PO SCH ×2 (09:47→20:32)
[2021-10-30] MEDS: carvediloL 3.125 MG TAB PO SCH ×2 (09:47→20:32)
--- NOTE | 2021-10-30 09:47 | Pharmacy Report ---
Pharmacy Glycemic Short Note 2 - Date of Service October 30, 2021 - Glycemic Short BSG Results (Last 24 hours): 10/29/21 10/29/21 10/29/21 11:57 16:55 16:56 Glucose POC Glucose 284 H 41 L* 43 L* 10/29/21 10/29/21 10/29/21 17:16 17:17 20:29 Glucose POC Glucose 68 L* 73 110 H 10/30/21 10/30/21 05:40 07:39 Glucose 118 H POC Glucose 121 H OUTPATIENT ANTIDIABETIC REGIMEN: * Novolog Mix 70/30 - 40 units SC AM, 30 units SC PM * HbA1c = 7.8% (09/20/21) ASSESSMENT: 10/30/21 * Stressors stable * AM fasting BSG good with reduction on NPH yesterday. Will continue * Significant severe hypoglycemia at dinner yesterday, similar to previous day. Correction factor likely playing a role. Will loosen correction at lunch, dinner, bedtime, and will also loosen CHO at lunch to help prevent a repeat hypoglycemic event at dinner 10/29/21: * Calvin received 22 units of insulin yesterday (10 units NPH, 12 units Novolog) * Patient tends to by hyperglycemia at lunch and then low at dinner * carb coverage tightened with breakfast to avoid spike at lunch * correction factor with lunch loosened to avoid over correction and subsequent low BSG at dinner 10/26/21: * Calvin received 24 units of insulin yesterday (15 unit NPH, 9 units Novolog) * BSGs well controlled yesterday. Starting to trend upward today. Patient continues to require significantly less compared to home dosing * Will slightly increase evening dose of NPH. Can reassess AM dose on 10/27. PLAN FOR INPATIENT GLYCEMIC CONTROL: * Hold outpatient oral antiglycemic medications * Basal insulin * NPH 8 units SQ with breakfast * Bolus insulin * NovoLog per scale ACHS or Q6hrs while NPO * Goal Range: Low 110 mg/dL - High 140 mg/dL Breakfast: * Correction Factor: 25 mg/dL/unit * Nutritional / Prandial insulin per carb ratio of 1 unit per 8 grams CHO consumed Lunch: * Correction Factor: 35 mg/dL/unit * Nutritional / Prandial insulin per carb ratio of 1 unit per 12 grams CHO consumed Dinner/HS: * Correction Factor: 35 mg/dL/unit * Nutritional / Prandial insulin per carb ratio of 1 unit per 10 grams CHO consumed PLAN FOR DISCHARGE: * HbA1c of 7.8% is acceptable for this patient. * No changes recommended in outpatient regimen as long as patient is not experiencing any hyper/hypoglycemia at home.
[2021-10-30] MEDS: INSULIN HUMAN NPH SC SCH (09:51)
[2021-10-30] MEDS: INSULIN ASPART PER UNIT SQ SCH ×4 (09:55→20:40)
[2021-10-30] MEDS: MELATONIN 3 MG TAB PO PRN (20:32)
[2021-10-31 04:02] LABS: Babesia microti DNA Not Detected (Not Detected)
[2021-10-31] MEDS: LEVOTHYROXINE SODIUM 100 MCG TABLET PO SCH (05:17)
[2021-10-31 06:29] LABS: Basophils # (auto) 0.01 K/uL (0-0.2); Basophils % (auto) 0.1 %; Eosinophils # (auto) 0.13 K/uL (0-0.5); Eosinophils % (auto) 1.4 %; Hematocrit (blood only) 35.7 % (42-52); Hemoglobin 11.3 g/dL (14.0-18.0); Immature Granulocytes # (auto) 0.03 K/uL (0.00-0.02); Immature Granulocytes % (auto) 0.3 %; Lymphocytes % (auto) 27.7 %; Mean Corpuscular Hemoglobin 30.2 pg (25-34); Mean Corpuscular Hgb Conc 31.7 g/dL (32-36); Mean Corpuscular Volume 95.5 fL (80-100); Mean Platelet Volume 10.3 fL (7.4-10.4); Monocytes # (auto) 0.84 K/uL (0.11-0.59); Monocytes % (auto) 9.3 %; Neutrophils # (auto) 5.53 K/uL (1.4-6.5); Neutrophils % (auto) 61.2 %; Platelet Count 149 K/uL (130-400); RDW Coefficient of Variation 17.2 % (11.5-14.5); RDW Standard Deviation 58.6 fL (36.4-46.3); Red Blood Count 3.74 M/uL (4.7-6.1); White Blood Count 9.04 K/uL (4.8-10.8)
[2021-10-31 06:59] LABS: BUN Creatinine Ratio 24.7 (10-20); Calcium 8.3 mg/dl (8.5-10.1); Creatinine Clr Calc Pharmacy 47.9 ml/min; Est GFR (African American) 55.9 ml/min; Est GFR (Non-African American) 48.2 ml/min
[2021-10-31] MEDS: APIXABAN 5 MG TABLET PO SCH ×2 (08:21→21:16)
[2021-10-31] MEDS: amLODIPine BESYLATE 5 MG TAB PO SCH (08:21)
[2021-10-31] MEDS: ASPIRIN 81 MG ECTAB PO SCH (08:21)
[2021-10-31] MEDS: carvediloL 3.125 MG TAB PO SCH ×2 (08:21→21:15)
[2021-10-31] MEDS: PANTOprazole 40 MG TAB PO SCH ×2 (08:21→21:16)
[2021-10-31] MEDS: INSULIN ASPART PER UNIT SQ SCH ×4 (08:43→21:10)
[2021-10-31] MEDS: INSULIN HUMAN NPH SC SCH (08:44)
--- NOTE | 2021-10-31 10:03 | Pharmacy Report ---
Pharmacy Glycemic Short Note 2 - Date of Service October 31, 2021 - Glycemic Short BSG Results (Last 24 hours): 10/30/21 10/30/21 10/30/21 12:13 17:00 20:24 Glucose POC Glucose 279 H 141 H 164 H 10/31/21 10/31/21 05:53 08:10 Glucose 146 H POC Glucose 151 H OUTPATIENT ANTIDIABETIC REGIMEN: * Novolog Mix 70/30 - 40 units SC AM, 30 units SC PM * HbA1c = 7.8% (09/20/21) ASSESSMENT: 10/31/21 * Stressors stable * AM fasting BSG in goal range - no change to NPH * Dinner BSG yesterday now in goal range with adjustment to lunch Novolog parameters yesterday. Pre-lunch BSG still elevated, though. Will tighten CHO ratio with breakfast. 10/30/21 * Stressors stable * AM fasting BSG good with reduction on NPH yesterday. Will continue * Significant severe hypoglycemia at dinner yesterday, similar to previous day. Correction factor likely playing a role. Will loosen correction at lunch, dinner, bedtime, and will also loosen CHO at lunch to help prevent a repeat hypoglycemic event at dinner 10/29/21: * Calvin received 22 units of insulin yesterday (10 units NPH, 12 units Novolog) * Patient tends to by hyperglycemia at lunch and then low at dinner * carb coverage tightened with breakfast to avoid spike at lunch * correction factor with lunch loosened to avoid over correction and subsequent low BSG at dinner PLAN FOR INPATIENT GLYCEMIC CONTROL: * Hold outpatient oral antiglycemic medications * Basal insulin * NPH 8 units SQ with breakfast * Bolus insulin * NovoLog per scale ACHS or Q6hrs while NPO Breakfast: * Goal Range: Low 90 mg/dL - High 140 mg/dL * Correction Factor: 25 mg/dL/unit * Nutritional / Prandial insulin per carb ratio of 1 unit per 7 grams CHO consumed Lunch: * Goal Range: Low 110 mg/dL - High 140 mg/dL * Correction Factor: 35 mg/dL/unit * Nutritional / Prandial insulin per carb ratio of 1 unit per 12 grams CHO consumed Dinner/HS: * Goal Range: Low 110 mg/dL - High 140 mg/dL * Correction Factor: 35 mg/dL/unit * Nutritional / Prandial insulin per carb ratio of 1 unit per 10 grams CHO consumed PLAN FOR DISCHARGE: * HbA1c of 7.8% is acceptable for this patient. * No changes recommended in outpatient regimen as long as patient is not experiencing any hyper/hypoglycemia at home.
--- NOTE | 2021-10-31 17:04 | Hospitalist Progress Note ---
Date of Service October 31, 2021 Assessment & Plan (1) RLL pneumonia: (2) Aspiration into lower respiratory tract: (3) Thrombocytopenia: (4) Weakness: (5) Chronic kidney disease (CKD), stage II (mild): (6) Diabetes: (7) Hypertension: (8) Paroxysmal atrial fibrillation: Plan: 1. Bilateral pneumonias, L>R. Suspect acute on chronic aspiration. O2 sats acceptable. Asymptomatic. Antibiotics discontinued 10/29/2020. History left pleural effusion (clinically present). Follow -- On previous admission he quickly filled up with fluid on the L side with small pneumothorax - going from RA to 15 L NC - responded predominantly to Lasix but did undergo thoracentesis with no malignancy on pathology; favored CHF related (grade II diastolic dysfunction on recent echo) 2. Aspiration. (By CT: mildly distended and fluid-filled esophagus) on A mlodipine for possible esophageal dysmotility. Speech therapy recs noted. Continue aspiration precautions. High risk for recurrent aspiration.Slow eating, alternating solids and liquids, upright, Protonix twice daily. Outpatient GI follow-up, anticipate manometry +/- EGD, etc. 3. Thrombocytopenia (NOW RESOLVED). Suspect 2nd to pip/tazo. Today 149K. Follow numbers off of antibiotics. 4. Generalized weakness. Secondary to the above. Will need continued PT; Awaiting rehab placement - looking at [facility]. Reviewed case management recommendations. He agrees. 5. CDK. [Na], Acute on chronic.Started on IV replacement fluids yesterday. Electrolytes improved. EGFR now at baseline. D/C IV 5. T2DM. Pharmacy glycemic consult, input appreciated.Sugars overall remain reasonable but does have intermittent lows. Patient and both state this happens at home 6. Hypertension. BP at goal. Adjust medication as needed. Continue to follow. 7. Atrial fibrillation. Rates 60s-80s. Low-dose Coreg. Bradycardic on admission. On Eliquis. No obvious bleeding. -- Previous admission for bradycardia 30-40s so much improved with lower dose Coreg Admission and Anticipated Discharge Date Admission Date: October 22, 2021 Subjective No acute events overnight. Reports feeling well today. Remains on room air and was ambulating with therapy today. He is awaiting rehab at [facility]. He has had intermittent low sugars this stay. Per patient and , they report this happens at home as well. Tolerating a diet without issue. Verbalizes no new complaints Review of Systems Review of Systems: All systems reviewed & are unremarkable except as noted in Subjective Physical Exam Physical Exam: PHYSICAL EXAM General Appearance: WDWN in NAD who is A&O x 3 HEENT: Head is normocephalic/atraumatic; Mucous membranes moist Neck: Supple; Trachea midline; Neg JVD Heart: RRR with no M/G/R Lungs: CTA in all lung garcia bilaterally but diminished at the bases; Respirations unlabored; Neg accessory muscle use Abdomen: Soft, non-tender, non-distended; Positive BS x 4 quadrant Extremities: Neg cyanosis or edema Neurological: Speech clear; Gross motor/sensory function intact; Neg focal neurologic deficits Psychiatric: Appropriate mood/affect Skin: Normal Color; Warm/Dry Results & Data Results & Data ([facility]) Vital Signs (Past 12 Hours) Vital Signs Temp Pulse Resp BP Pulse Ox 10/31/21 15:38 36.6 C 61 18 165/77 H 91 10/31/21 07:28 36.7 C 82 16 172/78 H 91 PG Care Time/CCT Total # of Minutes Spent Total Time Spent with Patient: Total time spent is greater than 50% in coordination of care (as documented) at patient's floor/unit and/or counseling patient: Coding Level of Care Code 30372 Subseq Hosp Care Lvl 2 Diagnoses RLL pneumonia J18.9 Aspiration into lower respiratory tract T17.800A Thrombocytopenia D69.6 Weakness R53.1 Chronic kidney disease (CKD), stage II (mild) N18.2 Diabetes E11.9 Hypertension I10 Paroxysmal atrial fibrillation I48.0
[2021-11-01] MEDS: LEVOTHYROXINE SODIUM 100 MCG TABLET PO SCH (05:47)
[2021-11-01] MEDS: ASPIRIN 81 MG ECTAB PO SCH (08:41)
[2021-11-01] MEDS: PANTOprazole 40 MG TAB PO SCH ×2 (08:41→19:51)
[2021-11-01] MEDS: carvediloL 3.125 MG TAB PO SCH ×2 (08:41→19:52)
[2021-11-01] MEDS: amLODIPine BESYLATE 5 MG TAB PO SCH (08:42)
[2021-11-01] MEDS: APIXABAN 5 MG TABLET PO SCH ×2 (08:42→19:51)
[2021-11-01] MEDS: INSULIN HUMAN NPH SC SCH (09:08)
[2021-11-01] MEDS: INSULIN ASPART PER UNIT SQ SCH ×4 (09:09→20:50)
--- NOTE | 2021-11-01 15:47 | Hospitalist Progress Note ---
Date of Service November 01, 2021 Assessment & Plan (1) RLL pneumonia: Plan: 1. Bilateral pneumonias. Suspect acute on chronic aspiration. O2 sats acceptable. Asymptomatic. Antibiotics discontinued 10/29/2020. History left pleural effusion (clinically present). Follow -- On previous admission he quickly filled up with fluid on the L side with small pneumothorax - going from RA to 15 L NC - responded predominantly to Lasix but did undergo thoracentesis with no malignancy on pathology; favored CHF related (grade II diastolic dysfunction on recent echo) Bilateral rhonchi on exam today. Will check chest XR. Last imaging was CT of the chest on 10/23/21 which showed right lower lobe pneumonia. (2) Aspiration into lower respiratory tract: Plan: 2. Aspiration. (By CT: mildly distended and fluid-filled esophagus) on Amlodipine for possible esophageal dysmotility. Speech therapy recs noted. Continue aspiration precautions. High risk for recurrent aspiration. Slow ea ting, alternating solids and liquids, upright, Protonix twice daily. Outpatient GI follow-up, anticipate manometry +/- EGD, etc. (3) Thrombocytopenia: Plan: RESOLVED. Suspect 2nd to pip/tazo. 149K ON 10/31/21. Follow numbers off of antibiotics. (4) Weakness: Plan: Generalized weakness. Secondary to the above. Will need continued PT; Awaiting rehab placement - looking at [facility]. Patient initially wanted to go home over the weekend and report to [facility] on Wednesday. We discussed that he may not have full coverage of the rehab stay from insurance standpoint by doing so. I have recommended he remain inpatient and continue PT/OT until we have notification on acceptance or denial at [facility] on Wednesday. Patient agreeable. (5) Chronic kidney disease (CKD), stage II (mild): Plan: Acute on chronic. Cr improved to 1.39 on 10/31/21. Continue to monitor. Repeat BMP in AM. (6) Diabetes: Plan: Pharmacy glycemic consult, input appreciated.Sugars overall remain reasonable but does have intermittent lows. Patient and both state this happens at home. (7) Hypertension: Plan: BP elevated at 172/79 this AM. Continue to monitor. May need med adjustment. Consider restarting Lasix as he does have pedal edema on exam today with bilateral rhonchi. Continue home Norvasc and Coreg. BMP in AM. (8) Paroxysmal atrial fibrillation: Plan: Rates 60s-80s. Low-dose Coreg. Bradycardic on admission. On Eliquis. No obvious bleeding. -- Previous admission for bradycardia 30-40s so much improved with lower dose Coreg. (9) DVT prophylaxis: Plan: On Eliquis. Admission and Anticipated Discharge Date Admission Date: October 22, 2021 Subjective Patient denies pain this morning. He has no new complaints. Awaiting placement at [facility]. Feels he could go home over the weekend and then to [facility] on Wednesday. States he would only want to stay at [facility] for 3 days. Review of Systems Review of Systems: All systems reviewed & are unremarkable except as noted in Subjective Physical Exam Physical Exam: Temp Pulse Resp BP Pulse Ox 36.5 C 60 16 163/84 H 93 11/01/21 15:39 11/01/21 15:39 11/01/21 15:39 11/01/21 15:39 11/01/21 15:39 Patient is afebrile. He is hypertensive at 163/84, but is asymptomatic. Constitutional: + overweight; no acute distress Eyes: + anicteric sclerae ENMT: Ears: no hearing impairment Neck: normal visual inspection Respiratory: normal respiratory effort; no respiratory distress and no labored breathing Auscultation: + rhonchi (bilateral ) Cardiovascular: Rate/Rhythm: regular rate and regular rhythm Vessels: no JVD Extremities: + edema (+2 bilateral pedal edema ) Gastrointestinal (Abdomen): Inspection/Auscultation: normal bowel sounds Percussion/Palpation: abdomen soft; abdomen nontender Musculoskeletal: Head/Neck/Chest: normocephalic Skin: no rashes, warm and dry Psychiatric: A+Ox3, euthymic affect Results & Data Results & Data ([facility]) Vital Signs (Past 12 Hours) Vital Signs Temp Pulse Resp BP Pulse Ox 11/01/21 15:39 36.5 C 60 16 163/84 H 93 11/01/21 09:39 92 11/01/21 07:34 36.7 C 65 16 172/79 H 91 PG Care Time/CCT Total # of Minutes Spent Total Time Spent with Patient: Total time spent is greater than 50% in coordination of care (as documented) at patient's floor/unit and/or counseling patient: Coding Level of Care Code 43934 Subseq Hosp Care Lvl 2 Diagnoses RLL pneumonia J18.9 Aspiration into lower respiratory tract T17.800A Thrombocytopenia D69.6 Weakness R53.1 Chronic kidney disease (CKD), stage II (mild) N18.2 Diabetes E11.9 Hypertension I10 Paroxysmal atrial fibrillation I48.0 DVT prophylaxis Z29.9
--- NOTE | 2021-11-01 19:27 | XRay Report ---
XR chest 1V portable CLINICAL HISTORY: rhonci on exam; hx of aspiration TECHNIQUE: Single frontal radiograph of the chest was obtained. Comparison: Comparison is made to chest one view 10/22/2021 FINDINGS: No lines and tubes are seen. Cardiomegaly is noted. There is elevation of the left hemidiaphragm. The re is mild pulmonary edema. No evidence of pleural effusion or pneumothorax. IMPRESSION: Mild pulmonary edema. Stable cardiomegaly. ACT 112: Negative or not required by law. Electronically signed by: Enrique Youssef M.D. 11/01/2021 7:25 PM
[2021-11-02] MEDS: LEVOTHYROXINE SODIUM 100 MCG TABLET PO SCH (06:07)
[2021-11-02 07:39] LABS: Basophils # (auto) 0.02 K/uL (0-0.2); Basophils % (auto) 0.2 %; Eosinophils # (auto) 0.13 K/uL (0-0.5); Eosinophils % (auto) 1.6 %; Hematocrit (blood only) 35.8 % (42-52); Hemoglobin 10.9 g/dL (14.0-18.0); Immature Granulocytes # (auto) 0.02 K/uL (0.00-0.02); Immature Granulocytes % (auto) 0.2 %; Lymphocytes # (auto) 1.94 K/uL (1.2-3.4); Lymphocytes % (auto) 23.2 %; Mean Corpuscular Hemoglobin 28.8 pg (25-34); Mean Corpuscular Hgb Conc 30.4 g/dL (32-36); Mean Corpuscular Volume 94.7 fL (80-100); Mean Platelet Volume 9.5 fL (7.4-10.4); Monocytes % (auto) 8.4 %; Neutrophils # (auto) 5.57 K/uL (1.4-6.5); Neutrophils % (auto) 66.4 %; Platelet Count 194 K/uL (130-400); RDW Coefficient of Variation 17.4 % (11.5-14.5); RDW Standard Deviation 59.8 fL (36.4-46.3); Red Blood Count 3.78 M/uL (4.7-6.1); White Blood Count 8.38 K/uL (4.8-10.8)
[2021-11-02 07:53] LABS: BUN Creatinine Ratio 22.3 (10-20); Calcium 8.5 mg/dl (8.5-10.1); Creatinine Clr Calc Pharmacy 58.9 ml/min; Est GFR (African American) 71.8 ml/min; Est GFR (Non-African American) 61.9 ml/min; Potassium 4.6 mmol/L (3.5-5.1)
[2021-11-02] MEDS: FUROSEMIDE 20 MG TAB PO SCH (08:32)
[2021-11-02] MEDS: PANTOprazole 40 MG TAB PO SCH ×2 (08:32→20:02)
[2021-11-02] MEDS: amLODIPine BESYLATE 5 MG TAB PO SCH (08:32)
[2021-11-02] MEDS: ASPIRIN 81 MG ECTAB PO SCH (08:32)
[2021-11-02] MEDS: APIXABAN 5 MG TABLET PO SCH ×2 (08:32→20:03)
[2021-11-02] MEDS: carvediloL 3.125 MG TAB PO SCH ×2 (08:32→20:02)
[2021-11-02] MEDS: INSULIN HUMAN NPH SC SCH (09:10)
[2021-11-02] MEDS: INSULIN ASPART PER UNIT SQ SCH ×4 (09:12→21:16)
[2021-11-02] MEDS: ALBUT/IPRATROP 3MG/0.5MG NEB 3 ML VIAL NEB SCH ×4 (12:49→22:36)
--- NOTE | 2021-11-02 13:21 | Hospitalist Progress Note ---
Date of Service November 02, 2021 Assessment & Plan (1) RLL pneumonia: Plan: 1. Bilateral pneumonias. Suspect acute on chronic aspiration. O2 sats acceptable. Antibiotics discontinued 10/29/2020. - Worsening chest congestion today per the patient. Improved after sitting in the chair. - Bilateral inspiratory wheezes on exam. - XR yesterday showing mild pulmonary edema. Restart home Lasix 20mg qAM. - Ordered IS and Duonebs q4rs. History left pleural effusion (clinically present). Follow -- On previous admission he quickly filled up with fluid on the L side with small pneumothorax - going from RA to 15 L NC - responded predominantly to Lasix but did undergo thoracentesis with no malignancy on pathology; favored CHF related (grade II diastolic dysfunction on recent echo) (2) Aspiration into lower respiratory tract: Plan: (By CT:mildly distended and fluid-filled esophagus)on Amlodipine for possible esophageal dysmotility. Speech therapy recs noted. Continue aspiration precautions. High risk for recurrent aspiration. Slow eating, alternating solids and liquids, upright, Protonix twice daily. Outpatient GI follow-up, anticipate manometry +/- EGD, etc. (3) Thrombocytopenia: Plan: RESOLVED. Suspect 2nd to pip/tazo. 194K ON 11/02/21. Follow numbers off of antibiotics. (4) Weakness: Plan: Generalized weakness. Secondary to the above. Will need continued PT; Awaiting rehab placement - looking at [facility]. Continue PT/OT. (5) Chronic kidney disease (CKD), stage II (mild): Plan: Acute on chronic. Cr improved to 1.13 today. Continue to monitor. Repeat BMP in AM. (6) Diabetes: Plan: Pharmacy glycemic consult, input appreciated.Sugars overall remain reasonable but does have intermittent lows. Patient and both state this happens at home. (7) Hypertension: Plan: BP elevated at 172/68 this AM. Continue to monitor. Continue home Norvasc and Coreg. Lasix 20mg qAM resumed this morning. Repeat BMP in AM. (8) Paroxysmal atrial fibrillation: Plan: Rates 60s-80s. Low-dose Coreg. Bradycardic on admission. On Eliquis. No obvious bleeding. -- Previous admission for bradycardia 30-40s so much improved with lower dose Coreg. (9) DVT prophylaxis: Plan: On Eliquis. Admission and Anticipated Discharge Date Admission Date: October 22, 2021 Subjective Patient reports some chest congestion this morning. Improved after sitting up. Denies SOB or chest pain. Review of Systems Review of Systems: All systems reviewed & are unremarkable except as noted in Subjective Physical Exam Physical Exam: Temp Pulse Resp BP Pulse Ox 36.5 C 65 17 172/68 H 94 11/02/21 07:11 11/02/21 07:11 11/02/21 07:11 11/02/21 07:11 11/02/21 07:11 Patient is afebrile. He is hypertensive at 172/68, but is asymptomatic. Constitutional: + acute distress and + obese Eyes: + anicteric sclerae ENMT: Ears: no hearing impairment Neck: normal visual inspection Respiratory: normal respiratory effort and + cough; no respiratory distress and no labored breathing Auscultation: + wheezes (inspiratory wheezes bilaterally ) Cardiovascular: Rate/Rhythm: regular rate and regular rhythm Vessels: no JVD Extremities: + edema (+1 bilateral pedal edema ) Gastrointestinal (Abdomen): Inspection/Auscultation: normal bowel sounds Percussion/Palpation: abdomen soft; abdomen nontender Musculoskeletal: Head/Neck/Chest: normocephalic and head atraumatic Skin: no rashes, warm and dry Neurologic: PERRL, EOMI, accommodation nl, no face palsy, no dysarthria Cranial Nerves: normal accommodation Psychiatric: A+Ox3, euthymic affect Lymphatic: no cervical or axillary lymphadenopathy Results & Data Results & Data ([facility]) Vital Signs (Past 12 Hours) Vital Signs Temp Pulse Resp BP Pulse Ox 11/02/21 07:11 36.5 C 65 17 172/68 H 94 PG Care Time/CCT Total # of Minutes Spent Total Time Spent with Patient: Total time spent is greater than 50% in coordination of care (as documented) at patient's floor/unit and/or counseling patient: Coding Level of Care Code 81620 Subseq Hosp Care Lvl 2 Diagnoses RLL pneumonia J18.9 Aspiration into lower respiratory tract T17.800A Thrombocytopenia D69.6 Weakness R53.1 Chronic kidney disease (CKD), stage II (mild) N18.2 Diabetes E11.9 Hypertension I10 Paroxysmal atrial fibrillation I48.0 DVT prophylaxis Z29.9
[2021-11-03] MEDS: ALBUT/IPRATROP 3MG/0.5MG NEB 3 ML VIAL NEB SCH ×5 (02:08→19:58)
[2021-11-03] MEDS: LEVOTHYROXINE SODIUM 100 MCG TABLET PO SCH (05:07)
--- NOTE | 2021-11-03 08:55 | Pharmacy Report ---
Pharmacy Glycemic Short Note 2 - Date of Service November 03, 2021 - Glycemic Short BSG Results (Last 24 hours): 11/02/21 11/02/21 11/02/21 12:22 17:05 20:51 POC Glucose 157 H 138 H 183 H 11/03/21 08:12 POC Glucose 199 H OUTPATIENT ANTIDIABETIC REGIMEN: * Novolog Mix 70/30 - 40 units SC AM, 30 units SC PM * HbA1c = 7.8% (09/20/21) ASSESSMENT: 11/01 * 36 units SQ insulin administered over last 24 hrs, BSGs fairly well controlled and patient tolerating a diet. * Will convert to once daily Lantus in the AM to lessen the need for multiple carb ratios during the day due to NPH "peak" * Given patient's largest prandial need appears to be with breakfast, will continue higher dose at breakfast, but utilize the same prandial doses w/ lunch and dinner to simplify regimen 10/31/21 * Stressors stable * AM fasting BSG in goal range - no change to NPH * Dinner BSG yesterday now in goal range with adjustment to lunch Novolog parameters yesterday. Pre-lunch BSG still elevated, though. Will tighten CHO ratio with breakfast. 10/30/21 * Stressors stable * AM fasting BSG good with reduction on NPH yesterday. Will continue * Significant severe hypoglycemia at dinner yesterday, similar to previous day. Correction factor likely playing a role. Will loosen correction at lunch, dinner, bedtime, and will also loosen CHO at lunch to help prevent a repeat hypoglycemic event at dinner 10/29/21: * Calvin received 22 units of insulin yesterday (10 units NPH, 12 units Novolog) * Patient tends to by hyperglycemia at lunch and then low at dinner * carb coverage tightened with breakfast to avoid spike at lunch * correction factor with lunch loosened to avoid over correction and subsequent low BSG at dinner PLAN FOR INPATIENT GLYCEMIC CONTROL: * Hold outpatient oral antiglycemic medications * Basal insulin * Lantus 12 units SQ Q AM * Bolus insulin * NovoLog per scale ACHS or Q6hrs while NPO Breakfast: * Goal Range: Low 90 mg/dL - High 140 mg/dL * Correction Factor: 20 mg/dL/unit * Nutritional / Prandial insulin per carb ratio of 1 unit per 76 grams CHO consumed Lunch, Dinner/HS: * Goal Range: Low 110 mg/dL - High 140 mg/dL * Correction Factor: 35 mg/dL/unit * Nutritional / Prandial insulin per carb ratio of 1 unit per 10 grams CHO consumed PLAN FOR DISCHARGE: * HbA1c of 7.8% is acceptable for this patient. * No changes recommended in outpatient regimen as long as patient is not experiencing any hyper/hypoglycemia at home
[2021-11-03] MEDS ORDERED: LANTUS PER UNIT CHARGE SQ ONE (09:00)
[2021-11-03] MEDS: INSULIN ASPART PER UNIT SQ SCH ×4 (09:02→20:35)
[2021-11-03] MEDS: ASPIRIN 81 MG ECTAB PO SCH (09:03)
[2021-11-03] MEDS: carvediloL 3.125 MG TAB PO SCH ×2 (09:03→20:37)
[2021-11-03] MEDS: APIXABAN 5 MG TABLET PO SCH ×2 (09:03→20:37)
[2021-11-03] MEDS: PANTOprazole 40 MG TAB PO SCH ×2 (09:04→20:38)
[2021-11-03] MEDS: FUROSEMIDE 20 MG TAB PO SCH (09:04)
[2021-11-03] MEDS: amLODIPine BESYLATE 5 MG TAB PO SCH (09:08)
[2021-11-03] MEDS: INSULIN HUMAN NPH SC SCH (09:26)
--- NOTE | 2021-11-03 10:47 | Hospitalist Progress Note ---
Date of Service November 03, 2021 Assessment & Plan (1) Arteriosclerosis of carotid artery: (2) Arteriosclerotic cardiovascular disease: (3) Asthma: (4) Diabetes: (5) Dyslipidemia: (6) Gait disturbance: (7) Hyperlipidemia: (8) Hypertension: (9) Hypothyroidism: (10) Obstructive sleep apnea: (11) Weakness: Plan: Aspiration pneumonia right lower lobe greater than left lower lobe-status post treatment with antibiotics which were discontinued 10/29/2021. Clinically stable at this time. Follow-up chest x-ray 11/01/2021 improved. Speech therapy recommended eating slowly, alternating solids and liquids, upright position to eat, Protonix twice daily. Metabolic encephalopathy-multifactorial, improved. No acute focal neurologic findings. A Gait dysfunction with generalized weakness-evaluated by physical therapy and occupational therapy, rehab recommended. Awaiting disposition evaluation. Atrial fibrillation with first-degree AV block-AFib originally diagnosed August 2021. Metoprolol previously changed to Coreg secondary to bradycardia Heart rate controlled at this time. Repeat EKG today. Echo 10/23/2021 ejection fraction 55-60%, borderline left ventricular hypertrophy. Patient anticoagulated with Eliquis. Thrombocytopenia-resolved. Possibly was secondary to Zosyn. Acute on Chronic kidney disease stage 2-creatinine 1.76 which is elevated again compared to baseline. Had been elevated previously and hospital course then improved, now elevated. Suspect some intravascular volume depletion. Recommend discontinue furosemide for now. Start IV saline x1 L. Recheck labs in the morning. DM type 2-treated with insulin. As an outpatient on 70 30 insulin. Glycemic control was stable as an outpatient. As an inpatient now on Lantus plus short- acting insulin. On discharge will plan to return to 70/30 insulin as recommended by the pharmacist. Metformin is on hold during hospitalization. Hypertension-blood pressure elevated, will increase amlodipine to 7.5 mg each day. Losartan is currently on hold because earlier in hospitalization renal function was slightly worse than baseline. If needed losartan can be resumed. He had been on 100 mg daily as an outpatient. Transudative pleural effusion noted August 2021-patient was hospitalized at that time and had thoracentesis 09/22/2021. Pulmonary Medicine recommended chest CT in 6 weeks -patient did have chest CT 10/23/2021 that showed trace pleural effusions, patchy airspace opacities right base and left base favoring pneumonia-patient will need follow-up imaging in another 6-8 weeks to re- evaluate. GERD-stable with pantoprazole 40 mg twice daily. Consider dose reduction as an outpatient. Hypothyroidism-continue levothyroxine. TSH normal August 2021. Obstructive sleep apnea- patient has previously not tolerated CPAP or BiPAP. Presumed coronary artery disease-mild inferior ischemia on stress study 08/05/2021-continue risk factor modification, per Dr. Gardiner medical management for now. Continue with aspirin and high-intensity statin. Of note, Dr. Sneed suggested considering stopping aspirin when he was seen in consultation August 2021 [address] Eli[address] started[address] Dr. Gardiner also noted aspirin can be stopped on 10/22/2021-will DC aspirin. Elevated transaminases- transaminases elevated since August 2021-? etiology. Ultrasound 09/24/2021-cholelithiasis, no gallbladder wall thickening. Recommend repeat LFTs, further evaluation pending the results. Anemia- continue to follow. Patient has had multiple laboratory draws. Hemodynamically stable. Follow-up as outpatient. History of IgA [place] MGUS-followed by Dr. Hansen as an outpatient. History of asthma-stable History of CVA-continue management, therapy recommended History of carotid artery disease, status post left CEA-continue medical management . Continue medical management. DVT prophylaxis-patient anticoagulated with Eliquis. 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 Admission and Anticipated Discharge Date Admission Date: October 22, 2021 Subjective 76-year-old male with history of diastolic congestive heart failure, IgA MGUS, chronic kidney disease stage 2 (follow[address] Savage), hypertension, diabetes mellitus, hypothyroidism, hyperlipidemia, sleep apnea (could not tolerate CPAP/BiPAP), GERD, asthma, history of CVA, history of tubular adenomas (Jun 2017), presumed coronary artery disease with history of positive stress test in the RCA distribution (followed by Dr. Gardiner, medical management at this time), carotid stenosis, status post left carotid endarterectomy admitted 10/22/21 with delirium, shortness of breath and bradycardia. Aspiration pneumonia-right lower lobe worse than left lobe-speech therapy evaluation done. Esophageal dysmotility noted. Antibiotics discontinued 10/29/2021. Generalized weakness with gait dysfunction-evaluated by physical therapy and occupational therapy. Rehab recommended. Etiology felt to be secondary to acute pneumonia in combination with chronic medical problems. Hypertension-blood pressures been elevated. Will plan to adjust medications. Paroxysmal atrial fibrillation-patient anticoagulated with Eliquis. Given first-degree heart block and bradycardia earlier in admission metoprolol was discontinued and changed to carvedilol. Today patient has no specific concerns or complaints. Denies chest pain or palpitations. No shortness of breath. Denies fevers, chills, sweats. No bowel complaints. He has trace to 1+ right leg edema. No focal neurologic complaint but is in general weak. Review of Systems Review of Systems: As noted above Physical Exam Constitutional: no acute distress. Neck: trachea midline Respiratory: Auscultation: lungs clear to auscultation bilaterally; no crackles, no rales and no rhonchi Cardiovascular: Rate/Rhythm: regular rate and + irregularly irregular Heart Sounds: normal S1; no gallop, no murmur and no cardiac rub Extremities: + edema (Trace to 1+ right lower extremity edema, no left leg edema) Gastrointestinal (Abdomen): normal bowel sounds, soft, nontender, no hepatos plenomegaly Neurologic: Speech / Cognition: normal speech Motor exam grossly nonfocal. Psychiatric: Affect: euthymic affect Mood: no depressed mood Results & Data Results & Data ([facility]) Vital Signs (Past 12 Hours) Vital Signs Temp Pulse Resp BP Pulse Ox 11/03/21 07:11 98.2 F 82 16 158/90 H 92 11/03/21 05:52 78 20 90 11/03/21 02:08 80 18 97 11/02/21 23:29 98.1 F 69 18 139/64 96 11/02/21 22:36 88 20 98 Primary Care Results Results Primary Care Results: WBC 9.20 K/uL (4.8-10.8) 11/03/21 RBC 4.01 M/uL (4.7-6.1) L 11/03/21 Hgb 11.8 g/dL (14.0-18.0) L 11/03/21 Hct 38.0 % (42-52) L 11/03/21 MCV 94.8 fL (80-100) 11/03/21 MCH 29.4 pg (25-34) 11/03/21 MCHC 31.1 g/dL (32-36) L 11/03/21 RDW Coefficient of Variation 17.7 % (11.5-14.5) H 11/03/21 Plt Count 262 K/uL (130-400) 11/03/21 MPV 9.9 fL (7.4-10.4) 11/03/21 Immature Granulocyte % (Auto) 0.3 % 11/03/21 Neutrophils (%) (Auto) 63.1 % 11/03/21 Lymphocytes (%) (Auto) 25.8 % 11/03/21 Nucleated Red Blood Cells % (auto) 0.2 % 10/25/21 Nucleated RBC Absolute Count (auto) 0.02 K/uL (0-0) H 10/25/21 Platelet Estimate Decreased (Normal) L 10/22/21 INR 1.1 (0.9-1.1) 10/22/21 APTT 39.4 Seconds (21.0-31.0) H 10/22/21 Na 143 mmol/L (136-145) 11/03/21 K 4.5 mmol/L (3.5-5.1) 11/03/21 Cl 110 mmol/L (98-107) H 11/03/21 CO2 29 mmol/L (21-32) 11/03/21 Anion Gap 4.0 (3-11) 11/03/21 BUN 30 mg/dl (7-18) H 11/03/21 Creatinine 1.76 mg/dl (0.6-1.4) H 11/03/21 Est Cr Clr Drug Dosing 37.8 ml/min 11/03/21 Estimated GFR ( Amer) 42.0 ml/min 11/03/21 Estimated GFR (Non-Af Amer) 36.2 ml/min 11/03/21 BUN/Creatinine Ratio 16.9 (10-20) 11/03/21 Glu 174 mg/dl (70-99) H 11/03/21 HbA1c 7.8 % (4.5-5.6) H 09/20/21 Ca 8.4 mg/dl (8.5-10.1) L 11/03/21 Phosphorus Level 4.7 mg/dl (2.5-4.9) 09/23/21 Mg 2.4 mg/dl (1.8-2.4) 10/22/21 Total Bilirubin 0.5 mg/dl (0.2-1) 10/24/21 AST 171 U/L (15-37) H 10/24/21 ALT 216 (12-78) H 10/24/21 Alkaline Phosphatase 96 U/L (45-117) 10/24/21 Lactate Dehydrogenase 321 U/L (87-241) H 09/22/21 CRP 2.34 mg/dl (0-0.29) H 10/24/21 Total Protein 6.8 gm/dl (6.4-8.2) 10/24/21 Albumin 2.5 gm/dl (3.4-5.0) L 10/24/21 Globulin 4.3 gm/dl (2.5-4.0) H 10/24/21 Albumin/Globulin Ratio 0.6 (0.9-2) L 10/24/21 Triglycerides 244 mg/dl (0-150) H 10/28/20 Cholesterol Level 149 mg/dl (0-200) 10/28/20 LDL Cholesterol, Calculated 56 mg/dl 10/28/20 VLDL Cholesterol, Calculated 49 mg/dl 10/28/20 HDL Cholesterol 44 mg/dl 10/28/20 Cholesterol/HDL Ratio 3 10/28/20 TSH 1.780 uIu/ml (0.300-4.500) 09/19/21 PTH Intact 53.6 pg/ml (18.4-80.1) 07/04/21 Urine Color Yellow 10/23/21 Urine Appearance Clear (Clear) 10/23/21 Urine pH 5.0 (4.5-7.5) 10/23/21 Urine Specific [place] 1.017 (1.000-1.030) 10/23/21 Urine Protein 3+ (Negative) H 10/23/21 Urine Glucose (UA) Negative (Negative) 10/23/21 Urine Ketones Negative (Negative) 10/23/21 Urine Blood Negative (Negative) 10/23/21 Urine Nitrite Negative (Negative) 10/23/21 Urine Bilirubin Negative (Negative) 10/23/21 Urine Urobilinogen Negative (Negative) 10/23/21 Urine Leukocyte Esterase 1+ (Negative) H 10/23/21 Urine WBC (Auto) 1-5 /hpf (0-5) 10/23/21 Urine RBC (Auto) 0-4 /hpf (0-4) 10/23/21 U Hyaline Casts (Auto) 5-10 /lpf (0-5) H 10/23/21 U Epithelial Cells (Auto) 20-30 /lpf (0-5) H 10/23/21 Urine Bacteria (Auto) Negative (Negative) 10/23/21 Urine Protein/Creatinine Ratio 2.7 (0-0.2) H 07/04/21 Urine Microalbumin/Creatinine Ratio 1185.0 mcg/mg (0-30) H 10/30/20 PG Care Time/CCT Total # of Minutes Spent Total Time Spent: 60 Total Time Spent with Patient: Total time spent is greater than 50% in coordination of care (as documented) at patient's floor/unit and/or counseling patient: Coding Level of Care Code 60381 Subseq Hosp Care Lvl 3 Diagnoses Arteriosclerosis of carotid artery I65.29 Arteriosclerotic cardiovascular disease I25.10 Asthma J45.909 Diabetes E11.9 Dyslipidemia E78.5 Gait disturbance R26.9 Hyperlipidemia E78.5 Hypertension I10 Hypothyroidism E03.9 Obstructive sleep apnea G47.33 Weakness R53.1
--- NOTE | 2021-11-03 14:10 | Electrocardiogram Report ---
Test Reason : Blood Pressure : / mmHG Vent. Rate : 086 BPM Atrial Rate : 375 BPM P-R Int : 000 ms QRS Dur : 136 ms QT Int : 370 ms P-R-T Axes : 000 227 036 degrees QTc Int : 442 ms Atrial fibrillation Right bundle branch block Abnormal ECG When compared with ECG of 23-OCT-2021 22:52, Atrial fibrillation has replaced Atrial flutter Confirmed by Jesu Judd ([id number]) on 11/03/2021 2:09:56 PM Referred By: REFERRED SELF Confirmed By:Jesu Judd
[2021-11-03 15:32] LABS: BUN Creatinine Ratio 16.9 (10-20); Calcium 8.4 mg/dl (8.5-10.1); Creatinine Clr Calc Pharmacy 37.8 ml/min; Est GFR (Non-African American) 36.2 ml/min; Potassium 4.5 mmol/L (3.5-5.1)
[2021-11-03 16:32] LABS: Basophils # (auto) 0.02 K/uL (0-0.2); Basophils % (auto) 0.2 %; Eosinophils # (auto) 0.13 K/uL (0-0.5); Eosinophils % (auto) 1.4 %; Hemoglobin 11.8 g/dL (14.0-18.0); Immature Granulocytes # (auto) 0.03 K/uL (0.00-0.02); Immature Granulocytes % (auto) 0.3 %; Lymphocytes # (auto) 2.37 K/uL (1.2-3.4); Lymphocytes % (auto) 25.8 %; Mean Corpuscular Hemoglobin 29.4 pg (25-34); Mean Corpuscular Hgb Conc 31.1 g/dL (32-36); Mean Corpuscular Volume 94.8 fL (80-100); Mean Platelet Volume 9.9 fL (7.4-10.4); Monocytes # (auto) 0.85 K/uL (0.11-0.59); Monocytes % (auto) 9.2 %; Neutrophils % (auto) 63.1 %; Platelet Count 262 K/uL (130-400); RDW Coefficient of Variation 17.7 % (11.5-14.5); RDW Standard Deviation 59.4 fL (36.4-46.3); Red Blood Count 4.01 M/uL (4.7-6.1)
[2021-11-03] MEDS: NSS + 20MEQ KCL 20 MEQ/1,000 ML BAG IV SCH (17:33)
[2021-11-03] MEDS ORDERED: ATORVASTATIN 40 MG TAB PO SCH (21:00)
[2021-11-04] MEDS: ALBUT/IPRATROP 3MG/0.5MG NEB 3 ML VIAL NEB SCH ×3 (02:12→07:03)
[2021-11-04] MEDS: NSS + 20MEQ KCL 20 MEQ/1,000 ML BAG IV SCH (02:58)
[2021-11-04] MEDS: LEVOTHYROXINE SODIUM 100 MCG TABLET PO SCH (04:58)
--- NOTE | 2021-11-04 07:48 | Hospitalist Progress Note ---
Date of Service November 04, 2021 Assessment & Plan (1) RLL pneumonia: Plan: Aspiration pneumonia right lower lobe greater than left lower lobe-status post treatment with antibiotics which were discontinued 10/29/2021. Clinically stable at this time. Follow-up chest x-ray 11/01/2021 improved. Speech therapy recommended eating slowly, alternating solids and liquids, upright position to eat, Protonix twice daily. Metabolic encephalopathy * -multifactorial, improved. * No acute focal neurologic findings. Gait dysfunction with generalized weakness * -evaluated by physical therapy and occupational therapy, rehab recommended. Awaiting disposition evaluation. Atrial fibrillation with first-degree AV block-AFib originally diagnosed August 2021. * Metoprolol previously changed to Coreg secondary to bradycardia Heart rate controlled at this time. Repeat EKG today. Echo 10/23/2021 ejection fraction 55-60%, borderline left ventricular hypertrophy. Patient anticoagulated with Eliquis. Thrombocytopenia- * resolved. * Possibly was secondary to Zosyn. Acute on Chronic kidney disease stage 2 * -creatinine 1.76 which is elevated again compared to baseline. Had been elevated previously and hospital course then improved, now elevated. * Suspect some intravascular volume depletion. * Recommend discontinue furosemide for now. Start IV saline x1 L. Recheck labs in the morning. DM type 2-treated with insulin. * As an outpatient on 70 30 insulin. Glycemic control was stable as an outpatient. As an inpatient now on Lantus plus short-acting insulin. On discharge will plan to return to 70/30 insulin as recommended by the pharmacist. Metformin is on hold during hospitalization. Hypertension * -blood pressure elevated, will increase amlodipine to 7.5 mg each day. Losartan is currently on hold because earlier in hospitalization renal fun ction was slightly worse than baseline. If needed losartan can be resumed. He had been on 100 mg daily as an outpatient. Transudative pleural effusion noted August 2021 * -patient was hospitalized at that time and had thoracentesis 09/22/2021. Pulmonary Medicine recommended chest CT in 6 weeks -patient did have chest CT 10/23/2021 that showed trace pleural effusions, patchy airspace opacities right base and left base favoring pneumonia-patient will need follow-up imaging in another 6-8 weeks to re-evaluate. GERD * -stable with pantoprazole 40 mg twice daily. Consider dose reduction as an outpatient. Hypothyroidism * continue levothyroxine. TSH normal August 2021. Obstructive sleep apnea * patient has previously not tolerated CPAP or BiPAP. Presumed coronary artery disease * -mild inferior ischemia on stress study 08/05/2021-continue risk factor modification, per Dr. Gardiner medical management for now. Continue with aspirin and high-intensity statin. Of note, Dr. Sneed suggested considering stopping aspirin when he was seen in consultation August 2021 once Eli[address] was started[address] Dr. Gardiner also noted aspirin can be stopped on 10/22/2021-will DC aspirin. Elevated transaminases * - transaminases elevated since August 2021-? etiology. Ultrasound 09/24/2021-cholelithiasis, no gallbladder wall thickening. Recommend repeat LFTs, further evaluation pending the results. Anemia * - continue to follow. Patient has had multiple laboratory draws. Hemodynamically stable. Follow-up as outpatient. History of IgA [place] MGUS-followed by Dr. Hansen as an outpatient. History of asthma-stable History of CVA-continue management, therapy recommended History of carotid artery disease, status post left CEA-continue medical management . Continue medical management. DVT prophylaxis-patient anticoagulated with Eliquis. 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 (2) Arteriosclerosis of carotid artery: (3) Arteriosclerotic cardiovascular disease: (4) Asthma: (5) Diabetes: (6) Dyslipidemia: (7) Gait disturbance: (8) Hyperlipidemia: (9) Hypertension: (10) Hypothyroidism: (11) Obstructive sleep apnea: (12) Weakness: Admission and Anticipated Discharge Date Admission Date: October 22, 2021 Results & Data Results & Data ([facility]) Vital Signs (Past 12 Hours) Vital Signs Temp Pulse Resp BP Pulse Ox 11/04/21 07:03 87 18 93 11/04/21 02:12 88 20 94 11/03/21 20:36 36.7 C 76 18 143/70 H 92 11/03/21 19:58 80 20 94 PG Care Time/CCT Total # of Minutes Spent Total Time Spent with Patient: Total time spent is greater than 50% in coordination of care (as documented) at patient's floor/unit and/or counseling patient: Coding Diagnoses Arteriosclerosis of carotid artery I65.29 Arteriosclerotic cardiovascular disease I25.10 Asthma J45.909 Diabetes E11.9 Dyslipidemia E78.5 Gait disturbance R26.9 Hyperlipidemia E78.5 Hypertension I10 Hypothyroidism E03.9 Obstructive sleep apnea G47.33 Weakness R53.1 RLL pneumonia J18.9
[2021-11-04 08:22] LABS: Eosinophils # (auto) 0.11 K/uL (0-0.5); Eosinophils % (auto) 1.3 %; Hematocrit (blood only) 35.1 % (42-52); Hemoglobin 10.9 g/dL (14.0-18.0); Immature Granulocytes # (auto) 0.02 K/uL (0.00-0.02); Immature Granulocytes % (auto) 0.2 %; Lymphocytes # (auto) 2.87 K/uL (1.2-3.4); Lymphocytes % (auto) 33.2 %; Mean Corpuscular Hemoglobin 29.1 pg (25-34); Mean Corpuscular Hgb Conc 31.1 g/dL (32-36); Mean Corpuscular Volume 93.6 fL (80-100); Mean Platelet Volume 9.3 fL (7.4-10.4); Monocytes # (auto) 0.76 K/uL (0.11-0.59); Monocytes % (auto) 8.8 %; Neutrophils # (auto) 4.89 K/uL (1.4-6.5); Neutrophils % (auto) 56.5 %; Platelet Count 218 K/uL (130-400); RDW Coefficient of Variation 17.5 % (11.5-14.5); RDW Standard Deviation 59.4 fL (36.4-46.3); Red Blood Count 3.75 M/uL (4.7-6.1); White Blood Count 8.65 K/uL (4.8-10.8)
[2021-11-04 08:54] LABS: Albumin Level 2.1 gm/dl (3.4-5.0); BUN Creatinine Ratio 23.3 (10-20); Bilirubin Direct 0.1 mg/dl (0-0.2); Calcium 8.6 mg/dl (8.5-10.1); Est GFR (African American) 81.2 ml/min; Est GFR (Non-African American) 70.1 ml/min; Potassium 4.2 mmol/L (3.5-5.1); Total Protein 6.1 gm/dl (6.4-8.2)
[2021-11-04 08:58] LABS: Bilirubin,Total 0.5 mg/dl (0.2-1)
[2021-11-04] MEDS ORDERED: INSULIN GLARGINE SOLOSTAR 100 UNITS/ML 3 ML PEN SC SCH (09:00)
[2021-11-04] MEDS: INSULIN ASPART PER UNIT SQ SCH ×2 (09:08→11:39)
[2021-11-04] MEDS: amLODIPine BESYLATE 5 MG TAB PO SCH (09:14)
[2021-11-04] MEDS: carvediloL 3.125 MG TAB PO SCH (09:15)
[2021-11-04] MEDS: APIXABAN 5 MG TABLET PO SCH (09:15)
[2021-11-04] MEDS: PANTOprazole 40 MG TAB PO SCH (09:15)
--- NOTE | 2021-11-04 09:42 | Discharge Summary ---
Date of Service November 04, 2021 Admission HPI Per Admitting Provider Calvin is a 76-year-old male with past medical history of bradycardia, A. fib, diabetes, suspected CAD, SIXTO, and CKD who presents with several days of increased confusion, cough and to had an acute episode of bradycardia prior to admission. Calvin has been feeling dizzy and lightheaded at home. COuldnt get up to use the walker today and has had increased weakness inthe last 2-3. Increased cough in last 2-3 days. Cough is nonproductive. No fevers, no chills. Was hypothermic. No nausea/vomiting/diarrhea. Endorses some constipation at baseline. No syncope, denies presyncope. Endorses decreased urination. Has not been taking carvidilol since last . Denies chest pain. notes he has endorses some intermittent chest pain. On repeat history patient endorses this and says it has been mild and had come and gone at home, when it does occur a slight pressure sensation in middle of his chest associated with shortness of breath which is not present at time of assessment. Report he has discussed this with cardiology who has considered a cath for him in the past. Medical History: Reviewed Medications: Reviewed. Took morning medications Surgical History: Reviewed Allergies: Reviewed Social History: No tobacco, alcohol, or recreational drug use. Lives with his . Code Status: Full code, discussed with patient and his at bedside Admission Exam Per Admitting Provider General: Alert and oriented to name, place, and year. NAD. Cooperative. HEENT: Atraumatic, normocephalic. Visual acuity grossly intact, mild right contraction of pupil compared to left. Hearing grossly intact. Pulm: Diminished, some crackles in right lower lobe, diffuse rhonchi. Symmetrical chest rise. No increase work of breathing. No respiratory distress. Cardiac: Irregularly irregular rhythm with normal rate. Radial pulses intact and symmetrical. Abdominal: Nontender, nondistended, soft. BS present. Extremities: Cool, dry. No mottling. No edema of legs. 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 Hip flexion intact bilaterally antigravity. Incision is soft touch and temperature intact in hands and feet without asymmetry. Principal Diagnosis RLL Aspiration Pneumonia, Bradycardia Discharge Exam PHYSICAL EXAM General Appearance: WD/WN , A&O x 3, sitting up in chair at window, NAD HEENT: normocephalic, atraumatic, mmm, trachea midline without deviation Resp: CTAB, diminished in the bases, faint bibasilar crackles, no wheezing/rales, 93% on ROOM AIR CV: irregularly irregular (rate controlled, 86bpm), no m/r/g, 1+ b/l LE edema, calves non-tender, cap refill <3 seconds : +BS, soft, non-distended, non-tender GI: no gutierrez Neuro/MSK: moves all extremities, no focal deficits, answering questions appropriately, following commands Psych: AOx3, pleasant and cooperative Discharge Data Allergies Allergy/AdvReac Type Severity Reaction Status Date / Time Gadolinium-Containing Allergy Severe ANAPHYLAXIS Verified 10/22/21 17:06 Contrast Medi Iodinated Contrast Media Allergy Severe ANAPHYLAXIS Verified 10/22/21 17:06 Consultations 10/22/21 17:50 ED Decision to Admit Stat 10/22/21 21:35 Consult Cardiology Routine 10/25/21 15:16 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 FINDINGS: No pneumothorax. There are trace bilateral pleural effusions, unchanged. The heart remains enlarged. Pulmonary vasculature congestion has resolved. Bibasilar densities are again noted. This has slightly progressed on the right. Upper lung zones are clear. IMPRESSION: 1. Small bibasilar densities which have progressed on the right. This could represent atelectasis or pneumonia. 2. Stable cardiomegaly and trace bilateral pleural effusions. 3. No evidence for pulmonary edema. ACT 112: Negative or not required by law. Electronically signed by: Christian Munoz M.D. 10/22/2021 3:[address] 10/22/21 15:16 CT head/brain wo con CLINICAL HISTORY: AMS eval for bleed/cva COMPARISON STUDY: 08/31/2017 CT DOSE: 614.27 mGy.cm TECHNIQUE: Standard CT of the Brain was performed without IV contrast. A dose lowering technique was utilized adhering to the principles of ALARA. FINDINGS: Extraaxial space: There is no evidence for subdural hematoma. There are no extra-axial fluid collections. Ventricles and cisterns: The ventricles are mildly dilated bilaterally. There is no evidence for midline shift or mass effect. Parenchyma: There is no subarachnoid or intraparenchymal hemorrhage. There is no evidence for an acute infarct or cerebral edema. There is mild cerebral cortical atrophy and decreased attenuation in the periventricular white matter representing remote small vessel disease. There are no gross mass lesions. Osseous structures: There is no evidence for an acute fracture. The visualized paranasal sinuses are clear. The mastoid air cells are clear bilaterally. Soft tissues: There is no evidence for focal soft tissue swelling. IMPRESSION: No acute intracerebral pathology. Mild cerebral cortical atrophy and remote small vessel disease are again seen. ACT 112: Negative or not required by law. Electronically signed by: Mansoor Trevino M.D. 10/22/2021 5:[address] 10/23/21 15:44 CT chest diagnostic wo con CT DOSE: 526.49 mGycm HISTORY: hypoxia - fluid vs infxn TECHNIQUE: Multiaxial CT images of the chest were performed without contrast. A dose lowering technique was utilized adhering to the principles of ALARA. COMPARISON: Chest CT 10/15/2021. FINDINGS: No pneumothorax. Trace left pleural effusion. This is similar to the prior study. Progressive consolidation involving the basilar segments of the left lower lobe with associated air bronchograms. This could represent atelectasis or pneumonia. There is a 3 cm bleb within the base of the lingula. The central airways are patent. Slight progression of the patchy airspace opacities within the right lower lobe. Old, healed right lower rib fractures. No acute fractures identified within the chest. No mediastinal or hilar lymphadenopathy. The heart remains mildly enlarged. Mild calcified plaque within the normal caliber thoracic aorta. Distended and fluid-filled esophagus, unchanged. Limited views of the upper abdomen demonstrate normal liver and spleen. A trace right pleural effusion has improved. Bilateral gynecomastia again noted. IMPRESSION: 1. Stable cardiomegaly. 2. Trace right pleural effusion has improved. A trace left pleural effusion persists. 3. Patchy right basilar airspace opacities and left lower lobe consolidation have progressed. This favors a pneumonia and could be due to aspiration given the mildly distended and fluid-filled esophagus. ACT 112: Negative or not required by law. Electronically signed by: Christian Munoz M.D. 10/23/2021 4:57 PM Chest X-Ray 11/01/21 15:55 XR chest 1V portable CLINICAL HISTORY: rhonci on exam; hx of aspiration TECHNIQUE: Single frontal radiograph of the chest was obtained. Comparison: Comparison is made to chest one view 10/22/2021 FINDINGS: No lines and tubes are seen. Cardiomegaly is noted. There is elevation of the left hemidiaphragm. There is mild pulmonary edema. No evidence of pleural effusion or pneumothorax. IMPRESSION: Mild pulmonary edema. Stable cardiomegaly. ACT 112: Negative or not required by law. Electronically signed by: Enrique Youssef M.D. 11/01/2021 7:25 PM Hospital Course (1) RLL pneumonia: Aspiration pneumonia RLL>LLL s/p treatment with antibiotics (IV Zosyn) which were discontinued 10/29/2021 Clinically stable at this time. Follow-up chest x-ray 11/01/2021 improved. Speech therapy recommended eating slowly, alternating solids and liquids, upright position to eat, -- to continue at discharge with these instructions as well as protonix 40mg twice daily --> To have outpt f/u with GI for continued management/possible need for manometry in future Weaned to room air and has been stable. PT/OT rec SNF --> arrangements to [facility]. They may continue to monitor oxygen needs when up with therapy and no formal 2 step required Metabolic encephalopathy * Multifactorial, improved. * No acute focal neurologic findings. Gait dysfunction with generalized weakness * Evaluated by physical therapy and occupational therapy, rehab recommended. [facility] arranged for rehabilitation Atrial fibrillation with first-degree AV block-AFib originally diagnosed August 2021. * Metoprolol previously changed to Coreg secondary to bradycardia and this was decreased from 6.25mg BID to 3.125mg BID and sent new rx at d/c * HR controlled -- of note was also on amlodipine 2.5mg [employer] which was titrated up to 5mg daily and then ultimately 7.5mg to help with swallowing as well. Can further titrate to 10mg daily * Echo 10/23/2021 ejection fraction 55-60%, borderline left ventricular hypertrophy. * Patient anticoagulated with Eliquis. * To follow up with Dr Gardiner at d/c about resuming the lisinopril/dosing as well Thrombocytopenia- * resolved. * Possibly was secondary to Zosyn. Acute on Chronic kidney disease stage 2 * Had been stable, then elevated to 1.76 on 11/03 and patients lasix held and pl aced on IVF * Cr returned to baseline this am and IVF stopped, instructed to continue to hold lasix for today and possibly restart tomorrow given prior hospitalization requiring thoracentesis for transudative effusion and does have some b/l LE edema prior to d/c but lung exam stable and on room air * Recommended restarting lisinopril in next ocuple of days along with continued monitoring of kidney function. * Encouraged oral intake, but aim for 60oz daily to prevent overload DM type 2-treated with insulin. * As an outpatient on 70 30 insulin. * Glycemic control was stable as an outpatient. * As an inpatient was on ISS + Lantus * --> Resumed previous regimen at discharge given prior well controlled BSGs Hypertension * Elevated but had been dehydrated. IVF provided and lasix placed on hold. * Coreg previously decreased to 3.125mg BID from 6.25mg BID [employer], and amlodipine increased to 5mg for swallowing as well, further increased to 7.5mg daily on 11/03 and may take couple days for effect. Can consider further increasing to 10mg daily but also had losartan on hold given Cr which should be resumed in next couple days/at discretion of provider at [facility] vs at f/u with Dr. Gardiner. Previously on losartan 100mg daily but would monitor BMP if resumed to ensure kidney function stable Transudative pleural effusion noted August 2021 * -patient was hospitalized at that time and had thoracentesis 09/22/2021. * Pulmonary Medicine recommended chest CT in 6 weeks -patient did have chest CT 10/23/2021 that showed trace pleural effusions, patchy airspace opacities right base and left base favoring pneumonia * -patient will need follow-up imaging in another 6-8 weeks to re-evaluate. GERD * -stable with pantoprazole 40 mg twice daily. * Consider dose reduction as an outpatient. Hypothyroidism * continued levothyroxine. * TSH normal August 2021. Obstructive sleep apnea * patient has previously not tolerated CPAP or BiPAP. Presumed coronary artery disease * -mild inferior ischemia on stress study 08/05/2021-continue risk factor modification, per Dr. Gardiner medical management for now. Continued with aspirin and high-intensity statin while inpatient. * Of note, Dr. Sneed suggested considering stopping aspirin when he was seen in consultation August 2021 once Eliquis was started. * Dr. Gardiner also noted aspirin can be stopped on 10/22/2021-will DC aspirin. * --> Not done on d/c instructions and called CM to alert [facility] this can be discontinued and will edit medication list and send updated list if needed Elevated transaminases * - transaminases elevated since August 2021-? etiology. Ultrasound 09/24/2021-cholelithiasis, no gallbladder wall thickening. * Repeat LFTs wnl Anemia * - continue to follow. Patient has had multiple laboratory draws. Hemodynamically stable. Follow-up as outpatient. History of IgA [place] [facility]-followed by Dr. Hansen as an outpatient. History of asthma-stable, on RA History of CVA -continue management, therapy recommended - outpt f/u GI +/- manometry History of carotid artery disease, status post left CEA -continue medical management . DVT prophylaxis -patient anticoagulated with Eliquis. Disposition -therapy has recommended acute rehab. [facility] arranged at discharge (2) Arteriosclerosis of carotid artery: (3) Arteriosclerotic cardiovascular disease: (4) Asthma: (5) Diabetes: (6) Dyslipidemia: (7) Gait disturbance: (8) Hyperlipidemia: (9) Hypertension: (10) Hypothyroidism: (11) Obstructive sleep apnea: (12) Weakness: Total Time Total Time Spent Total Time Spent (In Minutes): 75 Discharge Plan Discharge Items Patient Disposition: Transfer [facility] Reason For Visit: ?PNA, SYMPTOMATIC BRADYCARDIA, HYPOTENSION Discharge Diagnosis: Aspiration pneumoniasee below Goals: You have been hospitalized for an acute medical problem. During your stay at [facility], we have made an effort to correct the problem that brought you to the hospital while keeping you as comfortable as possible. Medications were used to bring your condition under control and your discharge instructions will include directions for any medications you should take after leaving the hospital. Please make sure you see your Primary Care Provider as part of your follow up plan. 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 This was likely "spark lit the fire" of all of this appears pneumonia seems to be from aspiration. The upper part of your esophagus seems to easily be too tight/go into spasmand therefore when you eat, some of the food fills up your esophagus, and then spills over into your trachea (airway). --> You were treated with antibiotics and completed a full course while in the hospital. The antibiotics caused your platelets to be low, which have normalized after these were completed. -As far as medications, the amlodipine that you are already on can sometimes help relax the esophagusto try to help it work better, we have increased your dose from 2.5 up to 5 mg and then further to 7.5mg which is what you will continue daily at discharge. Over time if it seems like it is helping, but not enough, they can increase it up to 10 mg. Your coreg has been decreased from 6.125mg twice daily to 3.125mg by mouth twice daily given prior low heart rates/bradycardia to prevent symptoms. -To reduce how inflamed everything is when it does "spillover" we have increased your Protonix from 20 mg daily up to 40 mg twice a dayat least for the time being You have been weaned and remain stable on room air without need for continued supplemental oxygen. You will need to have outpatient follow up with PCP for repeat CT of the chest in 6-8 weeks to ensure resolution of previous findings. You will also need follow up with GI for further evaluation/following of sw allowing issues and possible need for testing to include manometry. -Additionally, sitting upright while you are eating, and staying upright for about an hour afterwards will allow everything to have a better chance to go straight down your esophagus because of gravity. As far as hydration status, your lasix was resumed but your kidney numbers became elevated and this was held and you were given IV fluids. Your kidney numbers returned to normal and you should resume your lasix tomorrow and have labs checked following to ensure stability. You have had your lisinopril held while in the hospital. We cannot willi "hold" in the system but these should be resumed in next 1-2 days as kidney function normalized and you are drinking enough fluids. Please aim for about 60oz of water daily. They may then decide when to resume these medications. Please follow up with PCP in next 7-10 days to monitor your progress. Please follow up with Dr. Gardiner as routinely scheduled to see about resuming the lisinopril, and at what does, given the increase in amlodipine to 7.5mg daily. Please follow up with GI for esophageal issues. Please return to ER for any worsening shortness of breath, fever, chest pain, difficulty keeping up with oral intake, or for any other issues concerning for you. It has been a pleasure being a part of the medical team providing for you while you have been in the hospital. Take care! Pending Studies at Discharge: No Stand-Alone Forms: My [employer], Smoking Cessation Skilled Items Patient informed of condition?: Yes DNR: No Discharge Level of Care: Skilled Communicable Disease: No Discharge Prognosis: Improving Lines: None Urinary Catheter: No Medications and DC Order Prescriptions: New pantoprazole 40 mg Tablet,Delayed Release (Dr/Ec) 40 mg PO BID Qty: 60 RF: 0 amlodipine [Norvasc] 5 mg Tablet 7.5 mg PO QAM Qty: 30 RF: 0 carvedilol 3.125 mg Tablet 3.125 mg PO BID 30 Days Qty: 60 RF: 0 Continued (DME) pen needle, diabetic [BD Ultra-Fine Short Pen Needle] 31 gauge x 5/16" needle See Rx Instructions .ROUTE .MEDSUPPLY Qty: 100 RF: 3 (DME) OneTouch Ultra Blue Test Strip Strip See Dose Instructions .ROUTE .MEDSUPPLY Qty: 3 RF: 3 metformin 850 mg tablet 850 mg PO BID Qty: 180 RF: 1 (DME) Oxygen Home Liters Per Minute See Rx Instructions .Route Qty: 1 RF: 0 (DME) Wheeled Walker Misc See Rx Instructions .Route Qty: 1 RF: 0 levothyroxine 100 mcg tablet 100 mcg PO QAM Qty: 90 RF: 3 atorvastatin 40 mg tablet 40 mg PO HS Qty: 90 RF: 3 cyanocobalamin (vitamin B-12) 1,000 mcg tablet 1,000 mcg PO QDL RF: 0 docusate sodium 100 mg capsule 100 mg PO QAM PRN (Reason: Constipation) RF: 0 polyethylene glycol 3350 17 gram/dose powder 17 gm PO DAILY PRN (Reason: Constipation) Qty: 1 RF: 0 nitroglycerin 0.4 mg tablet, sublingual 0.4 mg SL Q5M PRN (Reason: chest pain) Qty: 25 RF: 2 cholecalciferol (vitamin D3) 50 mcg (2,000 unit) tablet 2,000 unit PO QDL RF: 0 Eliquis 5 mg tablet 5 mg PO BID Qty: 180 RF: 3 guaifenesin 100 mg/5 mL Liquid 600 mg PO Q4H PRN (Reason: Pain) RF: 0 Mucinex 1,200 mg Tablet Extended Release 12hr 1,200 mg PO QAM RF: 0 trazodone 50 mg tablet 50 - 100 mg PO HS RF: 0 insulin asp prt-insulin aspart 100 unit/mL (70-30) insulin pen 30 - 40 unit subcut BIDM RF: 0 Discontinued amlodipine 2.5 mg tablet 2.5 mg PO QAM Qty: 90 RF: 3 carvedilol 6.25 mg tablet 6.25 mg PO BID Qty: 180 RF: 3 Hold Instructions: Home Medication placed on hold at Doctor's office furosemide 20 mg tablet 20 mg PO QAM Qty: 90 RF: 3 pantoprazole 20 mg tablet,delayed release (DR/EC) 20 mg PO PM PRN (Reason: gastric reflux) RF: 0 losartan 100 mg tablet 100 mg PO QAM RF: 0 Discharge Orders: Discharge Order (Routine); Ordered 11/04/21 Ordered By: Yenni Burden/Other Patient Handouts: Diabetes: Sick-Day Plan, Diabetes: Meal Planning, ED Diabetes- Overview Admission Data Admit Date/Time: 10/22/21 19:21 Attending Provider: Azeem Hidalgo Admit Provider: Vinayak Bearden Primary Care Provider: Dao Ryan Other Providers: Vinayak Bearden ; Marciano Velazquez ; [facility] ; [facility] ; [facility] Other Interventions: Discharge Summary Assessment (RN) Last Done: 11/04/21 12:49 Supervising Physician Co-Signing Physician Notes Attending Attestation and Discharge Note - Pt seen/examined, chart reviewed, discharge care plan d/w SERG Molina. I agree w/ the ruiz components of her discharge summary. 76yo male with CAD, DM, PAF, etc - presented with cough, dyspnea, dizziness, and other cardiopulmonary symptoms. Imaging c/w b/l pneumonia, RLL>LLL. Pneumonia was felt 2nd to aspiration. Treated with IV antibiotics, etc. Seen by GI and speech therapy - will need f/u with GI post-discharge for additional testing. May need manometry. Multiple med adjustments were made for his HTN, a.fib, etc. Discharge exam - gen - NAD, sitting in chair neck - no JVD mouth - MMM heart - irregular, s1 s2 lungs - mild rales R base, otherwise cta b/l, no increased work of breathing abd - soft NT ND BS+ ext - no edema, pulses 2+ b/l Azeem Hidalgo MD
[2021-11-04] MEDS ORDERED: ALBUT/IPRATROP 3MG/0.5MG NEB 3 ML VIAL NEB PRN (10:05)
== END 2021-11-04 12:37 | DRG 177 ==
LOC: ED 14:48 → 2S 19:21 → SUATTDRO 19:21 → 2S 20:32 → 3W 10-25 20:30

== ENCOUNTER 2021-12-10 10:29 | Inpatient (IN) ==
--- NOTE | 2021-12-10 11:09 | Emergency Department Note ---
Impression & Plan Left upper lobe pneumonia, Pleural effusion, Thrombocytopenia, Acute respiratory distress, Acute respiratory acidosis ED Provider Note NAME: CARYE MEDINA AGE: 76 SEX: M : 1945 ARRIVES VIA: Ambulance INFORMANT: Patient, ED PROVIDER(S): Prabhjot Jean DO CHIEF COMPLAINT: Shortness of breath HPI: The patient is a 76-year-old male who presented to emergency department with his significant other for an evaluation of shortness of breath. The patient was noted to have a oxygen saturation in the 80s this morning by his significant other. He does wear oxygen but only at night. He has a history of pulmonary edema. He also has recently been diagnosed with pneumonia. He was discharged from our facility for those problems. He presents emergency department today because of worsening shortness of breath and orthopnea. He denies having any fever. He had no recent trauma. He denies having any lower extremity swelling or hemoptysis. The patient states that he does have some shortness of breath that worsens with exertion as well as lying flat. He states otherwise he has been compliant with all of his outpatient medications. The patient states his symptoms are moderate to severe and worsened with exertion. He states they are mildly improved with oxygen at this time. ROS: See above HPI for pertinent positives & negatives. A total of 10 systems reviewed and were otherwise negative. PAST MEDICAL HISTORY: See Below PAST SURGICAL HISTORY: See Below FAMILY HISTORY: See Below SOCIAL HISTORY: See Below HOME MEDICATIONS: See Below ALLERGIES: See Below VITALS: See Below PHYSICAL EXAMINATION: GENERAL: The patient is awake and alert. He appears to be having difficulty breathing. EYES: The conjunctivae are clear. The pupils are round and reactive. EARS, NOSE, MOUTH AND THROAT: The nose is without any evidence of any deformity. NECK: The neck is nontender and supple. RESPIRATORY: Diminished breath sounds are noted throughout. There were rales throughout the right lung field. There was significant conversational dyspnea. CARDIOVASCULAR: Regular rate and rhythm noted there no murmurs rubs or gallops normal S1 normal S2. GASTROINTESTINAL: The abdomen is soft. Abdomen is nontender. MUSCULOSKELETAL/EXTREMITIES: There is no evidence of gross deformity full range of motion is noted in the hips and shoulders. SKIN: The skin was warm and dry. Trace pedal edema was noted bilaterally. NEUROLOGIC: Patient is awake alert and oriented x3. MEDICAL DECISION MAKING: The patient is a 76-year-old male who presented to the emergency department for an evaluation of cough and difficulty breathing. The patient was hypoxic upon arrival. He was placed on supplemental oxygen. I discussed the patient's laboratory and radiographic studies with him. He does have significant cardiac history. Initially this was felt to be secondary to pulmonary edema however radiographic studies appear to be more consistent with infection. The patient does have a history of recent pneumonia. He was treated with IV antibiotics in the emergency department. [facility] to evaluate the patient in the emergency department for further management and disposition. The patient was not treated with a large fluid bolus given his cardiac history. Triage Nursing notes reviewed. Prior medical records reviewed Vital Signs: reviewed and remarkable for bradycardia and hypothermia. He was also hypoxic. Differential diagnosis: Reactive airway disease, pneumonia, pneumothorax, COPD, CHF, infections, cardiac ischemia, pulmonary embolism, musculoskeletal, gastrointestinal, as well as other pathologies. ER treatment provided: See below Diagnostics interpreted by me: ECG: EKG was obtained in the emergency department. My interpretation is sinus bradycardia at 46 bpm. There is no ectopy. Right bundle branch block pattern was noted. This was compared to a tracing from November 032021. Sinus bradycardia has replaced rapid atrial fibrillation otherwise no significant changes in the QRS morphology are noted. Cardiac Monitoring: An order was placed for continuous cardiac monitoring. The monitor shows a rate of 42 bpm with sinus rhythm. Laboratory studies: As stated above and show below. Imaging studies: See below Consultation(s): I discussed this case with Dr. Bearden who [facility] They will evaluate the patient in the emergency department. Past Med/Surg History Medical History Acrochordon Anxiety Arteriosclerosis of carotid artery Arteriosclerotic cardiovascular disease Asthma Atypical chest pain Chronic kidney disease (CKD), stage II (mild) Colon polyps Diabetes Diabetes with neurologic complications Diabetic nephropathy Dyslipidemia Excessive sweating Gait disturbance Gastroesophageal reflux disease Rachel's thyroiditis History of tpovrr-hc-[id number] syndrome Hyperglobulinemia Hyperkalemia Hyperlipidemia Hypertension Hypothyroidism Insomnia Internal hemorrhoids Male erectile disorder of organic origin Obesity Obstructive sleep apnea Paralysis of right vocal fold Parotid sialolithiasis Pleural effusion Proteinuria Right bundle branch block Sialadenitis Vitamin D deficiency Vocal cord anomaly Surgical History H/O umbilical hernia repair S/P carotid endarterectomy S/P cataract surgery S/P inguinal hernia repair S/P tonsillectomy Family History Mother Heart disease Father Stomach cancer Other Asthma Cancer Denies family history of Ovarian cancer Prostate cancer Myocardial infarction Breast cancer Colorectal cancer Social History Smoking Status: Never smoker Second Hand Exposure: No; Hx Alcohol Use: Yes (no longer drinking) Alcohol type: beer Hx Substance Use: No Preferred Language: Romansh Communication Ability: Effective Visual Impairment: No Limitations Hearing Ability: Normal [employer] Supervisor Required: No Beliefs That Will Affect Care: None marital status: Current Living Situation: Spouse current occupational status: retired How many Children do You have: 2 Feels Safe at Home: Yes Childhood Exposure to Second-Hand Smoke: No Diet Comment: K+ reduced caffeine: Yes (coffee) Dental Care, Regularly: Yes Physical Activity Frequency: Does not Exercise Seatbelt Use: always Sunscreen Use: No Assistive Devices: Glasses and Walker Allergies Allergies Allergy/AdvReac Type Severity Reaction Status Date / Time Gadolinium-Containing Allergy Severe ANAPHYLAXIS Verified 11/25/21 14:47 Contrast Medi Iodinated Contrast Media Allergy Severe ANAPHYLAXIS Verified 11/25/21 14:47 Home Meds Home Medications Medication Instructions Recorded Confirmed cyanocobalamin (vitamin B-12) 1,000 mcg PO QDL tab 05/31/19 11/25/21 1,000 mcg tablet docusate sodium 100 mg capsule 100 mg PO QAM PRN cap 05/31/19 11/25/21 polyethylene glycol 3350 17 17 gm PO DAILY PRN #1 gm 05/31/19 11/25/21 gram/dose oral powder cholecalciferol (vitamin D3) 50 2,000 unit PO QDL tab 10/28/20 11/25/21 mcg (2,000 unit) tablet guaifenesin 1,200 mg tablet, 1,200 mg PO QAM 09/19/21 11/25/21 extended release 12 hr (Mucinex) insulin aspar prot-insulin aspart 30 - 40 unit SUBCUT BIDM 11/26/21 02/01/22 100 unit/mL (70-30) subcutaneous pen trazodone 50 mg tablet 50 - 100 mg PO HS 09/19/21 11/25/21 amlodipine 2.5 mg tablet 2.5 mg PO DAILY 11/18/21 11/25/21 furosemide 20 mg tablet 20 mg PO DAILY 11/18/21 11/25/21 levothyroxine 100 mcg tablet 100 mcg PO QAM tab 11/24/21 11/25/21 losartan 100 mg tablet 100 mg PO DAILY 11/24/21 11/25/21 pantoprazole 40 mg tablet,delayed 40 mg PO DAILY tab 11/24/21 11/25/21 release Previous Rx's Medication Instructions Recorded BD Ultra-Fine Short Pen Needle 31 #100 ea NS 05/02/20 gauge x 5/16" (pen needle, diabetic) blood sugar diagnostic (OneTouch #3 box 04/17/21 Ultra Blue Test Strip) metformin 850 mg tablet 850 mg PO BID #180 tab 06/23/21 nitroglycerin 0.4 mg sublingual 0.4 mg SL Q5M PRN #25 tab 07/10/21 tablet Oxygen Home #1 ea 07/16/21 Wheeled Walker #1 ea 07/21/21 apixaban 5 mg tablet (Eliquis) 5 mg PO BID #180 tab 10/06/21 atorvastatin 40 mg tablet 40 mg PO HS #90 tab 10/20/21 carvedilol 3.125 mg tablet 3.125 mg PO BID 30 Days #60 tab 11/24/21 Results & Data (ED) Vital Signs Vital Signs - 24 hr 12/10/21 10:40 12/10/21 10:41 12/10/21 10:47 Temperature 35.5 C L Temperature Source Skin Pulse Rate 48 L Pulse Rate from SpO2 Sensor 54 L Respiratory Rate 15 20 Respiratory Effort / Characteristics Non-Labored Spontaneous Spontaneous Respiratory Depth Normal Normal Respiratory Pattern Regular Regular Blood Pressure 140/69 Blood Pressure Mean 92 Pulse Oximetry 90 90 Oxygen Delivery Method Nasal Cannula Nasal Cannula Oxygen Flow Rate 4 2 Sepsis Recent Fever Within 48 Hours No Sepsis New/Unexplained Change in Mental Status N/A Sepsis Action Taken by Nursing No Action Required 12/10/21 11:00 12/10/21 11:01 12/10/21 11:30 Temperature Temperature Source Pulse Rate 44 L 47 L 42 L Pulse Rate from SpO2 Sensor 46 L 47 L 42 L Respiratory Rate 13 25 H 15 Respiratory Effort / Characteristics Respiratory Depth Respiratory Pattern Blood Pressure 106/55 L 118/51 L Blood Pressure Mean 72 73 Pulse Oximetry 91 91 95 Oxygen Delivery Method Oxygen Flow Rate Sepsis Recent Fever Within 48 Hours Sepsis New/Unexplained Change in Mental Status Sepsis Action Taken by Assisted Medications Current Medication List: was personally reviewed by me Laboratory Data Attestation: I reviewed the patient's lab results. Result diagrams: 12/10/21 11:14 12/10/21 11:14 Lab Results 12/10/21 12/10/21 12/10/21 Range/Units 11:05 11:14 11:14 WBC 10.48 (4.8-10.8) K/uL RBC 4.32 L (4.7-6.1) M/uL Hgb 12.3 L (14.0-18.0) g/dL Hct 40.8 L (42-52) % MCV 94.4 (80-100) fL MCH 28.5 (25-34) pg MCHC 30.1 L (32-36) g/dL RDW Std Deviation 57.8 H (36.4-46.3) fL RDW Coeff of Melonie 16.7 H (11.5-14.5) % Plt Count 105 L (130-400) K/uL MPV 10.3 (7.4-10.4) fL Immature Gran % (Auto) 0.3 % Neut % (Auto) 79.2 % Lymph % (Auto) 14.6 % Sequoyah % (Auto) 5.2 % Eos % (Auto) 0.6 % Baso % (Auto) 0.1 % Neut # (Auto) 8.31 H (1.4-6.5) K/uL Lymph # (Auto) 1.53 (1.2-3.4) K/uL Sequoyah # (Auto) 0.54 (0.11-0.59) K/uL Eos # (Auto) 0.06 (0-0.5) K/uL Baso # (Auto) 0.01 (0-0.2) K/uL Immature Gran # (Auto) 0.03 H (0.00-0.02) K/uL PT (9.0-12.0) Seconds INR (0.9-1.1) APTT (21.0-31.0) Seconds PTT Ratio VBG pH (7.36-7.41) VBG pCO2 (38-50) mmHg VBG pO2 mmHg VBG HCO3 mmol/L VBG O2 Saturation % VBG Base Excess mEq/L Barometric Pressure mm/Hg Sodium 143 (136-145) mmol/L Potassium 5.5 H (3.5-5.1) mmol/L Chloride 106 (98-107) mmol/L Carbon Dioxide 37 H (21-32) mmol/L Anion Gap 0 L (3-11) BUN 37 H (6-23) mg/dl Creatinine 0.98 (0.6-1.4) mg/dl Est Cr Clr Drug Dosing 71.1 ml/min Est GFR ( Amer) 85.2 ml/min Est GFR (Non-Af Amer) 73.6 ml/min BUN/Creatinine Ratio 37.8 H (10-20) Glucose 127 H (70-99(Fasting)) mg/dl Calcium 8.9 (8.5-10.1) mg/dl Magnesium 2.0 (1.7-2.4) mg/dl Total Bilirubin 0.4 (0.2-1.0) mg/dl AST 23 (13-39) U/L ALT 18 (7-52) U/L Alkaline Phosphatase 80 (34-104) U/L Troponin I < 0.03 (0-0.04) ng/ml B-Natriuretic Peptide (0-100) pg/ml Total Protein 6.5 (6.0-8.3) gm/dl Albumin 3.2 L (3.4-5.0) gm/dl Globulin 3.3 (2.5-4.0) gm/dl Albumin/Globulin Ratio 1.0 (0.9-2) SARS-CoV-2, RNA, NAAT NEGATIVE (NEGATIVE) 12/10/21 12/10/21 12/10/21 Range/Units 11:14 11:14 12:05 WBC (4.8-10.8) K/uL RBC (4.7-6.1) M/uL Hgb (14.0-18.0) g/dL Hct (42-52) % MCV (80-100) fL MCH (25-34) pg MCHC (32-36) g/dL RDW Std Deviation (36.4-46.3) fL RDW Coeff of Melonie (11.5-14.5) % Plt Count (130-400) K/uL MPV (7.4-10.4) fL Immature Gran % (Auto) % Neut % (Auto) % Lymph % (Auto) % Sequoyah % (Auto) % Eos % (Auto) % Baso % (Auto) % Neut # (Auto) (1.4-6.5) K/uL Lymph # (Auto) (1.2-3.4) K/uL Sequoyah # (Auto) (0.11-0.59) K/uL Eos # (Auto) (0-0.5) K/uL Baso # (Auto) (0-0.2) K/uL Immature Gran # (Auto) (0.00-0.02) K/uL PT 10.3 (9.0-12.0) Seconds INR 1.0 (0.9-1.1) APTT 31.9 H (21.0-31.0) Seconds PTT Ratio 1.2 VBG pH 7.26 L (7.36-7.41) VBG pCO2 82 H (38-50) mmHg VBG pO2 23 mmHg VBG HCO3 36 mmol/L VBG O2 Saturation < 60.0 % VBG Base Excess 6.3 mEq/L Barometric Pressure 740.7 mm/Hg Sodium (136-145) mmol/L Potassium (3.5-5.1) mmol/L Chloride (98-107) mmol/L Carbon Dioxide (21-32) mmol/L Anion Gap (3-11) BUN (6-23) mg/dl Creatinine (0.6-1.4) mg/dl Est Cr Clr Drug Dosing ml/min Est GFR ( Amer) ml/min Est GFR (Non-Af Amer) ml/min BUN/Creatinine Ratio (10-20) Glucose (70-99(Fasting)) mg/dl Calcium (8.5-10.1) mg/dl Magnesium (1.7-2.4) mg/dl Total Bilirubin (0.2-1.0) mg/dl AST (13-39) U/L ALT (7-52) U/L Alkaline Phosphatase (34-104) U/L Troponin I (0-0.04) ng/ml B-Natriuretic Peptide 126 H (0-100) pg/ml Total Protein (6.0-8.3) gm/dl Albumin (3.4-5.0) gm/dl Globulin (2.5-4.0) gm/dl Albumin/Globulin Ratio (0.9-2) SARS-CoV-2, RNA, NAAT (NEGATIVE) Administered Medications Discontinued Medications Cefepime HCl (Maxipime) 2,000 mg in 20 mls @ 5 mls/min IV NOW STA; Protocol Stop: 12/10/21 11:53 Last Admin: 12/10/21 12:18 Dose: 5 mls/min Documented by: [id number] Imaging Data Radiologist's Impression: Chest X-Ray 12/10/21 10:54 XR chest 1V portable CLINICAL HISTORY: Dyspnea. COMPARISON STUDY: 11/01/2021 TECHNIQUE: 1 view of the chest FINDINGS: Single frontal view of the chest demonstrates the cardiomediastinal silhouette to be within normal limits. Compared to previous examination, there is a decrea sed inspiratory effort with crowding of the bronchovascular markings at the lung bases and centrally. There has been interval development of left pleural effusion and left basilar atelectasis. The upper lungs are clear. There is no right pleural effusion. There is no evidence for vascular congestion. There is no acute osseous pathology. IMPRESSION: 1. Decreased inspiration with interval development of left pleural effusion and left basilar atelectasis. ACT 112: Negative or not required by law. Electronically signed by: Mansoor Trevino M.D. 12/10/2021 11:[address] 12/10/21 12:04 CT chest diagnostic wo con CLINICAL HISTORY: SOB TECHNIQUE: Multidetector row helical CT of the chest was performed. Coronal and sagittal reformations were obtained. Automated dose lowering techniques and/or adjustment according to patient size were utilized for this exam. Comparison: Comparison is made to CT chest 10/23/2021 FINDINGS: Lungs and pleura: There is a small left pleural effusion. There is underlying atelectasis. Consolidative and groundglass changes are seen most prominent in the left upper lobe. Heart and pericardium: Cardiomegaly is seen with biatrial enlargement. Vessels: Moderate atherosclerotic changes in the aorta and coronary arteries. Prominence of the esophagus is again seen. Mediastinum and trixie: Unremarkable. Chest wall and lower neck: Gynecomastia is noted bilaterally. Abdomen: A hiatal hernia is seen. Bones: Scattered sclerotic lesions in the spine are unchanged. Healed rib fractures are seen on the right. IMPRESSION: 1. Stable trace left pleural effusion with underlying atelectasis. There is interval development of consolidative and groundglass opacities most prominent in the left upper lobe. This is favored to represent worsening pneumonia. 2. Additional findings as above. ACT 112: Negative or not required by law. Electronically signed by: Enrique Youssef M.D. 12/10/2021 1:31 PM Discharge Plan Visit Data Chief Complaint: Respiratory Problems Stated Complaint: SOB ED Provider: Prabhjot Jean Discharge Problem: Left upper lobe pneumonia, Pleural effusion, Thrombocytopenia, Acute respiratory distress, Acute respiratory acidosis Patient Disposition: Being Evaluated by Hospitalist Forms Stand Alone Forms: [facility], [facility]1983 Prescriptions Prescriptions: No Action (DME) pen needle, diabetic [BD Ultra-Fine Short Pen Needle] 31 gauge x 5/16" needle See Rx Instructions .ROUTE .MEDSUPPLY Qty: 100 RF: 3 (DME) OneTouch Ultra Blue Test Strip Strip See Dose Instructions .ROUTE .MEDSUPPLY Qty: 3 RF: 3 metformin 850 mg tablet 850 mg PO BID Qty: 180 RF: 1 (DME) Oxygen Home Liters Per Minute See Rx Instructions .Route Qty: 1 RF: 0 (DME) Wheeled Walker Misc See Rx Instructions .Route Qty: 1 RF: 0 atorvastatin 40 mg tablet 40 mg PO HS Qty: 90 RF: 3 amlodipine 2.5 mg tablet 2.5 mg PO DAILY RF: 0 furosemide 20 mg tablet 20 mg PO DAILY RF: 0 cyanocobalamin (vitamin B-12) 1,000 mcg tablet 1,000 mcg PO QDL RF: 0 docusate sodium 100 mg capsule 100 mg PO QAM PRN (Reason: Constipation) RF: 0 polyethylene glycol 3350 17 gram/dose powder 17 gm PO DAILY PRN (Reason: Constipation) Qty: 1 RF: 0 nitroglycerin 0.4 mg tablet, sublingual 0.4 mg SL Q5M PRN (Reason: chest pain) Qty: 25 RF: 2 levothyroxine 100 mcg tablet 100 mcg PO QAM RF: 0 pantoprazole 40 mg tablet,delayed release (DR/EC) 40 mg PO DAILY RF: 0 losartan 100 mg tablet 100 mg PO DAILY RF: 0 carvedilol 3.125 mg tablet 3.125 mg PO BID 30 Days Qty: 60 RF: 11 cholecalciferol (vitamin D3) 50 mcg (2,000 unit) tablet 2,000 unit PO QDL RF: 0 Eliquis 5 mg tablet 5 mg PO BID Qty: 180 RF: 3 Mucinex 1,200 mg Tablet Extended Release 12hr 1,200 mg PO QAM RF: 0 trazodone 50 mg tablet 50 - 100 mg PO HS RF: 0 insulin asp prt-insulin aspart 100 unit/mL (70-30) insulin pen 30 - 40 unit subcut BIDM RF: 0 Referrals Referrals: Dao Ryan MD [Primary Care Provider] -
--- NOTE | 2021-12-10 11:13 | XRay Report ---
XR chest 1V portable CLINICAL HISTORY: Dyspnea. COMPARISON STUDY: 11/01/2021 TECHNIQUE: 1 view of the chest FINDINGS: Single frontal view of the chest demonstrates the cardiomediastinal silhouette to be within normal li mits. Compared to previous examination, there is a decreased inspiratory effort with crowding of the bronchovascular markings at the lung bases and centrally. There has been interval development of left pleural effusion and left basilar atelectasis. The upper lungs are clear. There is no right pleural effusion. There is no evidence for vascular congestion. There is no acute osseous pathology. IMPRESSION: 1. Decreased inspiration with interval development of left pleural effusion and left basilar atelecta sis. ACT 112: Negative or not required by law. Electronically signed by: Mansoor Trevino M.D. 12/10/2021 11:12 AM
[2021-12-10 11:22] LABS: Basophils # (auto) 0.01 K/uL (0-0.2); Basophils % (auto) 0.1 %; Eosinophils # (auto) 0.06 K/uL (0-0.5); Eosinophils % (auto) 0.6 %; Hematocrit (blood only) 40.8 % (42-52); Hemoglobin 12.3 g/dL (14.0-18.0); Immature Granulocytes # (auto) 0.03 K/uL (0.00-0.02); Immature Granulocytes % (auto) 0.3 %; Lymphocytes # (auto) 1.53 K/uL (1.2-3.4); Lymphocytes % (auto) 14.6 %; Mean Corpuscular Hemoglobin 28.5 pg (25-34); Mean Corpuscular Hgb Conc 30.1 g/dL (32-36); Mean Corpuscular Volume 94.4 fL (80-100); Mean Platelet Volume 10.3 fL (7.4-10.4); Monocytes # (auto) 0.54 K/uL (0.11-0.59); Monocytes % (auto) 5.2 %; Neutrophils # (auto) 8.31 K/uL (1.4-6.5); Neutrophils % (auto) 79.2 %; Platelet Count 105 K/uL (130-400); RDW Coefficient of Variation 16.7 % (11.5-14.5); RDW Standard Deviation 57.8 fL (36.4-46.3); Red Blood Count 4.32 M/uL (4.7-6.1); White Blood Count 10.48 K/uL (4.8-10.8)
[2021-12-10 11:28] LABS: Base Excess VBG 6.3 mEq/L; HCO3 VBG 36 mmol/L; PCO2 VBG 82 mmHg (38-50); PO2 VBG 23 mmHg; pH VBG 7.26 (7.36-7.41)
[2021-12-10 11:31] LABS: Oxygen Saturation VBG < 60.0 %
[2021-12-10 11:33] LABS: Partial Thromboplastin Ratio 1.2; Partial Thromboplastin Time 31.9 Seconds (21.0-31.0); Prothrombin Time 10.3 Seconds (9.0-12.0)
[2021-12-10 11:46] LABS: Troponin I < 0.03 ng/ml (0-0.04)
[2021-12-10] MEDS ORDERED: CEFEPIME 2,000 MG/20 ML VIAL IV STA (11:50)
[2021-12-10 11:56] LABS: Alanine Aminotransferase 18 U/L (7-52); Albumin Level 3.2 gm/dl (3.4-5.0); Alkaline Phosphatase 80 U/L (34-104); Anion Gap 0 (3-11); Aspartate Aminotransferase 23 U/L (13-39); BUN Creatinine Ratio 37.8 (10-20); Bilirubin,Total 0.4 mg/dl (0.2-1.0); Blood Urea Nitrogen 37 mg/dl (6-23); Calcium 8.9 mg/dl (8.5-10.1); Carbon Dioxide 37 mmol/L (21-32); Chloride 106 mmol/L (98-107); Creatinine Clr Calc Pharmacy 71.1 ml/min; Est GFR (African American) 85.2 ml/min; Est GFR (Non-African American) 73.6 ml/min; Globulin 3.3 gm/dl (2.5-4.0); Glucose 127 mg/dl (70-99(Fasting)); Potassium 5.5 mmol/L (3.5-5.1); Sodium 143 mmol/L (136-145); Total Protein 6.5 gm/dl (6.0-8.3)
--- NOTE | 2021-12-10 12:12 | History & Physical Report ---
Date of Service December 10, 2021 Assessment & Plan (1) Acute respiratory failure with hypoxia: Plan: Calvin is a 76-year-old male with past medical history of bradycardia, A. fib, diabetes, CAD, SIXTO, and CKD who presents with shortness of breath and oxygen saturation in the 80s this morning at home. He wears nighttime oxygen and has a history of pulmonary edema. Shortness of breath, acute on chronic hypoxic respiratory failure 2/2 CAP Shortness of breath, worsened with exertion Requiring 2 L oxygen, sats greater than 90%. Goal greater than 90 No leukocytosis Hemoglobin 12.3 Sodium normal Potassium slightly elevated, 5.5 Creatinine 0.98, normal baseline Troponin negative on admission, EKG without acute ST changes as below CXR: Decreased inspiration with interval development of left pleural effusion and left basilar atelectasis. No evidence for vascular congestion. Impaired x- ray 11/01/2021 mild pulmonary edema has improved. EKG:Sinus bradycardia with right bundle branch block, previously A. fib. QTc 435 -CTC:Stable trace left pleural effusion with underlying atelectasis. There is interval development of consolidative and groundglass opacities most prominent in the left upper lobe. This is favored to represent worsening pneumonia. Covid negative Continue treatment for community-acquired pneumonia, azithromycin plus ceftriaxone, MRSA nare pending (2) Bradycardia: Plan: Bradycardia Asymptomatic at rest Last seen by cardiology 11/24/2021 without significant bradycardia, was recommended to continue carvedilol 3.125 mg p.o. twice daily. Pacemaker implementation was not recommended at that visit Cardiology consulted, Coreg held for bradycardia on admission ? Impact on pleural effusion, mild edema (3) Chronic kidney disease (CKD), stage II (mild): Plan: chronic CKD Baseline creatinine approximately 1.0, GFR 6080 On admit creatinine normal, 0.98 Patient with severe contrast anaphylactic allergy (4) Diabetes: Plan: Type 2 diabetes mellitus On insulin 70/30 outpatient Convert to basal bolus while inpatient Home total daily insulin dose 70 units, convert to basal 18, SSI correction 25 ratio 8 Glucose checks AC/at bedtime (5) Hypertension: Plan: Hypertension Carvedilol previously decreased to 3.125 from 6.25 twice daily Takes amlodipine 7.5 mg daily Continue losartan 100 mg daily (6) Gastroesophageal reflux disease: Plan: GERD Continue pantoprazole 40 mg twice daily (7) Hypothyroidism: Plan: Hypothyroidism Continue Synthroid TSH repeat pending (8) Obstructive sleep apnea: Plan: SIXTO Patient previously not been able to tolerate CPAP/BiPAP (9) CAD (coronary artery disease): Plan: CAD Mild inferior ischemia on stress test 08/05/2021, followed with medical management Continue statin Aspirin stopped following initiation of Eliquis anticoagulation 10/22/2021 - Carotid artery disease, status/post left CEA Plan: DVT prophylaxis: On Eliquis for history of A. fib currently in sinus bradycardia Disposition: Medical/surgical with telemetry CODE STATUS: Full code Diet: Heart healthy, DM History of Present Illness Primary Care Provider: Dao Ryan MD Calvin is a 76-year-old male with past medical history of bradycardia, A. fib, diabetes, CAD, SIXTO, and CKD who presents with shortness of breath and oxygen saturation in the 80s this morning at home. He wears nighttime oxygen and has a history of pulmonary edema. Short of breath since this morning. Uses 2L of oxygen at night at home, but felt like his breathing was worse this morning than normal had some dizziness and global weakness. Breathing is worse laying down (endorses mild orthopnea). Has an ongoing feeling of phlegm and cough which seems similar to his baseline, but productive for more clear mucous than normal\\ No fevers, chills, of sweats No nausea, vomiting, or diarrhea. no constipation Peeing normally. No dysuria. Appetite normal. No chest pain, no chest pressure trace increase in bilateral leg swelling has been taking 20mg lasix daily No medication allegies, severe rxn anaphylaxis to contast/travis/iodinated dye Medical History: Reviewed Medications: Reviewed Surgical History: Reviewed Allergies: Reviewed Social History: No tobacco product use. No alcohol use. No MM use. Code Status: Surrogate decision maker would be Sana Gibbons. DNR/Dni confirme d with patient and his Allergies Allergy/AdvReac Type Severity Reaction Status Date / Time Gadolinium-Containing Allergy Severe ANAPHYLAXIS Verified 12/10/21 14:15 Contrast Medi Iodinated Contrast Media Allergy Severe ANAPHYLAXIS Verified 12/10/21 14:15 Home Medications Medication Instructions Recorded Confirmed Type cyanocobalamin (vitamin B-12) 1,000 mcg PO QDL tab 05/31/19 11/25/21 History 1,000 mcg tablet docusate sodium 100 mg capsule 100 mg PO QAM PRN cap 05/31/19 11/25/21 History polyethylene glycol 3350 17 17 gm PO DAILY PRN #1 gm 05/31/19 11/25/21 History gram/dose oral powder BD Ultra-Fine Short Pen Needle 31 #100 ea NS 05/02/20 11/25/21 Rx gauge x 5/16" (pen needle, diabetic) cholecalciferol (vitamin D3) 50 2,000 unit PO QDL tab 10/28/20 11/25/21 History mcg (2,000 unit) tablet blood sugar diagnostic (OneTouch #3 box 04/17/21 11/25/21 Rx Ultra Blue Test Strip) metformin 850 mg tablet 850 mg PO BID #180 tab 06/23/21 11/25/21 Rx nitroglycerin 0.4 mg sublingual 0.4 mg SL Q5M PRN #25 tab 07/10/21 11/25/21 Rx tablet Oxygen Home #1 ea 07/16/21 11/25/21 Rx Wheeled Walker #1 ea 07/21/21 11/25/21 Rx guaifenesin 1,200 mg tablet, 1,200 mg PO QAM 09/19/21 11/25/21 History extended release 12 hr (Mucinex) insulin aspar prot-insulin aspart 30 - 40 unit SUBCUT BIDM 09/19/21 11/25/21 History 100 unit/mL (70-30) subcutaneous pen trazodone 50 mg tablet 50 - 100 mg PO HS 09/19/21 11/25/21 History apixaban 5 mg tablet (Eliquis) 5 mg PO BID #180 tab 10/06/21 11/25/21 Rx atorvastatin 40 mg tablet 40 mg PO HS #90 tab 10/20/21 11/25/21 Rx amlodipine 2.5 mg tablet 2.5 mg PO DAILY 11/18/21 11/25/21 History furosemide 20 mg tablet 20 mg PO DAILY 11/18/21 11/25/21 History carvedilol 3.125 mg tablet 3.125 mg PO BID 30 Days #60 tab 11/24/21 11/25/21 Rx levothyroxine 100 mcg tablet 100 mcg PO QAM tab 11/24/21 11/25/21 History losartan 100 mg tablet 100 mg PO DAILY 11/24/21 11/25/21 History pantoprazole 40 mg tablet,delayed 40 mg PO DAILY tab 11/24/21 11/25/21 History release Past Med/Surg History Medical History Acrochordon Anxiety Arteriosclerosis of carotid artery Arteriosclerotic cardiovascular disease Asthma Atypical chest pain Chronic kidney disease (CKD), stage II (mild) Colon polyps Diabetes Diabetes with neurologic complications Diabetic nephropathy Dyslipidemia Excessive sweating Gait disturbance Gastroesophageal reflux disease Rachel's thyroiditis History of givxrd-qt-oksiqcsbu syndrome Hyperglobulinemia Hyperkalemia Hyperlipidemia Hypertension Hypothyroidism Insomnia Internal hemorrhoids Male erectile disorder of organic origin Obesity Obstructive sleep apnea Paralysis of right vocal fold Parotid sialolithiasis Pleural effusion Proteinuria Right bundle branch block Sialadenitis Vitamin D deficiency Vocal cord anomaly Surgical History H/O umbilical hernia repair S/P carotid endarterectomy S/P cataract surgery S/P inguinal hernia repair S/P tonsillectomy Family History Mother Heart disease Father Stomach cancer Other Asthma Cancer Denies family history of Ovarian cancer Prostate cancer Myocardial infarction Breast cancer Colorectal cancer Social History Smoking Status: Never smoker Second Hand Exposure: No; Hx Alcohol Use: Yes (no longer drinking) Alcohol type: beer Hx Substance Use: No Preferred Language: New Zealander Communication Ability: Effective Visual Impairment: No Limitations Hearing Ability: Normal Review Engineer Required: No Beliefs That Will Affect Care: None marital status: Current Living Situation: Spouse current occupational status: retired How many Children do You have: 2 Feels Safe at Home: Yes Childhood Exposure to Second-Hand Smoke: No Diet Comment: K+ reduced caffeine: Yes (coffee) Dental Care, Regularly: Yes Physical Activity Frequency: Does not Exercise Seatbelt Use: always Sunscreen Use: No Assistive Devices: Glasses and Walker Review of Systems Review of Systems: All systems reviewed & are unremarkable except as noted in Subjective Physical Exam Physical Exam: General: A&Ox3. NAD. Cooperative. HEENT: Atraumatic, normocephalic. Visual acuity and hearing grossly intact Pulm: Basilar crackles left greater than right left upper lobe crackles, symmetrical chest rise. No increased work of breathing. No respiratory distress. Cardiac: Regular, bradycardic, -mrg. Radial pulses intact and symmetrical. Abdominal: Nontender, nondistended, soft. BS present. Extremities: Moves all extremities equally. Commercial Green Building Architect strength and ankle dorsiflexion/plantarflexion grossly intact and symmetrical. Trace ankle edema of the lower extremities bilaterally. Results & Data Results & Data ([facility]) Vital Signs (Past 12 Hours) Vital Signs Temp Pulse Resp BP Pulse Ox 12/10/21 11:30 42 L 15 118/51 L 95 12/10/21 11:01 47 L 25 H 106/55 L 91 12/10/21 11:00 44 L 13 91 12/10/21 10:41 35.5 C L 48 L 20 140/69 90 12/10/21 10:40 15 90 PG Care Time/CCT Total # of Minutes Spent Total Time Spent with Patient: Total time spent is greater than 50% in coordination of care (as documented) at patient's floor/unit and/or counseling patient: Coding Level of Care Code 45028 Initial Inpt Care Lvl 3 Diagnoses Acute respiratory failure with hypoxia J96.01 Bradycardia R00.1 Chronic kidney disease (CKD), stage II (mild) N18.2 Diabetes E11.9 Hypertension I10 Gastroesophageal reflux disease K21.9 Hypothyroidism E03.9 Obstructive sleep apnea G47.33 CAD (coronary artery disease) I25.10
--- NOTE | 2021-12-10 13:32 | CT Scan Report ---
CT chest diagnostic wo con CLINICAL HISTORY: SOB TECHNIQUE: Multidetector row helical CT of the chest was performed. Coronal and sagittal reformations were obtained. Automated dose lowering techniques and/or adjustment according to patient size were u tilized for this exam. Comparison: Comparison is made to CT chest 10/23/2021 FINDINGS: Lungs and pleura: There is a small left pleural effusion. There is underlying atelectasis. Consolidat nerissa and groundglass changes are seen most prominent in the left upper lobe. Heart and pericardium: Cardiomegaly is seen with biatrial enlargement. Vessels: Moderate atherosclerotic changes in the aorta and coronary arteries. Prominence of the esoph arianna is again seen. Mediastinum and trixie: Unremarkable. Chest wall and lower neck: Gynecomastia is noted bilaterally. Abdomen: A hiatal hernia is seen. Bones: Scattered sclerotic lesions in the spine are unchanged. Healed rib fractures are seen on the r ight. IMPRESSION: 1. Stable trace left pleural effusion with underlying atelectasis. There is interval development of consolidative and groundglass opacities most prominent in the left upper lobe. This is favored to rep resent worsening pneumonia. 2. Additional findings as above. ACT 112: Negative or not required by law. Electronically signed by: Enrique Youssef M.D. 12/10/2021 1:31 PM
--- NOTE | 2021-12-10 15:21 | Electrocardiogram Report ---
Test Reason : Blood Pressure : / mmHG Vent. Rate : 046 BPM Atrial Rate : 046 BPM P-R Int : 192 ms QRS Dur : 130 ms QT Int : 498 ms P-R-T Axes : 013 -13 041 degrees QTc Int : 435 ms Sinus bradycardia Right bundle branch block Abnormal ECG When compared with ECG of 03-NOV-2021 10:00, Sinus rhythm has replaced Atrial fibrillation Vent. rate has decreased BY 40 BPM QRS axis Shifted right Confirmed by Marciano Velazquez ([id number]) on 12/10/2021 3:20:46 PM Referred By: REFERRED SELF Confirmed By:Marciano Velazquez
[2021-12-10] MEDS ORDERED: GLUCAGON FOR INJ 1 MG VIAL SQ PRN (16:44)
[2021-12-10] MEDS ORDERED: DEXTROSE 50% 50 ML SYRINGE IV PRN (16:44)
[2021-12-10] MEDS ORDERED: GLUCOSE 40% GEL 15 GM TUBE PO PRN (16:44)
[2021-12-10] MEDS ORDERED: POLYETHYLENE (MIRALAX) 17 GM PACK PO PRN (16:44)
[2021-12-10] MEDS ORDERED: cefTRIAXone SODIUM 1,000 MG in DEXTROSE 5% 50 ML IV SCH (16:44)
[2021-12-10] MEDS ORDERED: GLUCOSE 10 TABS/TUBE PO PRN (16:44)
[2021-12-10] MEDS ORDERED: ACETAMINOPHEN 325 MG TAB PO PRN (16:44)
[2021-12-10] MEDS ORDERED: AZITHROMYCIN 250 MG TAB PO ONE (17:00)
[2021-12-10] MEDS: INSULIN ASPART PER UNIT SC SCH ×2 (18:18→21:11)
[2021-12-10] MEDS: cefTRIAXone SODIUM 2,000 MG in DEXTROSE 5% 50 ML IV SCH (19:48)
[2021-12-10] MEDS: INSULIN GLARGINE SOLOSTAR 100 UNITS/ML 3 ML PEN SC SCH (21:11)
[2021-12-10] MEDS: traZODone HCL 50 MG TAB PO SCH (21:17)
[2021-12-10] MEDS: ATORVASTATIN 40 MG TAB PO SCH (21:17)
[2021-12-10] MEDS: APIXABAN 5 MG TABLET PO SCH (21:17)
[2021-12-11] MEDS: LEVOTHYROXINE SODIUM 100 MCG TABLET PO SCH (05:12)
[2021-12-11 07:47] LABS: Basophils # (auto) 0.01 K/uL (0-0.2); Basophils % (auto) 0.2 %; Eosinophils # (auto) 0.08 K/uL (0-0.5); Eosinophils % (auto) 1.3 %; Hematocrit (blood only) 39.1 % (42-52); Hemoglobin 11.6 g/dL (14.0-18.0); Immature Granulocytes # (auto) 0.01 K/uL (0.00-0.02); Immature Granulocytes % (auto) 0.2 %; Lymphocytes # (auto) 1.39 K/uL (1.2-3.4); Lymphocytes % (auto) 22.7 %; Mean Corpuscular Hemoglobin 28.2 pg (25-34); Mean Corpuscular Hgb Conc 29.7 g/dL (32-36); Mean Corpuscular Volume 95.1 fL (80-100); Mean Platelet Volume 10.1 fL (7.4-10.4); Monocytes # (auto) 0.55 K/uL (0.11-0.59); Neutrophils # (auto) 4.07 K/uL (1.4-6.5); Neutrophils % (auto) 66.6 %; Platelet Count 105 K/uL (130-400); RDW Coefficient of Variation 16.9 % (11.5-14.5); RDW Standard Deviation 58.8 fL (36.4-46.3); Red Blood Count 4.11 M/uL (4.7-6.1); White Blood Count 6.11 K/uL (4.8-10.8)
[2021-12-11 08:08] LABS: BUN Creatinine Ratio 32.8 (10-20); Calcium 8.8 mg/dl (8.5-10.1); Est GFR (African American) 69.5 ml/min; Potassium 5.1 mmol/L (3.5-5.1)
[2021-12-11] MEDS: INSULIN GLARGINE SOLOSTAR 100 UNITS/ML 3 ML PEN SC SCH ×2 (08:32→20:53)
[2021-12-11] MEDS: amLODIPine BESYLATE 5 MG TAB PO SCH (08:32)
[2021-12-11] MEDS: APIXABAN 5 MG TABLET PO SCH ×2 (08:32→20:52)
[2021-12-11] MEDS: PANTOprazole 40 MG TAB PO SCH (08:33)
[2021-12-11] MEDS: LOSARTAN POTASSIUM 50 MG TAB PO SCH (08:33)
[2021-12-11] MEDS: INSULIN ASPART PER UNIT SC SCH ×4 (08:34→20:52)
[2021-12-11] MEDS ORDERED: FUROSEMIDE 20 MG TAB PO SCH (09:00)
--- NOTE | 2021-12-11 10:25 | Cardiology Consultation ---
Date of Consultation December 11, 2021 Assessment & Plan (1) Bradycardia: Sinus, no pauses 2. Community-acquired pneumonia 3. Paroxysmal atrial fibrillationasymptomatic 4. Chronic renal insufficiency 5. Type 2 diabetes, intermittent hypoglycemia 6. Left pleural effusion post prior thoracentesis 7. Atypical chest pain/Presumed coronary artery disease--positive RCA territory stress test in 2020, no prior catheterization 8. Thrombocytopenia Admitted with acute dyspnea, respiratory failure thought in part secondary to possible community-acquired pneumonia, stable left pleural effusion. Today with increased oxygen requirement but feeling well, asking to go home. Weight is up from prior admission but minimal evidence of systemic venous congestion on exam. BUN/bicarb elevated consistent with volume depletion. At this point agree with holding off on additional aggressive diuresis. Continue home maintenance Lasix 20 mg daily. Again with episodes of sinus bradycardia down into the 40s most notable while sleeping. No associated hypotension. No significant pauses or AV block. Do not feel bradycardia is contributing to symptoms or pleural effusion. Recommend stopping carvedilol. No indication for pacemaker at this time. Continue remainder of home antihypertensives. Continue anticoagulation with Eliquis. History of Present Illness Attending Physician: Vinayak Bearden MD History of Present Illness Mr. Reyez is a very pleasant 76-year-old gentleman with a history of presumed CAD, chronic diastolic heart failure, sinus bradycardia, asymptomatic atrial fibrillation readmitted with recurrent shortness of breath. Patient known to me from outpatient setting and prior hospitalizations. Other history includes hypertension, diabetes, right bundle-branch block, prior CVA, carotid artery disease status post left internal carotid endarterectomy in 2012, obstructive sleep apnea with long-term nighttime shortness of breath/coughing spells on night time , stage II CKD, monoclonal gammopathy. Was seen 06/2021 in the setting of nighttime dyspnea, coughing and a recent episode of chest pain radiating to his arms. Underwent repeat Lexiscan SPECT which again showed a small amount inferior ischemia. Decision to medically manage with current Coreg, Imdur and amlodipine. Patient hospitalized 08/2612/01/2021 presenting with increased shortness of breath, hypertension and sinus bradycardia. Had a left pleural effusion which was drained, transudative. Carvedilol reduced. Had periods of atrial fibrillation, on telemetry, asymptomatic, relatively rate controlled even off beta-yesica. Started on Eliquis. Repeat echo EF 60 to 65%, grade 2 diastolic dysfunction, no valve disease. At visit 09/2021 intermittent dizziness when standing/walking. had noted heart rates in the 50s. Repeat labs showed blood glucose down to 30s. Event monitor showed paroxysmal AF. No significant pauses. No arrhythmia correlate with dizziness. Hospitalized 10/23-08/27/2022 with right lower lobe pneumonia, sepsis. Post discharge rehab stay at [facility]. Seen 3 weeks ago and was doing well. Admitted yesterday with 1 to 2 days with increased shortness of breath, mild lower extremity edema and concern for recurrent heart failure. Denies any chest pain, palpitations. No real dizziness. CT scan showed stable left pleural effusion and possible left upper lobe pneumonia. Weight up 8 pounds from last discharge. Intermittent sinus bradycardia down to 40s. On telemetry no pauses or AV block. Troponin negative. Prior cardiovascular studies: Event monitor 10/2021: Monitor for 18 hours, paroxysmal AF, AF burden 9%, heart rate 31 105 average 58, longest pause 2.4 seconds. Dizzy symptoms correlated with A. fib with heart rate in the 60s and 70s Echo 10/14: LVEF 55 to 60%, no valve pathology, DD 1 Echo 03/2021: LVEF 55 to 60%, DD 2, no valve disease Exercise stress echo (01/2012): Exercise for 4 minutes and 33 seconds achieving 65 percent of max predicted heart rate and 7 Mets. Resting EF was 55-60 percent, normal reduction in cavity size with exercise but inferior, RCA wall motion abnormality noted with peak exercise. Carotid duplex (05/2016 with vascular surgery): Left ICA status post endarterectomy, patent without significant stenosis (less than 50 percent), right internal carotid moderate stenosis (50-69 percent), normal antegrade vertebral flow Allergies Allergy/AdvReac Type Severity Reaction Status Date / Time Gadolinium-Containing Allergy Severe ANAPHYLAXIS Verified 12/10/21 14:15 Contrast Medi Iodinated Contrast Media Allergy Severe ANAPHYLAXIS Verified 12/10/21 14:15 Home Medications Medication Instructions Recorded Confirmed Type cyanocobalamin (vitamin B-12) 1,000 mcg PO QDL tab 05/31/19 12/10/21 History 1,000 mcg tablet docusate sodium 100 mg capsule 100 mg PO QAM PRN cap 05/31/19 12/10/21 History polyethylene glycol 3350 17 17 gm PO DAILY PRN #1 gm 05/31/19 12/10/21 History gram/dose oral powder BD Ultra-Fine Short Pen Needle 31 #100 ea NS 05/02/20 11/25/21 Rx gauge x 5/16" (pen needle, diabetic) cholecalciferol (vitamin D3) 50 2,000 unit PO QDL tab 10/28/20 12/10/21 History mcg (2,000 unit) tablet blood sugar diagnostic (OneTouch #3 box 04/17/21 11/25/21 Rx Ultra Blue Test Strip) metformin 850 mg tablet 850 mg PO BID #180 tab 06/23/21 12/10/21 Rx nitroglycerin 0.4 mg sublingual 0.4 mg SL Q5M PRN #25 tab 07/10/21 12/10/21 Rx tablet Oxygen Home #1 ea 07/16/21 11/25/21 Rx Wheeled Walker #1 ea 07/21/21 11/25/21 Rx guaifenesin 1,200 mg tablet, 1,200 mg PO QAM 09/19/21 12/10/21 History extended release 12 hr (Mucinex) insulin aspar prot-insulin aspart 30 - 40 unit SUBCUT BIDM 09/19/21 12/10/21 History 100 unit/mL (70-30) subcutaneous pen trazodone 50 mg tablet 50 - 100 mg PO HS 09/19/21 12/10/21 History apixaban 5 mg tablet (Eliquis) 5 mg PO BID #180 tab 10/06/21 12/10/21 Rx atorvastatin 40 mg tablet 40 mg PO HS #90 tab 10/20/21 12/10/21 Rx amlodipine 2.5 mg tablet 2.5 mg PO DAILY 11/18/21 12/10/21 History furosemide 20 mg tablet 20 mg PO DAILY 11/18/21 12/10/21 History carvedilol 3.125 mg tablet 3.125 mg PO BID 30 Days #60 tab 11/24/21 12/10/21 Rx levothyroxine 100 mcg tablet 100 mcg PO QAM tab 11/24/21 12/10/21 History losartan 100 mg tablet 100 mg PO DAILY 11/24/21 12/10/21 History pantoprazole 40 mg tablet,delayed 40 mg PO HS tab 11/24/21 12/10/21 History release Patient History Medical History Acrochordon Anxiety Arteriosclerosis of carotid artery Arteriosclerotic cardiovascular disease Asthma Atypical chest pain Chronic kidney disease (CKD), stage II (mild) Colon polyps Diabetes Diabetes with neurologic complications Diabetic nephropathy Dyslipidemia Excessive sweating Gait disturbance Gastroesophageal reflux disease Rachel's thyroiditis History of vwbuaq-au-xurgxnzzp syndrome Hyperglobulinemia Hyperkalemia Hyperlipidemia Hypertension Hypothyroidism Insomnia Internal hemorrhoids Male erectile disorder of organic origin Obesity Obstructive sleep apnea Paralysis of right vocal fold Parotid sialolithiasis Pleural effusion Proteinuria Right bundle branch block Sialadenitis Vitamin D deficiency Vocal cord anomaly Surgical History H/O umbilical hernia repair S/P carotid endarterectomy S/P cataract surgery S/P inguinal hernia repair S/P tonsillectomy Family History Mother Heart disease Father Stomach cancer Other Asthma Cancer Denies family history of Ovarian cancer Prostate cancer Myocardial infarction Breast cancer Colorectal cancer Social History Smoking Status: Never smoker Second Hand Exposure: No; Hx Alcohol Use: Yes (no longer drinking) Alcohol type: beer Hx Substance Use: No Preferred Language: Persian Communication Ability: Effective Visual Impairment: No Limitations Hearing Ability: Normal Advanced Practice Professional Required: No Beliefs That Will Affect Care: None marital status: Current Living Situation: Spouse current occupational status: retired How many Children do You have: 2 Feels Safe at Home: Yes Childhood Exposure to Second-Hand Smoke: No Diet Comment: K+ reduced caffeine: Yes (coffee) Dental Care, Regularly: Yes Physical Activity Frequency: Does not Exercise Seatbelt Use: always Sunscreen Use: No Assistive Devices: Cane, Glasses, Oxygen - at Night and Walker Review of Systems Review of Systems: All systems reviewed & are unremarkable except as noted in HPI & below Physical Exam Physical Exam: General: Comfortable HEENT: Sclerae anicteric, Mask in place Lungs: Few crackles on the right, decreased breath sounds in the left Cardiac: Regular rate and rhythm, no murmurs Vascular: 2+ radial Abdomen: Soft, nontender Extremities: Well perfused, trace edema Neuro: Nonfocal Psych: Alert orient x3, normal affect and mood Results & Data ([facility]) Vital Signs (Past 12 Hours) Vital Signs Pulse Pulse Resp BP Pulse Ox 12/11/21 07:00 58 L 20 170/77 H 98 12/11/21 04:05 51 L 20 167/74 H 98 12/11/21 02:43 44 L PG Care Time/CCT Total # of Minutes Spent Total Time Spent with Patient: Total time spent is greater than 50% in coordination of care (as documented) at patient's floor/unit and/or counseling patient: Coding Level of Care Code 01752 Office/OBS Consult Lvl 4 Diagnoses Bradycardia R00.1
[2021-12-11] MEDS: AZITHROMYCIN 250 MG TAB PO SCH (12:35)
--- NOTE | 2021-12-11 13:33 | Hospitalist Progress Note ---
Date of Service December 11, 2021 Assessment & Plan (1) Acute respiratory failure with hypoxia: Plan: Calvin is a 76-year-old male with past medical history of bradycardia, A. fib, diabetes, CAD, SIXTO, and CKD who presents with shortness of breath and oxygen saturation in the 80s this morning at home. He wears nighttime oxygen and has a history of pulmonary edema. Shortness of breath, acute on chronic hypoxic respiratory failure 2/2 CAP Shortness of breath, worsened with exertion Requiring 2 L oxygen, sats greater than 90%. Goal greater than 90. Currently requiring 6 L of oxygen mask No leukocytosis Hemoglobin 12.3 Sodium normal Potassium slightly elevated, 5.5 Creatinine 0.98, normal baseline Troponin negative on admission, EKG without acute ST changes as below CXR: Decreased inspiration with interval development of left pleural effusion and left basilar atelectasis. No evidence for vascular congestion. Compared to x-ray 11/01/2021 mild pulmonary edema has improved. EKG:Sinus bradycardia with right bundle branch block, previously A. fib. QTc 435 -CTC:Stable trace left pleural effusion with underlying atelectasis. There is interval development of consolidative and groundglass opacities most prominent in the left upper lobe. This is favored to represent worsening pneumonia. Covid negative Continue treatment for community-acquired pneumonia, azithromycin plus ceftriaxone, MRSA nare negative (2) Bradycardia: Plan: Bradycardia Asymptomatic at rest Last seen by cardiology 11/24/2021 without significant bradycardia, was recommended to continue carvedilol 3.125 mg p.o. twice daily. Pacemaker implementation was not recommended at that visit BNP 126 Patient with stable symptomatic bradycardia Cardiology consulted, carvedilol discontinued. No significant pauses or AV block. (3) Chronic kidney disease (CKD), stage II (mild): Plan: chronic CKD Baseline creatinine approximately 1.0, GFR 6080 On admit creatinine normal, 0.98 Patient with severe contrast anaphylactic allergy Creatinine remains at normal baseline (4) Diabetes: Plan: Type 2 diabetes mellitus On insulin 70/30 outpatient Convert to basal bolus while inpatient Home total daily insulin dose 70 units, convert to basal 18, SSI correction 25 ratio 8 Glucose checks AC/at bedtime (5) Hypertension: Plan: Hypertension Carvedilol previously decreased to 3.125 from 6.25 twice daily Takes amlodipine 7.5 mg daily Continue losartan 100 mg daily (6) Gastroesophageal reflux disease: Plan: GERD Continue pantoprazole 40 mg twice daily (7) Hypothyroidism: Plan: Hypothyroidism Continue Synthroid TSH normal (8) Obstructive sleep apnea: Plan: SIXTO Patient previously not been able to tolerate CPAP/BiPAP (9) CAD (coronary artery disease): Plan: CAD Mild inferior ischemia on stress test 08/05/2021, followed with medical management Continue statin Aspirin stopped following initiation of Eliquis anticoagulation 10/22/2021 - Carotid artery disease, status/post left CEA Carvedilol discontinued as noted above Plan: DVT prophylaxis: On Eliquis for history of A. fib currently in sinus bradycardia Disposition: Medical/surgical with telemetry CODE STATUS: Full code Diet: Heart healthy, DM Admission and Anticipated Discharge Date Admission Date: December 10, 2021 Subjective Reports he is starting to feel better. Continues have a nonproductive cough, but less so than previous. Has not had fevers, chills, sweats, difficulty breathing, syncope, presyncope. No palpitations. Is a little cold in the room. Review of Systems Review of Systems: All systems reviewed & are unremarkable except as noted in Subjective Physical Exam Physical Exam: General: A&Ox3. NAD. Cooperative. HEENT: Atraumatic, normocephalic. Pulm: left greater than right crackles persist, no respiratory distress. Cardiac: Regular, bradycardic. No murmurs rubs or gallops. Radial pulses intact and symmetrical. Abdominal: Nontender, nondistended, soft. BS present. Results & Data Results & Data ([facility]) Vital Signs (Past 12 Hours) Vital Signs Temp Pulse Pulse Resp BP Pulse Ox 12/11/21 11:55 35.7 C L 55 L 20 103/55 L 99 12/11/21 07:00 58 L 20 170/77 H 98 12/11/21 04:05 51 L 20 167/74 H 98 12/11/21 02:43 44 L PG Care Time/CCT Total # of Minutes Spent Total Time Spent with Patient: Total time spent is greater than 50% in coordination of care (as documented) at patient's floor/unit and/or counseling patient: Coding Level of Care Code 20162 Subseq Hosp Care Lvl 2 Diagnoses Acute respiratory failure with hypoxia J96.01 Bradycardia R00.1 Chronic kidney disease (CKD), stage II (mild) N18.2 Diabetes E11.9 Hypertension I10 Gastroesophageal reflux disease K21.9 Hypothyroidism E03.9 Obstructive sleep apnea G47.33 CAD (coronary artery disease) I25.10
[2021-12-11] MEDS: ATORVASTATIN 40 MG TAB PO SCH (20:52)
[2021-12-11] MEDS: traZODone HCL 50 MG TAB PO SCH (20:56)
[2021-12-11] MEDS: cefTRIAXone SODIUM 2,000 MG in DEXTROSE 5% 50 ML IV SCH (20:56)
[2021-12-12] MEDS: LEVOTHYROXINE SODIUM 100 MCG TABLET PO SCH (06:06)
[2021-12-12 06:15] LABS: Appearance Urine Clear (Clear); Bacteria Urine Automated Negative (Negative); Bilirubin Urine Negative (Negative); Blood Urine Negative (Negative); Color Urine Yellow; Glucose Urine UA Negative (Negative); Ketones Urine Negative (Negative); Leukocyte Esterase Urine Negative (Negative); Nitrite Urine Negative (Negative); Protein Urine 2+ (Negative); RBC Urine Automated 0-4 /hpf (0-4); Specific Gravity Urine 1.013 (1.000-1.030); Urobilinogen Urine Negative (Negative)
[2021-12-12] MEDS: APIXABAN 5 MG TABLET PO SCH ×2 (08:01→20:57)
[2021-12-12] MEDS: PANTOprazole 40 MG TAB PO SCH (08:02)
[2021-12-12] MEDS: amLODIPine BESYLATE 5 MG TAB PO SCH (08:02)
[2021-12-12] MEDS: AZITHROMYCIN 250 MG TAB PO SCH (08:03)
[2021-12-12] MEDS: LOSARTAN POTASSIUM 50 MG TAB PO SCH (08:03)
[2021-12-12] MEDS: INSULIN GLARGINE SOLOSTAR 100 UNITS/ML 3 ML PEN SC SCH ×2 (08:04→21:00)
[2021-12-12] MEDS: INSULIN ASPART PER UNIT SC SCH ×4 (08:11→21:00)
[2021-12-12 08:49] LABS: Basophils # (auto) 0.01 K/uL (0-0.2); Basophils % (auto) 0.1 %; Eosinophils # (auto) 0.06 K/uL (0-0.5); Eosinophils % (auto) 0.8 %; Hematocrit (blood only) 39.8 % (42-52); Hemoglobin 11.8 g/dL (14.0-18.0); Immature Granulocytes # (auto) 0.01 K/uL (0.00-0.02); Immature Granulocytes % (auto) 0.1 %; Lymphocytes # (auto) 2.33 K/uL (1.2-3.4); Lymphocytes % (auto) 32.6 %; Mean Corpuscular Hemoglobin 28.2 pg (25-34); Mean Corpuscular Hgb Conc 29.6 g/dL (32-36); Mean Corpuscular Volume 95.2 fL (80-100); Mean Platelet Volume 10.5 fL (7.4-10.4); Monocytes # (auto) 0.74 K/uL (0.11-0.59); Monocytes % (auto) 10.4 %; Neutrophils # (auto) 3.99 K/uL (1.4-6.5); Platelet Count 145 K/uL (130-400); RDW Standard Deviation 59.1 fL (36.4-46.3); Red Blood Count 4.18 M/uL (4.7-6.1); White Blood Count 7.14 K/uL (4.8-10.8)
[2021-12-12] MEDS ORDERED: FUROSEMIDE INJ 20 MG/2 ML VIAL IV SCH (09:00)
[2021-12-12 09:22] LABS: BUN Creatinine Ratio 31.8 (10-20); Calcium 8.9 mg/dl (8.5-10.1); Creatinine Clr Calc Pharmacy 48.5 ml/min; Est GFR (African American) 59.5 ml/min; Est GFR (Non-African American) 51.3 ml/min; Potassium 5.2 mmol/L (3.5-5.1)
--- NOTE | 2021-12-12 11:46 | Cardiology Progress Note ---
Date of Service December 12, 2021 Assessment & Plan (1) Bradycardia: Plan: 2. Community-acquired pneumonia 3. Paroxysmal atrial fibrillation/flutterasymptomatic 4. Chronic renal insufficiency 5. Type 2 diabetes, intermittent hypoglycemia 6. Left pleural effusion post prior thoracentesis 7. Atypical chest pain/Presumed coronary artery disease--positive RCA territory stress test in 2020, no prior catheterization 8. Thrombocytopenia Paroxysmal atrial fib/flutter overnight and today. Heart rates reasonably controlled off AV paula agents. Lung exam unchanged. No significant systemic venous congestion. -- Continue to hold carvedilol. -- No indication for pacemaker. -- Agree with trial of gentle diuresis. -- Continue anticoagulation with Eliquis -- Continue current antihypertensives. Admission and Anticipated Discharge Date Admission Date: December 10, 2021 Subjective Feeling well. States breathing at baseline. Denies chest pain. Asking about going home. Telemetry reviewed -- intermittent AF, aflutter overnight. HR as high as 110s Review of Systems Review of Systems: All systems reviewed & are unremarkable except as noted in HPI & below Physical Exam Physical Exam: General: Comfortable HEENT: Sclerae anicteric, Mask in place Lungs: Few crackles on the right, decreased breath sounds in the left Cardiac: Regular rate and rhythm, no murmurs Vascular: 2+ radial Abdomen: Soft, nontender Extremities: Well perfused, trace edema Neuro: Nonfocal Psych: Alert orient x3, normal affect and mood Results & Data ([facility]) Vital Signs (Past 12 Hours) Vital Signs Temp Pulse Pulse Resp BP Pulse Ox 12/12/21 11:05 98.4 F 68 18 134/66 98 12/12/21 07:11 98.8 F 81 20 147/56 H 98 12/12/21 03:19 97.9 F 70 20 154/70 H 97 12/12/21 01:11 67 PG Care Time/CCT Total # of Minutes Spent Total Time Spent with Patient: Total time spent is greater than 50% in coordination of care (as documented) at patient's floor/unit and/or counseling patient: Coding Level of Care Code 20491 Subseq Hosp Care Lvl 2 Diagnoses Bradycardia R00.1
--- NOTE | 2021-12-12 14:40 | Discharge Summary ---
Date of Service December 12, 2021 Admission HPI Per Admitting Provider Calvin is a 76-year-old male with past medical history of bradycardia, A. fib, diabetes, CAD, SIXTO, and CKD who presents with shortness of breath and oxygen saturation in the 80s this morning at home. He wears nighttime oxygen and has a history of pulmonary edema. Short of breath since this morning. Uses 2L of oxygen at night at home, but felt like his breathing was worse this morning than normal had some dizziness and global weakness. Breathing is worse laying down (endorses mild orthopnea). Has an ongoing feeling of phlegm and cough which seems similar to his baseline, but productive for more clear mucous than normal\\ No fevers, chills, of sweats No nausea, vomiting, or diarrhea. no constipation Peeing normally. No dysuria. Appetite normal. No chest pain, no chest pressure trace increase in bilateral leg swelling has been taking 20mg lasix daily No medication allegies, severe rxn anaphylaxis to contast/travis/iodinated dye Medical History: Reviewed Medications: Reviewed Surgical History: Reviewed Allergies: Reviewed Social History: No tobacco product use. No alcohol use. No MM use. Code Status: Surrogate decision maker would be Sana Gibbons. DNR/Dni confirmed with patient and his Principal Diagnosis Community Acquired Pneumonia Discharge Exam General: A&Ox3. NAD. Cooperative. HEENT: Atraumatic, normocephalic. Visual acuity and hearing grossly intact Pulm: Trace crackles on left improved from prior, no wheezing, moderate to good air movement. 90% on room air eating breakfast, later 97% on 2 L. Symmetrical chest rise. No increased work of breathing. No respiratory distress. Cardiac: RRR, -mrg. Radial pulses intact and symmetrical. Abdominal: Nontender, nondistended, soft. BS present. Discharge Data Allergies Allergy/AdvReac Type Severity Reaction Status Date / Time Gadolinium-Containing Allergy Severe ANAPHYLAXIS Verified 12/10/21 14:15 Contrast Medi Iodinated Contrast Media Allergy Severe ANAPHYLAXIS Verified 12/10/21 14:15 Consultations 12/10/21 12:03 ED Decision to Admit Stat 12/10/21 16:44 Consult Cardiology Routine Ordered Studies 12/10/21 12:04 CT chest diagnostic wo con Stat Hospital Course (1) Acute respiratory failure with hypoxia: Calvin is a 76-year-old male with past medical history of bradycardia, A. fib, diabetes, CAD, SIXTO, and CKD who presents with shortness of breath and oxygen saturation in the 80s this morning at home. He wears nighttime oxygen and has a history of pulmonary edema. He was treated for community-acquired pneumonia with rapid improvement in his oxygen requirements and was breathing on his normal oxygen requirements at time of discharge. Was seen by physical therapy who noted he was ambulating at his baseline ability and felt was okay for discharge home To do as outpatient: 1. Complete course of CAP treatment with 3 additional days of azithromycin and 5 additional days of cefdinir 2. Routine follow-up with primary care physician 3. Repeat BMP to follow potassium stability Shortness of breath, acute on chronic hypoxic respiratory failure 2/2 CAP Shortness of breath, worsened with exertion Home requirements of 2 L oxygen, sats greater than 90%. Goal greater than 90. Currently requiring 6 L of oxygen mask No leukocytosis Hemoglobin 12.3 on admission Potassium slightly elevated, 5.5 Creatinine 0.98, normal baseline Troponin negative on admission, EKG without acute ST changes as below CXR: Decreased inspiration with interval development of left pleural effusion and left basilar atelectasis. No evidence for vascular congestion. Compared to x-ray 11/01/2021 mild pulmonary edema has improved. EKG:Sinus bradycardia with right bundle branch block, previously A. fib. QTc 435 -CTC:Stable trace left pleural effusion with underlying atelectasis. There is interval development of consolidative and groundglass opacities most prominent in the left upper lobe. This is favored to represent worsening pneumonia. Covid negative Continue treatment for community-acquired pneumonia, azithromycin plus ceftriaxone, MRSA nare negative (2) Bradycardia: Bradycardia Asymptomatic at rest Last seen by cardiology 11/24/2021 without significant bradycardia, was recommended to continue carvedilol 3.125 mg p.o. twice daily. Pacemaker implementation was not recommended at that visit BNP 126 Patient with stable symptomatic bradycardia Cardiology consulted, carvedilol discontinued. No significant pauses or AV block. (3) Chronic kidney disease (CKD), stage II (mild): chronic CKD Baseline creatinine approximately 1.0, GFR 6080 On admit creatinine normal, 0.98 Patient with severe contrast anaphylactic allergy Creatinine remains at normal baseline (4) Diabetes: Type 2 diabetes mellitus On insulin 70/30 outpatient Convert to basal bolus while inpatient Home total daily insulin dose 70 units, convert to basal 18, SSI correction 25 ratio 8 Glucose checks AC/at bedtime (5) Hypertension: Hypertension Carvedilol previously decreased to 3.125 from 6.25 twice daily Takes amlodipine 7.5 mg daily Continue losartan 100 mg daily (6) Gastroesophageal reflux disease: GERD Continue pantoprazole 40 mg twice daily (7) Hypothyroidism: Hypothyroidism Continue Synthroid TSH normal (8) Obstructive sleep apnea: SIXTO Patient previously not been able to tolerate CPAP/BiPAP (9) CAD (coronary artery disease): CAD Mild inferior ischemia on stress test 08/05/2021, followed with medical management Continue statin Aspirin stopped following initiation of Eliquis anticoagulation 10/22/2021 - Carotid artery disease, status/post left CEA Carvedilol discontinued as noted above DVT prophylaxis: On Eliquis for history of A. fib currently in sinus bradycardia Disposition: Medical/surgical with telemetry CODE STATUS: Full code Diet: Heart healthy, DM Discharge Plan Discharge Items Reason For Visit: CAP, HYPOXIA Discharge Diagnosis: Community-acquired pneumonia Activity: Resume your previous activity Non-emergency contact: Primary Care Provider and Sales Planning Coordinator Call non-emergency contact if: you have any medication questions, your symptoms worsen and your pain is not controlled Follow-up/Referrals: Dao Ryan MD [Primary Care Provider] - 12/23/21 11:00 am Marciano Velazquez MD [Physician] - 12/25/21 10:00 am Diet: Carb Consistent or DM2 and Heart Healthy Addtl Attending Provider Instructions: You were seen in the hospital for shortness of breath and were found to have evidence of pneumonia on your admitting chest x-ray. You are treated with antibiotics and had improvement in your symptoms. Initially required additional oxygen compared to what use at home, on day of discharge you were breathing comfortably with oxygen levels of 97% on your home 2 L of oxygen. You felt clinically well, and were seen by therapy who felt you are at your normal baseline. You have been discharged home to complete antibiotics as below. You have been prescribed an antibiotic, Cefpodoxime. Please take Cefpodoxime 300 mg twice daily by mouth for 5 additional days to complete 1 week of treatment. You have been prescribed an antibiotic, azithromycin. Please take azithromycin to 50 mg by mouth for 3 additional days. You were noted to have a slow heart rate, called bradycardia. As result your carvedilol has been discontinued after discussion with cardiology. Pacemaker implementation is not recommended at this time. If you develop symptoms of slow heart rate including lightheadedness, dizziness, passing out, nearly passing out, or dizziness when standing please contact your primary care physician, or call 911 for evaluation in the emergency department. A routine followup appointment with Cardiology is being scheduled for you as above. Your kidney function remained normal during admission, you did not show any signs of a kidney injury. A follow-up appointment is being arranged for you with your primary care physician, Dr. Ryan. You should be seen within 1 week. If you do not receive a call to confirm this appointment, please contact your primary care physician at the number above. If you develop any new or worsening symptoms including fever, chills, sweats, chest pain, chest pressure, difficulty breathing, uncontrolled nausea/vomiting, rash, wheezing, passing out or nearly passing out, bleeding, black/bloody bowel movements, or other new or concerning symptoms please call your primary care physician, or call 911 for re-evaluation in the emergency department if you are very concerned. Pending Studies at Discharge: No Medications and DC Order Prescriptions: New azithromycin 250 mg Tablet 250 mg PO QAM 3 Days Qty: 3 RF: 0 cefdinir 300 mg capsule 300 mg PO BID 5 Days Qty: 10 RF: 0 Continued (DME) pen needle, diabetic [BD Ultra-Fine Short Pen Needle] 31 gauge x 5/16" needle See Rx Instructions .ROUTE .MEDSUPPLY Qty: 100 RF: 3 (DME) OneTouch Ultra Blue Test Strip Strip See Dose Instructions .ROUTE .MEDSUPPLY Qty: 3 RF: 3 metformin 850 mg tablet 850 mg PO BID Qty: 180 RF: 1 (DME) Oxygen Home Liters Per Minute See Rx Instructions .Route Qty: 1 RF: 0 (DME) Wheeled Walker Misc See Rx Instructions .Route Qty: 1 RF: 0 atorvastatin 40 mg tablet 40 mg PO HS Qty: 90 RF: 3 amlodipine 2.5 mg tablet 2.5 mg PO DAILY RF: 0 furosemide 20 mg tablet 20 mg PO DAILY RF: 0 cyanocobalamin (vitamin B-12) 1,000 mcg tablet 1,000 mcg PO QDL RF: 0 docusate sodium 100 mg capsule 100 mg PO QAM PRN (Reason: Constipation) RF: 0 polyethylene glycol 3350 17 gram/dose powder 17 gm PO DAILY PRN (Reason: Constipation) Qty: 1 RF: 0 nitroglycerin 0.4 mg tablet, sublingual 0.4 mg SL Q5M PRN (Reason: chest pain) Qty: 25 RF: 2 levothyroxine 100 mcg tablet 100 mcg PO QAM RF: 0 pantoprazole 40 mg tablet,delayed release (DR/EC) 40 mg PO HS RF: 0 losartan 100 mg tablet 100 mg PO DAILY RF: 0 cholecalciferol (vitamin D3) 50 mcg (2,000 unit) tablet 2,000 unit PO QDL RF: 0 Eliquis 5 mg tablet 5 mg PO BID Qty: 180 RF: 3 Mucinex 1,200 mg Tablet Extended Release 12hr 1,200 mg PO QAM RF: 0 trazodone 50 mg tablet 50 - 100 mg PO HS RF: 0 insulin asp prt-insulin aspart 100 unit/mL (70-30) insulin pen 30 - 40 unit subcut BIDM RF: 0 Discontinued carvedilol 3.125 mg tablet 3.125 mg PO BID 30 Days Qty: 60 RF: 11 Admission Data Admit Date/Time: 12/10/21 14:17 Attending Provider: Vinayak Bearden Admit Provider: Vinayak Bearden Primary Care Provider: Dao Ryan Other Providers: Vinayak Beraden ; Marciano Velazquez ; [place] Coding Diagnoses Acute respiratory failure with hypoxia J96.01 Bradycardia R00.1 Chronic kidney disease (CKD), stage II (mild) N18.2 Diabetes E11.9 Hypertension I10 Gastroesophageal reflux disease K21.9 Hypothyroidism E03.9 Obstructive sleep apnea G47.33 CAD (coronary artery disease) I25.10
[2021-12-12 15:17] LABS: BUN Creatinine Ratio 34.5 (10-20); Calcium 8.7 mg/dl (8.5-10.1); Creatinine Clr Calc Pharmacy 44.2 ml/min; Est GFR (African American) 53.1 ml/min; Est GFR (Non-African American) 45.8 ml/min; Potassium 5.2 mmol/L (3.5-5.1)
[2021-12-12] MEDS: CARBOHYDRATES FOR HYPOGLYCEMIA PO PRN (16:31)
--- NOTE | 2021-12-12 17:00 | Hospitalist Progress Note ---
Date of Service December 12, 2021 Assessment & Plan (1) Acute respiratory failure with hypoxia: Plan: Calvin is a 76-year-old male with past medical history of bradycardia, A. fib, diabetes, CAD, SIXTO, and CKD who presents with shortness of breath and oxygen saturation in the 80s this morning at home. He wears nighttime oxygen and has a history of pulmonary edema. He was treated for community-acquired pneumonia with rapid improvement in his oxygen requirements and was breathing on his normal oxygen requirements at time of discharge. Shortness of breath, acute on chronic hypoxic respiratory failure 2/2 CAP, improved Shortness of breath, worsened with exertion Home requirements of 2 L oxygen, sats greater than 90%. Goal greater than 90. Currently requiring 6 L of oxygen mask No leukocytosis Hemoglobin 12.3 on admission Potassium slightly elevated, 5.5 Creatinine 0.98, normal baseline Troponin negative on admission, EKG without acute ST changes as below CXR: Decreased inspiration with interval development of left pleural effusion and left basilar atelectasis. No evidence for vascular congestion. Compared to x-ray 11/01/2021 mild pulmonary edema has improved. EKG:Sinus bradycardia with right bundle branch block, previously A. fib. QTc 4 35 -CTC:Stable trace left pleural effusion with underlying atelectasis. There is interval development of consolidative and groundglass opacities most prominent in the left upper lobe. This is favored to represent worsening pneumonia. Covid negative Continue treatment for community-acquired pneumonia, azithromycin plus ceftriaxone, MRSA nare negative (2) Bradycardia: Plan: Bradycardia Asymptomatic at rest Last seen by cardiology 11/24/2021 without significant bradycardia, was recommended to continue carvedilol 3.125 mg p.o. twice daily. Pacemaker implementation was not recommended at that visit BNP 126 Patient with stable symptomatic bradycardia Cardiology consulted, carvedilol discontinued. No significant pauses or AV block. Patient with recurrent hyperkalemia, persistent on recheck in afternoon. Normotensive, KENNETH decreased by 50%, consider discontinuation if persistent/worsening Freewater hydration encouraged overnight, no chest pain. Repeat BMP (3) Chronic kidney disease (CKD), stage II (mild): Plan: chronic CKD Baseline creatinine approximately 1.0, GFR 6080 On admit creatinine normal, 0.98 Patient with severe contrast anaphylactic allergy Creatinine remains at normal baseline (4) Diabetes: Plan: Type 2 diabetes mellitus On insulin 70/30 outpatient Convert to basal bolus while inpatient Home total daily insulin dose 70 units, convert to basal 18, SSI correction 25 ratio 8 Glucose checks AC/at bedtime (5) Hypertension: Plan: Hypertension Carvedilol previously decreased to 3.125 from 6.25 twice daily. Discontinued as below. Takes amlodipine 7.5 mg daily Losartan dose decreased for hyperkalemia, normotensive with systolic 1 teens today (6) Gastroesophageal reflux disease: Plan: GERD Continue pantoprazole 40 mg twice daily (7) Hypothyroidism: Plan: Hypothyroidism Continue Synthroid TSH normal (8) Obstructive sleep apnea: Plan: SIXTO Patient previously not been able to tolerate CPAP/BiPAP (9) CAD (coronary artery disease): Plan: CAD Mild inferior ischemia on stress test 08/05/2021, followed with medical management Continue statin Aspirin stopped following initiation of Eliquis anticoagulation 10/22/2021 - Carotid artery disease, status/post left CEA Carvedilol discontinued as noted above Plan: DVT prophylaxis: On Eliquis for history of A. fib currently in sinus bradycardia Disposition: Medical/surgical with telemetry CODE STATUS: Full code Diet: Heart healthy, DM Admission and Anticipated Discharge Date Admission Date: December 10, 2021 Subjective Seen at bedside. He feels nearly completely back to normal, remains on 6 L of oxygen mask this morning but 98%. Discussed with nursing, will attempt to wean oxygen to goal greater than 90%. Otherwise he feels well, and feels her strength is good. Has been peeing normally. Denies chest pain, chest pressure, lightheadedness, dizziness, syncope, presyncope. Has a good appetite this morning. Review of Systems Review of Systems: All systems reviewed & are unremarkable except as noted in Subjective Physical Exam Physical Exam: General: A&Ox3. NAD. Cooperative. HEENT: Atraumatic, normocephalic. Vision and hearing grossly intact. Pulm: Trace left-sided crackles, improved from prior, moderate to good air movement. no respiratory distress. Cardiac: Regular, bradycardic. No murmurs rubs or gallops. Radial pulses intact and symmetrical. Abdominal: Nontender, nondistended, soft. BS present. Results & Data Results & Data ([facility]) Vital Signs (Past 12 Hours) Vital Signs Temp Pulse Resp BP BP Pulse Ox 12/12/21 14:12 36.7 C 73 18 116/74 97 12/12/21 11:05 36.9 C 68 18 134/66 98 12/12/21 07:11 37.1 C 81 20 147/56 H 98 PG Care Time/CCT Total # of Minutes Spent Total Time Spent with Patient: Total time spent is greater than 50% in coordination of care (as documented) at patient's floor/unit and/or counseling patient: Coding Level of Care Code 13611 Subseq Hosp Care Lvl 2 Diagnoses Acute respiratory failure with hypoxia J96.01 Bradycardia R00.1 Chronic kidney disease (CKD), stage II (mild) N18.2 Diabetes E11.9 Hypertension I10 Gastroesophageal reflux disease K21.9 Hypothyroidism E03.9 Obstructive sleep apnea G47.33 CAD (coronary artery disease) I25.10
[2021-12-12] MEDS: cefTRIAXone SODIUM 2,000 MG in DEXTROSE 5% 50 ML IV SCH (20:56)
[2021-12-12] MEDS: ATORVASTATIN 40 MG TAB PO SCH (20:57)
[2021-12-12] MEDS: traZODone HCL 50 MG TAB PO SCH (21:00)
[2021-12-13] MEDS ORDERED: ALBUT/IPRATROP 3MG/0.5MG NEB 3 ML VIAL NEB PRN (04:45)
[2021-12-13] MEDS: LEVOTHYROXINE SODIUM 100 MCG TABLET PO SCH (06:10)
[2021-12-13 07:44] LABS: BUN Creatinine Ratio 40.2 (10-20); Calcium 8.8 mg/dl (8.5-10.1); Creatinine Clr Calc Pharmacy 62.1 ml/min; Est GFR (African American) 76.7 ml/min; Est GFR (Non-African American) 66.1 ml/min; Potassium 4.6 mmol/L (3.5-5.1)
[2021-12-13] MEDS: CARBOHYDRATES FOR HYPOGLYCEMIA PO PRN (07:47)
[2021-12-13] MEDS: INSULIN GLARGINE SOLOSTAR 100 UNITS/ML 3 ML PEN SC SCH (08:18)
[2021-12-13] MEDS: INSULIN ASPART PER UNIT SC SCH ×2 (08:19→12:31)
[2021-12-13] MEDS: amLODIPine BESYLATE 5 MG TAB PO SCH (08:24)
[2021-12-13] MEDS: LOSARTAN POTASSIUM 50 MG TAB PO SCH (08:25)
[2021-12-13] MEDS: APIXABAN 5 MG TABLET PO SCH (08:25)
[2021-12-13] MEDS: PANTOprazole 40 MG TAB PO SCH (08:25)
[2021-12-13] MEDS: AZITHROMYCIN 250 MG TAB PO SCH (08:25)
[2021-12-13] MEDS ORDERED: FUROSEMIDE 20 MG TAB PO SCH (09:00)
[2021-12-13] MEDS ORDERED: FUROSEMIDE INJ 20 MG/2 ML VIAL IV SCH (09:00)
--- NOTE | 2021-12-13 14:12 | Discharge Summary ---
Date of Service December 13, 2021 Principal Diagnosis acute respiratory failure with hypoxia Discharge Exam General: A&Ox3. NAD. Cooperative. HEENT: Atraumatic, normocephalic. Pulm: left greater than right crackles persist, no respiratory distress. Cardiac: Regular, bradycardic. No murmurs rubs or gallops. Radial pulses intact and symmetrical. Abdominal: Nontender, nondistended, soft. BS present. Discharge Data Allergies Allergy/AdvReac Type Severity Reaction Status Date / Time Gadolinium-Containing Allergy Severe ANAPHYLAXIS Verified 12/10/21 14:15 Contrast Medi Iodinated Contrast Media Allergy Severe ANAPHYLAXIS Verified 12/10/21 14:15 Consultations 12/10/21 12:03 ED Decision to Admit Stat 12/10/21 16:44 Consult Cardiology Routine Ordered Studies 12/10/21 12:04 CT chest diagnostic wo con Stat Hospital Course (1) Acute respiratory failure with hypoxia: Calvin is a 76-year-old male with past medical history of bradycardia, A. fib, diabetes, CAD, SIXTO, and CKD who presents with shortness of breath and oxygen saturation in the 80s this morning at home. He wears nighttime oxygen and has a history of pulmonary edema. He was treated for community-acquired pneumonia with rapid improvement in his oxygen requirements and was breathing on his normal oxygen requirements at time of discharge. Was seen by physical therapy who noted he was ambulating at his baseline ability and felt was okay for discharge home To do as outpatient: 1. Complete course of CAP treatment with 3 additional days of azithromycin and 5 additional days of cefdinir 2. Routine follow-up with primary care physician 3. Repeat BMP to follow potassium stability (will defer to PCP) Shortness of breath, acute on chronic hypoxic respiratory failure 2/2 CAP Shortness of breath, worsened with exertion Home requirements of 2 L oxygen, sats greater than 90%. Goal greater than 90. Currently requiring 6 L of oxygen mask No leukocytosis Hemoglobin 12.3 on admission Potassium slightly elevated, 5.5 Creatinine 0.98, normal baseline Troponin negative on admission, EKG without acute ST changes as below CXR: Decreased inspiration with interval development of left pleural effusion and left basilar atelectasis. No evidence for vascular congestion. Compared to x-ray 11/01/2021 mild pulmonary edema has improved. EKG:Sinus bradycardia with right bundle branch block, previously A. fib. QTc 435 -CTC:Stable trace left pleural effusion with underlying atelectasis. There is interval development of consolidative and groundglass opacities most prominent in the left upper lobe. This is favored to represent worsening pneumonia. Covid negative Continue treatment for community-acquired pneumonia, azithromycin plus ceft riaxone, MRSA nare negative (2) Bradycardia: Bradycardia Asymptomatic at rest Last seen by cardiology 11/24/2021 without significant bradycardia, was recom mended to continue carvedilol 3.125 mg p.o. twice daily. Pacemaker implementation was not recommended at that visit BNP 126 Patient with stable symptomatic bradycardia Cardiology consulted, carvedilol discontinued. No significant pauses or AV block. (3) Chronic kidney disease (CKD), stage II (mild): chronic CKD Baseline creatinine approximately 1.0, GFR 6080 On admit creatinine normal, 0.98 Patient with severe contrast anaphylactic allergy Creatinine remains at normal baseline (4) Diabetes: Type 2 diabetes mellitus On insulin 70/30 outpatient Convert to basal bolus while inpatient Home total daily insulin dose 70 units, convert to basal 18, SSI correction 25 ratio 8 Glucose checks AC/at bedtime (5) Hypertension: Hypertension Carvedilol previously decreased to 3.125 from 6.25 twice daily; now on hold Takes amlodipine 7.5 mg daily cut back on losartan to 50 mg daily (6) Gastroesophageal reflux disease: GERD Continue pantoprazole 40 mg twice daily (7) Hypothyroidism: Hypothyroidism Continue Synthroid TSH normal (8) Obstructive sleep apnea: SIXTO Patient previously not been able to tolerate CPAP/BiPAP (9) CAD (coronary artery disease): CAD Mild inferior ischemia on stress test 08/05/2021, followed with medical m anagement Continue statin Aspirin stopped following initiation of Eliquis anticoagulation 10/22/2021 - Carotid artery disease, status/post left CEA Carvedilol discontinued as noted above DVT prophylaxis: On Eliquis for history of A. fib currently in sinus bradycardia Disposition: Medical/surgical with telemetry CODE STATUS: Full code Diet: Heart healthy, DM Total Time Total Time Spent Total Time Spent (In Minutes): 35 Discharge Plan Discharge Items Patient Disposition: Home - Self-Care Reason For Visit: CAP, HYPOXIA Discharge Diagnosis: Community-acquired pneumonia Activity: Resume your previous activity Non-emergency contact: Primary Care Provider and [employer] Worker Call non-emergency contact if: you have any medication questions, your symptoms worsen and your pain is not controlled Follow-up/Referrals: Dao Ryan MD [Primary Care Provider] - 12/23/21 11:00 am Marciano Velazquez MD [Physician] - 12/25/21 10:00 am Diet: Carb Consistent or DM2 and Heart Healthy Addtl Attending Provider Instructions: You were seen in the hospital for shortness of breath and were found to have evidence of pneumonia on your admitting chest x-ray. You are treated with antibiotics and had improvement in your symptoms. Initially required additional oxygen compared to what use at home, on day of discharge you were breathing comfortably with oxygen levels of 97% on your home 2 L of oxygen. You felt clinically well, and were seen by therapy who felt you are at your normal baseline. You have been discharged home to complete antibiotics as below. You have been prescribed an antibiotic, Cefpodoxime. Please take Cefpodoxime 300 mg twice daily by mouth for 5 additional days to complete 1 week of treatment. You have been prescribed an antibiotic, azithromycin. Please take azithromycin to 50 mg by mouth for 3 additional days. You were noted to have a slow heart rate, called bradycardia. As result your carvedilol has been discontinued after discussion with cardiology. Pacemaker implementation is not recommended at this time. If you develop symptoms of slow heart rate including lightheadedness, dizziness, passing out, nearly passing out, or dizziness when standing please contact your primary care physician, or c all 911 for evaluation in the emergency department. A routine followup appointment with Cardiology is being scheduled for you as above. Your kidney function remained normal during admission, you did not show any signs of a kidney injury. A follow-up appointment is being arranged for you with your primary care physician, Dr. Ryan. You should be seen within 1 week. If you do not receive a call to confirm this appointment, please contact your primary care physician at the number above. If you develop any new or worsening symptoms including fever, chills, sweats, chest pain, chest pressure, difficulty breathing, uncontrolled nausea/vomiting, rash, wheezing, passing out or nearly passing out, bleeding, black/bloody bowel movements, or other new or concerning symptoms please call your primary care physician, or call 911 for re-evaluation in the emergency department if you are very concerned. Pending Studies at Discharge: No Stand-Alone Forms: My [facility], Smoking Cessation Medications and DC Order Prescriptions: New azithromycin 250 mg Tablet 250 mg PO QAM 3 Days Qty: 3 RF: 0 cefdinir 300 mg capsule 300 mg PO BID 5 Days Qty: 10 RF: 0 Continued (DME) pen needle, diabetic [BD Ultra-Fine Short Pen Needle] 31 gauge x 5/16" needle See Rx Instructions .ROUTE .MEDSUPPLY Qty: 100 RF: 3 (DME) OneTouch Ultra Blue Test Strip Strip See Dose Instructions .ROUTE .MEDSUPPLY Qty: 3 RF: 3 metformin 850 mg tablet 850 mg PO BID Qty: 180 RF: 1 (DME) Oxygen Home Liters Per Minute See Rx Instructions .Route Qty: 1 RF: 0 (DME) Wheeled Walker Misc See Rx Instructions .Route Qty: 1 RF: 0 atorvastatin 40 mg tablet 40 mg PO HS Qty: 90 RF: 3 amlodipine 2.5 mg tablet 2.5 mg PO DAILY RF: 0 furosemide 20 mg tablet 20 mg PO DAILY RF: 0 cyanocobalamin (vitamin B-12) 1,000 mcg tablet 1,000 mcg PO QDL RF: 0 docusate sodium 100 mg capsule 100 mg PO QAM PRN (Reason: Constipation) RF: 0 polyethylene glycol 3350 17 gram/dose powder 17 gm PO DAILY PRN (Reason: Constipation) Qty: 1 RF: 0 nitroglycerin 0.4 mg tablet, sublingual 0.4 mg SL Q5M PRN (Reason: chest pain) Qty: 25 RF: 2 levothyroxine 100 mcg tablet 100 mcg PO QAM RF: 0 pantoprazole 40 mg tablet,delayed release (DR/EC) 40 mg PO HS RF: 0 cholecalciferol (vitamin D3) 50 mcg (2,000 unit) tablet 2,000 unit PO QDL RF: 0 Eliquis 5 mg tablet 5 mg PO BID Qty: 180 RF: 3 Mucinex 1,200 mg Tablet Extended Release 12hr 1,200 mg PO QAM RF: 0 trazodone 50 mg tablet 50 - 100 mg PO HS RF: 0 insulin asp prt-insulin aspart 100 unit/mL (70-30) insulin pen 30 - 40 unit subcut BIDM RF: 0 Changed losartan 100 mg tablet 50 mg PO DAILY Qty: 0 RF: 0 Discontinued carvedilol 3.125 mg tablet 3.125 mg PO BID 30 Days Qty: 60 RF: 11 Discharge Orders: Discharge Order (Routine); Ordered 12/13/21 Ordered By: Terrell Norman Admission Data Admit Date/Time: 12/10/21 14:17 Attending Provider: Terrell Norman Admit Provider: Vinayak Bearden Primary Care Provider: Dao Ryan Other Providers: Vinayak Bearden ; Marciano Velazquez ; [place] Other Interventions: Discharge Summary Assessment (RN) Last Done: 12/13/21 14:43 Coding Level of Care Code D/C DAY MANAGEMENT >30 MINS Diagnoses Acute respiratory failure with hypoxia J96.01 Bradycardia R00.1 Chronic kidney disease (CKD), stage II (mild) N18.2 Diabetes E11.9 Hypertension I10 Gastroesophageal reflux disease K21.9 Hypothyroidism E03.9 Obstructive sleep apnea G47.33 CAD (coronary artery disease) I25.10
--- NOTE | 2021-12-13 14:18 | Cardiology Progress Note ---
Date of Service December 13, 2021 Assessment & Plan (1) Bradycardia: Plan: 2. Community-acquired pneumonia 3. Paroxysmal atrial fibrillation/flutterasymptomatic 4. Chronic renal insufficiency 5. Type 2 diabetes, intermittent hypoglycemia 6. Left pleural effusion post prior thoracentesis 7. Atypical chest pain/Presumed coronary artery disease--positive RCA territory stress test in 2020, no prior catheterization 8. Thrombocytopenia Comfortable, breathing at baseline on room air. Lung exam improved. No systemic venous congestion on exam. Remains in atrial fibrillation but rate controlled off AV paula agents. Blood pressure reasonably controlled. From a cardiac standpoint okay for discharge today. Stop prior carvedilol. Home on prior antihypertensives and amlodipine. Titrate amlodipine as needed. Home when maintenance Lasix 20 mg daily Continue long-term anticoagulation with Eliquis. Follow-up with cardiology in 2 to 3 weeks. Admission and Anticipated Discharge Date Admission Date: December 10, 2021 Subjective Feeling well today. Sitting up in the chair off oxygen. No new chest pain. No other new concerns. Ready to go home. Review of Systems Review of Systems: All systems reviewed & are unremarkable except as noted in HPI & below Physical Exam Physical Exam: General: Comfortable HEENT: Sclerae anicteric Lungs: Minimal crackles, coarse breath sounds in the right, decreased breath sounds only at left base Cardiac: Irregularly irregular, no murmurs vascular: 2+ radial Abdomen: Soft, nontender Extremities: Well perfused, no peripheral edema Neuro: Nonfocal Psych: Alert orient x3, normal affect and mood Results & Data ([facility]) Vital Signs (Past 12 Hours) Vital Signs Temp Pulse Pulse Resp BP Pulse Ox 12/13/21 11:07 97.9 F 82 20 132/72 92 12/13/21 08:08 97.9 F 84 20 127/69 92 12/13/21 07:18 72 12/13/21 05:03 74 16 91 12/13/21 04:39 97.7 F 76 22 158/72 H 95 PG Care Time/CCT Total # of Minutes Spent Total Time Spent with Patient: Total time spent is greater than 50% in coordination of care (as documented) at patient's floor/unit and/or counseling patient: Coding Level of Care Code 03908 Subseq Hosp Care Lvl 2 Diagnoses Bradycardia R00.1
== END 2021-12-13 15:50 | disposition home health service (06) | DRG 193 ==
LOC: ED 10:29 → EDINP 14:17 → SUATTDRO 14:17 → 2N 21:28

== ENCOUNTER 2022-01-03 12:30 | Inpatient (IN) ==
--- NOTE | 2022-01-03 12:43 | Emergency Department Note ---
Impression & Plan Septic shock, Hypothermia, Bradycardia, Pneumonia, Hypoxia ED Provider Note Name: CAREY MEDINA Age: 76 Sex: M Arrives Via: Ambulance Informant: Patient, , EMS ED Provider: Dimitry Bucio MD Chief Complaint: Illness Impression: As per impressions above Medical Decision Makin-year-old gentleman who has been having worsening illness of the last few months with an admission for respiratory failure few weeks ago secondary to pneumonia. Patient has been working with some worsening weakness and confusion over the last 2 days and was even seen at his PCP office yesterday for this. Today worsening respiratory distress and noted patient was quite cold to touch. EMS was called and he was noted to be bradycardic and hypoxic. At that point he did not have hypotension and thus atropine/dopamine was not started by EMS after requesting medical command. He was placed on nasal cannula O2 and brought into the ER for further evaluation. On arrival patient is somewhat somnolent but answers all questions and is in no significant pain. He clearly is having some difficulty with respirations and his left lung sounds quite wet/junky. He has mild edema in his legs, but his lips are quite cracked and dry. He appears dehydrated by overall exam. Patient is quite bradycardic though on arrival is not hypotensive. His temperature is 30 C. This point I have high concern for sepsis in this patient and thus sepsis management was initiated. He was also placed on a bear hugger to help improve his temperature. A chest x-ray does not show any overt new findings compared to his chest x-ray from last month though overall there is a fair amount of congestion there may not show pneumonia. EKG shows bradycardia with faint P waves thus I do not feel that it is his A. fib that is currently going on. His abdominal exam is benign and is any evidence of cellulitis. Urinalysis was obtained and is negative for acute infection. Patient's blood pressure started trending down and thus I felt it was required to start him on some atropine and switched to dopamine. Given the dehydration status he was given fluids as his blood pressure is now dropping. His lactic acid also returned elevated consistent with his septic pattern/dehydration/hyp oxia prior to arrival. Patient tolerated the first liter of fluids well and was given a second liter. While receiving the second liter his blood pressure still slightly down and thus dopamine was titrated up. After the second liter of fluid I am a little worried that his breathing has increased somewhat and that he may be at risk of increasing fluid overload thus further fluids were held. I will note that by this time he has received 30/kg of IV fluids as per his ideal body weight. Patient received empiric cefepime as well as vancomycin for antibiotic coverage. His Covid testing is negative at this time. He hospitalist was consulted for further management. I did a long discussion with patient regarding goals of care and both he and make it clear that he would not want to be intubated nor have CPR. However they are both agreeable to aggressive medical management at this time. Prior Medical Record and Triage/Nursing Notes reviewed by Me Additional history obtained from chart, , EMS, Medical Command Differentials:Infection, dehydration, metabolic abnormality, hypo/hyperglycemia, electrolyte disturbance, anemia, hypoxia, cardiac sources, intracerebral event, toxicologic, neurologic, as well as other pathologies. Vital Signs: reviewed and remarkable for hypoxia, bradycardia, hypothermia Interventions: Normal saline bolus 2 L IV total, cefepime 2 g IV, vancomycin 2 g IV, atropine 0.5 mg IV, dopamine infusion IV Labs:Reviewed and remarkable for elevated lactic acid, increasing creatinine Imagin view chest x-ray bilateral infiltrates versus congestion worse over the left side EKG:Per My Interpretation: Indication sepsis: Sinus luisa 41 bpm, qtc 473 with RBBB. No Ectopy. No Ischemia. Compared to EKG 12/10/21, no significant changes. Cardiac/Tele Monitoring: Cardiac Monitoring: An Order was placed for continuous cardiac monitoring. The monitor shows a rate of 45 with a sinus luisa rhythm. Consults:Dr Brandon PEREZ Hospitalist Plan: Disposition:Hospitalization. Condition: Poor History of Present Illness:76-year-old male arrives for evaluation of weakness. Patient with worsening weakness over the last few weeks. Last few days he has been severely weak and not able to get around the house. notes that he seems more confused and having difficulty breathing as the last few days have gone on. She notes she also feels like she is speech is somewhat slurred and is just much slower than usual. She denies any falls or injuries to patient. Charlotte ent states he is feeling all right other than having trouble catching his breath. He states that the oxygen placed by EMS made him feel better. Per EMS he had a heart rate in the 40s, blood pressure in the 120s over 60s, oxygen of mid 80s on room air and his blood sugars were in the 300s. Patient has been taking his normal medications and did not overdose on them. He is on Eliquis for history of A. fib. He has no history of pacemaker placement and denies any history of CAD though does have a history of congestive heart failure in the past. Patient took no new medications today. Exertion makes symptoms worse and rest makes them better. He does use oxygen at night which he did say helped somewhat with his breathing. ROS: See above HPI for pertinent positives & negatives. A total of 10 systems reviewed and were otherwise negative. Past Medical History:See Below Past Surgical History:See Below Family History:See Below Social History:See Below Home Medications:See Below Allergies:iv dye, gadolinium Vitals:Blood Pressure: 99/42, Pulse 45, RR 15, T 30C, O2 87% on RA Physical Exam: GENERAL: Patient is tired/unwell appearing and in mild distress. Dehydrated appearing though wet lung sounds EYES: No scleral icterus, unremarkable pupils. ENT: Mucous membranes dry, no nasal congestion. NECK: No masses appreciated, nomeningismus, trachea is midline. RESPIRATORY: Moderate dyspnea with tachypnea and diffuse wet lung sounds throughout decreased throughout left lung garcia CARDIOVASCULAR: Bradycardic/irregular.No murmurs, rubs, gallops appreciated. GASTROINTESTINAL: Abdomen soft, non-tender, no peritonitis.Bowel sounds positi ve.No masses appreciated. BACK: No midline tenderness, no CVA tenderness EXTREMITIES: Normal motion all extremities, no cyanosis, mild edema bilaterally NEUROLOGIC: Alert and oriented though tired appearing and periodically falling asleep, no acute motor or sensory deficits, no focal weakness, cranial nerves grossly intact. SKIN: No rash, no jaundice, no diaphoresis. PSYCH: Appropriate GCS: 14 ED Course: Times/Reassessments: Multiple evaluations throughout patient's stay. His blood pressure continued to drop and eventually received a dose of atropine with mild improvement in blood this was followed by dopamine to keep the blood pressure up and did help somewhat with the bradycardia as well. He was treated as septic shock with fluid resuscitation and empiric IV antibiotics. Plan of care discussed at length with and patient and they both make it clear that patient would not have heroic measures such as being placed on a ventilator or to have CPR done in the event these were required. They are okay at this time with IV medications and aggressive medical management of his illness. Critical Care: I have personally spent 75 minutes of critical care time in the direct davis gement of this patient. Septic shock secondary to respiratory illness requiring fluid resuscitation, aggressive management, and IV pressors. This was a life/limb threatening event. This 75 minutes is in excess of all separately billable procedures. Dimitry Bucio MD Past Med/Surg History Medical History Anxiety Arteriosclerotic cardiovascular disease Asthma Atrial fibrillation on eliquis; follows with Dr. Gardiner Bradycardia Chronic diastolic heart failure CKD (chronic kidney disease) follows with Dr. Savage Colon polyps Diabetic nephropathy Diverticular disease DM type 2 (diabetes mellitus, type 2) Dysphagia Gastroesophageal reflux disease Rachel's thyroiditis History of aspiration pneumonia History of CVA (cerebrovascular accident) 20 years ago; no residual History of depression History of diverticulitis History of sleep apnea unable to tolerate CPAP Hyperlipidemia Hypertension Hypothyroidism Insomnia Internal hemorrhoids Obesity On home oxygen therapy 2-3 LPM qHS Paralysis of right vocal fold Parotid sialolithiasis Pleural effusion, left Proteinuria Raspy voice Right bundle branch block Thrombocytopenia Vitamin D deficiency Surgical History H/O umbilical hernia repair History of colonoscopy History of thoracentesis S/P carotid endarterectomy Left S/P cataract surgery BL S/P inguinal hernia repair S/P tonsillectomy Family History Mother Heart disease Father Stomach cancer Other Asthma Cancer Denies family history of Ovarian cancer Prostate cancer Myocardial infarction Breast cancer Colorectal cancer Social History (Updated 01/02/22 @ 09:46 by Maryellen Cruz LPN) Smoking Status: Never smoker Second Hand Exposure: No; Hx Alcohol Use: No Hx Substance Use: No Preferred Language: Mauritian Communication Ability: Effective Visual Impairment: No Limitations Hearing Ability: Normal Condemnation Engineer Required: No Beliefs That Will Affect Care: None marital status: Current Living Situation: Spouse Current Living Situation Comment: lives in mobile home with ramp current occupational status: retired How many Children do You have: 2 Feels Safe at Home: Yes Childhood Exposure to Second-Hand Smoke: No Diet Comment: K+ reduced caffeine: Yes (coffee) Dental Care, Regularly: Yes Physical Activity Frequency: Does not Exercise Seatbelt Use: always Sunscreen Use: No Assistive Devices: Glasses, Oxygen - at Night, Walker and Wheelchair Allergies Allergies Allergy/AdvReac Type Severity Reaction Status Date / Time Gadolinium-Containing Allergy Severe ANAPHYLAXIS Verified 01/03/22 14:55 Contrast Medi Iodinated Contrast Media Allergy Severe ANAPHYLAXIS Verified 01/03/22 14:55 Home Meds Home Medications Medication Instructions Recorded Confirmed cyanocobalamin (vitamin B-12) 1,000 mcg PO QDL tab 05/31/19 01/03/22 1,000 mcg tablet docusate sodium 100 mg capsule 100 mg PO QAM PRN cap 05/31/19 01/03/22 polyethylene glycol 3350 17 17 gm PO DAILY PRN #1 gm 05/31/19 01/03/22 gram/dose oral powder cholecalciferol (vitamin D3) 50 2,000 unit PO QDL tab 10/28/20 01/03/22 mcg (2,000 unit) tablet guaifenesin 1,200 mg tablet, 1,200 mg PO QAM 09/19/21 01/03/22 extended release 12 hr (Mucinex) trazodone 50 mg tablet 50 - 100 mg PO HS 09/19/21 01/03/22 amlodipine 2.5 mg tablet 2.5 mg PO QAM 11/18/21 01/03/22 levothyroxine 100 mcg tablet 100 mcg PO QAM tab 11/24/21 01/03/22 losartan 100 mg tablet 100 mg PO QAM 12/30/21 01/03/22 aspirin 81 mg tablet,delayed 81 mg PO DAILY 01/03/22 01/03/22 release carvedilol 3.125 mg tablet 3.125 mg PO BID 01/03/22 01/03/22 furosemide 40 mg tablet 40 mg PO BID 01/03/22 01/03/22 pantoprazole 20 mg tablet,delayed 20 mg PO PM PRN 01/03/22 01/03/22 release Previous Rx's Medication Instructions Recorded BD Ultra-Fine Short Pen Needle 31 #100 ea NS 05/02/20 gauge x 5/16" (pen needle, diabetic) blood sugar diagnostic (OneTouch #3 box 04/17/21 Ultra Blue Test Strip) metformin 850 mg tablet 850 mg PO BID #180 tab 06/23/21 nitroglycerin 0.4 mg sublingual 0.4 mg SL Q5M PRN #25 tab 07/10/21 tablet Oxygen Home #1 ea 07/16/21 Wheeled Walker #1 ea 07/21/21 apixaban 5 mg tablet (Eliquis) 5 mg PO BID #180 tab 10/06/21 atorvastatin 40 mg tablet 40 mg PO HS #90 tab 10/20/21 Results & Data (ED) Vital Signs Vital Signs - 24 hr 01/03/22 12:38 01/03/22 12:40 01/03/22 12:42 Temperature Temperature Source Pulse Rate 45 L 40 L 43 L Pulse Rate [Right Finger] Pulse Rate from SpO2 Sensor 48 L 41 L 43 L Respiratory Rate 19 20 Respiratory Effort / Characteristics Respiratory Depth Respiratory Pattern Blood Pressure 98/45 L Blood Pressure [Left Arm] Blood Pressure Mean 62 Blood Pressure Mean [Left Arm] Blood Pressure Position Pulse Oximetry 99 97 95 Oxygen Delivery Method Nasal Cannula Nasal Cannula Nasal Cannula Oxygen Flow Rate 3.5 3.5 3.5 Sepsis Recent Fever Within 48 Hours Sepsis New/Unexplained Change in Mental Status Sepsis Action Taken by Nursing 01/03/22 12:50 01/03/22 13:00 01/03/22 13:10 Temperature Temperature Source Pulse Rate 40 L 43 L 43 L Pulse Rate [Right Finger] Pulse Rate from SpO2 Sensor 41 L 42 L 43 L Respiratory Rate 19 17 13 Respiratory Effort / Characteristics Respiratory Depth Respiratory Pattern Blood Pressure 99/56 L Blood Pressure [Left Arm] Blood Pressure Mean 70 Blood Pressure Mean [Left Arm] Blood Pressure Position Pulse Oximetry 96 97 98 Oxygen Delivery Method Nasal Cannula Nasal Cannula Nasal Cannula Oxygen Flow Rate 3.5 3.5 3.5 Sepsis Recent Fever Within 48 Hours Sepsis New/Unexplained Change in Mental Status Sepsis Action Taken by Nursing 01/03/22 13:15 01/03/22 13:16 01/03/22 13:18 Temperature 30.0 C L Temperature Source Rectal Pulse Rate 41 L Pulse Rate [Right Finger] 52 L Pulse Rate from SpO2 Sensor 43 L Respiratory Rate 18 12 22 Respiratory Effort / Characteristics Non-Labored Spontaneous Non-Labored Respiratory Depth Normal Respiratory Pattern Regular Blood Pressure 118/59 L 98/45 L Blood Pressure [Left Arm] 118/59 L Blood Pressure Mean 78 62 Blood Pressure Mean [Left Arm] 78 Blood Pressure Position Lying Pulse Oximetry 96 87 L 97 Oxygen Delivery Method Nasal Cannula Room Air Nasal Cannula Oxygen Flow Rate 3.5 4 Sepsis Recent Fever Within 48 Hours No Sepsis New/Unexplained Change in Mental Status Yes Sepsis Action Taken by Nursing No Action Required 01/03/22 13:20 01/03/22 13:30 01/03/22 13:36 Temperature 30.3 C L Temperature Source Rosas Cath ( Temp Sensing) Pulse Rate 47 L 42 L 41 L Pulse Rate [Right Finger] 42 L Pulse Rate from SpO2 Sensor 47 L 43 L 43 L Respiratory Rate 17 14 16 Respiratory Effort / Characteristics Non-Labored Respiratory Depth Respiratory Pattern Blood Pressure 86/45 L 90/47 L Blood Pressure [Left Arm] 90/47 L Blood Pressure Mean 58 61 Blood Pressure Mean [Left Arm] 61 Blood Pressure Position Pulse Oximetry 97 96 98 Oxygen Delivery Method Nasal Cannula Nasal Cannula Nasal Cannula Oxygen Flow Rate 3.5 3.5 3.5 Sepsis Recent Fever Within 48 Hours Sepsis New/Unexplained Change in Mental Status Sepsis Action Taken by Nursing 01/03/22 13:40 01/03/22 13:45 01/03/22 13:50 Temperature Temperature Source Pulse Rate 40 L 87 83 Pulse Rate [Right Finger] Pulse Rate from SpO2 Sensor 40 L 88 Respiratory Rate 16 19 15 Respiratory Effort / Characteristics Respiratory Depth Respiratory Pattern Blood Pressure 117/74 Blood Pressure [Left Arm] Blood Pressure Mean 88 Blood Pressure Mean [Left Arm] Blood Pressure Position Pulse Oximetry 97 97 Oxygen Delivery Method Nasal Cannula Nasal Cannula Nasal Cannula Oxygen Flow Rate 3.5 3.5 3.5 Sepsis Recent Fever Within 48 Hours Sepsis New/Unexplained Change in Mental Status Sepsis Action Taken by Nursing 01/03/22 13:51 01/03/22 14:00 01/03/22 14:10 Temperature Temperature Source Pulse Rate 81 76 71 Pulse Rate [Right Finger] Pulse Rate from SpO2 Sensor 82 76 71 Respiratory Rate 18 19 24 Respiratory Effort / Characteristics Respiratory Depth Respiratory Pattern Blood Pressure 83/49 L 87/48 L 83/46 L Blood Pressure [Left Arm] Blood Pressure Mean 60 61 58 Blood Pressure Mean [Left Arm] Blood Pressure Position Pulse Oximetry 95 98 98 Oxygen Delivery Method Nasal Cannula Nasal Cannula Nasal Cannula Oxygen Flow Rate 3.5 3.5 3.5 Sepsis Recent Fever Within 48 Hours Sepsis New/Unexplained Change in Mental Status Sepsis Action Taken by Nursing 01/03/22 14:17 01/03/22 14:20 01/03/22 14:25 Temperature Temperature Source Pulse Rate 60 69 Pulse Rate [Right Finger] Pulse Rate from SpO2 Sensor 60 69 Respiratory Rate 13 21 Respiratory Effort / Characteristics Respiratory Depth Respiratory Pattern Blood Pressure 63/38 L 73/39 L 88/53 L Blood Pressure [Left Arm] Blood Pressure Mean 46 50 64 Blood Pressure Mean [Left Arm] Blood Pressure Position Pulse Oximetry 95 96 Oxygen Delivery Method Nasal Cannula Nasal Cannula Nasal Cannula Oxygen Flow Rate 3.5 3.5 3.5 Sepsis Recent Fever Within 48 Hours Sepsis New/Unexplained Change in Mental Status Sepsis Action Taken by Nursing 01/03/22 14:30 01/03/22 14:35 01/03/22 14:40 Temperature Temperature Source Pulse Rate 58 L 72 65 Pulse Rate [Right Finger] Pulse Rate from SpO2 Sensor 58 L 66 Respiratory Rate 14 16 10 L Respiratory Effort / Characteristics Respiratory Depth Respiratory Pattern Blood Pressure 71/40 L 95/42 L 82/41 L Blood Pressure [Left Arm] Blood Pressure Mean 50 59 54 Blood Pressure Mean [Left Arm] Blood Pressure Position Pulse Oximetry 98 93 98 Oxygen Delivery Method Nasal Cannula Nasal Cannula Nasal Cannula Oxygen Flow Rate 3.5 3.5 3.5 Sepsis Recent Fever Within 48 Hours Sepsis New/Unexplained Change in Mental Status Sepsis Action Taken by Nursing 01/03/22 14:45 01/03/22 14:50 Temperature Temperature Source Pulse Rate 60 64 Pulse Rate [Right Finger] Pulse Rate from SpO2 Sensor 60 64 Respiratory Rate 10 L 10 L Respiratory Effort / Characteristics Respiratory Depth Respiratory Pattern Blood Pressure 81/40 L 99/42 L Blood Pressure [Left Arm] Blood Pressure Mean 53 61 Blood Pressure Mean [Left Arm] Blood Pressure Position Pulse Oximetry 96 96 Oxygen Delivery Method Nasal Cannula Nasal Cannula Oxygen Flow Rate 3.5 3.5 Sepsis Recent Fever Within 48 Hours Sepsis New/Unexplained Change in Mental Status Sepsis Action Taken by Nursing Laboratory Data Result diagrams: 01/03/22 12:43 01/03/22 12:43 Lab Results 01/03/22 01/03/22 01/03/22 Range/Units 12:43 12:43 12:43 WBC 3.35 L (4.8-10.8) K/uL RBC 4.22 L (4.7-6.1) M/uL Hgb 11.6 L (14.0-18.0) g/dL Hct 39.2 L (42-52) % MCV 92.9 (80-100) fL MCH 27.5 (25-34) pg MCHC 29.6 L (32-36) g/dL RDW Std Deviation 58.1 H (36.4-46.3) fL RDW Coeff of Melonie 17.0 H (11.5-14.5) % Plt Count 69 L (130-400) K/uL MPV 12.3 H (7.4-10.4) fL Immature Gran % (Auto) 0.3 % Neut % (Auto) 64.4 % Lymph % (Auto) 24.5 % [place] % (Auto) 9.9 % Eos % (Auto) 0.6 % Baso % (Auto) 0.3 % Neut # (Auto) 2.16 (1.4-6.5) K/uL Lymph # (Auto) 0.82 L (1.2-3.4) K/uL [place] # (Auto) 0.33 (0.11-0.59) K/uL Eos # (Auto) 0.02 (0-0.5) K/uL Baso # (Auto) 0.01 (0-0.2) K/uL Immature Gran # (Auto) 0.01 (0.00-0.02) K/uL Absolute Nucleated RBC 0.03 H (0-0) K/uL Nucleated RBC % (auto) 0.8 % Platelet Estimate Decreased L (Normal) PT 13.1 H (9.0-12.0) Seconds INR 1.2 H (0.9-1.1) Sodium (136-145) mmol/L Potassium (3.5-5.1) mmol/L Chloride (98-107) mmol/L Carbon Dioxide (21-32) mmol/L Anion Gap (3-11) BUN (6-23) mg/dl Creatinine (0.6-1.4) mg/dl Est Cr Clr Drug Dosing ml/min Est GFR ( Amer) ml/min Est GFR (Non-Af Amer) ml/min BUN/Creatinine Ratio (10-20) Glucose (70-99(Fasting)) mg/dl Lactate (0.4-2.0) mmol/L Calcium (8.5-10.1) mg/dl Magnesium (1.7-2.4) mg/dl Total Bilirubin (0.2-1.0) mg/dl Direct Bilirubin (0-0.2) mg/dl AST (13-39) U/L ALT (7-52) U/L Alkaline Phosphatase (34-104) U/L Troponin I (0-0.04) ng/ml B-Natriuretic Peptide 75 (0-100) pg/ml Total Protein (6.0-8.3) gm/dl Albumin (3.4-5.0) gm/dl Lipase (11-82) U/L Procalcitonin (0-0.5) ng/ml TSH (0.300-4.500) uIu/ml Urine Color Urine Appearance (Clear) Urine pH (4.5-7.5) Ur Specific [place] (1.000-1.030) Urine Protein (Negative) Urine Glucose (UA) (Negative) Urine Ketones (Negative) Urine Blood (Negative) Urine Nitrite (Negative) Urine Bilirubin (Negative) Urine Urobilinogen (Negative) Ur Leukocyte Esterase (Negative) Urine WBC (Auto) (0-5) /hpf Urine RBC (Auto) (0-4) /hpf U Hyaline Cast (Auto) (0-5) /lpf U Epithel Cells (Auto) (0-5) /lpf Urine Bacteria (Auto) (Negative) Ur Renal Epithelial Cell Granular Casts (0) /lpf Urine Yeast SARS-CoV-2, RNA, NAAT (NEGATIVE) 01/03/22 01/03/22 01/03/22 Range/Units 12:43 12:43 12:43 WBC (4.8-10.8) K/uL RBC (4.7-6.1) M/uL Hgb (14.0-18.0) g/dL Hct (42-52) % MCV (80-100) fL MCH (25-34) pg MCHC (32-36) g/dL RDW Std Deviation (36.4-46.3) fL RDW Coeff of Melonie (11.5-14.5) % Plt Count (130-400) K/uL MPV (7.4-10.4) fL Immature Gran % (Auto) % Neut % (Auto) % Lymph % (Auto) % [place] % (Auto) % Eos % (Auto) % Baso % (Auto) % Neut # (Auto) (1.4-6.5) K/uL Lymph # (Auto) (1.2-3.4) K/uL [place] # (Auto) (0.11-0.59) K/uL Eos # (Auto) (0-0.5) K/uL Baso # (Auto) (0-0.2) K/uL Immature Gran # (Auto) (0.00-0.02) K/uL Absolute Nucleated RBC (0-0) K/uL Nucleated RBC % (auto) % Platelet Estimate (Normal) PT (9.0-12.0) Seconds INR (0.9-1.1) Sodium 140 (136-145) mmol/L Potassium 5.2 H (3.5-5.1) mmol/L Chloride 104 (98-107) mmol/L Carbon Dioxide 29 (21-32) mmol/L Anion Gap 7 (3-11) BUN 48 H (6-23) mg/dl Creatinine 1.82 H D (0.6-1.4) mg/dl Est Cr Clr Drug Dosing 36.0 ml/min Est GFR ( Amer) 40.3 ml/min Est GFR (Non-Af Amer) 34.8 ml/min BUN/Creatinine Ratio 26.4 H (10-20) Glucose 306 H* (70-99(Fasting)) mg/dl Lactate (0.4-2.0) mmol/L Calcium 9.3 (8.5-10.1) mg/dl Magnesium 2.0 (1.7-2.4) mg/dl Total Bilirubin 0.5 (0.2-1.0) mg/dl Direct Bilirubin 0.1 (0-0.2) mg/dl AST 256 H (13-39) U/L ALT 260 H (7-52) U/L Alkaline Phosphatase 95 (34-104) U/L Troponin I 0.03 (0-0.04) ng/ml B-Natriuretic Peptide (0-100) pg/ml Total Protein 6.7 (6.0-8.3) gm/dl Albumin 3.4 (3.4-5.0) gm/dl Lipase 23 (11-82) U/L Procalcitonin 0.12 (0-0.5) ng/ml TSH 3.433 (0.300-4.500) uIu/ml Urine Color Urine Appearance (Clear) Urine pH (4.5-7.5) Ur Specific [place] (1.000-1.030) Urine Protein (Negative) Urine Glucose (UA) (Negative) Urine Ketones (Negative) Urine Blood (Negative) Urine Nitrite (Negative) Urine Bilirubin (Negative) Urine Urobilinogen (Negative) Ur Leukocyte Esterase (Negative) Urine WBC (Auto) (0-5) /hpf Urine RBC (Auto) (0-4) /hpf U Hyaline Cast (Auto) (0-5) /lpf U Epithel Cells (Auto) (0-5) /lpf Urine Bacteria (Auto) (Negative) Ur Renal Epithelial Cell Granular Casts (0) /lpf Urine Yeast SARS-CoV-2, RNA, NAAT (NEGATIVE) 01/03/22 01/03/22 01/03/22 Range/Units 13:06 13:08 13:37 WBC (4.8-10.8) K/uL RBC (4.7-6.1) M/uL Hgb (14.0-18.0) g/dL Hct (42-52) % MCV (80-100) fL MCH (25-34) pg MCHC (32-36) g/dL RDW Std Deviation (36.4-46.3) fL RDW Coeff of Melonie (11.5-14.5) % Plt Count (130-400) K/uL MPV (7.4-10.4) fL Immature Gran % (Auto) % Neut % (Auto) % Lymph % (Auto) % [place] % (Auto) % Eos % (Auto) % Baso % (Auto) % Neut # (Auto) (1.4-6.5) K/uL Lymph # (Auto) (1.2-3.4) K/uL [place] # (Auto) (0.11-0.59) K/uL Eos # (Auto) (0-0.5) K/uL Baso # (Auto) (0-0.2) K/uL Immature Gran # (Auto) (0.00-0.02) K/uL Absolute Nucleated RBC (0-0) K/uL Nucleated RBC % (auto) % Platelet Estimate (Normal) PT (9.0-12.0) Seconds INR (0.9-1.1) Sodium (136-145) mmol/L Potassium (3.5-5.1) mmol/L Chloride (98-107) mmol/L Carbon Dioxide (21-32) mmol/L Anion Gap (3-11) BUN (6-23) mg/dl Creatinine (0.6-1.4) mg/dl Est Cr Clr Drug Dosing ml/min Est GFR ( Amer) ml/min Est GFR (Non-Af Amer) ml/min BUN/Creatinine Ratio (10-20) Glucose (70-99(Fasting)) mg/dl Lactate 3.4 H* (0.4-2.0) mmol/L Calcium (8.5-10.1) mg/dl Magnesium (1.7-2.4) mg/dl Total Bilirubin (0.2-1.0) mg/dl Direct Bilirubin (0-0.2) mg/dl AST (13-39) U/L ALT (7-52) U/L Alkaline Phosphatase (34-104) U/L Troponin I (0-0.04) ng/ml B-Natriuretic Peptide (0-100) pg/ml Total Protein (6.0-8.3) gm/dl Albumin (3.4-5.0) gm/dl Lipase (11-82) U/L Procalcitonin (0-0.5) ng/ml TSH (0.300-4.500) uIu/ml Urine Color Yellow Urine Appearance Cloudy A (Clear) Urine pH 5.0 (4.5-7.5) Ur Specific [place] 1.023 (1.000-1.030) Urine Protein 3+ H (Negative) Urine Glucose (UA) 2+ H (Negative) Urine Ketones Trace H (Negative) Urine Blood Trace H (Negative) Urine Nitrite Negative (Negative) Urine Bilirubin Negative (Negative) Urine Urobilinogen Negative (Negative) Ur Leukocyte Esterase Trace H (Negative) Urine WBC (Auto) 10-30 H (0-5) /hpf Urine RBC (Auto) 0-4 (0-4) /hpf U Hyaline Cast (Auto) >30 H (0-5) /lpf U Epithel Cells (Auto) >30 H (0-5) /lpf Urine Bacteria (Auto) Negative (Negative) Ur Renal Epithelial Cell Not Reportable Granular Casts 1-5 H (0) /lpf Urine Yeast Not Reportable SARS-CoV-2, RNA, NAAT NEGATIVE (NEGATIVE) 01/03/22 Range/Units 14:58 WBC (4.8-10.8) K/uL RBC (4.7-6.1) M/uL Hgb (14.0-18.0) g/dL Hct (42-52) % MCV (80-100) fL MCH (25-34) pg MCHC (32-36) g/dL RDW Std Deviation (36.4-46.3) fL RDW Coeff of Melonie (11.5-14.5) % Plt Count (130-400) K/uL MPV (7.4-10.4) fL Immature Gran % (Auto) % Neut % (Auto) % Lymph % (Auto) % [place] % (Auto) % Eos % (Auto) % Baso % (Auto) % Neut # (Auto) (1.4-6.5) K/uL Lymph # (Auto) (1.2-3.4) K/uL [place] # (Auto) (0.11-0.59) K/uL Eos # (Auto) (0-0.5) K/uL Baso # (Auto) (0-0.2) K/uL Immature Gran # (Auto) (0.00-0.02) K/uL Absolute Nucleated RBC (0-0) K/uL Nucleated RBC % (auto) % Platelet Estimate (Normal) PT (9.0-12.0) Seconds INR (0.9-1.1) Sodium (136-145) mmol/L Potassium (3.5-5.1) mmol/L Chloride (98-107) mmol/L Carbon Dioxide (21-32) mmol/L Anion Gap (3-11) BUN (6-23) mg/dl Creatinine (0.6-1.4) mg/dl Est Cr Clr Drug Dosing ml/min Est GFR ( Amer) ml/min Est GFR (Non-Af Amer) ml/min BUN/Creatinine Ratio (10-20) Glucose (70-99(Fasting)) mg/dl Lactate 2.8 H* (0.4-2.0) mmol/L Calcium (8.5-10.1) mg/dl Magnesium (1.7-2.4) mg/dl Total Bilirubin (0.2-1.0) mg/dl Direct Bilirubin (0-0.2) mg/dl AST (13-39) U/L ALT (7-52) U/L Alkaline Phosphatase (34-104) U/L Troponin I (0-0.04) ng/ml B-Natriuretic Peptide (0-100) pg/ml Total Protein (6.0-8.3) gm/dl Albumin (3.4-5.0) gm/dl Lipase (11-82) U/L Procalcitonin (0-0.5) ng/ml TSH (0.300-4.500) uIu/ml Urine Color Urine Appearance (Clear) Urine pH (4.5-7.5) Ur Specific [place] (1.000-1.030) Urine Protein (Negative) Urine Glucose (UA) (Negative) Urine Ketones (Negative) Urine Blood (Negative) Urine Nitrite (Negative) Urine Bilirubin (Negative) Urine Urobilinogen (Negative) Ur Leukocyte Esterase (Negative) Urine WBC (Auto) (0-5) /hpf Urine RBC (Auto) (0-4) /hpf U Hyaline Cast (Auto) (0-5) /lpf U Epithel Cells (Auto) (0-5) /lpf Urine Bacteria (Auto) (Negative) Ur Renal Epithelial Cell Granular Casts (0) /lpf Urine Yeast SARS-CoV-2, RNA, NAAT (NEGATIVE) Administered Medications Vancomycin HCl 2,000 mg/ (Sodium Chloride) 540 mls @ 200 mls/hr IV NOW ONE Stop: 01/03/22 16:42 Last Admin: 01/03/22 14:28 Dose: 200 mls/hr Documented by: [id number] Dopamine HCl/Dextrose (Dopamine / D5w) 400 mg in 250 mls @ 8.841 mls/hr IV .Q24H GOGO; Protocol Stop: 02/02/22 14:29 Last Titration: 01/03/22 14:45 Dose: 5 mcg/kg/min, 17.7 mls/hr Documented by: [id number] Admin: 01/03/22 14:28 Dose: 2.5 mcg/kg/min, 8.8 mls/hr Documented by: [id number] Cosigned by: [id number] Discontinued Medications Atropine Sulfate (Atropine Sulfate 0.1 Mg/Ml 10ml Syr) 0.5 mg IV NOW STA Stop: 01/03/22 13:34 Last Admin: 01/03/22 13:42 Dose: 0.5 mg Documented by: [id number] Sodium Chloride (Nss 1000ml) 1,000 mls @ 999 mls/hr IV .Q1H1M ONE Stop: 01/03/22 14:46 Last Admin: 01/03/22 13:54 Dose: 999 mls/hr Documented by: [id number] Cefepime HCl (Maxipime) 2,000 mg in 20 mls @ 5 mls/min IV NOW STA; Protocol Stop: 01/03/22 13:49 Last Admin: 01/03/22 13:49 Dose: 5 mls/min Documented by: [id number] Sodium Chloride (Nss 1000ml) 1,000 mls @ 999 mls/hr IV .Q1H1M ONE Stop: 01/03/22 15:18 Last Admin: 01/03/22 14:31 Dose: 999 mls/hr Documented by: [id number] Miscellaneous (Stat Iv Infusion Titration Per Protocol) 1 ea N/A NOW STA Stop: 01/03/22 14:19 Last Admin: 01/03/22 14:31 Dose: 1 ea Documented by: [id number] Imaging Data Radiologist's Impression: Chest X-Ray 01/03/22 12:39 XR chest 1V portable HISTORY: Shortness of breath. COMPARISON: Chest 12/10/2021. FINDINGS: No pneumothorax. Bibasilar linear densities and a trace left pleural effusion persists. The heart remains enlarged. There is mild central pulmonary vascular congestion without overt edema. The upper lung zones remain clear. IMPRESSION: 1. No change in the bibasilar linear densities and trace left pleural effusion. 2. Mild central pulmonary vascular congestion also persists. ACT 112: Negative or not required by law. Electronically signed by: Christian Munoz M.D. 01/03/2022 1:27 PM Discharge Plan Visit Data Chief Complaint: Bradycardia ED Provider: Dimitry Bucio Discharge Problem: Septic shock, Hypothermia, Bradycardia, Pneumonia, Hypoxia Forms Stand Alone Forms: My [facility] [employer] Prescriptions Prescriptions: No Action (DME) pen needle, diabetic [BD Ultra-Fine Short Pen Needle] 31 gauge x 5/16" needle See Rx Instructions .ROUTE .MEDSUPPLY Qty: 100 RF: 3 (DME) OneTouch Ultra Blue Test Strip Strip See Dose Instructions .ROUTE .MEDSUPPLY Qty: 3 RF: 3 metformin 850 mg tablet 850 mg PO BID Qty: 180 RF: 1 (DME) Oxygen Home Liters Per Minute See Rx Instructions .Route Qty: 1 RF: 0 (DME) Wheeled Walker Misc See Rx Instructions .Route Qty: 1 RF: 0 atorvastatin 40 mg tablet 40 mg PO HS Qty: 90 RF: 3 amlodipine 2.5 mg tablet 2.5 mg PO QAM RF: 0 cyanocobalamin (vitamin B-12) 1,000 mcg tablet 1,000 mcg PO QDL RF: 0 docusate sodium 100 mg capsule 100 mg PO QAM PRN (Reason: Constipation) RF: 0 polyethylene glycol 3350 17 gram/dose powder 17 gm PO DAILY PRN (Reason: Constipation) Qty: 1 RF: 0 nitroglycerin 0.4 mg tablet, sublingual 0.4 mg SL Q5M PRN (Reason: chest pain) Qty: 25 RF: 2 levothyroxine 100 mcg tablet 100 mcg PO QAM RF: 0 cholecalciferol (vitamin D3) 50 mcg (2,000 unit) tablet 2,000 unit PO QDL RF: 0 Eliquis 5 mg tablet 5 mg PO BID Qty: 180 RF: 3 Mucinex 1,200 mg Tablet Extended Release 12hr 1,200 mg PO QAM RF: 0 trazodone 50 mg tablet 50 - 100 mg PO HS RF: 0 losartan 100 mg tablet 100 mg PO QAM RF: 0 furosemide 40 mg Tablet 40 mg PO BID RF: 0 aspirin 81 mg Tablet,Delayed Release (Dr/Ec) 81 mg PO DAILY RF: 0 carvedilol 3.125 mg tablet 3.125 mg PO BID RF: 0 pantoprazole 20 mg tablet,delayed release (DR/EC) 20 mg PO PM PRN (Reason: gastric upset) RF: 0 Referrals Referrals: Dao Ryan MD [Primary Care Provider] - Discharge Problem: Hypothermia Qualifiers: Encounter type: initial encounter Qualified Code(s): T68.XXXA - Hypothermia, initial encounter Pneumonia Qualifiers: Pneumonia type: aspiration pneumonia Aspiration pneumonia type: unspecified Laterality: left Lung location: lower lobe of lung Qualified Code(s): J69.0 - Pneumonitis due to inhalation of food and vomit
--- NOTE | 2022-01-03 13:28 | XRay Report ---
XR chest 1V portable HISTORY: Shortness of breath. COMPARISON: Chest 12/10/2021. FINDINGS: No pneumothorax. Bibasilar linear densities and a trace left pleural effusion persists. The heart remains enlarged. There is mild central pulmonary vascular congestion without overt edema. The upper lung zones remain clear. IMPRESSION: 1. No change in the bibasilar linear densities and trace left pleural effusion. 2. Mild central pulmonary vascular congestion also persists. ACT 112: Negative or not required by law. Electronically signed by: Christian Munoz M.D. 01/03/2022 1:27 PM
[2022-01-03] MEDS ORDERED: ATROPINE SULFATE 0.1 MG/ML 10ML SYR IV STA (13:33)
[2022-01-03 13:36] LABS: INR 1.2 (0.9-1.1); Prothrombin Time 13.1 Seconds (9.0-12.0)
[2022-01-03] MEDS ORDERED: SODIUM CHLORIDE 0.9% 1000ML 1,000 ML IV ONE ×2 (13:46→14:18)
[2022-01-03] MEDS ORDERED: CEFEPIME 2,000 MG/20 ML VIAL IV STA (13:46)
[2022-01-03 13:47] LABS: Basophils # (auto) 0.01 K/uL (0-0.2); Basophils % (auto) 0.3 %; Eosinophils # (auto) 0.02 K/uL (0-0.5); Eosinophils % (auto) 0.6 %; Hematocrit (blood only) 39.2 % (42-52); Hemoglobin 11.6 g/dL (14.0-18.0); Immature Granulocytes # (auto) 0.01 K/uL (0.00-0.02); Immature Granulocytes % (auto) 0.3 %; Lymphocytes # (auto) 0.82 K/uL (1.2-3.4); Lymphocytes % (auto) 24.5 %; Mean Corpuscular Hemoglobin 27.5 pg (25-34); Mean Corpuscular Hgb Conc 29.6 g/dL (32-36); Mean Corpuscular Volume 92.9 fL (80-100); Mean Platelet Volume 12.3 fL (7.4-10.4); Monocytes # (auto) 0.33 K/uL (0.11-0.59); Monocytes % (auto) 9.9 %; Neutrophils # (auto) 2.16 K/uL (1.4-6.5); Neutrophils % (auto) 64.4 %; Nucleated RBC # (auto) 0.03 K/uL (0-0); Nucleated RBC % (auto) 0.8 %; Platelet Count 69 K/uL (130-400); Platelet Estimate Decreased (Normal); RDW Standard Deviation 58.1 fL (36.4-46.3); Red Blood Count 4.22 M/uL (4.7-6.1); White Blood Count 3.35 K/uL (4.8-10.8)
[2022-01-03 13:54] LABS: Troponin I 0.03 ng/ml (0-0.04)
[2022-01-03] MEDS ORDERED: VANCOMYCIN HCL 2,000 MG in SODIUM CHLORIDE 0.9% 500 ML IV ONE (14:01)
[2022-01-03] MEDS ORDERED: VANCOMYCIN CONSULT ACTIVE PRN ×2 (14:01→19:22)
[2022-01-03 14:04] LABS: Albumin Level 3.4 gm/dl (3.4-5.0); BUN Creatinine Ratio 26.4 (10-20); Bilirubin Direct 0.1 mg/dl (0-0.2); Bilirubin,Total 0.5 mg/dl (0.2-1.0); Calcium 9.3 mg/dl (8.5-10.1); Est GFR (African American) 40.3 ml/min; Est GFR (Non-African American) 34.8 ml/min; Potassium 5.2 mmol/L (3.5-5.1); Total Protein 6.7 gm/dl (6.0-8.3)
[2022-01-03 14:18] LABS: Appearance Urine Cloudy (Clear); Bacteria Urine Automated Negative (Negative); Bilirubin Urine Negative (Negative); Blood Urine Trace (Negative); Color Urine Yellow; Epithelial Cell Urine Auto >30 /lpf (0-5); Glucose Urine UA 2+ (Negative); Ketones Urine Trace (Negative); Leukocyte Esterase Urine Trace (Negative); Nitrite Urine Negative (Negative); Protein Urine 3+ (Negative); RBC Urine Automated 0-4 /hpf (0-4); Specific Gravity Urine 1.023 (1.000-1.030); Urobilinogen Urine Negative (Negative)
[2022-01-03] MEDS ORDERED: STAT IV Infusion **Titration per Protocol STA ×2 (14:18→17:23)
[2022-01-03 14:28] LABS: Cast Urine Automated >30 /lpf (0-5)
[2022-01-03] MEDS ORDERED: DOPamine / D5W 400 MG/250 ML BAG IV SCH (14:30)
[2022-01-03 15:51] LABS: Base Excess ABG -3.1 mEq/L (-9-1.8); HCO3 ABG 26 mmol/L (19-24); Oxygen Saturation ABG 94.7 % (90-95); PCO2 ABG 70 mmHg (35-46); PO2 ABG 83 mmHg (80-95)
--- NOTE | 2022-01-03 16:00 | History & Physical Report ---
Date of Service January 03, 2022 Assessment & Plan (1) Septic shock: Plan: Patient presents with hypothermia, bradycardia, hypotensive, pancytopenia, elevated lactate - Presumed source at this time is aspiration pneumonia vs. HCAP vs. systemic bactremia - His pleural effusion was evaluated in September with his pneumonia and not consistent with parapneumonic effusion - UA with culture pending - Blood cultures pending - WIll send peripheral smear for leukopenia and thrombocytopenia - both currently most likely consistent with above septic shock - Random Cortisol is 19 - TSH normal - Anaplasmosis sent- this was also negative in Sep. Severely ill with multiorgan dysfunction of lungs, renal, liver, and hematology involvement - Continue broad spectrum abx with Cefepime and Vancomycin - He is volume responsive at this time, continue with prn boluses for hyp otension- evaluate with UO and MAPS - Continue with passive re-warming with anastasiia hugger, warm blankets to body, and head - Hemodynamic support with Dopamine 5mcg/kg/min- support hypotension with volume bolus and monitor renal output - No escalation of vasopressors as discussed with family - Optimize current supportive care- if he fails transition to palliative care (2) Hypothermia: Plan: as above - currently not hypoglycemic, normal random cortiso, normal TSH - Continue passive re-warming (3) Bradycardia: Plan: As above - Patient did have his Carvedilol discontinued at discharge - This was low dose of 3.125mg so unlikely even if he was mistakenly taking to cause this profound response - Continue to hold BB and antihypertensives while on vasopressor/inotrope (4) Pneumonia: Plan: Highly suggestive of aspiration pneumonia with symptom review and gravely voice - sit upright with all meals, - will start with clears and advance if able- medications in carrier (5) Acute respiratory failure with hypoxia and hypercarbia: Plan: Combination of weakness, likely aspiration and aspiration puemonia - PH 7.19, PaCO2 70 HCO3 28 - He has SIXTO but does not wear at home - Placed on BiPAP 10/5 initially with response- titrate for adequate VT and CO2 ~60 as with his chronically elevated HCo3 is most likely retainer - BiPAP as needed may have breaks for hydration, pills, and comfort (6) Chronic kidney disease (CKD), stage II (mild): Plan: JANINE II on CKD - Baseline HOTEL CONCIERGE 1.1 - Pre-renal appearing - Downtrending with volume resuscitation - HOLD ARB - Follow (7) Hyperkalemia: Plan: Secondary to JANINE, acidosis, shock. likely however he is noted to have K 4-5 range as normal - Calcium Gluconate given - supportive care as reversing acidosis and hypotension (8) Obstructive sleep apnea: Plan: As above biPAP at night (9) Congestive heart failure: Plan: HFrEF Hold BB, ARB, Hypertensives - follow pulmonary and systemic exam for volume overload - diurese if clinically indicated following resuscitation (10) Transaminitis: Plan: Chronic- currently related hypotension with increase in his INR - Anaplasmosis negative previous, smear currently negative await reflex - consider sending hepatitis panel although liver ultrasound does not show cirrhotic morphology - no previous gallbladder disease and biliary are normal (11) Thrombocytopenia: Plan: Likley related to septic shock - peripheral smear in morning - ? underlying marrow process (12) Pleural effusion: Plan: Chronic- previously consistent with HF - consider re-evaluation of pleural fluid if PNA becomes more evident (13) Carotid arterial disease: Plan: with history of left CEA - Continue aspirin- follow platlet count - If stabilizes by morning time- CT head evaluate for intracranial process contributing to dysphagia, bradycardia, hypotension - He has no focal nuerological deficits, no nystagmus, or seizure like activity (14) Dysphagia: Plan: Clears sitting upright with medications and/or food - advance if able History of Present Illness Primary Care Provider: Dao Ryan MD 76 YOM with past medical history of: Hypothyroidism, CAP, PAF, CKD II, DM II, pleural effusion, thrombocytopenia, aspiration, pharyngeal polyp, SIXTO (unable to tolerate BiPAP/CPAP, Carotid artery disease with left CEA, CAD (medically managed). Patient comes to the EMD today via EMS for concerns of alteration in mentation, cold to touch, generalized weakness. Patient was noted to be severely hypothermic to the 30s, hypotensive and bradycardic. His glucose on arrival was normal. He had routine labs drawn, CXR, temp sensing Rosas inser thomas, CXR, blood cultures and UA performed with culture. The patient was given 2 liters of crystalloid, placed on anastasiia hugger and warmed blankets, was given Cefepime and Vancomycin for concerns of HAP since he was previously admitted and received abx at that time. He was placed on Dopamine 5mcg/kg/min which has increased his HR to 60s, with MAPS >65. He still remains hypothermic at 32 degrees- will place warm blankets to head. The patient currently meets sepsis criteria with evidence of organ dysfunction- he has been volume resuscitated as above. Will recheck BMP, ABG, random cortisol, his Lactate has downtrended and will follow up. Will admit for sepsis which is likely aspiration related, but will continue to search for other sources. He is currently a DNR/DNI. He did agree to try BiPAP for his hypercarbia and acidosis. Following further discussion and evaluation his labs with his organ dysfunction in regards to his other co-morbidities including his CAD and CKD that with his severity of illness currently these organs will likely continue to fail. We have him supported currently with Dopamine, temperature support, abx therapy, and BiPAP. If these fail they understand that he may . They do not want further invasive lines or ICU level care as he already has a high mortality and would require invasive lines (central line for active re-warming and vasopressor support, and arterial lines for vasoactive support) that Calvin and the family would not want. If the patient was to fail current therapy, we would transition to palliative care. Patient was recently admitted 12/10/21 and discharged on 12/13/21 where he was treated for CAP vs. aspiration pneumonia, evaluated for bradycardic episodes. He completed course of Azithromycin and Rocephin and MRSA was negative. His Carvedilol was discontinued and his bradycardia improved enough for discharge. He was also admitted in October 14 with same above symptoms. He had his pleural effusion drained at that time with PH 7.57, LDH 105, Glucose 128. states that originally he was doing good at home up until the past 2 weeks where he has been more fatigued. She noted last week that he had multiple Hypo glycemic episodes throughout the day, his insulin was discontinued and was continued on Metformin, she has also noted that his appetite and difficulty swallowing this has also been associated with increase in cough and shortness of breath. She does endorse that he does cough following eating or drinking. The patient was seen at his PCP on 01/02/22 and continued with home oxygen and did check his labs. They were notable for WBC count of 3.77 and platelet count of 100. Allergies Allergy/AdvReac Type Severity Reaction Status Date / Time Gadolinium-Containing Allergy Severe ANAPHYLAXIS Verified 01/03/22 14:55 Contrast Medi Iodinated Contrast Media Allergy Severe ANAPHYLAXIS Verified 01/03/22 14:55 Home Medications Medication Instructions Recorded Confirmed Type cyanocobalamin (vitamin B-12) 1,000 mcg PO QDL tab 05/31/19 01/03/22 History 1,000 mcg tablet docusate sodium 100 mg capsule 100 mg PO QAM PRN cap 05/31/19 01/03/22 History polyethylene glycol 3350 17 17 gm PO DAILY PRN #1 gm 05/31/19 01/03/22 History gram/dose oral powder BD Ultra-Fine Short Pen Needle 31 #100 ea NS 05/02/20 01/02/22 Rx gauge x 5/16" (pen needle, diabetic) cholecalciferol (vitamin D3) 50 2,000 unit PO QDL tab 10/28/20 01/03/22 History mcg (2,000 unit) tablet blood sugar diagnostic (OneTouch #3 box 04/17/21 01/02/22 Rx Ultra Blue Test Strip) metformin 850 mg tablet 850 mg PO BID #180 tab 06/23/21 01/03/22 Rx nitroglycerin 0.4 mg sublingual 0.4 mg SL Q5M PRN #25 tab 07/10/21 01/03/22 Rx tablet Oxygen Home #1 ea 07/16/21 01/02/22 Rx Wheeled Walker #1 ea 07/21/21 01/02/22 Rx guaifenesin 1,200 mg tablet, 1,200 mg PO QAM 09/19/21 01/03/22 History extended release 12 hr (Mucinex) trazodone 50 mg tablet 50 - 100 mg PO HS 09/19/21 01/03/22 History apixaban 5 mg tablet (Eliquis) 5 mg PO BID #180 tab 10/06/21 01/03/22 Rx atorvastatin 40 mg tablet 40 mg PO HS #90 tab 10/20/21 01/03/22 Rx amlodipine 2.5 mg tablet 2.5 mg PO QAM 11/18/21 01/03/22 History levothyroxine 100 mcg tablet 100 mcg PO QAM tab 11/24/21 01/03/22 History losartan 100 mg tablet 100 mg PO QAM 12/30/21 01/03/22 History aspirin 81 mg tablet,delayed 81 mg PO DAILY 01/03/22 01/03/22 History release carvedilol 3.125 mg tablet 3.125 mg PO BID 01/03/22 01/03/22 History furosemide 40 mg tablet 40 mg PO BID 01/03/22 01/03/22 History pantoprazole 20 mg tablet,delayed 20 mg PO PM PRN 01/03/22 01/03/22 History release Past Med/Surg History Medical History Anxiety Arteriosclerotic cardiovascular disease Asthma Atrial fibrillation on eliquis; follows with Dr. Gardiner Bradycardia Chronic diastolic heart failure CKD (chronic kidney disease) follows with Dr. Savage Colon polyps Diabetic nephropathy Diverticular disease DM type 2 (diabetes mellitus, type 2) Dysphagia Gastroesophageal reflux disease Rachel's thyroiditis History of aspiration pneumonia History of CVA (cerebrovascular accident) 20 years ago; no residual History of depression History of diverticulitis History of sleep apnea unable to tolerate CPAP Hyperlipidemia Hypertension Hypothyroidism Insomnia Internal hemorrhoids Obesity On home oxygen therapy 2-3 LPM qHS Paralysis of right vocal fold Parotid sialolithiasis Pleural effusion, left Proteinuria Raspy voice Right bundle branch block Thrombocytopenia Vitamin D deficiency Surgical History H/O umbilical hernia repair History of colonoscopy History of thoracentesis S/P carotid endarterectomy Left S/P cataract surgery BL S/P inguinal hernia repair S/P tonsillectomy Family History Mother Heart disease Father Stomach cancer Other Asthma Cancer Denies family history of Ovarian cancer Prostate cancer Myocardial infarction Breast cancer Colorectal cancer Social History (Updated 01/02/22 @ 09:46 by Maryellen Cruz LPN) Smoking Status: Never smoker Second Hand Exposure: No; Hx Alcohol Use: No Hx Substance Use: No Preferred Language: German Communication Ability: Effective Visual Impairment: No Limitations Hearing Ability: Normal Live Out Nanny Required: No Beliefs That Will Affect Care: None marital status: Current Living Situation: Spouse Current Living Situation Comment: lives in mobile home with ramp current occupational status: retired How many Children do You have: 2 Feels Safe at Home: Yes Childhood Exposure to Second-Hand Smoke: No Diet Comment: K+ reduced caffeine: Yes (coffee) Dental Care, Regularly: Yes Physical Activity Frequency: Does not Exercise Seatbelt Use: always Sunscreen Use: No Assistive Devices: Glasses, Oxygen - at Night, Walker and Wheelchair Review of Systems Review of Systems: REVIEW OF SYSTEMS: Constitutional: No fever, sweats or chills Eyes: No diplopia, no worsening or blurred vision ENT: (+) difficulty swallowing, cough after eating, normal hearing, Respiratory: (+) cough, sputum, dyspnea at rest or on exertion Cardiovascular: No chest pain, tightness or palpitations Abdomen: No pain, nausea, vomiting, diarrhea or constipation Musculoskeletal: No joint pain, calf pain, swelling Neurologic: (+) generalized weakness, numbness/tingling, or balance problems Psychiatric: No anxiety or depression Skin: No rash or itch Physical Exam Physical Exam: PHYSICAL EXAM: General: awake, alert, no apparent distress Head: Normocephalic, atraumatic ENT: PERRL, EOMI, no pharyngeal exudate, mucous membranes moist Neuro: AAO x 3, speech clear and appropriate, strength intact bilaterally 5/5, sensation intact and equal all extremities and dermatomes, no pronator drift Chest: equal rise and fall of the chest, no accessory muscle use, no heaves or thrills, clear to auscultation, on room air, Cardiac: Regular rate and rhythm, telemetry reviewed- sinus luisa, skin warm dry, cap refill <3 seconds, peripheral pulses +2 no JVD, no murmur, trace edema in the lower extremities GI: NABS x 4 quadrants, soft, nontender to palpation, no rebound, guarding or tenderness : Spontaneously voiding, no pain, no CVA tenderness, Extremities: Normal inspection, no peripheral edema or erythema, calfs nontender to palpation Psych: Normal mood and affect Skin: no rash or erythema Results & Data Results & Data ([facility]) Vital Signs (Past 12 Hours) Vital Signs Temp Pulse Pulse Resp BP BP Pulse Ox 01/03/22 14:50 64 10 L 99/42 L 96 01/03/22 14:45 60 10 L 81/40 L 96 01/03/22 14:40 65 10 L 82/41 L 98 01/03/22 14:35 72 16 95/42 L 93 01/03/22 14:30 58 L 14 71/40 L 98 01/03/22 14:25 69 21 88/53 L 96 01/03/22 14:20 60 13 73/39 L 95 01/03/22 14:17 63/38 L 01/03/22 14:10 71 24 83/46 L 98 01/03/22 14:00 76 19 87/48 L 98 01/03/22 13:51 81 18 83/49 L 95 01/03/22 13:50 83 15 01/03/22 13:45 87 19 117/74 97 01/03/22 13:40 40 L 16 97 01/03/22 13:36 30.3 C L 41 L 42 L 16 90/47 L 90/47 L 98 01/03/22 13:30 42 L 14 86/45 L 96 01/03/22 13:20 47 L 17 97 01/03/22 13:18 52 L 22 118/59 L 97 01/03/22 13:16 30.0 C L 41 L 12 98/45 L 87 L 01/03/22 13:15 18 118/59 L 96 01/03/22 13:10 43 L 13 98 01/03/22 13:00 43 L 17 99/56 L 97 01/03/22 12:50 40 L 19 96 01/03/22 12:42 43 L 20 98/45 L 95 01/03/22 12:40 40 L 97 01/03/22 12:38 45 L 19 99 Laboratory Results Abnormal lab results 01/03/22 01/03/22 01/03/22 Range/Units 12:43 12:43 12:43 WBC 3.35 L (4.8-10.8) K/uL RBC 4.22 L (4.7-6.1) M/uL Hgb 11.6 L (14.0-18.0) g/dL Hct 39.2 L (42-52) % MCHC 29.6 L (32-36) g/dL RDW Std Deviation 58.1 H (36.4-46.3) fL RDW Coeff of Melonie 17.0 H (11.5-14.5) % Plt Count 69 L (130-400) K/uL MPV 12.3 H (7.4-10.4) fL Lymph # (Auto) 0.82 L (1.2-3.4) K/uL Absolute Nucleated RBC 0.03 H (0-0) K/uL Platelet Estimate Decreased L (Normal) PT 13.1 H (9.0-12.0) Seconds INR 1.2 H (0.9-1.1) ABG pH (7.35-7.45) ABG pCO2 (35-46) mmHg ABG HCO3 (19-24) mmol/L Potassium 5.2 H (3.5-5.1) mmol/L Chloride (98-107) mmol/L BUN 48 H (6-23) mg/dl Creatinine 1.82 H D (0.6-1.4) mg/dl BUN/Creatinine Ratio 26.4 H (10-20) Glucose 306 H* (70-99(Fasting)) mg/dl POC Glucose (70-99) mg/dl Lactate (0.4-2.0) mmol/L Calcium (8.5-10.1) mg/dl AST 256 H (13-39) U/L ALT 260 H (7-52) U/L Albumin (3.4-5.0) gm/dl Urine Appearance (Clear) Urine Protein (Negative) Urine Glucose (UA) (Negative) Urine Ketones (Negative) Urine Blood (Negative) Ur Leukocyte Esterase (Negative) Urine WBC (Auto) (0-5) /hpf U Hyaline Cast (Auto) (0-5) /lpf U Epithel Cells (Auto) (0-5) /lpf Granular Casts (0) /lpf 01/03/22 01/03/22 01/03/22 Range/Units 13:08 13:37 14:58 WBC (4.8-10.8) K/uL RBC (4.7-6.1) M/uL Hgb (14.0-18.0) g/dL Hct (42-52) % MCHC (32-36) g/dL RDW Std Deviation (36.4-46.3) fL RDW Coeff of Melonie (11.5-14.5) % Plt Count (130-400) K/uL MPV (7.4-10.4) fL Lymph # (Auto) (1.2-3.4) K/uL Absolute Nucleated RBC (0-0) K/uL Platelet Estimate (Normal) PT (9.0-12.0) Seconds INR (0.9-1.1) ABG pH (7.35-7.45) ABG pCO2 (35-46) mmHg ABG HCO3 (19-24) mmol/L Potassium (3.5-5.1) mmol/L Chloride (98-107) mmol/L BUN (6-23) mg/dl Creatinine (0.6-1.4) mg/dl BUN/Creatinine Ratio (10-20) Glucose (70-99(Fasting)) mg/dl POC Glucose (70-99) mg/dl Lactate 3.4 H* 2.8 H* (0.4-2.0) mmol/L Calcium (8.5-10.1) mg/dl AST (13-39) U/L ALT (7-52) U/L Albumin (3.4-5.0) gm/dl Urine Appearance Cloudy A (Clear) Urine Protein 3+ H (Negative) Urine Glucose (UA) 2+ H (Negative) Urine Ketones Trace H (Negative) Urine Blood Trace H (Negative) Ur Leukocyte Esterase Trace H (Negative) Urine WBC (Auto) 10-30 H (0-5) /hpf U Hyaline Cast (Auto) >30 H (0-5) /lpf U Epithel Cells (Auto) >30 H (0-5) /lpf Granular Casts 1-5 H (0) /lpf 01/03/22 01/03/22 01/03/22 Range/Units 15:35 15:35 15:57 WBC (4.8-10.8) K/uL RBC (4.7-6.1) M/uL Hgb (14.0-18.0) g/dL Hct (42-52) % MCHC (32-36) g/dL RDW Std Deviation (36.4-46.3) fL RDW Coeff of Melonie (11.5-14.5) % Plt Count (130-400) K/uL MPV (7.4-10.4) fL Lymph # (Auto) (1.2-3.4) K/uL Absolute Nucleated RBC (0-0) K/uL Platelet Estimate (Normal) PT (9.0-12.0) Seconds INR (0.9-1.1) ABG pH 7.19 L* (7.35-7.45) ABG pCO2 70 H (35-46) mmHg ABG HCO3 26 H (19-24) mmol/L Potassium 5.6 H (3.5-5.1) mmol/L Chloride 109 H (98-107) mmol/L BUN 45 H (6-23) mg/dl Creatinine 1.72 H (0.6-1.4) mg/dl BUN/Creatinine Ratio 26.2 H (10-20) Glucose 247 H (70-99(Fasting)) mg/dl POC Glucose 218 H (70-99) mg/dl Lactate (0.4-2.0) mmol/L Calcium 8.3 L (8.5-10.1) mg/dl AST 248 H (13-39) U/L ALT 245 H (7-52) U/L Albumin 3.1 L (3.4-5.0) gm/dl Urine Appearance (Clear) Urine Protein (Negative) Urine Glucose (UA) (Negative) Urine Ketones (Negative) Urine Blood (Negative) Ur Leukocyte Esterase (Negative) Urine WBC (Auto) (0-5) /hpf U Hyaline Cast (Auto) (0-5) /lpf U Epithel Cells (Auto) (0-5) /lpf Granular Casts (0) /lpf Diagnostic Findings Chest X-Ray 01/03/22 12:39 XR chest 1V portable HISTORY: Shortness of breath. COMPARISON: Chest 12/10/2021. FINDINGS: No pneumothorax. Bibasilar linear densities and a trace left pleural effusion persists. The heart remains enlarged. There is mild central pulmonary vascular congestion without overt edema. The upper lung zones remain clear. IMPRESSION: 1. No change in the bibasilar linear densities and trace left pleural effusion. 2. Mild central pulmonary vascular congestion also persists. ACT 112: Negative or not required by law. Electronically signed by: Christian Munoz M.D. 01/03/2022 1:27 PM Medications Administered Vancomycin HCl 2,000 mg/ (Sodium Chloride) 540 mls @ 200 mls/hr IV NOW ONE Stop: 01/03/22 16:42 Last Admin: 01/03/22 14:28 Dose: 200 mls/hr Documented by: [id number] Dopamine HCl/Dextrose (Dopamine / D5w) 400 mg in 250 mls @ 8.841 mls/hr IV .Q24H GOGO; Protocol Stop: 02/02/22 14:29 Last Titration: 01/03/22 14:45 Dose: 5 mcg/kg/min, 17.7 mls/hr Documented by: [id number] Admin: 01/03/22 14:28 Dose: 2.5 mcg/kg/min, 8.8 mls/hr Documented by: [id number] Cosigned by: [id number] Discontinued Medications Atropine Sulfate (Atropine Sulfate 0.1 Mg/Ml 10ml Syr) 0.5 mg IV NOW STA Stop: 01/03/22 13:34 Last Admin: 01/03/22 13:42 Dose: 0.5 mg Documented by: [id number] Sodium Chloride (Nss 1000ml) 1,000 mls @ 999 mls/hr IV .Q1H1M ONE Stop: 01/03/22 14:46 Last Infusion: 01/03/22 15:45 Dose: 0 mls/hr Documented by: [id number] Admin: 01/03/22 13:54 Dose: 999 mls/hr Documented by: [id number] Cefepime HCl (Maxipime) 2,000 mg in 20 mls @ 5 mls/min IV NOW STA; Protocol Stop: 01/03/22 13:49 Last Admin: 01/03/22 13:49 Dose: 5 mls/min Documented by: [id number] Sodium Chloride (Nss 1000ml) 1,000 mls @ 999 mls/hr IV .Q1H1M ONE Stop: 01/03/22 15:18 Last Infusion: 01/03/22 15:45 Dose: 0 mls/hr Documented by: [id number] Admin: 01/03/22 14:31 Dose: 999 mls/hr Documented by: [id number] Miscellaneous (Stat Iv Infusion Titration Per Protocol) 1 ea N/A NOW STA Stop: 01/03/22 14:19 Last Admin: 01/03/22 14:31 Dose: 1 ea Documented by: [id number] ECG Additional Comments: Poor data quality, interpretation may be adversely affected Marked sinus bradycardia Indeterminate axis Right bundle branch block Abnormal ECG When compared with ECG of 10-DEC-2021 10:43, QRS duration has increased Code Status & VTE Plan Code Status CODE: DNR/DNI VTE: SCDS, Eliquis Supervising Physician Co-Signing Physician Notes SHINGLER Supervision note: I have personally seen and examined the patient and discussed and verified the ruiz points of the history and physical along with the plan with KATERINA Estes with the following exceptions and/or additions: This patient is a 76-year-old male with history noted as above who presents with confusion and weakness, found to be profoundly hypothermic, hypotensive, bradycardic. With history of aspiration pneumonia and chest x-ray consistent with possibly with such. When I saw the patient, he was awake and alert and reported "I felt fine when I came in here." History and ROS reviewed as above Vitals reviewed Gen: AA but mildly lethargic, oriented to person and place NAD HEENT: [anicteric sclerae, EOMI, BiPAP mask in place CV: Irregularly irregular, bradycardic, no mgr nl S1S2 Pulm: With wheezing and rhonchi bilaterally Abd: +BS soft NT ND no masses or hernias Ext: No edema, 2+ DP pulses Skin: No rashes, warm/dry Neuro: Moving all extremities Labs and rads reviewed, ECG reviewed 76-year-old male here with hypothermia, septic shock, likely pulmonary source Follow cultures Broad-spectrum antibiotics with cefepime and vancomycin, check MRSA swab Rewarming IV fluid resuscitation, on dopamine fixed dose and will not escalate PG Care Time/CCT Total # of Minutes Spent Total Time Spent with Patient: Total time spent is greater than 50% in coordination of care (as documented) at patient's floor/unit and/or counseling patient: 70 minutes of critical care time - This time was spent independently reviewing imaging, labs, ordering follow on studies - application of BiPAP, management of acid base disorder - volume resuscitation with vasopressor monitoring - rewarming - Time was spent discussing prognosis and care options with the family to include ICU level care Coding Level of Care Code 91776 Initial Inpt Care Lvl 3 Diagnoses Septic shock A41.9; R65.21 Hypothermia T68.XXXA Encounter type: initial encounter Bradycardia R00.1 Pneumonia J69.0 Aspiration pneumonia type: unspecified Laterality: left Lung location: lower lobe of lung Pneumonia type: aspiration pneumonia Chronic kidney disease (CKD), stage II (mild) N18.2 Hyperkalemia E87.5 Obstructive sleep apnea G47.33 Congestive heart failure I50.9 Transaminitis R74.01 Thrombocytopenia D69.6 Pleural effusion J90 Dysphagia R13.10 Acute respiratory failure with hypoxia and hypercarbia J96.01; J96.02 Carotid arterial disease I77.9 (1) Hypothermia Encounter type: initial encounter Qualified Code(s): T68.XXXA - Hypothermia, initial encounter (2) Pneumonia Aspiration pneumonia type: unspecified Laterality: left Lung location: lower lobe of lung Pneumonia type: aspiration pneumonia Qualified Code(s): J69.0 - Pneumonitis due to inhalation of food and vomit
[2022-01-03] MEDS ORDERED: LACTATED RINGER'S 1,000 ML IV ONE ×2 (16:06→18:11)
[2022-01-03 16:08] LABS: Allen Test Pos (Pos); pH ABG 7.19 (7.35-7.45)
[2022-01-03 16:10] LABS: Albumin Level 3.1 gm/dl (3.4-5.0); BUN Creatinine Ratio 26.2 (10-20); Bilirubin,Total 0.4 mg/dl (0.2-1.0); Calcium 8.3 mg/dl (8.5-10.1); Est GFR (African American) 43.2 ml/min; Est GFR (Non-African American) 37.3 ml/min; Globulin 3.2 gm/dl (2.5-4.0); Potassium 5.6 mmol/L (3.5-5.1); Total Protein 6.3 gm/dl (6.0-8.3)
[2022-01-03 16:33] LABS: Lyme Ab IgG w/WB Rflx Negative (Negative); Lyme Ab IgM w/WB Rflx Negative (Negative)
[2022-01-03] MEDS ORDERED: CALCIUM GLUCONATE 1000 MG/60 ML NSS IV ONE (16:34)
[2022-01-03] MEDS ORDERED: CALCIUM GLUCONATE 1,000 MG/60 ML BAG IV STA (16:36)
[2022-01-03 18:17] LABS: Base Excess VBG 0.2 mEq/L; pH VBG 7.25 (7.36-7.41)
[2022-01-03] MEDS ORDERED: GLUCOSE 40% GEL 15 GM TUBE PO PRN (19:22)
[2022-01-03] MEDS ORDERED: GLUCOSE 10 TABS/TUBE PO PRN (19:22)
[2022-01-03] MEDS ORDERED: ACETAMINOPHEN 325 MG TAB PO PRN (19:22)
[2022-01-03] MEDS ORDERED: CARBOHYDRATES FOR HYPOGLYCEMIA PO PRN (19:22)
[2022-01-03] MEDS ORDERED: GLUCAGON FOR INJ 1 MG VIAL SQ PRN (19:22)
[2022-01-03] MEDS ORDERED: VANCOMYCIN HCL 1 MG in DEXTROSE 5% 100 ML IV SCH (19:22)
[2022-01-03] MEDS ORDERED: PANTOprazole 40 MG TAB PO PRN (19:22)
[2022-01-03] MEDS ORDERED: NITROGLYCERIN SL 0.4 MG/TAB TAB SL PRN (19:22)
[2022-01-03] MEDS ORDERED: DEXTROSE 50% 50 ML SYRINGE IV PRN (19:22)
[2022-01-03] MEDS ORDERED: DOCUSATE SODIUM 100 MG CAP PO PRN (19:22)
[2022-01-03 19:41] LABS: Base Excess VBG 1.7 mEq/L; Oxygen Saturation VBG 84.7 %; pH VBG 7.34 (7.36-7.41)
[2022-01-03] MEDS ORDERED: ATORVASTATIN 40 MG TAB PO SCH (21:00)
[2022-01-03] MEDS ORDERED: APIXABAN 5 MG TABLET PO SCH (21:00)
[2022-01-03] MEDS: INSULIN ASPART PER UNIT SC SCH (21:07)
[2022-01-03] MEDS: CEFEPIME 2,000 MG in SYRINGE 0 ML IV SCH (22:02)
[2022-01-04] MEDS: DOPamine / D5W 400 MG/250 ML BAG IV SCH ×2 (05:41→17:26)
[2022-01-04] MEDS ORDERED: LEVOTHYROXINE SODIUM 100 MCG TABLET PO SCH (06:30)
[2022-01-04 07:12] LABS: Hematocrit (blood only) 33.6 % (42-52); Hemoglobin 10.5 g/dL (14.0-18.0); Mean Corpuscular Hemoglobin 28.3 pg (25-34); Mean Corpuscular Hgb Conc 31.3 g/dL (32-36); Mean Corpuscular Volume 90.6 fL (80-100); Nucleated RBC # (auto) 0.05 K/uL (0-0); Nucleated RBC % (auto) 0.7 %; RDW Coefficient of Variation 16.8 % (11.5-14.5); RDW Standard Deviation 55.2 fL (36.4-46.3); Red Blood Count 3.71 M/uL (4.7-6.1); White Blood Count 7.05 K/uL (4.8-10.8)
[2022-01-04 07:18] LABS: Mean Platelet Volume 10.9 fL (7.4-10.4); Platelet Count 84 K/uL (130-400)
[2022-01-04 07:21] LABS: INR 1.2 (0.9-1.1); Prothrombin Time 12.4 Seconds (9.0-12.0)
[2022-01-04 07:38] LABS: Albumin Level 3.1 gm/dl (3.4-5.0); BUN Creatinine Ratio 22.4 (10-20); Bilirubin Direct 0.1 mg/dl (0-0.2); Bilirubin,Total 0.5 mg/dl (0.2-1.0); Calcium 7.8 mg/dl (8.5-10.1); Creatinine Clr Calc Pharmacy 30.3 ml/min; Est GFR (African American) 32.2 ml/min; Est GFR (Non-African American) 27.8 ml/min; Magnesium 1.6 mg/dl (1.7-2.4); Potassium 5.7 mmol/L (3.5-5.1)
[2022-01-04 07:57] LABS: Basophils # (auto) 0.01 K/uL (0-0.2); Basophils % (auto) 0.1 %; Eosinophils # (auto) 0.02 K/uL (0-0.5); Eosinophils % (auto) 0.3 %; Immature Granulocytes # (auto) 0.03 K/uL (0.00-0.02); Immature Granulocytes % (auto) 0.4 %; Lymphocytes # (auto) 0.72 K/uL (1.2-3.4); Lymphocytes % (auto) 10.2 %; Monocytes # (auto) 1.02 K/uL (0.11-0.59); Monocytes % (auto) 14.5 %; Neutrophils # (auto) 5.25 K/uL (1.4-6.5); Neutrophils % (auto) 74.5 %
[2022-01-04] MEDS: INSULIN ASPART PER UNIT SC SCH ×4 (08:01→18:54)
[2022-01-04] MEDS ORDERED: STAT IV STA (08:56)
[2022-01-04] MEDS ORDERED: CALCIUM GLUCONATE 10% 1,000 MG in DEXTROSE 5% 50 ML IV ONE (08:56)
[2022-01-04] MEDS ORDERED: ASPIRIN 81 MG ECTAB PO SCH (09:00)
[2022-01-04] MEDS ORDERED: INSULIN HUMAN REGULAR PER UNIT 10 UNITS in SYRINGE 0 ML IV STA (09:06)
[2022-01-04] MEDS ORDERED: DEXTROSE 50% 50 ML SYRINGE IV ONE (09:06)
[2022-01-04] MEDS ORDERED: LACTATED RINGER'S 1,000 ML IV SCH (09:15)
[2022-01-04] MEDS ORDERED: INSULIN HUMAN REGULAR PER UNIT 10 UNITS in SYRINGE 9.9 ML IV STA (09:16)
--- NOTE | 2022-01-04 09:16 | XRay Report ---
XR chest 1V portable HISTORY: Shortness of breath. evaluate pulmonary process COMPARISON: Chest 01/03/2022. FINDINGS: No pneumothorax. There are low lung volumes. The heart remains enlarged. Small bilateral pl eural effusions. There is mild pulmonary edema which has slightly progressed.. Bibasilar densities ar e noted. IMPRESSION: Interval progression of the pulmonary edema, bilateral pleural effusions, and nonspecific bibasilar d ensities. ACT 112: Negative or not required by law. Electronically signed by: Christian Munoz M.D. 01/04/2022 9:15 AM
--- NOTE | 2022-01-04 09:22 | Electrocardiogram Report ---
Test Reason : Blood Pressure : / mmHG Vent. Rate : 041 BPM Atrial Rate : 041 BPM P-R Int : 148 ms QRS Dur : 154 ms QT Int : 574 ms P-R-T Axes : 010 -60 030 degrees QTc Int : 473 ms Poor data quality, interpretation may be adversely affected Marked sinus bradycardia Right bundle branch block Abnormal ECG When compared with ECG of 10-DEC-2021 10:43, No significant change Confirmed by Jesu Judd ([id number]) on 01/04/2022 9:22:00 AM Referred By: REFERRED SELF Confirmed By:Jesu Judd
[2022-01-04] MEDS: MAGNESIUM SULFATE / D5W 1 GM/100 ML BAG IV SCH ×2 (09:39→11:44)
--- NOTE | 2022-01-04 09:44 | Hospitalist Progress Note ---
Date of Service January 04, 2022 Assessment & Plan (1) Septic shock: Plan: Patient presents with hypothermia, bradycardia, hypotensive, pancytopenia, elevated lactate Presumed source at this time is aspiration pneumonia vs. HCAP/gram-negative pneumonia His pleural effusion was evaluated in September with his pneumonia and not consistent with parapneumonic effusion at that time UA negative for infection Blood cultures pending-no growth to date - Random Cortisol is 19, no stress dose steroids needed - TSH normal He is improving now with antibiotics, volume resuscitation, and rewarming with bear hugger and warmed fluids CT chest performed on 01/04 to further evaluate shows aspiration pneumonitis on the right and left lower lobe atelectasis with left pleural effusion-[employer]ATE[employer]ICATION[employer] MA[employer]GER breast VAC discussed with pulmonology who does not think it is large enough to perform thoracentesis CT abdomen/pelvis no source of infection -Leukopenia and thrombocytopenia are improving today septic shock and bradycardia now improved after crystalloid volume resuscitation and dopamine drip through the night Severely ill with multiorgan dysfunction of lungs, renal, liver, pulmonary, and hematologic involvement MRSA swab negative-discontinue vancomycin Given more likely aspiration pneumonia presentation-Will discontinue cefepime and start IV Zosyn on 01/04 -Give maintenance IV fluids now for acute kidney injury x1 L -Discontinue dopamine drip and follow blood pressures closely -Continue holding home amlodipine, furosemide, losartan - Anaplasmosis sent- this was also negative in Sep. - No escalation of vasopressors as discussed with family - Optimize current supportive care- if he fails transition to palliative care -Follow urine output (2) Hypothermia: Plan: as above, now resolved with bear hugger and warmed fluids -Was not hypoglycemic upon arrival, normal random cortisol, and had normal TSH Was related to sepsis (3) Bradycardia: Plan: Presented with sinus bradycardia in the 30s to 40s Likely secondary to hypothermia and is now resolved with resolution of hypothermia, rates in the 70s to 80s - Patient did have his Carvedilol discontinued at discharge - This was low dose of 3.125mg so unlikely even if he was mistakenly taking to cause this profound response -Monitor on telemetry (4) Pneumonia: Plan: Highly suggestive of aspiration pneumonia given history and CT chest findings Consult speech therapy-overtly aspirating at the bedside This is much worse than previous evaluation 3 months ago Make n.p.o. 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 medications and replace with IV if needed Appreciate speech therapy consultation To reassess tomorrow when little bit stronger For excessive drooling, start Robinul 0.1 mg IV every 4 hours as needed With resting tremor, excessive drooling of last month and declining cognitive status question if he is developing Parkinson's disease-discussed with on the phone Consider neurology evaluation as an outpatient He is supposed to undergo EGD this Wednesday with GI for his history of dysphagia- we will discuss with GI on Wednesday as to whether he will still undergo this procedure but doubtful at this time Given his severe aspiration events and current serious condition with poor prognosis, family does not want to escalate care any further May need to have discussion about PEG tube placement versus hospice care if he continues to decline (6) Acute respiratory failure with hypoxia and hypercarbia: Plan: Combination of weakness, likely aspiration and aspiration puemonia - PH 7.19, PaCO2 70 HCO3 28 upon arrival and improved with BiPAP - He has SIXTO but does not wear a device at home Now weaned to nasal cannula (7) Chronic kidney disease (CKD), stage II (mild): Plan: JANINE on CKD stage II - 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 Follow I's and O's, Rosas catheter in place He and his family do not want hemodialysis if renal failure worsens Holding home losartan, Metformin, furosemide Follow BMP (8) Hyperkalemia: Plan: Secondary to JANINE, acidosis, shock. Persistent at 5.7 Give IV calcium gluconate again Give insulin D50 Ordered V[place] but he is having great difficulty with overt aspiration and cannot take Repeat potassium down to 5.4 Follow BMP in the morning (9) Pleural effusion: Plan: Chronic- previously consistent with HF, transudative Does not seem large enough to tap with thoracentesis at this point With recent pneumonia, question if is parapneumonic effusion Will consult pulmonary if not improving clinically (10) Transaminitis: Plan: Likely secondary to acute liver injury from sepsis-currently related hypotension with increase in his INR AST and ALT remain elevated but improved from previous around 300 - Anaplasmosis negative previous, smear currently negative await reflex - consider sending hepatitis panel although liver ultrasound from 10/15 1 does not show cirrhotic morphology and neither does CT abdomen/pelvis on 01/04 -With cholelithiasis but no evidence of CBD dilatation, total bilirubin not elevated Follow LFTs in the morning (11) Thrombocytopenia: Plan: Likley related to septic shock, now improving up to the 80s after tiara in the 60s - peripheral smear pending Follow CBC (12) Carotid arterial disease: Plan: with history of left CEA - Continue aspirin-although holding now for being n.p.o. (13) Congestive heart failure: Plan: HFrEF, now resolved, most recent echocardiogram with preserved EF in 09/2021 Hold BB, ARB, anti-hypertensives - follow pulmonary and systemic exam for volume overload - diurese if clinically indicated following resuscitation (14) Obstructive sleep apnea: Plan: As above biPAP at night (15) Hypothyroidism: Plan: TSH normal at 3.4 Holding p.o. levothyroxine while n.p.o. Start IV levothyroxine if remains n.p.o. for more than a few days (16) Paroxysmal atrial fibrillation: Plan: In sinus rhythm here Holding home apixaban while n.p.o. Not on AV paula blocking agents due to bradycardia Plan: DVT prophylaxis-SCDs Disposition-continued stay on PCU, prognosis guarded DNR/DNI Discussed his care with his on the phone Admission and Anticipated Discharge Date Admission Date: January 03, 2022 Subjective Patient denies any problems today. He is drooling quite a bit and the nurse reports that he soaked multiple towels overnight withdrawal. He is not coughing after swallowing but sounds gurgly. He denies chest pains or shortness of breath. He is weaned to nasal cannula and is mentating better this morning. He denies abdominal pains. Telemetry with normal sinus rhythm, PVCs, rates in the 70s to 80s Review of Systems Review of Systems: All systems reviewed & are unremarkable except as noted in HPI & below Physical Exam Constitutional: WD/WN, vitals as above Eyes: PERRL, conjunctivae normal, anicteric sclerae ENMT: Nose: no external nose abnormality Mouth: + drooling (Copious, pouring out right side of mouth); no trismus Neck: trachea midline, no thyromegaly Respiratory: normal respiratory effort; no cough Auscultation: + diminished lung sounds (Left base) and + rhonchi (Right lower and middle lung garcia); no wheezes Cardiovascular: RRR, no murmur, no edema Chest (Breasts): Chest: normal inspection of chest Gastrointestinal (Abdomen): normal bowel sounds, soft, nontender, no hepatosplenomegaly Musculoskeletal: Extremities: extremities normal to inspection; no cyanosis and no clubbing Skin: no rashes, warm and dry Neurologic: PERRL, EOMI, accommodation nl, no face palsy, no dysarthria moves all extremities and awake; no focal motor deficits Speech / Cognition: normal speech Motor/Sensory: + tremor (Resting tremor in right arm and hand) Psychiatric: Orientation: alert, oriented to person, oriented to place and cooperative Genitourinary: Rosas catheter in place draining dark yellow urine with reddish-brown sediment Lymphatic: no lymphedema Results & Data Results & Data ([facility]) Vital Signs (Past 12 Hours) Vital Signs Temp Pulse Pulse Resp BP Pulse Ox 01/04/22 08:00 37.1 C 74 18 108/60 95 01/04/22 07:53 36.6 C 75 18 107/54 L 98 01/04/22 00:59 36.9 C 82 20 111/48 L 97 01/03/22 23:43 85 01/03/22 23:12 36.7 C 83 17 111/62 95 01/03/22 21:46 36.5 C 79 19 138/52 L 94 01/03/22 21:20 72 Laboratory Results 01/04/22 01/04/22 01/04/22 Range/Units 16:19 12:01 11:54 WBC (4.8-10.8) K/uL RBC (4.7-6.1) M/uL Hgb (14.0-18.0) g/dL Hct (42-52) % MCV (80-100) fL MCH (25-34) pg MCHC (32-36) g/dL RDW Std Deviation (36.4-46.3) fL RDW Coeff of Melonie (11.5-14.5) % Plt Count (130-400) K/uL MPV (7.4-10.4) fL Immature Gran % (Auto) % Neut % (Auto) % Lymph % (Auto) % [place] % (Auto) % Eos % (Auto) % Baso % (Auto) % Neut # (Auto) (1.4-6.5) K/uL Lymph # (Auto) (1.2-3.4) K/uL [place] # (Auto) (0.11-0.59) K/uL Eos # (Auto) (0-0.5) K/uL Baso # (Auto) (0-0.2) K/uL Immature Gran # (Auto) (0.00-0.02) K/uL Absolute Nucleated RBC (0-0) K/uL Nucleated RBC % (auto) % PT (9.0-12.0) Seconds INR (0.9-1.1) VBG pH (7.36-7.41) VBG pCO2 (38-50) mmHg VBG pO2 mmHg VBG HCO3 mmol/L VBG O2 Saturation % VBG Base Excess mEq/L Barometric Pressure mm/Hg Sodium 140 (136-145) mmol/L Potassium 5.4 H (3.5-5.1) mmol/L Chloride 110 H (98-107) mmol/L Carbon Dioxide 26 (21-32) mmol/L Anion Gap 4 (3-11) BUN 49 H (6-23) mg/dl Creatinine 2.32 H (0.6-1.4) mg/dl Est Cr Clr Drug Dosing 28.6 ml/min Est GFR ( Amer) 30.1 ml/min Est GFR (Non-Af Amer) 25.9 ml/min BUN/Creatinine Ratio 21.1 H (10-20) Glucose 111 H (70-99(Fasting)) mg/dl POC Glucose 112 H 110 H (70-99) mg/dl Calcium 8.9 (8.5-10.1) mg/dl Magnesium (1.7-2.4) mg/dl Total Bilirubin (0.2-1.0) mg/dl Direct Bilirubin (0-0.2) mg/dl AST (13-39) U/L ALT (7-52) U/L Alkaline Phosphatase (34-104) U/L Total Protein (6.0-8.3) gm/dl Albumin (3.4-5.0) gm/dl Nasal Screen MRSA (PCR) (Negative) Lyme Disease IgG Ab (Negative) Lyme Disease IgM Ab (Negative) Hepatitis A IgM Ab Hep Bs Antigen Hep B Core IgM Ab Hepatitis C Antibody 01/04/22 01/04/22 01/04/22 Range/Units 11:31 11:29 10:19 WBC (4.8-10.8) K/uL RBC (4.7-6.1) M/uL Hgb (14.0-18.0) g/dL Hct (42-52) % MCV (80-100) fL MCH (25-34) pg MCHC (32-36) g/dL RDW Std Deviation (36.4-46.3) fL RDW Coeff of Melonie (11.5-14.5) % Plt Count (130-400) K/uL MPV (7.4-10.4) fL Immature Gran % (Auto) % Neut % (Auto) % Lymph % (Auto) % [place] % (Auto) % Eos % (Auto) % Baso % (Auto) % Neut # (Auto) (1.4-6.5) K/uL Lymph # (Auto) (1.2-3.4) K/uL [place] # (Auto) (0.11-0.59) K/uL Eos # (Auto) (0-0.5) K/uL Baso # (Auto) (0-0.2) K/uL Immature Gran # (Auto) (0.00-0.02) K/uL Absolute Nucleated RBC (0-0) K/uL Nucleated RBC % (auto) % PT (9.0-12.0) Seconds INR (0.9-1.1) VBG pH (7.36-7.41) VBG pCO2 (38-50) mmHg VBG pO2 mmHg VBG HCO3 mmol/L VBG O2 Saturation % VBG Base Excess mEq/L Barometric Pressure mm/Hg Sodium (136-145) mmol/L Potassium (3.5-5.1) mmol/L Chloride (98-107) mmol/L Carbon Dioxide (21-32) mmol/L Anion Gap (3-11) BUN (6-23) mg/dl Creatinine (0.6-1.4) mg/dl Est Cr Clr Drug Dosing ml/min Est GFR ( Amer) ml/min Est GFR (Non-Af Amer) ml/min BUN/Creatinine Ratio (10-20) Glucose (70-99(Fasting)) mg/dl POC Glucose 58 L* 62 L* 178 H (70-99) mg/dl Calcium (8.5-10.1) mg/dl Magnesium (1.7-2.4) mg/dl Total Bilirubin (0.2-1.0) mg/dl Direct Bilirubin (0-0.2) mg/dl AST (13-39) U/L ALT (7-52) U/L Alkaline Phosphatase (34-104) U/L Total Protein (6.0-8.3) gm/dl Albumin (3.4-5.0) gm/dl Nasal Screen MRSA (PCR) (Negative) Lyme Disease IgG Ab (Negative) Lyme Disease IgM Ab (Negative) Hepatitis A IgM Ab Hep Bs Antigen Hep B Core IgM Ab Hepatitis C Antibody 01/04/22 01/04/22 01/04/22 Range/Units 07:33 06:43 06:43 WBC (4.8-10.8) K/uL RBC (4.7-6.1) M/uL Hgb (14.0-18.0) g/dL Hct (42-52) % MCV (80-100) fL MCH (25-34) pg MCHC (32-36) g/dL RDW Std Deviation (36.4-46.3) fL RDW Coeff of Melonie (11.5-14.5) % Plt Count (130-400) K/uL MPV (7.4-10.4) fL Immature Gran % (Auto) % Neut % (Auto) % Lymph % (Auto) % [place] % (Auto) % Eos % (Auto) % Baso % (Auto) % Neut # (Auto) (1.4-6.5) K/uL Lymph # (Auto) (1.2-3.4) K/uL [place] # (Auto) (0.11-0.59) K/uL Eos # (Auto) (0-0.5) K/uL Baso # (Auto) (0-0.2) K/uL Immature Gran # (Auto) (0.00-0.02) K/uL Absolute Nucleated RBC (0-0) K/uL Nucleated RBC % (auto) % PT (9.0-12.0) Seconds INR (0.9-1.1) VBG pH (7.36-7.41) VBG pCO2 (38-50) mmHg VBG pO2 mmHg VBG HCO3 mmol/L VBG O2 Saturation % VBG Base Excess mEq/L Barometric Pressure mm/Hg Sodium (136-145) mmol/L Potassium (3.5-5.1) mmol/L Chloride (98-107) mmol/L Carbon Dioxide (21-32) mmol/L Anion Gap (3-11) BUN (6-23) mg/dl Creatinine (0.6-1.4) mg/dl Est Cr Clr Drug Dosing ml/min Est GFR ( Amer) ml/min Est GFR (Non-Af Amer) ml/min BUN/Creatinine Ratio (10-20) Glucose (70-99(Fasting)) mg/dl POC Glucose 116 H (70-99) mg/dl Calcium (8.5-10.1) mg/dl Magnesium (1.7-2.4) mg/dl Total Bilirubin (0.2-1.0) mg/dl Direct Bilirubin (0-0.2) mg/dl AST (13-39) U/L ALT (7-52) U/L Alkaline Phosphatase (34-104) U/L Total Protein (6.0-8.3) gm/dl Albumin (3.4-5.0) gm/dl Nasal Screen MRSA (PCR) (Negative) Lyme Disease IgG Ab (Negative) Lyme Disease IgM Ab (Negative) Hepatitis A IgM Ab Pending Hep Bs Antigen Pending Hep B Core IgM Ab Pending Hepatitis C Antibody Pending 01/04/22 01/04/22 01/04/22 Range/Units 06:43 06:43 06:43 WBC 7.05 (4.8-10.8) K/uL RBC 3.71 L (4.7-6.1) M/uL Hgb 10.5 L (14.0-18.0) g/dL Hct 33.6 L (42-52) % MCV 90.6 (80-100) fL MCH 28.3 (25-34) pg MCHC 31.3 L (32-36) g/dL RDW Std Deviation 55.2 H (36.4-46.3) fL RDW Coeff of Melonie 16.8 H (11.5-14.5) % Plt Count 84 L (130-400) K/uL MPV 10.9 H (7.4-10.4) fL Immature Gran % (Auto) 0.4 % Neut % (Auto) 74.5 % Lymph % (Auto) 10.2 % [place] % (Auto) 14.5 % Eos % (Auto) 0.3 % Baso % (Auto) 0.1 % Neut # (Auto) 5.25 (1.4-6.5) K/uL Lymph # (Auto) 0.72 L (1.2-3.4) K/uL [place] # (Auto) 1.02 H (0.11-0.59) K/uL Eos # (Auto) 0.02 (0-0.5) K/uL Baso # (Auto) 0.01 (0-0.2) K/uL Immature Gran # (Auto) 0.03 H (0.00-0.02) K/uL Absolute Nucleated RBC 0.05 H (0-0) K/uL Nucleated RBC % (auto) 0.7 % PT 12.4 H (9.0-12.0) Seconds INR 1.2 H (0.9-1.1) VBG pH (7.36-7.41) VBG pCO2 (38-50) mmHg VBG pO2 mmHg VBG HCO3 mmol/L VBG O2 Saturation % VBG Base Excess mEq/L Barometric Pressure mm/Hg Sodium 140 (136-145) mmol/L Potassium 5.7 H (3.5-5.1) mmol/L Chloride 109 H (98-107) mmol/L Carbon Dioxide 25 (21-32) mmol/L Anion Gap 6 (3-11) BUN 49 H (6-23) mg/dl Creatinine 2.19 H D (0.6-1.4) mg/dl Est Cr Clr Drug Dosing 30.3 ml/min Est GFR ( Amer) 32.2 ml/min Est GFR (Non-Af Amer) 27.8 ml/min BUN/Creatinine Ratio 22.4 H (10-20) Glucose 123 H (70-99(Fasting)) mg/dl POC Glucose (70-99) mg/dl Calcium 7.8 L (8.5-10.1) mg/dl Magnesium 1.6 L (1.7-2.4) mg/dl Total Bilirubin 0.5 (0.2-1.0) mg/dl Direct Bilirubin 0.1 (0-0.2) mg/dl AST 298 H (13-39) U/L ALT 290 H (7-52) U/L Alkaline Phosphatase 92 (34-104) U/L Total Protein 6.0 (6.0-8.3) gm/dl Albumin 3.1 L (3.4-5.0) gm/dl Nasal Screen MRSA (PCR) (Negative) Lyme Disease IgG Ab (Negative) Lyme Disease IgM Ab (Negative) Hepatitis A IgM Ab Hep Bs Antigen Hep B Core IgM Ab Hepatitis C Antibody 01/03/22 01/03/22 01/03/22 Range/Units 20:21 19:31 18:02 WBC (4.8-10.8) K/uL RBC (4.7-6.1) M/uL Hgb (14.0-18.0) g/dL Hct (42-52) % MCV (80-100) fL MCH (25-34) pg MCHC (32-36) g/dL RDW Std Deviation (36.4-46.3) fL RDW Coeff of Melonie (11.5-14.5) % Plt Count (130-400) K/uL MPV (7.4-10.4) fL Immature Gran % (Auto) % Neut % (Auto) % Lymph % (Auto) % [place] % (Auto) % Eos % (Auto) % Baso % (Auto) % Neut # (Auto) (1.4-6.5) K/uL Lymph # (Auto) (1.2-3.4) K/uL [place] # (Auto) (0.11-0.59) K/uL Eos # (Auto) (0-0.5) K/uL Baso # (Auto) (0-0.2) K/uL Immature Gran # (Auto) (0.00-0.02) K/uL Absolute Nucleated RBC (0-0) K/uL Nucleated RBC % (auto) % PT (9.0-12.0) Seconds INR (0.9-1.1) VBG pH 7.34 L 7.25 L (7.36-7.41) VBG pCO2 54 H 67 H (38-50) mmHg VBG pO2 50 51 mmHg VBG HCO3 28 29 mmol/L VBG O2 Saturation 84.7 82.0 % VBG Base Excess 1.7 0.2 mEq/L Barometric Pressure 726.7 725.4 mm/Hg Sodium (136-145) mmol/L Potassium (3.5-5.1) mmol/L Chloride (98-107) mmol/L Carbon Dioxide (21-32) mmol/L Anion Gap (3-11) BUN (6-23) mg/dl Creatinine (0.6-1.4) mg/dl Est Cr Clr Drug Dosing ml/min Est GFR ( Amer) ml/min Est GFR (Non-Af Amer) ml/min BUN/Creatinine Ratio (10-20) Glucose (70-99(Fasting)) mg/dl POC Glucose 121 H (70-99) mg/dl Calcium (8.5-10.1) mg/dl Magnesium (1.7-2.4) mg/dl Total Bilirubin (0.2-1.0) mg/dl Direct Bilirubin (0-0.2) mg/dl AST (13-39) U/L ALT (7-52) U/L Alkaline Phosphatase (34-104) U/L Total Protein (6.0-8.3) gm/dl Albumin (3.4-5.0) gm/dl Nasal Screen MRSA (PCR) (Negative) Lyme Disease IgG Ab (Negative) Lyme Disease IgM Ab (Negative) Hepatitis A IgM Ab Hep Bs Antigen Hep B Core IgM Ab Hepatitis C Antibody 01/03/22 01/03/22 Range/Units 17:22 15:35 WBC (4.8-10.8) K/uL RBC (4.7-6.1) M/uL Hgb (14.0-18.0) g/dL Hct (42-52) % MCV (80-100) fL MCH (25-34) pg MCHC (32-36) g/dL RDW Std Deviation (36.4-46.3) fL RDW Coeff of Melonie (11.5-14.5) % Plt Count (130-400) K/uL MPV (7.4-10.4) fL Immature Gran % (Auto) % Neut % (Auto) % Lymph % (Auto) % [place] % (Auto) % Eos % (Auto) % Baso % (Auto) % Neut # (Auto) (1.4-6.5) K/uL Lymph # (Auto) (1.2-3.4) K/uL [place] # (Auto) (0.11-0.59) K/uL Eos # (Auto) (0-0.5) K/uL Baso # (Auto) (0-0.2) K/uL Immature Gran # (Auto) (0.00-0.02) K/uL Absolute Nucleated RBC (0-0) K/uL Nucleated RBC % (auto) % PT (9.0-12.0) Seconds INR (0.9-1.1) VBG pH (7.36-7.41) VBG pCO2 (38-50) mmHg VBG pO2 mmHg VBG HCO3 mmol/L VBG O2 Saturation % VBG Base Excess mEq/L Barometric Pressure mm/Hg Sodium (136-145) mmol/L Potassium (3.5-5.1) mmol/L Chloride (98-107) mmol/L Carbon Dioxide (21-32) mmol/L Anion Gap (3-11) BUN (6-23) mg/dl Creatinine (0.6-1.4) mg/dl Est Cr Clr Drug Dosing ml/min Est GFR ( Amer) ml/min Est GFR (Non-Af Amer) ml/min BUN/Creatinine Ratio (10-20) Glucose (70-99(Fasting)) mg/dl POC Glucose (70-99) mg/dl Calcium (8.5-10.1) mg/dl Magnesium (1.7-2.4) mg/dl Total Bilirubin (0.2-1.0) mg/dl Direct Bilirubin (0-0.2) mg/dl AST (13-39) U/L ALT (7-52) U/L Alkaline Phosphatase (34-104) U/L Total Protein (6.0-8.3) gm/dl Albumin (3.4-5.0) gm/dl Nasal Screen MRSA (PCR) Negative (Negative) Lyme Disease IgG Ab Negative (Negative) Lyme Disease IgM Ab Negative (Negative) Hepatitis A IgM Ab Hep Bs Antigen Hep B Core IgM Ab Hepatitis C Antibody PG Care Time/CCT Total # of Minutes Spent Total Time Spent with Patient: Total time spent is greater than 50% in coordination of care (as documented) at patient's floor/unit and/or counseling patient: Coding Level of Care Code 81939 Subseq Hosp Care Lvl 3 Diagnoses Septic shock A41.9; R65.21 Hypothermia T68.XXXA Encounter type: initial encounter Bradycardia R00.1 Pneumonia J69.0 Aspiration pneumonia type: unspecified Laterality: left Lung location: lower lobe of lung Pneumonia type: aspiration pneumonia Acute respiratory failure with hypoxia and hypercarbia J96.01; J96.02 Chronic kidney disease (CKD), stage II (mild) N18.2 Hyperkalemia E87.5 Obstructive sleep apnea G47.33 Congestive heart failure I50.9 Transaminitis R74.01 Thrombocytopenia D69.6 Pleural effusion J90 Carotid arterial disease I77.9 Dysphagia R13.10 Hypothyroidism E03.9 Paroxysmal atrial fibrillation I48.0 (1) Hypothermia Encounter type: initial encounter Qualified Code(s): T68.XXXA - Hypothermia, initial encounter (2) Pneumonia Aspiration pneumonia type: unspecified Laterality: left Lung location: lower lobe of lung Pneumonia type: aspiration pneumonia Qualified Code(s): J69.0 - Pneumonitis due to inhalation of food and vomit
[2022-01-04] MEDS: CEFEPIME 2,000 MG in SYRINGE 0 ML IV SCH (09:59)
[2022-01-04] MEDS ORDERED: PATIROMER CALCIUM SORBITEX 8.4 GM PACK PO SCH (11:00)
--- NOTE | 2022-01-04 11:15 | CT Scan Report ---
CT head/brain wo con CLINICAL HISTORY: 76 years-old Male with assess for stroke. Acute strokelike symptoms TECHNIQUE: Multiple axial CT images of the head were obtained without contrast. A dose lowering tech nique was utilized adhering to the principles of ALARA. COMPARISON: Head CT 10/22/2021 FINDINGS: No acute intracranial hemorrhage, midline shift, intracranial mass, hydrocephalus, territorial ischem ia or abnormal extra-axial collection. Mild involutional changes. Cerebral vascular calcifications. C hronic infarct of the inferior right cerebellar hemisphere redemonstrated. Mild white matter hypodens ities suggest chronic microvascular ischemic disease. The study is motion degraded. The calvarium is intact. Prior bilateral lens repair. The paranasal sinuses, mastoid air cells, and m iddle ear cavities are clear. IMPRESSION: 1. No acute intracranial abnormality. 2. 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 ACT 112: Negative or not required by law. The above report was generated using voice recognition software. It may contain grammatical, syntax o r spelling errors. Electronically signed by: Andrzej Parra M.D. 01/04/2022 11:13 AM
--- NOTE | 2022-01-04 11:28 | CT Scan Report ---
CT chest diagnostic wo con, CT abd pelvis wo con CLINICAL HISTORY: 76 years-old Male with pleural effusions,PNA. Acute shortness breath with pneumoni a and pleural effusions TECHNIQUE: Multiaxial CT images of the chest, abdomen and pelvis were performed without contrast. A dose lowering technique was utilized adhering to the principles of ALARA. COMPARISON: Chest radiograph of same day, Chest CT 12/10/2021 FINDINGS: CT CHEST: No thyroid nodule. Prominent subcarinal lymph nodes are likely reactive. Decreased attenuation of the cardiac blood pool suggestive of anemia. Cardiomegaly with moderate coronary artery calcifications. Atherosclerosis of the thoracic aorta without aneurysm. Small left greater than right pleural effusio ns have mildly decreased in size from prior. There is no pneumothorax. Mild intralobular septal thick ening. Consolidation with volume loss of the left lower lobe. Patchy groundglass and consolidative op acities are noted within a multilobar distribution within the right lung. 3.6 cm thin-walled cyst of the inferior segment lingula. Tracheobronchial secretions with bibasilar mucous plugging. Mild diffus e esophageal wall thickening. A small amount of secretions are noted layering within the mid esophagu s. Unremarkable soft tissues. Gynecomastia. Degenerative changes of the shoulders and spine. Thoracic levoscoliosis. Healed chronic right-sided rib fractures. CT ABDOMEN/PELVIS: No pneumatosis or pneumoperitoneum. Limited study secondary to upper Mary positioning and lack of contrast. The unenhanced spleen, moderately atrophic pancreas and liver appear unremarkable. Cholelit hiasis without CT evidence of acute cholecystitis. Fatty attenuating lesions of the bilateral adrenal glands measure up to 10 mm on the right and 1.4 cm and left suggestive of adrenal myolipomata. Left adrenal gland thickening suggestive of hyperplasia. No hydronephrosis. Mild atrophy of the kidneys. Decompressed urinary bladder with Rosas catheter in p lace. Urinary bladder wall thickening with mild perivesicular stranding. Prostamegaly. Atherosclerosi s of the abdominal aorta and branch vessels. No adenopathy. Mild nonspecific distal esophageal wall thickening. No bowel obstruction. Mild rectal wall thickening is likely secondary to partial distention. Normal appendix. No ascites or mesenteric inflammation. U nremarkable soft tissues. Degenerative changes of the spine, pelvis and hips. Healed chronic right-si ded rib fractures. Scattered sclerotic foci of the pelvis, likely bone islands. Chronic appearing Nighat morl's node involves the superior endplate of the L2 vertebral body. IMPRESSION: 1. Cardiomegaly with pulmonary vascular congestion. 2. Small left greater than right pleural effusions have mildly decreased in size from prior. 3. Atelectasis with collapse of the left lower lobe, presumably secondary to mucous plugging. 4. Layering secretions within the trachea and esophagus are again noted with bibasilar mucous pluggin g and patchy opacities throughout the right lung suspicious for aspiration pneumonitis. 5. No bowel obstruction or bowel wall thickening. 6. Cholelithiasis. 7. Additional findings as above. ACT 112: Negative or not required by law. Electronically signed by: Andrzej Parra M.D. 01/04/2022 11:26 AM
[2022-01-04] MEDS ORDERED: VANCOMYCIN HCL 1,000 MG in SODIUM CHLORIDE 0.9% 250 ML IV SCH (12:00)
[2022-01-04] MEDS: D5W AND LACTATED RINGERS 1,000 ML IV SCH (12:12)
[2022-01-04 12:33] LABS: BUN Creatinine Ratio 21.1 (10-20); Calcium 8.9 mg/dl (8.5-10.1); Creatinine Clr Calc Pharmacy 28.6 ml/min; Est GFR (African American) 30.1 ml/min; Est GFR (Non-African American) 25.9 ml/min; Potassium 5.4 mmol/L (3.5-5.1)
[2022-01-04] MEDS ORDERED: PIPERACILLIN/TAZOBACTAM 3.375 GM in DEXTROSE 5% 100 ML IV SCH (16:45)
[2022-01-04] MEDS ORDERED: PIPERACILL/TAZOBAC CONSULT ACTIVE PRN (16:45)
[2022-01-04] MEDS ORDERED: PIPERACILLIN/TAZOBACTAM 4.5 GM in DEXTROSE 5% 100 ML IV ONE (17:15)
[2022-01-04] MEDS: GLYCOPYRROLATE 0.2 MG/ML VIAL IV PRN (18:15)
[2022-01-04] MEDS: PIPERACILLIN/TAZOBACTAM 4.5 GM in DEXTROSE 5% 100 ML IV SCH (22:38)
[2022-01-05] MEDS: INSULIN ASPART PER UNIT SC SCH ×4 (00:19→18:13)
[2022-01-05] MEDS: D5W AND LACTATED RINGERS 1,000 ML IV SCH (02:24)
[2022-01-05 06:01] LABS: Hematocrit (blood only) 33.2 % (42-52); Hemoglobin 10.2 g/dL (14.0-18.0); Mean Corpuscular Hemoglobin 27.8 pg (25-34); Mean Corpuscular Hgb Conc 30.7 g/dL (32-36); Mean Corpuscular Volume 90.5 fL (80-100); Nucleated RBC # (auto) 0.04 K/uL (0-0); Nucleated RBC % (auto) 0.6 %; RDW Standard Deviation 56.1 fL (36.4-46.3); Red Blood Count 3.67 M/uL (4.7-6.1); White Blood Count 6.43 K/uL (4.8-10.8)
[2022-01-05 06:03] LABS: Mean Platelet Volume 11.8 fL (7.4-10.4); Platelet Count 65 K/uL (130-400)
[2022-01-05 06:09] LABS: INR 1.1 (0.9-1.1); Prothrombin Time 11.9 Seconds (9.0-12.0)
[2022-01-05] MEDS: PIPERACILLIN/TAZOBACTAM 4.5 GM in DEXTROSE 5% 100 ML IV SCH ×3 (06:26→22:28)
[2022-01-05 06:27] LABS: Albumin Level 2.8 gm/dl (3.4-5.0); BUN Creatinine Ratio 20.2 (10-20); Bilirubin Direct 0.2 mg/dl (0-0.2); Bilirubin,Total 0.7 mg/dl (0.2-1.0); Creatinine Clr Calc Pharmacy 27.8 ml/min; Est GFR (African American) 28.6 ml/min; Est GFR (Non-African American) 24.7 ml/min; Magnesium 2.2 mg/dl (1.7-2.4); Phosphorus 3.6 mg/dl (2.5-4.9); Potassium 5.1 mmol/L (3.5-5.1); Total Protein 5.7 gm/dl (6.0-8.3)
[2022-01-05 06:33] LABS: Basophils # (auto) 0.01 K/uL (0-0.2); Basophils % (auto) 0.2 %; Eosinophils # (auto) 0.03 K/uL (0-0.5); Eosinophils % (auto) 0.5 %; Immature Granulocytes # (auto) 0.01 K/uL (0.00-0.02); Immature Granulocytes % (auto) 0.2 %; Lymphocytes # (auto) 1.73 K/uL (1.2-3.4); Lymphocytes % (auto) 26.9 %; Monocytes # (auto) 0.86 K/uL (0.11-0.59); Monocytes % (auto) 13.4 %; Neutrophils # (auto) 3.79 K/uL (1.4-6.5); Neutrophils % (auto) 58.8 %
[2022-01-05] MEDS ORDERED: CEFEPIME 2,000 MG in SYRINGE 0 ML IV SCH (10:00)
--- NOTE | 2022-01-05 10:00 | Hospitalist Progress Note ---
Date of Service January 05, 2022 Assessment & Plan (1) Septic shock: Plan: Patient presents with hypothermia, bradycardia, hypotensive, pancytopenia, elevated lactate Presumed source at this time is aspiration pneumonia vs. HCAP/gram-negative pneumonia His pleural effusion was evaluated in September with his pneumonia and not consistent with parapneumonic effusion at that time UA negative for infection and urine culture no growth Blood cultures pending-no growth to date - Random Cortisol is 19, no stress dose steroids needed - TSH normal -Now off dopamine drip after the first day of hospitalization and blood pressures and heart rate are now normalized He is somewhat improved now with antibiotics, volume resuscitation, and rewarming with anastasiia hugger and warmed fluids With acute kidney injury continuing as below, and encephalopathy CT chest 01/04 shows aspiration pneumonitis on the right and left lower lobe atelectasis with left pleural effusion-KATERINA Estes discussed with pulmonology who does not think it is large enough to perform thoracentesis CT abdomen/pelvis no source of infection With severe dysphagia and aspiration as below-continues to be n.p.o. -Continue IV Zosyn -MRSA swab negative-discontinued vancomycin -DC IV fluids as becoming volume overloaded -Continue holding home amlodipine, furosemide, losartan - Anaplasmosis smear negative, DNA PCR pending but doubt this is the cause - No escalation of vasopressors as discussed with family -Follow urine output -Follow CBC, CMP, magnesium, INR in the morning (2) Hypothermia: Plan: as above, now resolved with anastasiia hugger and warmed fluids -Was not hypoglycemic upon arrival, with normal random cortisol, and had normal TSH Was related to sepsis (3) Bradycardia: Plan: Presented with sinus bradycardia in the 30s to 40s Likely secondary to hypothermia and is now resolved with resolution of hypothermia, rates in the 60s-70s - Patient did have his Carvedilol discontinued at discharge from previous hospitalization -Monitor on telemetry (4) Pneumonia: Plan: Highly suggestive of aspiration pneumonia given history and CT chest findings Consult speech therapy-overtly aspirating at the bedside This is much worse than previous evaluation 3 months ago Given excessive drooling that recently started in the last few days as per his , there is a possibility he had a brainstem stroke 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 medications and replace with IV if needed Appreciate speech therapy consultation-for video swallow tomorrow For excessive drooling, continue Robinul 0.1 mg IV every 4 hours as needed With resting tremor, excessive drooling which thinks she did also notice during his last hospitalization as well, and declining cognitive status-question if he is developing Parkinson's disease I had an extensive family meeting to discuss goals of care with the patient's wi fe, 2 daughters, and son-in-law. After thorough discussion of his current status to include ongoing renal failure, respiratory failure, shock liver, and severe aspiration, they have decided that they will await the results of the video swallow tomorrow to determine if there is anything that can be done for his significant aspiration and if not, would pursue hospice/comfort measures. They know that he would definitely not want a permanent feeding tube, and the does not like the idea of even an NG tube for temporary feeds If it is more of a problem with the esophagus that could potentially be fixed with a GI procedure, then they might consider that if he is stable enough for EGD. In private, the did question to me if she made the right decision by even calling the ambulance to bring him to the hospital as he did not want to come to the hospital she said. She asks if he would have that night had she not brought him in and I said yes. She questions if she should have just let him pass away at home as he would have wanted. We discussed what it would be like to have home hospice versus hospice at a chcf if she and her family were not able to provide 24/7 care for him on home hospice. 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 With ATN secondary to septic shock in the setting of taking losartan and furosemide CT abdomen/pelvis without obstruction in the tract, Rosas catheter in place With granular casts on urinalysis, creatinine continues to trend upward to 2.4, hyperkalemic but improved to 5.3, relative metabolic acidosis at 26 for serum bicarbonate-baseline 30 Blood pressures are now improved after volume resuscitation and dopamine which has since been discontinued 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 Improved at 5.3 after insulin and D50 given as well as IV fluid resuscitation Follow BMP in the morning (9) Pleural effusion: Plan: Chronic- previously consistent with HF, transudative Does not seem large enough to tap with thoracentesis at this point With recent pneumonia, question if is parapneumonic effusion As above, not large enough to tap and likely pursuing comfort measures in the near future (10) Transaminitis: Plan: Likely secondary to acute liver injury from sepsis-currently related hypotension with increase in his INR AST and ALT remain elevated but improved from previous and INR trending back to normal - Anaplasmosis negative -Acute hepatitis panel negative for hep B and hep C, hep A is pending -Liver ultrasound from 10/15 1 does not show cirrhotic morphology and neither does CT abdomen/pelvis on 01/04 -With cholelithiasis but no evidence of CBD dilatation, total bilirubin not elevated Follow LFTs in the morning (11) Thrombocytopenia: Plan: Likley related to septic shock, was improving up to the 80s after tiara in the 60s, now back down to the 60s No evidence of bleeding - peripheral smear consistent with current condition with sepsis Follow CBC (12) Carotid arterial disease: Plan: with history of left CEA - Continue aspirin if able to take p.o. (13) Congestive heart failure: Plan: HFrEF, now resolved, most recent echocardiogram with preserved EF in 09/2021 Hold BB, ARB, anti-hypertensives while n.p.o. - follow pulmonary and systemic exam for volume overload - diurese if clinically indicated following resuscitation (14) Obstructive sleep apnea: Plan: As above biPAP at night (15) Hypothyroidism: Plan: TSH normal at 3.4 Holding p.o. levothyroxine while n.p.o. Start IV levothyroxine if remains n.p.o. for more than a few days (16) Paroxysmal atrial fibrillation: Plan: In sinus rhythm here Holding home apixaban while n.p.o. No need for heparin drip as remains in sinus rhythm Not on AV paula blocking agents due to bradycardia Plan: DVT prophylaxis-SCDs Disposition-continued stay on PCU, prognosis guarded Palliative care consultation requested for 01/06 DNR/DNI Discussed his care with his , 2 daughters, and son-in-law extensively on 01/05 Admission and Anticipated Discharge Date Admission Date: January 03, 2022 Subjective Patient is more confused today and is hallucinating. He thinks there are people in the room that are not there and insists that "they are trying to stuff me with feathers... Stuff me like I am " He is not drooling as much today but has been given the as needed Robinul as ordered by myself yesterday. He seems to be fidgety as per his family. I discussed his care with speech therapy-plan for video swallow test tomorrow. I had an extensive family meeting to discuss goals of care with the patient's , 2 daughters, and son-in-law. After thorough discussion of his current status to include ongoing renal failure, respiratory failure, shock liver, and severe aspiration, they have decided that they will await the results of the video swallow tomorrow to determine if there is anything that can be done for his significant aspiration and if not, would pursue hospice/comfort measures. They know that he would definitely not want a permanent feeding tube, and the does not like the idea of even an NG tube for temporary feeds If it is more of a problem with the esophagus that could potentially be fixed with a GI procedure, then they might consider that if he is stable enough for EGD. In private, the did question to me if she made the right decision by even calling the ambulance to bring him to the hospital as he did not want to come to the hospital she said. She asks if he would have that night had she not brought him in and I said yes. She questions if she should have just let him pass away at home as he would have wanted. We discussed what it would be like to have home hospice versus hospice at a chcf if she and her family were not able to provide 24/7 care for him on home hospice. The family is also interested in discussing his goals of care further with palliative care tomorrow I discussed his care with the GI PA as well. Telemetry with normal sinus rhythm, IVCD, rates in the 60s to 70s, some PACs Review of Systems Review of Systems: All systems reviewed & are unremarkable except as noted in HPI & below Physical Exam Constitutional: WD/WN, vitals as above ENMT: Nose: no external nose abnormality Mouth: + drooling (small amount drool from right corner of mouth); no trismus Neck: trachea midline, no thyromegaly Respiratory: normal respiratory effort; no cough Auscultation: + diminished lung sounds (Left base) and + rhonchi (Right lower and middle lung garcia); no wheezes Cardiovascular: Rate/Rhythm: regular rate and regular rhythm Heart Sounds: no murmur Extremities: + edema (1+ edema of the legs and hands bilaterally) Chest (Breasts): Chest: normal inspection of chest Gastrointestinal (Abdomen): normal bowel sounds, soft, nontender, no hepatosplenomegaly Musculoskeletal: Extremities: extremities normal to inspection; no cyanosis and no clubbing Skin: no rashes, warm and dry Neurologic: moves all extremities and awake; no focal motor deficits Speech / Cognition: normal speech Motor/Sensory: + tremor (Resting tremor in right arm and hand) Psychiatric: Orientation: alert, oriented to person, oriented to place and cooperative Hallucinations: + visual hallucinations Lymphatic: no lymphedema Results & Data Results & Data ([facility]) Vital Signs (Past 12 Hours) Vital Signs Temp Pulse Pulse Resp BP BP Pulse Ox 01/05/22 07:59 88 L 01/05/22 07:14 74 01/05/22 07:00 36.5 C 63 16 124/73 97 01/05/22 04:23 36.7 C 65 18 115/64 95 01/05/22 03:42 36.8 C 71 19 133/77 96 01/05/22 00:48 65 01/04/22 22:47 37.1 C 67 19 120/65 97 Laboratory Results 01/05/22 01/05/22 01/05/22 Range/Units 17:58 12:38 11:31 WBC (4.8-10.8) K/uL RBC (4.7-6.1) M/uL Hgb (14.0-18.0) g/dL Hct (42-52) % MCV (80-100) fL MCH (25-34) pg MCHC (32-36) g/dL RDW Std Deviation (36.4-46.3) fL RDW Coeff of Melonie (11.5-14.5) % Plt Count (130-400) K/uL MPV (7.4-10.4) fL Immature Gran % (Auto) % Neut % (Auto) % Lymph % (Auto) % Hinds % (Auto) % Eos % (Auto) % Baso % (Auto) % Neut # (Auto) (1.4-6.5) K/uL Lymph # (Auto) (1.2-3.4) K/uL Hinds # (Auto) (0.11-0.59) K/uL Eos # (Auto) (0-0.5) K/uL Baso # (Auto) (0-0.2) K/uL Immature Gran # (Auto) (0.00-0.02) K/uL Absolute Nucleated RBC (0-0) K/uL Nucleated RBC % (auto) % Peripher Smr Path Cons PT (9.0-12.0) Seconds INR (0.9-1.1) Sodium (136-145) mmol/L Potassium (3.5-5.1) mmol/L Chloride (98-107) mmol/L Carbon Dioxide (21-32) mmol/L Anion Gap (3-11) BUN (6-23) mg/dl Creatinine (0.6-1.4) mg/dl Est Cr Clr Drug Dosing ml/min Est GFR ( Amer) ml/min Est GFR (Non-Af Amer) ml/min BUN/Creatinine Ratio (10-20) Glucose (70-99(Fasting)) mg/dl POC Glucose 130 H 160 H (70-99) mg/dl Calcium (8.5-10.1) mg/dl Phosphorus (2.5-4.9) mg/dl Magnesium (1.7-2.4) mg/dl Total Bilirubin (0.2-1.0) mg/dl Direct Bilirubin (0-0.2) mg/dl AST (13-39) U/L ALT (7-52) U/L Alkaline Phosphatase (34-104) U/L Total Protein (6.0-8.3) gm/dl Albumin (3.4-5.0) gm/dl Vancomycin Trough 18.2 (10-20) mcg/ml Hep Bs Antigen (Neg) Hepatitis C Antibody (Neg) 01/05/22 01/05/22 01/05/22 Range/Units 11:15 07:26 06:09 WBC (4.8-10.8) K/uL RBC (4.7-6.1) M/uL Hgb (14.0-18.0) g/dL Hct (42-52) % MCV (80-100) fL MCH (25-34) pg MCHC (32-36) g/dL RDW Std Deviation (36.4-46.3) fL RDW Coeff of Melonie (11.5-14.5) % Plt Count (130-400) K/uL MPV (7.4-10.4) fL Immature Gran % (Auto) % Neut % (Auto) % Lymph % (Auto) % Hinds % (Auto) % Eos % (Auto) % Baso % (Auto) % Neut # (Auto) (1.4-6.5) K/uL Lymph # (Auto) (1.2-3.4) K/uL Hinds # (Auto) (0.11-0.59) K/uL Eos # (Auto) (0-0.5) K/uL Baso # (Auto) (0-0.2) K/uL Immature Gran # (Auto) (0.00-0.02) K/uL Absolute Nucleated RBC (0-0) K/uL Nucleated RBC % (auto) % Peripher Smr Path Cons PT (9.0-12.0) Seconds INR (0.9-1.1) Sodium (136-145) mmol/L Potassium (3.5-5.1) mmol/L Chloride (98-107) mmol/L Carbon Dioxide (21-32) mmol/L Anion Gap (3-11) BUN (6-23) mg/dl Creatinine (0.6-1.4) mg/dl Est Cr Clr Drug Dosing ml/min Est GFR ( Amer) ml/min Est GFR (Non-Af Amer) ml/min BUN/Creatinine Ratio (10-20) Glucose (70-99(Fasting)) mg/dl POC Glucose 194 H 172 H 158 H (70-99) mg/dl Calcium (8.5-10.1) mg/dl Phosphorus (2.5-4.9) mg/dl Magnesium (1.7-2.4) mg/dl Total Bilirubin (0.2-1.0) mg/dl Direct Bilirubin (0-0.2) mg/dl AST (13-39) U/L ALT (7-52) U/L Alkaline Phosphatase (34-104) U/L Total Protein (6.0-8.3) gm/dl Albumin (3.4-5.0) gm/dl Vancomycin Trough (10-20) mcg/ml Hep Bs Antigen (Neg) Hepatitis C Antibody (Neg) 01/05/22 01/05/22 01/05/22 Range/Units 05:41 05:41 05:41 WBC 6.43 (4.8-10.8) K/uL RBC 3.67 L (4.7-6.1) M/uL Hgb 10.2 L (14.0-18.0) g/dL Hct 33.2 L (42-52) % MCV 90.5 (80-100) fL MCH 27.8 (25-34) pg MCHC 30.7 L (32-36) g/dL RDW Std Deviation 56.1 H (36.4-46.3) fL RDW Coeff of Melonie 17.0 H (11.5-14.5) % Plt Count 65 L (130-400) K/uL MPV 11.8 H (7.4-10.4) fL Immature Gran % (Auto) 0.2 % Neut % (Auto) 58.8 % Lymph % (Auto) 26.9 % Hinds % (Auto) 13.4 % Eos % (Auto) 0.5 % Baso % (Auto) 0.2 % Neut # (Auto) 3.79 (1.4-6.5) K/uL Lymph # (Auto) 1.73 (1.2-3.4) K/uL Hinds # (Auto) 0.86 H (0.11-0.59) K/uL Eos # (Auto) 0.03 (0-0.5) K/uL Baso # (Auto) 0.01 (0-0.2) K/uL Immature Gran # (Auto) 0.01 (0.00-0.02) K/uL Absolute Nucleated RBC 0.04 H (0-0) K/uL Nucleated RBC % (auto) 0.6 % Peripher Smr Path Cons PT 11.9 (9.0-12.0) Seconds INR 1.1 (0.9-1.1) Sodium 141 (136-145) mmol/L Potassium 5.1 (3.5-5.1) mmol/L Chloride 110 H (98-107) mmol/L Carbon Dioxide 26 (21-32) mmol/L Anion Gap 5 (3-11) BUN 49 H (6-23) mg/dl Creatinine 2.42 H (0.6-1.4) mg/dl Est Cr Clr Drug Dosing 27.8 ml/min Est GFR ( Amer) 28.6 ml/min Est GFR (Non-Af Amer) 24.7 ml/min BUN/Creatinine Ratio 20.2 H (10-20) Glucose 163 H (70-99(Fasting)) mg/dl POC Glucose (70-99) mg/dl Calcium 8.0 L (8.5-10.1) mg/dl Phosphorus 3.6 (2.5-4.9) mg/dl Magnesium 2.2 (1.7-2.4) mg/dl Total Bilirubin 0.7 (0.2-1.0) mg/dl Direct Bilirubin 0.2 (0-0.2) mg/dl AST 180 H (13-39) U/L ALT 202 H (7-52) U/L Alkaline Phosphatase 82 (34-104) U/L Total Protein 5.7 L (6.0-8.3) gm/dl Albumin 2.8 L (3.4-5.0) gm/dl Vancomycin Trough (10-20) mcg/ml Hep Bs Antigen (Neg) Hepatitis C Antibody (Neg) 01/05/22 01/04/22 01/03/22 Range/Units 00:11 06:43 15:35 WBC (4.8-10.8) K/uL RBC (4.7-6.1) M/uL Hgb (14.0-18.0) g/dL Hct (42-52) % MCV (80-100) fL MCH (25-34) pg MCHC (32-36) g/dL RDW Std Deviation (36.4-46.3) fL RDW Coeff of Melonie (11.5-14.5) % Plt Count (130-400) K/uL MPV (7.4-10.4) fL Immature Gran % (Auto) % Neut % (Auto) % Lymph % (Auto) % Hinds % (Auto) % Eos % (Auto) % Baso % (Auto) % Neut # (Auto) (1.4-6.5) K/uL Lymph # (Auto) (1.2-3.4) K/uL Hinds # (Auto) (0.11-0.59) K/uL Eos # (Auto) (0-0.5) K/uL Baso # (Auto) (0-0.2) K/uL Immature Gran # (Auto) (0.00-0.02) K/uL Absolute Nucleated RBC (0-0) K/uL Nucleated RBC % (auto) % Peripher Smr Path Cons PT (9.0-12.0) Seconds INR (0.9-1.1) Sodium (136-145) mmol/L Potassium (3.5-5.1) mmol/L Chloride (98-107) mmol/L Carbon Dioxide (21-32) mmol/L Anion Gap (3-11) BUN (6-23) mg/dl Creatinine (0.6-1.4) mg/dl Est Cr Clr Drug Dosing ml/min Est GFR ( Amer) ml/min Est GFR (Non-Af Amer) ml/min BUN/Creatinine Ratio (10-20) Glucose (70-99(Fasting)) mg/dl POC Glucose 127 H (70-99) mg/dl Calcium (8.5-10.1) mg/dl Phosphorus (2.5-4.9) mg/dl Magnesium (1.7-2.4) mg/dl Total Bilirubin (0.2-1.0) mg/dl Direct Bilirubin (0-0.2) mg/dl AST (13-39) U/L ALT (7-52) U/L Alkaline Phosphatase (34-104) U/L Total Protein (6.0-8.3) gm/dl Albumin (3.4-5.0) gm/dl Vancomycin Trough (10-20) mcg/ml Hep Bs Antigen Neg (Neg) Hepatitis C Antibody Neg (Neg) PG Care Time/CCT Total # of Minutes Spent Total Time Spent with Patient: Total time spent is greater than 50% in coordination of care (as documented) at patient's floor/unit and/or counseling patient: Prolonged Care Time Prolonged Care Time: Yes Total Prolonged Care Time: 120 I spent 120 minutes of prolonged service time in palliative discussions with the family, interpretation of studies, discussion with other specialist, and management of this critically ill patient Coding Level of Care Code 08651 Subseq Hosp Care Lvl 3 (25 - SIGNIFICANT, SEPARATELY IDENTIFIABLE ) Diagnoses Septic shock A41.9; R65.21 Hypothermia T68.XXXA Encounter type: initial encounter Bradycardia R00.1 Pneumonia J69.0 Aspiration pneumonia type: unspecified Laterality: left Lung location: lower lobe of lung Pneumonia type: aspiration pneumonia Dysphagia R13.10 Acute respiratory failure with hypoxia and hypercarbia J96.01; J96.02 Chronic kidney disease (CKD), stage II (mild) N18.2 Hyperkalemia E87.5 Pleural effusion J90 Transaminitis R74.01 Thrombocytopenia D69.6 Carotid arterial disease I77.9 Congestive heart failure I50.9 Obstructive sleep apnea G47.33 Hypothyroidism E03.9 Paroxysmal atrial fibrillation I48.0 Additional Codes Prolonged Care Time - Prolonged Care Time: Yes ([id number]) (1) Hypothermia Encounter type: initial encounter Qualified Code(s): T68.XXXA - Hypothermia, initial encounter (2) Pneumonia Aspiration pneumonia type: unspecified Laterality: left Lung location: lower lobe of lung Pneumonia type: aspiration pneumonia Qualified Code(s): J69.0 - Pneumonitis due to inhalation of food and vomit
--- NOTE | 2022-01-05 10:21 | Gastrointestinal Consultation ---
Date of Consultation January 05, 2022 Assessment & Plan (1) Dysphagia: (2) Aspiration into lower respiratory tract: * Due to ongoing medical comorbidities, no plan for EGD at this time. * Due to recurrent aspiration, consider palliative care consultation. * Could consider video swallow and repeat LIME SUPERVISOR evaluation, although patient may not tolerate standing for 5 minutes which is required of testing. * Continue supportive medical management. Thank you for allowing us to participate in the care of this patient. If you have any questions or concerns, please do not hesitate to contact us. Supervising Physician Co-Signing Physician Notes Agree with KATERINA Soto as above History of Present Illness Reason for Consultation: Dysphagia, aspiration pneumonia Requesting Physician: Dr. Taylor Attending Physician: Cari Taylor MD History of Present Illness Calvin Reyez is a 76 y.o.obese male with a complex past medical history and frequent readmissions for weakness, shortness of breath and recurrent pneumonia. There has been concern for aspiration and he has undergone two bedside swallow evaluations by LIME SUPERVISOR. He was reportedly evaluated by a speech therapist at [facility] as well. No records of this evaluation are available to review today. He has been recommended GI and ENT evaluations as well as to follow strict aspiration precautions, taking medications with a carrier and avoidance of straws. I had recently evaluated the patient as an outpatient and had plans to have the patient undergo a video/barium swallow due to ongoing treatment for pneumonia. He was also scheduled for outpatient EGD with Dr. Jain tomorrow. Prior to testing, he has been admitted to the hospital. In regard to symptoms, he reports frequent throat "gurgling", cough, choking, mucous production and dysphagia. He denies any odynophagia. Occasional pyrosis. No nausea, vomiting, abdominal pain, change in bowel habits, melena, or hematochezia. +weakness and fatigue. Remains on Pantoprazole 40 mg daily. In addition, patient was recommended outpatient LIME SUPERVISOR and he declined the services. Allergies Allergy/AdvReac Type Severity Reaction Status Date / Time Gadolinium-Containing Allergy Severe ANAPHYLAXIS Verified 01/03/22 14:55 Contrast Medi Iodinated Contrast Media Allergy Severe ANAPHYLAXIS Verified 01/03/22 14:55 Home Medications Medication Instructions Recorded Confirmed Type cyanocobalamin (vitamin B-12) 1,000 mcg PO QDL tab 05/31/19 01/03/22 History 1,000 mcg tablet docusate sodium 100 mg capsule 100 mg PO QAM PRN cap 05/31/19 01/03/22 History polyethylene glycol 3350 17 17 gm PO DAILY PRN #1 gm 05/31/19 01/03/22 History gram/dose oral powder BD Ultra-Fine Short Pen Needle 31 #100 ea NS 05/02/20 01/02/22 Rx gauge x 5/16" (pen needle, diabetic) cholecalciferol (vitamin D3) 50 2,000 unit PO QDL tab 10/28/20 01/03/22 History mcg (2,000 unit) tablet blood sugar diagnostic (OneTouch #3 box 04/17/21 01/02/22 Rx Ultra Blue Test Strip) metformin 850 mg tablet 850 mg PO BID #180 tab 06/23/21 01/03/22 Rx nitroglycerin 0.4 mg sublingual 0.4 mg SL Q5M PRN #25 tab 07/10/21 01/03/22 Rx tablet Oxygen Home #1 ea 07/16/21 01/02/22 Rx Wheeled Walker #1 ea 07/21/21 01/02/22 Rx guaifenesin 1,200 mg tablet, 1,200 mg PO QAM 09/19/21 01/03/22 History extended release 12 hr (Mucinex) trazodone 50 mg tablet 50 - 100 mg PO HS 09/19/21 01/03/22 History apixaban 5 mg tablet (Eliquis) 5 mg PO BID #180 tab 10/06/21 01/03/22 Rx atorvastatin 40 mg tablet 40 mg PO HS #90 tab 10/20/21 01/03/22 Rx amlodipine 2.5 mg tablet 2.5 mg PO QAM 11/18/21 01/03/22 History levothyroxine 100 mcg tablet 100 mcg PO QAM tab 11/24/21 01/03/22 History losartan 100 mg tablet 100 mg PO QAM 12/30/21 01/03/22 History aspirin 81 mg tablet,delayed 81 mg PO DAILY 01/03/22 01/03/22 History release carvedilol 3.125 mg tablet 3.125 mg PO BID 01/03/22 01/03/22 History furosemide 40 mg tablet 40 mg PO BID 01/03/22 01/03/22 History pantoprazole 20 mg tablet,delayed 20 mg PO PM PRN 01/03/22 01/03/22 History release Patient History Medical History Anxiety Arteriosclerotic cardiovascular disease Asthma Atrial fibrillation on eliquis; follows with Dr. Gardiner Bradycardia Chronic diastolic heart failure CKD (chronic kidney disease) follows with Dr. Savage Colon polyps Diabetic nephropathy Diverticular disease DM type 2 (diabetes mellitus, type 2) Dysphagia Gastroesophageal reflux disease Rachel's thyroiditis History of aspiration pneumonia History of CVA (cerebrovascular accident) 20 years ago; no residual History of depression History of diverticulitis History of sleep apnea unable to tolerate CPAP Hyperlipidemia Hypertension Hypothyroidism Insomnia Internal hemorrhoids Obesity On home oxygen therapy 2-3 LPM qHS Paralysis of right vocal fold Parotid sialolithiasis Pleural effusion, left Proteinuria Raspy voice Right bundle branch block Thrombocytopenia Vitamin D deficiency Surgical History H/O umbilical hernia repair History of colonoscopy History of thoracentesis S/P carotid endarterectomy Left S/P cataract surgery BL S/P inguinal hernia repair S/P tonsillectomy Family History Mother Heart disease Father Stomach cancer Other Asthma Cancer Denies family history of Ovarian cancer Prostate cancer Myocardial infarction Breast cancer Colorectal cancer Social History Smoking Status: Former smoker Second Hand Exposure: No; Do You Dip or Chew Tobacco: No; Hx Alcohol Use: No Hx Substance Use: No Preferred Language: Slovak Communication Ability: Impaired Visual Impairment: No Limitations Hearing Ability: Normal [employer] Salesperson Required: No Beliefs That Will Affect Care: None marital status: Current Living Situation: Spouse Current Living Situation Comment: lives in mobile home with ramp current occupational status: retired How many Children do You have: 2 Feels Safe at Home: Yes Safety Concerns: Feels Safe At This Time Childhood Exposure to Second-Hand Smoke: No Diet Comment: K+ reduced caffeine: Yes (coffee) Dental Care, Regularly: Yes Physical Activity Frequency: Does not Exercise Seatbelt Use: always Sunscreen Use: No Assistive Devices: Oxygen - Continuous Review of Systems Constitutional: as per Subjective / HPI Gastrointestinal: as per Subjective / HPI Physical Exam Constitutional: + not well developed and + not well nourished Eyes: EOM intact bilaterally Respiratory: normal respiratory effort, lungs clear to auscultation Cardiovascular: Rate/Rhythm: + irregularly irregular Gastrointestinal (Abdomen): Inspection/Auscultation: abdomen normal to inspection Percussion/Palpation: abdomen soft; abdomen nontender Psychiatric: A+Ox3, euthymic affect Results & Data ([facility]) Vital Signs (Past 12 Hours) Vital Signs Temp Pulse Pulse Resp BP BP Pulse Ox 01/05/22 07:59 88 L 01/05/22 07:14 74 01/05/22 07:00 36.5 C 63 16 124/73 97 01/05/22 04:23 36.7 C 65 18 115/64 95 01/05/22 03:42 36.8 C 71 19 133/77 96 01/05/22 00:48 65 01/04/22 22:47 37.1 C 67 19 120/65 97 Laboratory Results Laboratory Results WBC 6.43 K/uL (4.8-10.8) 01/05/22 05:41 RBC 3.67 M/uL (4.7-6.1) L 01/05/22 05:41 Hgb 10.2 g/dL (14.0-18.0) L 01/05/22 05:41 Hct 33.2 % (42-52) L 01/05/22 05:41 MCV 90.5 fL (80-100) 01/05/22 05:41 MCH 27.8 pg (25-34) 01/05/22 05:41 MCHC 30.7 g/dL (32-36) L 01/05/22 05:41 RDW Std Deviation 56.1 fL (36.4-46.3) H 01/05/22 05:41 RDW Coeff of Melonie 17.0 % (11.5-14.5) H 01/05/22 05:41 Plt Count 65 K/uL (130-400) L 01/05/22 05:41 MPV 11.8 fL (7.4-10.4) H 01/05/22 05:41 Immature Gran % (Auto) 0.2 % 01/05/22 05:41 Neut % (Auto) 58.8 % 01/05/22 05:41 Lymph % (Auto) 26.9 % 01/05/22 05:41 Dyer % (Auto) 13.4 % 01/05/22 05:41 Eos % (Auto) 0.5 % 01/05/22 05:41 Baso % (Auto) 0.2 % 01/05/22 05:41 Neut # (Auto) 3.79 K/uL (1.4-6.5) 01/05/22 05:41 Lymph # (Auto) 1.73 K/uL (1.2-3.4) 01/05/22 05:41 Dyer # (Auto) 0.86 K/uL (0.11-0.59) H 01/05/22 05:41 Eos # (Auto) 0.03 K/uL (0-0.5) 01/05/22 05:41 Baso # (Auto) 0.01 K/uL (0-0.2) 01/05/22 05:41 Immature Gran # (Auto) 0.01 K/uL (0.00-0.02) 01/05/22 05:41 Absolute Nucleated RBC 0.04 K/uL (0-0) H 01/05/22 05:41 Nucleated RBC % (auto) 0.6 % 01/05/22 05:41 Platelet Estimate Decreased (Normal) L 01/03/22 12:43 Peripher Smr Path Cons 01/03/22 15:35 PT 11.9 Seconds (9.0-12.0) 01/05/22 05:41 INR 1.1 (0.9-1.1) 01/05/22 05:41 ABG pH 7.19 (7.35-7.45) L* 01/03/22 15:35 ABG pCO2 70 mmHg (35-46) H 01/03/22 15:35 ABG pO2 83 mmHg (80-95) 01/03/22 15:35 ABG HCO3 26 mmol/L (19-24) H 01/03/22 15:35 ABG O2 Saturation 94.7 % (90-95) 01/03/22 15:35 ABG Base Excess -3.1 mEq/L (-9-1.8) 01/03/22 15:35 Uvaldo Test Pos (Pos) 01/03/22 15:35 VBG pH 7.34 (7.36-7.41) L 01/03/22 19:31 VBG pCO2 54 mmHg (38-50) H 01/03/22 19:31 VBG pO2 50 mmHg 01/03/22 19:31 VBG HCO3 28 mmol/L 01/03/22 19:31 VBG O2 Saturation 84.7 % 01/03/22 19:31 VBG Base Excess 1.7 mEq/L 01/03/22 19:31 Barometric Pressure 726.7 mm/Hg 01/03/22 19:31 Oxygen Given ROOM AIR 01/03/22 15:35 Sodium 141 mmol/L (136-145) 01/05/22 05:41 Potassium 5.1 mmol/L (3.5-5.1) 01/05/22 05:41 Chloride 110 mmol/L (98-107) H 01/05/22 05:41 Carbon Dioxide 26 mmol/L (21-32) 01/05/22 05:41 Anion Gap 5 (3-11) 01/05/22 05:41 BUN 49 mg/dl (6-23) H 01/05/22 05:41 Creatinine 2.42 mg/dl (0.6-1.4) H 01/05/22 05:41 Est Cr Clr Drug Dosing 27.8 ml/min 01/05/22 05:41 Est GFR ( Amer) 28.6 ml/min 01/05/22 05:41 Est GFR (Non-Af Amer) 24.7 ml/min 01/05/22 05:41 BUN/Creatinine Ratio 20.2 (10-20) H 01/05/22 05:41 Glucose 163 mg/dl (70-99(Fasting)) H 01/05/22 05:41 POC Glucose 172 mg/dl (70-99) H 01/05/22 07:26 Lactate 2.8 mmol/L (0.4-2.0) H* 01/03/22 14:58 Calcium 8.0 mg/dl (8.5-10.1) L 01/05/22 05:41 Phosphorus 3.6 mg/dl (2.5-4.9) 01/05/22 05:41 Magnesium 2.2 mg/dl (1.7-2.4) 01/05/22 05:41 Total Bilirubin 0.7 mg/dl (0.2-1.0) 01/05/22 05:41 Direct Bilirubin 0.2 mg/dl (0-0.2) 01/05/22 05:41 AST 180 U/L (13-39) H 01/05/22 05:41 ALT 202 U/L (7-52) H 01/05/22 05:41 Alkaline Phosphatase 82 U/L (34-104) 01/05/22 05:41 Troponin I 0.03 ng/ml (0-0.04) 01/03/22 12:43 B-Natriuretic Peptide 75 pg/ml (0-100) 01/03/22 12:43 Total Protein 5.7 gm/dl (6.0-8.3) L 01/05/22 05:41 Albumin 2.8 gm/dl (3.4-5.0) L 01/05/22 05:41 Globulin 3.2 gm/dl (2.5-4.0) 01/03/22 15:35 Albumin/Globulin Ratio 1.0 (0.9-2) 01/03/22 15:35 Lipase 23 U/L (11-82) 01/03/22 12:43 Procalcitonin 0.12 ng/ml (0-0.5) 01/03/22 12:43 TSH 3.433 uIu/ml (0.300-4.500) 01/03/22 12:43 Random Cortisol 19.27 mcg/dl 01/03/22 12:43 Urine Color Yellow 01/03/22 13:37 Urine Appearance Cloudy (Clear) A 01/03/22 13:37 Urine pH 5.0 (4.5-7.5) 01/03/22 13:37 Ur Specific [place] 1.023 (1.000-1.030) 01/03/22 13:37 Urine Protein 3+ (Negative) H 01/03/22 13:37 Urine Glucose (UA) 2+ (Negative) H 01/03/22 13:37 Urine Ketones Trace (Negative) H 01/03/22 13:37 Urine Blood Trace (Negative) H 01/03/22 13:37 Urine Nitrite Negative (Negative) 01/03/22 13:37 Urine Bilirubin Negative (Negative) 01/03/22 13:37 Urine Urobilinogen Negative (Negative) 01/03/22 13:37 Ur Leukocyte Esterase Trace (Negative) H 01/03/22 13:37 Urine WBC (Auto) 10-30 /hpf (0-5) H 01/03/22 13:37 Urine RBC (Auto) 0-4 /hpf (0-4) 01/03/22 13:37 U Hyaline Cast (Auto) >30 /lpf (0-5) H 01/03/22 13:37 U Epithel Cells (Auto) >30 /lpf (0-5) H 01/03/22 13:37 Urine Bacteria (Auto) Negative (Negative) 01/03/22 13:37 Ur Renal Epithelial Cell Not Reportable 01/03/22 13:37 Granular Casts 1-5 /lpf (0) H 01/03/22 13:37 Urine Yeast Not Reportable 01/03/22 13:37 Nasal Screen MRSA (PCR) Negative (Negative) 01/03/22 17:22 Anaplasma Smear See Comment 01/03/22 15:35 Lyme Disease IgG Ab Negative (Negative) 01/03/22 15:35 Lyme Disease IgM Ab Negative (Negative) 01/03/22 15:35 SARS-CoV-2, RNA, NAAT NEGATIVE (NEGATIVE) 01/03/22 13:06 Impressions Chest X-Ray 01/04/22 05:45 XR chest 1V portable HISTORY: Shortness of breath. evaluate pulmonary process COMPARISON: Chest 01/03/2022. FINDINGS: No pneumothorax. There are low lung volumes. The heart remains enlarged. Small bilateral pleural effusions. There is mild pulmonary edema which has slightly progressed.. Bibasilar densities are noted. IMPRESSION: Interval progression of the pulmonary edema, bilateral pleural effusions, and nonspecific bibasilar densities. ACT 112: Negative or not required by law. Electronically signed by: Christian Munoz M.D. 01/04/2022 9:[address] 01/04/22 09:09 CT chest diagnostic wo con, CT abd pelvis wo con CLINICAL HISTORY: 76 years-old Male with pleural effusions,PNA. Acute shortness breath with pneumonia and pleural effusions TECHNIQUE: Multiaxial CT images of the chest, abdomen and pelvis were performed without contrast. A dose lowering technique was utilized adhering to the principles of ALARA. COMPARISON: Chest radiograph of same day, Chest CT 12/10/2021 FINDINGS: CT CHEST: No thyroid nodule. Prominent subcarinal lymph nodes are likely reactive. Decreased attenuation of the cardiac blood pool suggestive of anemia. Cardiomegaly with moderate coronary artery calcifications. Atherosclerosis of the thoracic aorta without aneurysm. Small left greater than right pleural effusions have mildly decreased in size from prior. There is no pneumothorax. Mild intralobular septal thickening. Consolidation with volume loss of the left lower lobe. Patchy groundglass and consolidative opacities are noted within a multilobar distribution within the right lung. 3.6 cm thin-walled cyst of the inferior segment lingula. Tracheobronchial secretions with bibasilar mucous plugging. Mild diffuse esophageal wall thickening. A small amount of secretions are noted layering within the mid esophagus. Unremarkable soft tissues. Gynec omastia. Degenerative changes of the shoulders and spine. Thoracic levoscoliosis. Healed chronic right-sided rib fractures. CT ABDOMEN/PELVIS: No pneumatosis or pneumoperitoneum. Limited study secondary to upper Mary positioning and lack of contrast. The unenhanced spleen, moderately atrophic pancreas and liver appear unremarkable. Cholelithiasis without CT evidence of acute cholecystitis. Fatty attenuating lesions of the bilateral adrenal glands measure up to 10 mm on the right and 1.4 cm and left suggestive of adrenal myolipomata. Left adrenal gland thickening suggestive of hyperplasia. No hydronephrosis. Mild atrophy of the kidneys. Decompressed urinary bladder with Rosas catheter in place. Urinary bladder wall thickening with mild perivesicular stranding. Prostamegaly. Atherosclerosis of the abdominal aorta and branch vessels. No adenopathy. Mild nonspecific distal esophageal wall thickening. No bowel obstruction. Mild rectal wall thickening is likely secondary to partial distention. Normal appendix. No ascites or mesenteric inflammation. Unremarkable soft tissues. Degenerative changes of the spine, pelvis and hips. Healed chronic right-sided rib fractures. Scattered sclerotic foci of the pelvis, likely bone islands. Chronic appearing Schmorl's node involves the superior endplate of the L2 vertebral body. IMPRESSION: 1. Cardiomegaly with pulmonary vascular congestion. 2. Small left greater than right pleural effusions have mildly decreased in size from prior. 3. Atelectasis with collapse of the left lower lobe, presumably secondary to mucous plugging. 4. Layering secretions within the trachea and esophagus are again noted with bibasilar mucous plugging and patchy opacities throughout the right lung suspicious for aspiration pneumonitis. 5. No bowel obstruction or bowel wall thickening. 6. Cholelithiasis. 7. Additional findings as above. ACT 112: Negative or not required by law. Electronically signed by: Andrzej Parra M.D. 01/04/2022 11:[address] 01/04/22 09:09 CT head/brain wo con CLINICAL HISTORY: 76 years-old Male with assess for stroke. Acute strokelike symptoms TECHNIQUE: Multiple axial CT images of the head were obtained without contrast. A dose lowering technique was utilized adhering to the principles of ALARA. COMPARISON: Head CT 10/22/2021 FINDINGS: No acute intracranial hemorrhage, midline shift, intracranial mass, hydrocephalus, territorial ischemia or abnormal extra-axial collection. Mild involutional changes. Cerebral vascular calcifications. Chronic infarct of the inferior right cerebellar hemisphere redemonstrated. Mild white matter hypodensities suggest chronic microvascular ischemic disease. The study is motion degraded. The calvarium is intact. Prior bilateral lens repair. The paranasal sinuses, mastoid air cells, and middle ear cavities are clear. IMPRESSION: 1. No acute intracranial abnormality. 2. 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 ACT 112: Negative or not required by law. The above report was generated using voice recognition software. It may contain grammatical, syntax or spelling errors. Electronically signed by: Andrzej Parra M.D. 01/04/2022 11:13 AM Abdomen/Pelvis CT 01/04/22 09:21 CT chest diagnostic wo con, CT abd pelvis wo con CLINICAL HISTORY: 76 years-old Male with pleural effusions,PNA. Acute shortness breath with pneumonia and pleural effusions TECHNIQUE: Multiaxial CT images of the chest, abdomen and pelvis were performed without contrast. A dose lowering technique was utilized adhering to the principles of ALARA. COMPARISON: Chest radiograph of same day, Chest CT 12/10/2021 FINDINGS: CT CHEST: No thyroid nodule. Prominent subcarinal lymph nodes are likely reactive. Decreased attenuation of the cardiac blood pool suggestive of anemia. Cardiomegaly with moderate coronary artery calcifications. Atherosclerosis of the thoracic aorta without aneurysm. Small left greater than right pleural effusions have mildly decreased in size from prior. There is no pneumothorax. Mild intralobular septal thickening. Consolidation with volume loss of the left lower lobe. Patchy groundglass and consolidative opacities are noted within a multilobar distribution within the right lung. 3.6 cm thin-walled cyst of the inferior segment lingula. Tracheobronchial secretions with bibasilar mucous plugging. Mild diffuse esophageal wall thickening. A small amount of secretions are noted layering within the mid esophagus. Unremarkable soft tissues. Gynecomastia. Degenerative changes of the shoulders and spine. Thoracic levoscoliosis. Healed chronic right-sided rib fractures. CT ABDOMEN/PELVIS: No pneumatosis or pneumoperitoneum. Limited study secondary to upper Mary positioning and lack of contrast. The unenhanced spleen, moderately atrophic pancreas and liver appear unremarkable. Cholelithiasis without CT evidence of acute cholecystitis. Fatty attenuating lesions of the bilateral adrenal glands measure up to 10 mm on the right and 1.4 cm and left suggestive of adrenal myolipomata. Left adrenal gland thickening suggestive of hyperplasia. No hydronephrosis. Mild atrophy of the kidneys. Decompressed urinary bladder with Rosas catheter in place. Urinary bladder wall thickening with mild perivesicular stranding. Prostamegaly. Atherosclerosis of the abdominal aorta and branch vessels. No adenopathy. Mild nonspecific distal esophageal wall thickening. No bowel obstruction. Mild rectal wall thickening is likely secondary to partial distention. Normal appendix. No ascites or mesenteric inflammation. Unremarkable soft tissues. Degenerative changes of the spine, pelvis and hips. Healed chronic right-sided rib fractures. Scattered sclerotic foci of the pelvis, likely bone islands. Chronic appearing Schmorl's node involves the superior endplate of the L2 vertebral body. IMPRESSION: 1. Cardiomegaly with pulmonary vascular congestion. 2. Small left greater than right pleural effusions have mildly decreased in size from prior. 3. Atelectasis with collapse of the left lower lobe, presumably secondary to mucous plugging. 4. Layering secretions within the trachea and esophagus are again noted with bibasilar mucous plugging and patchy opacities throughout the right lung suspicious for aspiration pneumonitis. 5. No bowel obstruction or bowel wall thickening. 6. Cholelithiasis. 7. Additional findings as above. ACT 112: Negative or not required by law. Electronically signed by: Andrzej Parra M.D. 01/04/2022 11:26 AM PG Care Time/CCT Total # of Minutes Spent Total Time Spent with Patient: Total time spent is greater than 50% in coordination of care (as documented) at patient's floor/unit and/or counseling patient: Coding Level of Care Code 54532 Initial Inpt Care Lvl 3 Diagnoses Dysphagia R13.10 Aspiration into lower respiratory tract T17.800A
[2022-01-05 11:18] LABS: Hepatitis B Surf Ag Rflx Conf Neg (Neg)
[2022-01-05 11:46] LABS: Hepatitis C IgG 13Yrs+Old_Rflx Neg (Neg)
[2022-01-05] MEDS: GLYCOPYRROLATE 0.2 MG/ML VIAL IV PRN (13:30)
[2022-01-06] MEDS: INSULIN ASPART PER UNIT SC SCH ×3 (01:05→11:20)
[2022-01-06] MEDS: PIPERACILLIN/TAZOBACTAM 4.5 GM in DEXTROSE 5% 100 ML IV SCH (06:01)
[2022-01-06 09:17] LABS: Hematocrit (blood only) 33.2 % (42-52); Hemoglobin 10.3 g/dL (14.0-18.0); Mean Corpuscular Hemoglobin 27.9 pg (25-34); RDW Coefficient of Variation 16.9 % (11.5-14.5); RDW Standard Deviation 56.3 fL (36.4-46.3); Red Blood Count 3.69 M/uL (4.7-6.1); White Blood Count 5.26 K/uL (4.8-10.8)
[2022-01-06 09:29] LABS: INR 1.1 (0.9-1.1); Prothrombin Time 11.2 Seconds (9.0-12.0)
[2022-01-06 09:37] LABS: Mean Platelet Volume 11.6 fL (7.4-10.4); Platelet Count 64 K/uL (130-400)
[2022-01-06 09:40] LABS: Basophils # (auto) 0.01 K/uL (0-0.2); Basophils % (auto) 0.2 %; Eosinophils # (auto) 0.05 K/uL (0-0.5); Immature Granulocytes # (auto) 0.01 K/uL (0.00-0.02); Immature Granulocytes % (auto) 0.2 %; Lymphocytes % (auto) 17.1 %; Monocytes # (auto) 0.72 K/uL (0.11-0.59); Monocytes % (auto) 13.7 %; Neutrophils # (auto) 3.57 K/uL (1.4-6.5); Neutrophils % (auto) 67.8 %
--- NOTE | 2022-01-06 09:44 | Palliative Care Consultation ---
Date of Consultation January 06, 2022 Assessment & Plan (1) Palliative care encounter: Mr. Reyez is a 76 year old male who presented to the [facility] with hypothermia, bradycardia, and septic presentation. He has presented with recurrent aspiration pneumonia. He was on a Dopamine infusion for a period of time. He has shown some stabilization; however, he has generalized weakness with a worsening overall baseline functional status. In previous discussion with family, Edwige; his , and Nely; his daughter, they would like to focus more on conservative management of his care and would like to avoid further escalation and ICU care. Palliative Medicine was consulted to establish further goals of care. I met with Mr. Reyez in room 244. He was awake, alert, and oriented to himself, location and situation for the most part. He was able to explain to me why he is admitted to the hospital. He did discuss that he would like to return to [facility] for acute rehabilitation but does recognize that his dysphagia is likely to continue and worsen, with likely recurrent aspiration pneumonia in his future. He has been evaluated by GI and an EGD is not going to be pursued. Previous WILDLIFE MANAGER was completed about a month ago at [facility] and this information would be helpful with further establishing of goals as he is currently declining further WILDLIFE MANAGER intervention. In further discussion, he has stated that he would not want any artificial nutrition/hydration; however, a recent WILDLIFE MANAGER could be helpful to establish the safest consistency of food. After lengthy conversation with the patients , Edwige, at the bedside; she stated that she would just like him to be comfortable. She recognizes that his challenges will continue and become more apparent as time goes on. We discussed hospice care at a SNF vs home. She would like to try taking him home with hospice due to his resistance of returning to a SNF. She has two daughters that can help intermittently, but she would be the main caregiver. His condition has worsened to the point where he is less likely to be out of bed; ho wever, would have some concerns of her ability to care for him at home on her own. She does express comfort with comfort medication administration. I discussed the above with the case management social worker who will reach out to a hospice liason to discuss further with the patients . Hospice Rx written and given to the case management social worker. Hospice Dx: CAD/CHF. Dr. Norman aware and supportive of the above. (2) Difficulty clearing secretions: Patient has audible secretions which he is receiving Robinul PRN. Will schedule routine Atropine gtts 4 gtts Q4 to assist with the anticholinergic property of drying up some of the secretions. Switching away from IV Robinul with a goal to return home with hospice. (3) Dysphagia: Thankful to Carla Lebron, RN Nurse Navigator, assisting in obtaining previous WILDLIFE MANAGER from his admission at [facility]. I was able to talk to Huma Arceo who stated that when he eats, the food goes through his upper esophageal sphincter then returns through the pharynx, regardless of the consistency of the food. Discussed permissive aspiration with the patient and his and both are agre eable to proceed with this. (4) Generalized weakness: Transition to comfort measures only. Cancel any PT/OT (5) POLST (Physician Orders for Life-Sustaining Treatment): POLST completed at the bedside and signed by the patients with details indicating: DNR/DNI, DISBURSEMENT CLERK, trial abx, no artificial nutrition/hydration. A copy was placed on the chart and original given to the patients . History of Present Illness Reason for Consultation: Goals of Care Requesting Physician: Dr. Taylor Attending Physician: Terrell Norman History of Present Illness Mr. Reyez is a 76 year old male who presented to the [facility] with hypothermia, bradycardia, and septic presentation. He has presented with recurrent aspiration pneumonia. He was on a Dopamine infusion for a period of time. He has shown some stabilization; however, he has generalized weakness with a worsening overall baseline functional status. In previous discussion with family, Edwige; his , and Nely; his daughter, they would like to focus more on conservative management of his care and would like to avoid further escalation and ICU care. Palliative Medicine was consulted to establish further goals of care. Please see A/P for further details. Thanks for involving Palliative Medicine with this individual. Allergies Allergy/AdvReac Type Severity Reaction Status Date / Time Gadolinium-Containing Allergy Severe ANAPHYLAXIS Verified 01/03/22 14:55 Contrast Medi Iodinated Contrast Media Allergy Severe ANAPHYLAXIS Verified 01/03/22 14:55 Home Medications Medication Instructions Recorded Confirmed Type cyanocobalamin (vitamin B-12) 1,000 mcg PO QDL tab 05/31/19 01/03/22 History 1,000 mcg tablet docusate sodium 100 mg capsule 100 mg PO QAM PRN cap 05/31/19 01/03/22 History polyethylene glycol 3350 17 17 gm PO DAILY PRN #1 gm 05/31/19 01/03/22 History gram/dose oral powder BD Ultra-Fine Short Pen Needle 31 #100 ea NS 05/02/20 01/02/22 Rx gauge x 5/16" (pen needle, diabetic) cholecalciferol (vitamin D3) 50 2,000 unit PO QDL tab 10/28/20 01/03/22 History mcg (2,000 unit) tablet blood sugar diagnostic (OneTouch #3 box 04/17/21 01/02/22 Rx Ultra Blue Test Strip) metformin 850 mg tablet 850 mg PO BID #180 tab 06/23/21 01/03/22 Rx nitroglycerin 0.4 mg sublingual 0.4 mg SL Q5M PRN #25 tab 07/10/21 01/03/22 Rx tablet Oxygen Home #1 ea 07/16/21 01/02/22 Rx Wheeled Walker #1 ea 07/21/21 01/02/22 Rx guaifenesin 1,200 mg tablet, 1,200 mg PO QAM 09/19/21 01/03/22 History extended release 12 hr (Mucinex) trazodone 50 mg tablet 50 - 100 mg PO HS 09/19/21 01/03/22 History apixaban 5 mg tablet (Eliquis) 5 mg PO BID #180 tab 10/06/21 01/03/22 Rx atorvastatin 40 mg tablet 40 mg PO HS #90 tab 10/20/21 01/03/22 Rx amlodipine 2.5 mg tablet 2.5 mg PO QAM 11/18/21 01/03/22 History levothyroxine 100 mcg tablet 100 mcg PO QAM tab 11/24/21 01/03/22 History losartan 100 mg tablet 100 mg PO QAM 12/30/21 01/03/22 History aspirin 81 mg tablet,delayed 81 mg PO DAILY 01/03/22 01/03/22 History release carvedilol 3.125 mg tablet 3.125 mg PO BID 01/03/22 01/03/22 History furosemide 40 mg tablet 40 mg PO BID 01/03/22 01/03/22 History pantoprazole 20 mg tablet,delayed 20 mg PO PM PRN 01/03/22 01/03/22 History release Patient History Medical History (Updated 01/06/22 @ 14:34 by KATERINA Pal) Anxiety Arteriosclerotic cardiovascular disease Asthma Atrial fibrillation on eliquis; follows with Dr. Gardiner Bradycardia Chronic diastolic heart failure CKD (chronic kidney disease) follows with Dr. Savage Colon polyps Diabetic nephropathy Difficulty clearing secretions Diverticular disease DM type 2 (diabetes mellitus, type 2) Dysphagia Dysphagia Gastroesophageal reflux disease Generalized weakness Rachel's thyroiditis History of aspiration pneumonia History of CVA (cerebrovascular accident) 20 years ago; no residual History of depression History of diverticulitis History of sleep apnea unable to tolerate CPAP Hyperlipidemia Hypertension Hypothyroidism Insomnia Internal hemorrhoids Obesity On home oxygen therapy 2-3 LPM qHS Palliative care encounter Paralysis of right vocal fold Parotid sialolithiasis Pleural effusion, left POLST (Physician Orders for Life-Sustaining Treatment) Proteinuria Raspy voice Right bundle branch block Thrombocytopenia Vitamin D deficiency Surgical History H/O umbilical hernia repair History of colonoscopy History of thoracentesis S/P carotid endarterectomy Left S/P cataract surgery BL S/P inguinal hernia repair S/P tonsillectomy Family History Mother Heart disease Father Stomach cancer Other Asthma Cancer Denies family history of Ovarian cancer Prostate cancer Myocardial infarction Breast cancer Colorectal cancer Social History Smoking Status: Former smoker Second Hand Exposure: No; Do You Dip or Chew Tobacco: No; Hx Alcohol Use: No Hx Substance Use: No Preferred Language: Tamazight Communication Ability: Impaired Visual Impairment: No Limitations Hearing Ability: Normal 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: No Beliefs That Will Affect Care: None marital status: Current Living Situation: Spouse Current Living Situation Comment: lives in mobile home with ramp current occupational status: retired How many Children do You have: 2 Feels Safe at Home: Yes Safety Concerns: Feels Safe At This Time Childhood Exposure to Second-Hand Smoke: No Diet Comment: K+ reduced caffeine: Yes (coffee) Dental Care, Regularly: Yes Physical Activity Frequency: Does not Exercise Seatbelt Use: always Sunscreen Use: No Assistive Devices: Oxygen - Continuous Review of Systems Review of Systems: [place] System Assessment Scale: Pain: 0/3 Nausea: 0/3 SOB: 1/3 Tiredness: 2/3 Palliative Performance Scale: 40% Physical Exam Constitutional: + ill appearing, + frail appearing and cooperative ENMT: Mouth: + dry oral mucous membranes Respiratory: + cough; does not use accessory muscles Auscultation: + diminished lung sounds and + crackles Cardiovascular: Rate/Rhythm: regular rate and regular rhythm Heart Sounds: normal S1 and normal S2 Extremities: normal capillary refill and + edema Gastrointestinal (Abdomen): Inspection/Auscultation: abdomen normal to inspection Skin: + ecchymosis Psychiatric: Orientation: alert and oriented x 3 Insight: + limited insight Judgement: + limited judgement Results & Data ([facility]) Vital Signs (Past 12 Hours) Vital Signs Temp Pulse Pulse Resp BP Pulse Ox 01/06/22 08:26 36.4 C L 78 18 162/52 H 94 01/06/22 03:30 36.8 C 68 18 133/61 96 01/06/22 00:22 83 01/05/22 23:30 36.8 C 68 17 126/60 95 PG Care Time/CCT Total # of Minutes Spent Total Time Spent with Patient: Total time spent is greater than 50% in coordination of care (as documented) at patient's floor/unit and/or counseling patient:100 minutes Coding Level of Care Code 30883 Inpt Consult Level 4 Diagnoses Palliative care encounter Z51.5 Difficulty clearing secretions Dysphagia R13.10 Generalized weakness R53.1 POLST (Physician Orders for Life-Sustaining Treatment) Z78.9 Time Spent (min) 100
[2022-01-06 09:52] LABS: Albumin Level 2.9 gm/dl (3.4-5.0); BUN Creatinine Ratio 21.5 (10-20); Bilirubin Direct 0.2 mg/dl (0-0.2); Bilirubin,Total 0.8 mg/dl (0.2-1.0); Calcium 8.6 mg/dl (8.5-10.1); Creatinine Clr Calc Pharmacy 38.2 ml/min; Est GFR (African American) 41.7 ml/min; Magnesium 2.2 mg/dl (1.7-2.4); Potassium 4.7 mmol/L (3.5-5.1); Total Protein 6.1 gm/dl (6.0-8.3)
--- NOTE | 2022-01-06 10:25 | Hospitalist Progress Note ---
Date of Service January 06, 2022 Assessment & Plan (1) Septic shock: Plan: Patient presents with hypothermia, bradycardia, hypotensive, pancytopenia, elevated lactate Given patient's poor speech eval, it is very likely that this is from aspiration pneumonia His pleural effusion was evaluated in September with his pneumonia and not consistent with parapneumonic effusion at that time UA negative for infection and urine culture no growth Blood cultures pending-no growth to date - Random Cortisol is 19, no stress dose steroids needed - TSH normal -Now off dopamine drip after the first day of hospitalization and blood pressures and heart rate are now normalized He is somewhat improved now with antibiotics, volume resuscitation, and rewarming with anastasiia hugger and warmed fluids With acute kidney injury continuing as below, and encephalopathy CT chest 01/04 shows aspiration pneumonitis on the right and left lower lobe atelectasis with left pleural effusion-KATERINA Estes discussed with pulmonology who does not think it is large enough to perform thoracentesis CT abdomen/pelvis no source of infection With severe dysphagia and aspiration as below-continues to be n.p.o. -Continue IV Zosyn -MRSA swab negative-discontinued vancomycin -DC IV fluids as becoming volume overloaded -Continue holding home amlodipine, furosemide, losartan - Anaplasmosis smear negative, DNA PCR pending but doubt this is the cause - No escalation of vasopressors as discussed with family Had discussion with palliative care who met with family. Patient will be focusing con comfort measures and hospice care. (2) Hypothermia: Plan: as above, now resolved with anastasiia hugger and warmed fluids -Was not hypoglycemic upon arrival, with normal random cortisol, and had normal TSH Was related to sepsis (3) Bradycardia: Plan: Presented with sinus bradycardia in the 30s to 40s Likely secondary to hypothermia and is now resolved with resolution of hypothermia, rates in the 60s-70s - Patient did have his Carvedilol discontinued at discharge from previous hospitalization -Monitor on telemetry (4) Pneumonia: Plan: Highly suggestive of aspiration pneumonia given history and CT chest findings Consult speech therapy-overtly aspirating at the bedside This is much worse than previous evaluation 3 months ago Given excessive drooling that recently started in the last few days as per his , there is a possibility he had a brainstem stroke CT head noncontrast here shows old right cerebellar stroke Would need MRI to look for brainstem stroke, but doubt with his confusion and poor pulmonary status that he would be able to lie flat and still for the MRI- family agrees and does not wish to pursue MRI at this time as 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 medications and replace with IV if needed Appreciate speech therapy consultation-for video swallow tomorrow For excessive drooling, continue Robinul 0.1 mg IV every 4 hours as needed With resting tremor, excessive drooling which thinks she did also notice during his last hospitalization as well, and declining cognitive status-question if he is developing Parkinson's disease From the day prior: I had an extensive family meeting to discuss goals of care with the patient's , 2 daughters, and son-in-law. After thorough discussion of his current status to include ongoing renal failure, respiratory failure, shock liver, and severe aspiration, they have decided that they will await the results of the video swallow tomorrow to determine if there is anything that can be done for his significant aspiration and if not, would pursue hospice/comfort measures. They know that he would definitely not want a permanent feeding tube, and the does not like the idea of even an NG tube for temporary feeds If it is more of a problem with the esophagus that could potentially be fixed with a GI procedure, then they might consider that if he is stable enough for EGD. In private, the did question to me if she made the right decision by even calling the ambulance to bring him to the hospital as he did not want to come to the hospital she said. She asks if he would have that night had she not brought him in and I said yes. She questions if she should have just let him pass away at home as he would have wanted. We discussed what it would be like to have home hospice versus hospice at a [place] [facility] if she and her family were not able to provide 24/7 care for him on home hospice. (6) Acute respiratory failure with hypoxia and hypercarbia: Plan: Secondary to aspiration pneumonia and encephalopathy causing hypoventilation Also with left pleural effusion causing left lower lobe atelectasis - PH 7.19, PaCO2 70 HCO3 28 upon arrival and improved with BiPAP - He has SIXTO but does not wear a device at home Now weaned to nasal cannula/oxygen mask at 7 L (7) Chronic kidney disease (CKD), stage II (mild): Plan: JANINE on CKD stage II - Baseline TRANSCRIPTION 1.1 With ATN secondary to septic shock in the setting of taking losartan and furosemide CT abdomen/pelvis without obstruction in the tract, Rosas catheter in place With granular casts on urinalysis, creatinine continues to trend upward to 2.4, hyperkalemic but improved to 5.3, relative metabolic acidosis at 26 for serum bicarbonate-baseline 30 Blood pressures are now improved after volume resuscitation and dopamine which has since been discontinued 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 Improved at 5.3 after insulin and D50 given as well as IV fluid resuscitation Follow BMP in the morning (9) Pleural effusion: Plan: Chronic- previously consistent with HF, transudative Does not seem large enough to tap with thoracentesis at this point With recent pneumonia, question if is parapneumonic effusion As above, not large enough to tap and likely pursuing comfort measures in the near future (10) Transaminitis: Plan: Likely secondary to acute liver injury from sepsis-currently related hypotension with increase in his INR AST and ALT remain elevated but improved from previous and INR trending back to normal - Anaplasmosis negative -Acute hepatitis panel negative for hep B and hep C, hep A is pending -Liver ultrasound from 10/15 1 does not show cirrhotic morphology and neither does CT abdomen/pelvis on 01/04 -With cholelithiasis but no evidence of CBD dilatation, total bilirubin not elevated Follow LFTs in the morning (11) Thrombocytopenia: Plan: Likley related to septic shock, was improving up to the 80s after tiara in the 60s, now back down to the 60s No evidence of bleeding - peripheral smear consistent with current condition with sepsis Follow CBC (12) Carotid arterial disease: Plan: with history of left CEA - Continue aspirin if able to take p.o. (13) Congestive heart failure: Plan: HFrEF, now resolved, most recent echocardiogram with preserved EF in 09/2021 Hold BB, ARB, anti-hypertensives while n.p.o. - follow pulmonary and systemic exam for volume overload - diurese if clinically indicated following resuscitation (14) Obstructive sleep apnea: Plan: As above biPAP at night (15) Hypothyroidism: Plan: TSH normal at 3.4 Holding p.o. levothyroxine while n.p.o. Start IV levothyroxine if remains n.p.o. for more than a few days (16) Paroxysmal atrial fibrillation: Plan: In sinus rhythm here Holding home apixaban while n.p.o. 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 Patient no longer appears to be hallucinating, however, he does not understand reason as to why he is hospitalized. Had extensive discussion with speech pathologist Review of Systems Review of Systems: Unobtainable due to cognitive status Physical Exam Physical Exam: Constitutional: WD/WN, vitals as above ENMT: Nose: no external nose abnormality Mouth: + drooling (small amount drool from right corner of mouth); no trismus Neck: trachea midline, no thyromegaly Respiratory: normal respiratory effort; no cough Auscultation: + diminished lung sounds (Left base) and + rhonchi (Right lower and middle lung garcia); no wheezes Cardiovascular: Rate/Rhythm: regular rate and regular rhythm Heart Sounds: no murmur Extremities: + edema (1+ edema of the legs and hands bilaterally) Chest (Breasts): Chest: normal inspection of chest Gastrointestinal (Abdomen): normal bowel sounds, soft, nontender, no hepatosplenomegaly Musculoskeletal: Extremities: extremities normal to inspection; no cyanosis and no clubbing Skin: no rashes, warm and dry Neurologic: moves all extremities and awake; no focal motor deficits Speech / Cognition: normal speech Motor/Sensory: + tremor (Resting tremor in right arm and hand) Psychiatric: Orientation: alert, oriented to person, oriented to place and cooperative Hallucinations: + visual hallucinations Lymphatic: no lymphedema Results & Data Results & Data ([facility]) Vital Signs (Past 12 Hours) Vital Signs Temp Pulse Pulse Resp BP Pulse Ox 01/06/22 08:26 36.4 C L 78 18 162/52 H 94 01/06/22 03:30 36.8 C 68 18 133/61 96 01/06/22 00:22 83 01/05/22 23:30 36.8 C 68 17 126/60 95 PG Care Time/CCT Total # of Minutes Spent Total Time Spent with Patient: Total time spent is greater than 50% in coordination of care (as documented) at patient's floor/unit and/or counseling patient: Coding Level of Care Code 25425 Subseq Hosp Care Lvl 2 Diagnoses Septic shock A41.9; R65.21 Hypothermia T68.XXXA Encounter type: initial encounter Bradycardia R00.1 Pneumonia J69.0 Aspiration pneumonia type: unspecified Laterality: left Lung location: lower lobe of lung Pneumonia type: aspiration pneumonia Dysphagia R13.10 Acute respiratory failure with hypoxia and hypercarbia J96.01; J96.02 Chronic kidney disease (CKD), stage II (mild) N18.2 Hyperkalemia E87.5 Pleural effusion J90 Transaminitis R74.01 Thrombocytopenia D69.6 Carotid arterial disease I77.9 Congestive heart failure I50.9 Obstructive sleep apnea G47.33 Hypothyroidism E03.9 Paroxysmal atrial fibrillation I48.0 (1) Hypothermia Encounter type: initial encounter Qualified Code(s): T68.XXXA - Hypothermia, initial encounter (2) Pneumonia Aspiration pneumonia type: unspecified Laterality: left Lung location: lower lobe of lung Pneumonia type: aspiration pneumonia Qualified Code(s): J69.0 - Pneumonitis due to inhalation of food and vomit
--- NOTE | 2022-01-06 13:59 | Fluoroscopy Report ---
VIDEO SWALLOW STUDY CLINICAL HISTORY: Dysphagia. Aspiration. COMPARISON STUDY: No priors. Fluoroscopy time: 1.6 minutes. FINDINGS: Fluoroscopic guidance was provided to the Department of Speech Pathology in performing a vi steffanie swallow study. The patient consumed barium impregnated pudding, thickened liquids, and thin bariu m while the swallowing mechanism was observed in real-time. Aspiration with cough was seen with a thi n barium wash. No penetration or aspiration was seen with the remaining sampled textures. IMPRESSION: 1. Aspiration was seen with a thin barium wash. 2. No penetration or aspiration was seen with the remaining sampled textures. 3. See dedicated speech pathology report for detailed findings and recommendations. Dictated: 01/06/2022 1:05 PM Transcribed: 01/06/2022 1:15 PM Liset [id number] [email or web address] Electronically signed by: Jaleel Tan M.D. 01/06/2022 1:58 PM
[2022-01-06 15:15] LABS: Hepatitis A Antibody IgM NON-REACTIVE (NON-REACTIVE); Hepatitis B Core Antibody IgM NON-REACTIVE (NON-REACTIVE)
[2022-01-06] MEDS ORDERED: GLYCOPYRROLATE 0.2 MG/ML VIAL IV SCH (16:00)
[2022-01-06] MEDS: ATROPINE SULFATE 1% OP SOLN 5 ML BTL OP SCH ×3 (18:08→23:39)
[2022-01-07] MEDS: ATROPINE SULFATE 1% OP SOLN 5 ML BTL OP SCH ×6 (04:01→23:28)
--- NOTE | 2022-01-07 11:57 | Palliative Care Progress Note ---
Date of Service January 07, 2022 Assessment & Plan (1) Dysphagia: Plan: Eating for comfort only. Family aware of aspiration risk. There goal is strictly for his comfort. (2) Difficulty clearing secretions: Plan: On atropine. Confusion precedes initiation of atropine. (3) Palliative care encounter: Plan: Plan for discharge home with [facility] either later today or tomorrow depending on equipment delivery. I spoke with Mrs. Reyez on the phone. She is ready for him to return home. She tells me that he has been sleeping in his recliner. We talked about a hospital bed being useful for providing care for him moving forward. She will consider this. She tells me that he is frequently confused when in the hospital and that this generally resolves when he is at home. She has support and is looking forward to his return home. Discussed with case management. Admission and Anticipated Discharge Date Admission Date: January 03, 2022 Subjective Awake. Pleasantly confused (w[place] to people [place] the beach[place] Denies pain or dyspnea. Review of Systems Review of Systems: Steen Symptom Assessment Scale Pain 0/3 Dyspnea 0/3 Drowsiness 0/3 Palliative Performance Score 40% Physical Exam Constitutional: comfortable; no acute distress Respiratory: normal respiratory effort; no labored breathing no audible rhonchi Skin: warm and dry Neurologic: awake and + confused PG Care Time/CCT Total # of Minutes Spent Total Time Spent with Patient: Total time spent is greater than 50% in coordination of care (as documented) at patient's floor/unit and/or counseling patient: Coding Level of Care Code 10570 Subseq Hosp Care Lvl 2 Diagnoses Dysphagia R13.10 Difficulty clearing secretions Palliative care encounter Z51.5
[2022-01-07] MEDS: MoRPHine SULFATE 5 MG/0.25 ML UDP PO PRN ×2 (16:12→22:24)
--- NOTE | 2022-01-07 19:55 | Hospitalist Progress Note ---
Date of Service January 07, 2022 Assessment & Plan (1) Septic shock: Plan: Patient presents with hypothermia, bradycardia, hypotensive, pancytopenia, elevated lactate Given patient's poor speech eval, it is very likely that this is from aspiration pneumonia His pleural effusion was evaluated in September with his pneumonia and not consistent with parapneumonic effusion at that time UA negative for infection and urine culture no growth Blood cultures pending-no growth to date - Random Cortisol is 19, no stress dose steroids needed - TSH normal -Now off dopamine drip after the first day of hospitalization and blood pressures and heart rate are now normalized He is somewhat improved now with antibiotics, volume resuscitation, and rewarming with anastasiia hugger and warmed fluids With acute kidney injury continuing as below, and encephalopathy CT chest 01/04 shows aspiration pneumonitis on the right and left lower lobe atelectasis with left pleural effusion-KATERINA Estes discussed with pulmonology who does not think it is large enough to perform thoracentesis CT abdomen/pelvis no source of infection With severe dysphagia and aspiration as below-continues to be n.p.o. -Continue IV Zosyn -MRSA swab negative-discontinued vancomycin -DC IV fluids as becoming volume overloaded -Continue holding home amlodipine, furosemide, losartan - Anaplasmosis smear negative, DNA PCR pending but doubt this is the cause - No escalation of vasopressors as discussed with family Had discussion with palliative care who met with family. Patient will be focusing on comfort measures and hospice care. Patient will be discharged on hospice tomorrow. (2) Hypothermia: Plan: as above, now resolved with anastasiia hugger and warmed fluids -Was not hypoglycemic upon arrival, with normal random cortisol, and had normal TSH Was related to sepsis (3) Bradycardia: Plan: Presented with sinus bradycardia in the 30s to 40s Likely secondary to hypothermia and is now resolved with resolution of hypothermia, rates in the 60s-70s - Patient did have his Carvedilol discontinued at discharge from previous hospitalization -Monitor on telemetry (4) Pneumonia: Plan: Highly suggestive of aspiration pneumonia given history and CT chest findings Consult speech therapy-overtly aspirating at the bedside This is much worse than previous evaluation 3 months ago Given excessive drooling that recently started in the last few days as per his , there is a possibility he had a brainstem stroke 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 medications and replace with IV if needed Appreciate speech therapy consultation-for video swallow tomorrow For excessive drooling, continue Robinul 0.1 mg IV every 4 hours as needed With resting tremor, excessive drooling which thinks she did also notice during his last hospitalization as well, and declining cognitive status-question if he is developing Parkinson's disease From the day prior: I had an extensive family meeting to discuss goals of care with the patient's , 2 daughters, and son-in-law. After thorough discussion of his current status to include ongoing renal failure, respiratory failure, shock liver, and severe aspiration, they have decided that they will await the results of the video swallow tomorrow to determine if there is anything that can be done for his significant aspiration and if not, would pursue hospice/comfort measures. They know that he would definitely not want a permanent feeding tube, and the does not like the idea of even an NG tube for temporary feeds If it is more of a problem with the esophagus that could potentially be fixed with a GI procedure, then they might consider that if he is stable enough for EGD. In private, the did question to me if she made the right decision by even calling the ambulance to bring him to the hospital as he did not want to come to the hospital she said. She asks if he would have that night had she not brought him in and I said yes. She questions if she should have just let him pass away at home as he would have wanted. We discussed what it would be like to have home hospice versus hospice at a shelter if she and her family were not able to provide 24/7 care for him on home hospice. (6) Acute respiratory failure with hypoxia and hypercarbia: Plan: Secondary to aspiration pneumonia and encephalopathy causing hypoventilation Also with left pleural effusion causing left lower lobe atelectasis - PH 7.19, PaCO2 70 HCO3 28 upon arrival and improved with BiPAP - He has SIXTO but does not wear a device at home Now weaned to nasal cannula/oxygen mask at 7 L (7) Chronic kidney disease (CKD), stage II (mild): Plan: JANINE on CKD stage II - Baseline BELL PERSON 1.1 With ATN secondary to septic shock in the setting of taking losartan and furosemide CT abdomen/pelvis without obstruction in the tract, Rosas catheter in place With granular casts on urinalysis, creatinine continues to trend upward to 2.4, hyperkalemic but improved to 5.3, relative metabolic acidosis at 26 for serum bicarbonate-baseline 30 Blood pressures are now improved after volume resuscitation and dopamine which has since been discontinued His urine output started to 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 Improved at 5.3 after insulin and D50 given as well as IV fluid resuscitation Follow BMP in the morning (9) Pleural effusion: Plan: Chronic- previously consistent with HF, transudative Does not seem large enough to tap with thoracentesis at this point With recent pneumonia, question if is parapneumonic effusion As above, not large enough to tap and likely pursuing comfort measures in the near future (10) Transaminitis: Plan: Likely secondary to acute liver injury from sepsis-currently related hypotension with increase in his INR AST and ALT remain elevated but improved from previous and INR trending back to normal - Anaplasmosis negative -Acute hepatitis panel negative for hep B and hep C, hep A is pending -Liver ultrasound from 10/15 1 does not show cirrhotic morphology and neither does CT abdomen/pelvis on 01/04 -With cholelithiasis but no evidence of CBD dilatation, total bilirubin not elevated Follow LFTs in the morning (11) Thrombocytopenia: Plan: Likley related to septic shock, was improving up to the 80s after tiara in the 60s, now back down to the 60s No evidence of bleeding - peripheral smear consistent with current condition with sepsis Follow CBC (12) Carotid arterial disease: Plan: with history of left CEA - Continue aspirin if able to take p.o. (13) Congestive heart failure: Plan: HFrEF, now resolved, most recent echocardiogram with preserved EF in 09/2021 Hold BB, ARB, anti-hypertensives while n.p.o. - follow pulmonary and systemic exam for volume overload - diurese if clinically indicated following resuscitation (14) Obstructive sleep apnea: Plan: As above biPAP at night (15) Hypothyroidism: Plan: TSH normal at 3.4 Holding p.o. levothyroxine while n.p.o. Start IV levothyroxine if remains n.p.o. for more than a few days (16) Paroxysmal atrial fibrillation: Plan: In sinus rhythm here Holding home apixaban while n.p.o. No need for heparin drip as remains in sinus rhythm Not on AV paula blocking agents due to bradycardia Plan: DVT prophylaxis-SCDs Disposition-continued stay on PCU, prognosis guarded [employer] MECH[employer]IC DNR/DNI Discussed his care with his , 2 daughters, and son-in-law extensively on 01/05 Admission and Anticipated Discharge Date Admission Date: January 03, 2022 Subjective Patient appears somewhat confused. Patient however reports he is in no distress nor does he have any pain, Review of Systems Review of Systems: All systems reviewed & are unremarkable except as noted in HPI & below Physical Exam Physical Exam: Constitutional: WD/WN, vitals as above ENMT: Nose: no external nose abnormality Mouth: no drooling, no trismus Neck: trachea midline, no thyromegaly Respiratory: normal respiratory effort; no cough Auscultation: + diminished lung sounds (Left base) and + rhonchi (Right lower and middle lung garcia); no wheezes Cardiovascular: Rate/Rhythm: regular rate and regular rhythm Heart Sounds: no murmur Extremities: + edema (1+ edema of the legs and hands bilaterally) Chest (Breasts): Chest: normal inspection of chest Gastrointestinal (Abdomen): normal bowel sounds, soft, nontender, no hepatos plenomegaly Musculoskeletal: Extremities: extremities normal to inspection; no cyanosis and no clubbing Skin: no rashes, warm and dry Neurologic: moves all extremities and awake; no focal motor deficits Speech / Cognition: normal speech Motor/Sensory: + tremor (Resting tremor in right arm and hand) Psychiatric: Orientation: alert, oriented to person, oriented to place and cooperative no hallucinations Lymphatic: no lymphedema PG Care Time/CCT Total # of Minutes Spent Total Time Spent with Patient: Total time spent is greater than 50% in coordination of care (as documented) at patient's floor/unit and/or counseling patient: Coding Level of Care Code 74518 Subseq Hosp Care Lvl 2 Diagnoses Septic shock A41.9; R65.21 Hypothermia T68.XXXA Encounter type: initial encounter Bradycardia R00.1 Pneumonia J69.0 Aspiration pneumonia type: unspecified Laterality: left Lung location: lower lobe of lung Pneumonia type: aspiration pneumonia Dysphagia R13.10 Acute respiratory failure with hypoxia and hypercarbia J96.01; J96.02 Chronic kidney disease (CKD), stage II (mild) N18.2 Hyperkalemia E87.5 Pleural effusion J90 Transaminitis R74.01 Thrombocytopenia D69.6 Carotid arterial disease I77.9 Congestive heart failure I50.9 Obstructive sleep apnea G47.33 Hypothyroidism E03.9 Paroxysmal atrial fibrillation I48.0 Time Spent (min) 25 (1) Hypothermia Encounter type: initial encounter Qualified Code(s): T68.XXXA - Hypothermia, initial encounter (2) Pneumonia Aspiration pneumonia type: unspecified Laterality: left Lung location: lower lobe of lung Pneumonia type: aspiration pneumonia Qualified Code(s): J69.0 - Pneumonitis due to inhalation of food and vomit
[2022-01-07] MEDS ORDERED: LORazepam 2 MG/1 ML VIAL IV PRN (22:54)
[2022-01-08] MEDS: ATROPINE SULFATE 1% OP SOLN 5 ML BTL OP SCH ×3 (03:24→12:23)
[2022-01-08] MEDS: MoRPHine SULFATE 5 MG/0.25 ML UDP PO PRN (07:12)
--- NOTE | 2022-01-13 20:47 | Discharge Summary ---
Date of Service January 08, 2022 Principal Diagnosis septic shock Discharge Exam Constitutional: WD/WN, vitals as above ENMT: Nose: no external nose abnormality Mouth: no drooling, no trismus Neck: trachea midline, no thyromegaly Respiratory: normal respiratory effort; no cough Auscultation: + diminished lung sounds (Left base) and + rhonchi (Right lower and middle lung garcia); no wheezes Cardiovascular: Rate/Rhythm: regular rate and regular rhythm Heart Sounds: no murmur Extremities: + edema (1+ edema of the legs and hands bilaterally) Chest (Breasts): Chest: normal inspection of chest Gastrointestinal (Abdomen): normal bowel sounds, soft, nontender, no hepatosplenomegaly Musculoskeletal: Extremities: extremities normal to inspection; no cyanosis and no clubbing Skin: no rashes, warm and dry Neurologic: moves all extremities and awake; no focal motor deficits Speech / Cognition: normal speech Motor/Sensory: + tremor (Resting tremor in right arm and hand) Psychiatric: Orientation: alert, oriented to person, oriented to place and c ooperative no hallucinations Lymphatic: no lymphedema Discharge Data Allergies Allergy/AdvReac Type Severity Reaction Status Date / Time Gadolinium-Containing Allergy Severe ANAPHYLAXIS Verified 01/03/22 14:55 Contrast Medi Iodinated Contrast Media Allergy Severe ANAPHYLAXIS Verified 01/03/22 14:55 Consultations 01/03/22 14:31 ED Decision to Admit Stat 01/05/22 08:07 Consult Gastroenterology Routine 01/05/22 16:31 Consult Palliative Care Routine Ordered Studies 01/04/22 09:09 CT chest diagnostic wo con Urgent CT head/brain wo con Routine 01/04/22 09:21 CT abd pelvis wo con Urgent 01/06/22 11:00 FL video swallow Routine Hospital Course (1) Septic shock: Patient presents with hypothermia, bradycardia, hypotensive, pancytopenia, elevated lactate Given patient's poor speech eval, it is very likely that this is from aspiration pneumonia His pleural effusion was evaluated in September with his pneumonia and not consistent with parapneumonic effusion at that time UA negative for infection and urine culture no growth Blood cultures pending-no growth to date - Random Cortisol is 19, no stress dose steroids needed - TSH normal -Now off dopamine drip after the first day of hospitalization and blood pressures and heart rate are now normalized He is somewhat improved now with antibiotics, volume resuscitation, and rewarming with anastasiia hugger and warmed fluids With acute kidney injury continuing as below, and encephalopathy CT chest 01/04 shows aspiration pneumonitis on the right and left lower lobe atelectasis with left pleural effusion-KATERINA Estes discussed with pulmonology who does not think it is large enough to perform thoracentesis CT abdomen/pelvis no source of infection With severe dysphagia and aspiration as below-continues to be n.p.o. -Continue IV Zosyn -MRSA swab negative-discontinued vancomycin -DC IV fluids as becoming volume overloaded -Continue holding home amlodipine, furosemide, losartan - Anaplasmosis smear negative, DNA PCR pending but doubt this is the cause - No escalation of vasopressors as discussed with family Had discussion with palliative care who met with family. Patient will be focusing on comfort measures and hospice care. Patient will be discharged on hospice. (2) Hypothermia: as above, now resolved with anastasiia hugger and warmed fluids -Was not hypoglycemic upon arrival, with normal random cortisol, and had normal TSH Was related to sepsis (3) Bradycardia: Presented with sinus bradycardia in the 30s to 40s Likely secondary to hypothermia and is now resolved with resolution of hypothermia, rates in the 60s-70s - Patient did have his Carvedilol discontinued at discharge from previous hospitalization -Monitor on telemetry (4) Pneumonia: Highly suggestive of aspiration pneumonia given history and CT chest findings Consult speech therapy-overtly aspirating at the bedside This is much worse than previous evaluation 3 months ago Given excessive drooling that recently started in the last few days as per his , there is a possibility he had a brainstem stroke 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 medications and replace with IV if needed Appreciate speech therapy consultation-for video swallow tomorrow For excessive drooling, continue Robinul 0.1 mg IV every 4 hours as needed With resting tremor, excessive drooling which thinks she did also notice during his last hospitalization as well, and declining cognitive status-question if he is developing Parkinson's disease From the day prior: I had an extensive family meeting to discuss goals of care with the patient's , 2 daughters, and son-in-law. After thorough discussion of his current status to include ongoing renal failure, respiratory failure, shock liver, and severe aspiration, they have decided that they will await the results of the video swallow tomorrow to determine if there is anything that can be done for his significant aspiration and if not, would pursue hospice/comfort measures. They know that he would definitely not want a permanent feeding tube, and the does not like the idea of even an NG tube for temporary feeds If it is more of a problem with the esophagus that could potentially be fixed with a GI procedure, then they might consider that if he is stable enough for EGD. In private, the did question to me if she made the right decision by even calling the ambulance to bring him to the hospital as he did not want to come to the hospital she said. She asks if he would have that night had she not brought him in and I said yes. She questions if she should have just let him pass away at home as he would have wanted. We discussed what it would be like to have home hospice versus hospice at a skilled nursing if she and her family were not able to provide 24/7 care for him on home hospice. 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 With ATN secondary to septic shock in the setting of taking losartan and furosem nestor CT abdomen/pelvis without obstruction in the tract, Rosas catheter in place With granular casts on urinalysis, creatinine continues to trend upward to 2.4, hyperkalemic but improved to 5.3, relative metabolic acidosis at 26 for serum bicarbonate-baseline 30 Blood pressures are now improved after volume resuscitation and dopamine which has since been discontinued 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 Improved at 5.3 after insulin and D50 given as well as IV fluid resuscitation Follow BMP in the morning (9) Pleural effusion: Chronic- previously consistent with HF, transudative Does not seem large enough to tap with thoracentesis at this point With recent pneumonia, question if is parapneumonic effusion As above, not large enough to tap and likely pursuing comfort measures in the near future (10) Transaminitis: Likely secondary to acute liver injury from sepsis-currently related hypotension with increase in his INR AST and ALT remain elevated but improved from previous and INR trending back to normal - Anaplasmosis negative -Acute hepatitis panel negative for hep B and hep C, hep A is pending -Liver ultrasound from 10/15 1 does not show cirrhotic morphology and neither does CT abdomen/pelvis on 01/04 -With cholelithiasis but no evidence of CBD dilatation, total bilirubin not elevated Follow LFTs in the morning (11) Thrombocytopenia: Likley related to septic shock, was improving up to the 80s after tiara in the 60s, now back down to the 60s No evidence of bleeding - peripheral smear consistent with current condition with sepsis Follow CBC (12) Carotid arterial disease: with history of left CEA - Continue aspirin if able to take p.o. (13) Congestive heart failure: HFrEF, now resolved, most recent echocardiogram with preserved EF in 09/2021 Hold BB, ARB, anti-hypertensives while n.p.o. - follow pulmonary and systemic exam for volume overload - diurese if clinically indicated following resuscitation (14) Obstructive sleep apnea: As above biPAP at night (15) Hypothyroidism: TSH normal at 3.4 Holding p.o. levothyroxine while n.p.o. Start IV levothyroxine if remains n.p.o. for more than a few days (16) Paroxysmal atrial fibrillation: In sinus rhythm here Holding home apixaban while n.p.o. 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 Discussed his care with his , 2 daughters, and son-in-law extensively on 01/05 Total Time Total Time Spent Total Time Spent (In Minutes): 32 Discharge Plan Discharge Items Patient Disposition: Hospice - Home Reason For Visit: HYPOTHERMIA, BRADYCARDIA, SEPSIS Discharge Diagnosis: hypothermia Activity: Resume your previous activity Non-emergency contact: Primary Care Provider Call non-emergency contact if: you have any medication questions Follow-up/Referrals: Dao Ryan MD [Primary Care Provider] - Diet: Carb Consistent or DM2 Diet Texture: Easy to Chew Addtl Attending Provider Instructions: being discharged on home hospice Pending Studies at Discharge: No Stand-Alone Forms: My eASIC Medications and DC Order Prescriptions: New morphine concentrate 100 mg/5 mL (20 mg/mL) Solution 5 mg PO Q6H PRN (Reason: SOB/pain) Qty: 30 RF: 0 atropine 1 % Drops 4 drp buccal Q4 PRN (Reason: secretions) Qty: 5 RF: 0 lorazepam 1 mg/0.5 mL syringe 1 mg PO Q4H PRN (Reason: anxiety) Qty: 10 RF: 0 Continued (DME) Oxygen Home Liters Per Minute See Rx Instructions .Route Qty: 1 RF: 0 (DME) Wheeled Walker Misc See Rx Instructions .Route Qty: 1 RF: 0 Discontinued atorvastatin 40 mg tablet 40 mg PO HS Qty: 90 RF: 3 polyethylene glycol 3350 17 gram/dose powder 17 gm PO DAILY PRN (Reason: Constipation) Qty: 1 RF: 0 nitroglycerin 0.4 mg tablet, sublingual 0.4 mg SL Q5M PRN (Reason: chest pain) Qty: 25 RF: 2 trazodone 50 mg tablet 50 - 100 mg PO HS RF: 0 furosemide 40 mg Tablet 40 mg PO BID RF: 0 aspirin 81 mg Tablet,Delayed Release (Dr/Ec) 81 mg PO DAILY RF: 0 pantoprazole 20 mg tablet,delayed release (DR/EC) 20 mg PO PM PRN (Reason: gastric upset) RF: 0 Discharge Orders: Discharge Order (Routine); Ordered 01/08/22 Ordered By: Terrell Burden/Other Patient Handouts: High Blood Sugar (Hyperglycemia), Hypoglycemia (Low Blood Sugar), Managing Type 2 Diabetes Admission Data Admit Date/Time: 01/03/22 17:23 Attending Provider: Terrell Norman Admit Provider: Cari Taylor Primary Care Provider: Dao Ryan Other Providers: [facility] ; Cari Taylor ; Husam Jain ; Sydnie Park Other Interventions: Discharge Summary Assessment (RN) Last Done: 01/08/22 13:40 Coding Level of Care Code D/C DAY MANAGEMENT >30 MINS Diagnoses Septic shock A41.9; R65.21 Hypothermia T68.XXXA Encounter type: initial encounter Bradycardia R00.1 Pneumonia J69.0 Aspiration pneumonia type: unspecified Laterality: left Lung location: lower lobe of lung Pneumonia type: aspiration pneumonia Dysphagia R13.10 Acute respiratory failure with hypoxia and hypercarbia J96.01; J96.02 Chronic kidney disease (CKD), stage II (mild) N18.2 Hyperkalemia E87.5 Pleural effusion J90 Transaminitis R74.01 Thrombocytopenia D69.6 Carotid arterial disease I77.9 Congestive heart failure I50.9 Obstructive sleep apnea G47.33 Hypothyroidism E03.9 Paroxysmal atrial fibrillation I48.0
== END 2022-01-08 14:39 | disposition hospice, home (50) | DRG 871 ==
LOC: ED 12:30 → 2S 17:23 → SUATTDRO 17:23 → 2S 18:31 → 3E 01-06 20:23